=== PATIENT | female | born 1975 | race Caucasian/White ===

== ENCOUNTER 2020-11-06 08:18 | Inpatient (IN) | payer SELFPAY ==
[2020-11-06] VITALS (13 sets, daily range): BP systolic 148–209; BP diastolic 103–149; PULSE 84–110; RESP 15–30; TEMP 36.4–36.8; O2SAT 95–100; BMI 28.6
[2020-11-06] MEDS: sodium chloride 0.9% 1,000 ML 999 ML IV (09:17)
[2020-11-06] MEDS: lidocaine 2% viscous 15 ML, aluminum-mag hydrox-simethicon 30 ML, sucralfate oral liq 1 GM PO (09:18)
--- NOTE | 2020-11-06 09:20 | W.ED.ABDPA2 ---
HPI - Abdominal Pain General: Chief Complaint: Abdominal Pain Stated Complaint: ABDOMEN PAIN Time Seen by Provider: 11/06/20 08:42 History of Present Illness: HPI narrative: 45-year-old female presents emergency room complaining of epigastric and abdominal pain primarily in the left upper quadrant radiating into the left upper quadrant. It began last night she does admit to drinking a moderate amount last night she does drink fairly regularly. She has been very nauseous. She is not had any chest pain. It is painful to take a deep breath she says most the pain is in her abdomen when she takes a deep breath. MD elicited complaint: abdominal pain Onset (ago): hour(s) Pain Consistency: constant Location: Epigastric and LUQ Severity: severe Quality: cramping and stabbing Radiation: L flank Exacerbating factors: eating Relieving factors: medication (In the emergency room) Associated Symptoms: Reports anorexia, GI cramping, dyspepsia, heartburn, melena, nausea and poor appetite; Denies belching, bloating, change in bowel habits, change in stool character, chills, coffee ground emesis, constipation, diarrhea, dysuria, excessive flatus, fever(s), hematochezia, hematuria, hematemesis, fecal incontinence, loose stools, syncope and vomiting Review of Systems Const: Denies: fever(s) or chills ENMT: Denies: throat pain, ear or mastoid pain, nasal discharge or nasal congestion Card: Denies: syncope Resp: Denies: dyspnea, productive cough or non-productive cough GI: Reports: nausea, heartburn, GI cramping and melena; Denies: vomiting, hematemesis, coffee ground emesis, diarrhea, constipation, bloating, belching, excessive flatus, fecal incontinence, change in bowel habits, change in stool character or hematochezia : Denies: dysuria or hematuria Skin/Breast: Denies: rash or pruritus PFSH ED PFSH: Medical History Alcohol use disorder, moderate, dependence Hypothyroidism Recurrent nephrolithiasis Soft tissue abscess Steatohepatitis, alcoholic Surgical History Gastric bypass status for obesity H/O lithotripsy S/P cholecystectomy Family History Mother , Sudden at age 60. It was suspected to be due to [place] No problems noted. Father , Diabetes with hypertriglyceridemia No problems noted. Social History Smoking and tobacco status: never smoked Alcohol intake: current Alcohol intake frequency: 3 or more drinks per day Alcohol type: beer Desire information about alcohol rehabilitation?: No Counseling given: Yes Type of substance drug use counseling provided: provider counseling Lives independently: Yes Household members: spouse Physical Exam Const: COMMON NORMALS: no acute distress GENERAL APPEARANCE: cooperative and comfortable ORIENTATION/CONSCIOUSNESS: Yes awake, Yes oriented to person, Yes oriented to place and Yes oriented to time HENMT: COMMON NORMALS: normocephalic, atraumatic, hearing grossly normal bilaterally and external ears normal HEAD & SCALP: normocephalic and atraumatic EXTERNAL EAR: Yes external ears normal Neck/C-Spine: COMMON NORMALS: no JVD Lymph: LYMPHATIC: no lymphadenopathy noted and no lymphedema noted Resp: COMMON NORMALS: normal respiratory effort, No retractions, No use of accessory muscles and clear to auscultation bilaterally AUSCULTATION: clear to auscultation bilaterally Cardio: COMMON NORMALS: no JVD, regular rate, regular rhythm and No murmurs present (Cardio) RATE: regular rate RHYTHM: regular rhythm GI: AUSCULTATION: Yes normoactive bowel sounds PALPATION: Yes Tenderness to palpation present (GI) (epigastric) Details: LUQ and No Guarding due to palpation present (GI) Extremity: COMMON NORMALS: normal to inspection, capillary refill normal, no clubbing, cyanosis or edema, no calf tenderness and no pedal edema Neuro: SENSORIUM/ORIENTATION: Yes oriented to person, Yes oriented to place and Yes oriented to time Skin: COMMON NORMALS: no rashes or lesions noted GENERAL SKIN EXAM: no rashes or lesions noted Course Vital Signs: Vital signs: Vital Signs Temperature 98.4 F 11/09/20 13:32 Pulse Rate 73 11/09/20 13:32 Respiratory Rate 18 11/09/20 13:32 Blood Pressure 136/92 11/09/20 13:32 Pulse Oximetry 98 11/09/20 13:32 MDM - Abdominal Pain Lab Data: Labs: Lab Results 11/06/20 11/06/20 11/06/20 Range/Units 09:13 09:13 09:13 WBC 7.2 (4.0-10.0) 10^3/ uL RBC 4.50 (4.1-5.3) 10^6/u L Hgb 12.5 (11.5-15.3) g/dL Hct 38.2 (37.0-47.0) % MCV 84.9 (81-99) fL MCH 27.8 L (28.0-34.0) pg MCHC 32.7 (30.0-36.0) g/dL RDW 14.7 (12.1-15.1) % Plt Count 202 (130-400) 10^3/c mm MPV 10.2 (7.4-10.4) fL Neut % (Auto) 80.1 % Lymph % (Auto) 12.0 % [place] % (Auto) 6.4 % Eos % (Auto) 0.3 % Baso % (Auto) 0.8 % Neut # (Auto) 5.72 (1.8-7.7) 10^3/u L Lymph # (Auto) 0.9 (0.8-4.8) 10^3/u L [place] # (Auto) 0.5 (0.2-0.9) 10^3/u L Eos # (Auto) 0.0 (0.0-0.8) 10^3/u L Baso # (Auto) 0.1 (0.0-0.1) 10^3/u L Nucleated RBC % (a uto) 0 % Nucleated RBCs # 0.0 /100WBC Sodium 133 L (136-145) mmol/L Potassium 3.1 L (3.5-5.1) mmol/L Chloride 91 L (98-107) mmol/L Carbon Dioxide 27 (22-29) mmol/L Anion Gap 18.1 (5-19) BUN 4 L (6-20) mg/dL Creatinine 0.4 L (0.5-0.9) mg/dL GFR Calculation 171.1 H (90-130) mL/min Glucose 95 (65-115) mg/dL Calculated Osmolal ity 273 L (285-295) mOsm/k g Calcium 9.8 (8.5-10.5) mg/dL Magnesium 1.4 L (1.7-2.3) mg/dL Total Bilirubin 1.0 (0.15-1.2) mg/dL AST 71 H (0-32) U/L ALT 36 H (0-33) U/L Alkaline Phosphata se 205 H (35-105) IU/L Total Protein 9.1 H (6.6-8.7) g/dL Albumin 4.5 (3.5-5.2) g/dL Globulin 4.6 (1.3-4.6) g/dL Triglycerides 102 (0-150) mg/dL Cholesterol 220 H (0-200) mg/dL LDL Cholesterol, C alc 85 (50-129) mg/dL HDL Cholesterol 115 H (60-100) mg/dL LDL/HDL Ratio 0.74 (0.00-3.22) RATI O Cholesterol/HDL Ra isabela 1.91 (0.0-4.40) mg/dL Lipase 1612 H (13-60) U/L Vitamin B12 763 (232-1245) pg/mL Urine Color (Yellow) Urine Appearance (CLEAR) Urine pH (5-7) Ur Specific Gravit y (1.005-1.030) Urine Protein (Negative) Urine Glucose (UA) (Normal) Urine Ketones (Negative) Urine Blood (Negative) Urine Nitrate (Negative) Urine Bilirubin (Negative) Urine Urobilinogen (Negative) mg/dL Ur Leukocyte Tammy ase (Negative) Urine RBC (0-2) /hpf Urine WBC (0-5) /hpf Ur Squamous Epith Cells (0-5) /hpf Amorphous Sediment Urine Bacteria (NONE) /hpf 11/06/20 Range/Units 09:46 WBC (4.0-10.0) 10^3/ uL RBC (4.1-5.3) 10^6/u L Hgb (11.5-15.3) g/dL Hct (37.0-47.0) % MCV (81-99) fL MCH (28.0-34.0) pg MCHC (30.0-36.0) g/dL RDW (12.1-15.1) % Plt Count (130-400) 10^3/c mm MPV (7.4-10.4) fL Neut % (Auto) % Lymph % (Auto) % [place] % (Auto) % Eos % (Auto) % Baso % (Auto) % Neut # (Auto) (1.8-7.7) 10^3/u L Lymph # (Auto) (0.8-4.8) 10^3/u L [place] # (Auto) (0.2-0.9) 10^3/u L Eos # (Auto) (0.0-0.8) 10^3/u L Baso # (Auto) (0.0-0.1) 10^3/u L Nucleated RBC % (a uto) % Nucleated RBCs # /100WBC Sodium (136-145) mmol/L Potassium (3.5-5.1) mmol/L Chloride (98-107) mmol/L Carbon Dioxide (22-29) mmol/L Anion Gap (5-19) BUN (6-20) mg/dL Creatinine (0.5-0.9) mg/dL GFR Calculation (90-130) mL/min Glucose (65-115) mg/dL Calculated Osmolal ity (285-295) mOsm/k g Calcium (8.5-10.5) mg/dL Magnesium (1.7-2.3) mg/dL Total Bilirubin (0.15-1.2) mg/dL AST (0-32) U/L ALT (0-33) U/L Alkaline Phosphata se (35-105) IU/L Total Protein (6.6-8.7) g/dL Albumin (3.5-5.2) g/dL Globulin (1.3-4.6) g/dL Triglycerides (0-150) mg/dL Cholesterol (0-200) mg/dL LDL Cholesterol, C alc (50-129) mg/dL HDL Cholesterol (60-100) mg/dL LDL/HDL Ratio (0.00-3.22) RATI O Cholesterol/HDL Ra isabela (0.0-4.40) mg/dL Lipase (13-60) U/L Vitamin B12 (232-1245) pg/mL Urine Color Yellow (Yellow) Urine Appearance Clear (CLEAR) Urine pH 7 (5-7) Ur Specific Gravit y 1.000 L (1.005-1.030) Urine Protein Trace (Negative) Urine Glucose (UA) Norm (Normal) Urine Ketones Negative (Negative) Urine Blood Neg (Negative) Urine Nitrate Negative (Negative) Urine Bilirubin Neg (Negative) Urine Urobilinogen Norm (Negative) mg/dL Ur Leukocyte Tammy ase Negative (Negative) Urine RBC 0-4 H (0-2) /hpf Urine WBC 0-4 H (0-5) /hpf Ur Squamous Epith Cells 0-4 H (0-5) /hpf Amorphous Sediment Not Reportable Urine Bacteria Trace (NONE) /hpf Discharge Plan Discharge Patient Disposition: Admitted As Inpatient Admit Provider: Vimal Pond Clinical Impression: Acute pancreatitis, Alcohol use disorder, moderate, dependence, Steatohepatitis, alcoholic Condition: Stable Discharge Diet: Advance as tolerated Discharge Activity: Increase activity as tolerated Coding Level of Care Code ED Subgrade Tester for Gracy Ansari
[2020-11-06 09:21] LABS: Basophils # 0.1 10^3/uL (0.0-0.1); Basophils % 0.8 %; Eosinophils % 0.3 %; Hematocrit 38.2 % (37.0-47.0); Hemoglobin 12.5 g/dL (11.5-15.3); Lymphocytes # 0.9 10^3/uL (0.8-4.8); Mean Corpuscular HGB Conc 32.7 g/dL (30.0-36.0); Mean Corpuscular Hemoglobin 27.8 pg (28.0-34.0); Mean Corpuscular Volume 84.9 fL (81-99); Mean Platelet Volume 10.2 fL (7.4-10.4); Monocytes # 0.5 10^3/uL (0.2-0.9); Monocytes % 6.4 %; Neutrophils # 5.72 10^3/uL (1.8-7.7); Neutrophils % 80.1 %; Nucleated Red Blood Cells % 0 %; Platelet Count 202 10^3/cmm (130-400); Red Cell Distribution Width 14.7 % (12.1-15.1); White Blood Count 7.2 10^3/uL (4.0-10.0)
[2020-11-06] MEDS: ondansetron 2 mg/ML SDV 2 mL 4 MG IVP ×2 (09:21→23:39)
[2020-11-06] MEDS: famotidine 20 mg/2 mL INJ 40 MG IVP (09:23)
[2020-11-06] MEDS: morphine 4 mg/mL SDV 1 mL IVP ×2 (09:26→11:29)
[2020-11-06 09:38] LABS: Alanine Aminotransferase 36 U/L (0-33); Albumin Level 4.5 g/dL (3.5-5.2); Alkaline Phosphatase 205 IU/L (35-105); Anion Gap 18.1 (5-19); Aspartate Amino Transferase 71 U/L (0-32); Blood Urea Nitrogen 4 mg/dL (6-20); Calcium 9.8 mg/dL (8.5-10.5); Carbon Dioxide 27 mmol/L (22-29); Chloride 91 mmol/L (98-107); Globulin 4.6 g/dL (1.3-4.6); Glomerular Filtration Rate 171.1 mL/min (90-130); Glucose 95 mg/dL (65-115); Osmolality Calculated 273 mOsm/kg (285-295); Potassium 3.1 mmol/L (3.5-5.1); Sodium 133 mmol/L (136-145); Total Protein 9.1 g/dL (6.6-8.7)
[2020-11-06 09:45] LABS: Lipase 1612 U/L (13-60)
[2020-11-06 10:16] LABS: Add Urine Culture? No; Add Urine Microscopic? YES; Bacteria Urine TRACE /hpf; Bilirubin Urine Neg (Negative); Blood Urine Neg (Negative); Glucose Urine UA Norm (Normal); Ketones Urine Negative (Negative); Leukocyte Esterase Urine Negative (Negative); Nitrate Urine Negative (Negative); Protein Urine Trace (Negative); RBC Urine 0-4 /hpf (0-2); Squamous Epithelial Cell Urine 0-4 /hpf (0-5); Urine Appearance Clear (CLEAR); Urine Color Yellow (Yellow); Urobilinogen Urine Norm (Negative); WBC Urine 0-4 /hpf (0-5); pH Urine 7 (5-7)
--- NOTE | 2020-11-06 10:34 | CT_ITS ---
WS: [id number] CT ABDOMEN PELVIS TECHNIQUE: Contrast-enhanced CT of the abdomen and pelvis with coronal and sagittal reformatted image s. CLINICAL INFORMATION: abd pain COMPARISON: CT abdomen pelvis 2 29,012 DLP: 773.[address] scans at [facility] use at least one of these dose optimization techniques: automat ed exposure control; mA and/or kV adjustment per patient size (includes targeted exams where dose is matched to clinical indication); or iterative reconstruction. FINDINGS:Diffuse edema with inflammatory stranding about the pancreas. Mild dilatation of the pancrea tic duct and common bile duct. Fluid about the pancreatic head, body, and tail. Normal pancreatic par enchymal enhancement. Findings consistent with pancreatitis. Small epigastric hernia in the upper abd omen with herniated omental fat. Celiac and SMA appear patent. Splenic vein is patent. Innumerable small soft tissue nodules in the gluteus bilaterally with a few small peripheral enhancin g fluid collections measuring approximately 1.5-2.0 CM. Findings may be related to prior cosmetic int ramuscular fat or silicone injections. Mild diffuse inflammatory stranding and induration in both but tocks. Prominent inguinal lymph nodes likely reactive to the presumed buttock injections. Diffuse fatty infiltration of the liver. Normal portal vein and splenic vein. Cholecystectomy clips. Postoperative changes at the GE junction. Gastric banding. Lung bases are well aerated. Normal spleen . Adrenal glands are normal. Normal renal parenchymal enhancement. No hydronephrosis. [id number]-[id number] amount of free fluid in the pelvis. Normal sigmoid colon. No evidence of high-grade small or large bowel obstruction. Normal caliber abdominal aorta. No periaortic lymphadenopathy. CT/CT abdomen pelvis w con* [id number] IMPRESSION: 1. Diffuse edema with fluid and inflammatory stranding about the pancreas cons istent with pancreatitis. Recommend correlation with pancreatic enzymes 2. Mild dilatation of the pancreatic duct and common bile duct. Splenic vein i s patent. Normal pancreatic parenchymal enhancement. 3. Prior postoperative changes gastric bypass. 4. No hydronephrosis in either kidney. 5. Diffuse fatty infiltration liver. 6. Small amount of free fluid in the pelvis. 7. Bilateral innumerable small soft tissue nodules in both buttocks with a few peripheral enhancing small fluid collections measuring approximately 1.5 CM. F indings may be related to prior cosmetic fat or silicon injections 8. Fat-containing epigastric hernia. Notified Sim Urban DO at 11/06/2020 11:25 AM.
[2020-11-06] MEDS: iohexol 300 mg/mL 100 mL Btl IV (10:51)
[2020-11-06] MEDS: amlodipine 5 mg Tablet PO (11:23)
[2020-11-06] MEDS: metoprolol tartrate 1 mg/1 mL SDV 5 mL 2.5 MG IV (11:24)
[2020-11-06] MEDS: LORazepam 2 mg/mL INJ 1 mL IVP (11:26)
[2020-11-06] MEDS: piperacillin-tazobactam 3.375 GM in sodium chloride 0.9% (plus) 50 ML IV (12:20)
--- NOTE | 2020-11-06 13:15 | P.HP_ITS ---
Providers/Chief Complaint Chief Complaint: ABDOMEN PAIN History of Present Illness Judie Rhodes is a 45 year old female presents to emergency department with severe 9 out of 10 sharp epigastric area pain radiating to her back that started yesterday. Patient had 2 episodes of nausea and vomiting and also reports 2 episodes of diarrheal bowel movements since yesterday. She denies fever or chills. Her abdominal pain is constant and she denies any alleviating or aggravating factors except analgesics make it less painful. Patient reports that she has chronic low back pain for which she was taking dmfr-hha-[id number] ibuprofen and Aleve for long period of time. She also reports drinking 8-10 beers daily for the last couple years especially heavily for the last 1 year. She lost her insurance approximately 3 years ago and she has not been taking prescription medications like thyroid replacement and blood pressure medications. In emergency department she was diagnosed with acute pancreatitis. She was dehydrated and is being admitted for further monitoring and treatment. She r eports that long time ago she had similar pain which resulted in cholecystectomy. Reports that at that time MRCP was done which did not show any stones in the bile ducts. Her liver enzymes Are elevated slightly with normal bilirubin. She has evidence of fatty liver disease. She has minimal extra hepatic bile duct dilatation which appears to be related to previous cholecystectomy. Biliary obstructive process felt unlikely. Patient reports that she gets severe shakes when she stops drinking. Reports that she is very interested in medications for her to stop drinking. She denies previous history of seizures or DTs. Denies previous history of diabetes, stroke or heart disease. She lives with her . She has 1 child vaginally delivered. Reports that for the last 2 years may be once every 3 weeks she would get pelvic pain after urination. This usually does not last long. 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 She does however been evaluated by urologist including Dr. Rebollar previously for cystoscopy and lithotripsy several times. Reports that last stool could have been slightly black in color but she did take Pepto-Bismol at home. Denies any melanotic stool prior to this event. Review of Systems Narrative: Except as mentioned in HPI and also patient reports that she has frequent indurations on her buttocks that eventually form sinus tract and drain ing purulent material. Reports that she would frequently use sterile needle to drain those nodules. She has 2 large indurated nodules on her left buttock that she reports eventually will drain. CT scan did show some small fluid collection. This been going on for many years off and on. Const: Denies: fever(s) or chills Eyes: Denies: change in vision ENMT: Denies: throat pain or change in hearing Card: Denies: chest pain, edema or lightheadedness Resp: Denies: dyspnea or productive cough GI: Reports: abdominal pain, nausea, vomiting and diarrhea; Denies: dysphagia, constipation, hematochezia or melena : Denies: difficulty voiding (Except as mentioned.) Musc: Reports: joint pain (Chronic low back pain); Denies: joint swelling Skin/Breast: Denies: rash or erythema Neuro: Denies: headache(s) or weakness in extremities Psych: Denies: depression or suicidal ideation Endo: Denies: excessive sweating Hira/Lymph: Denies: easy bleeding or tender lymph nodes All/Imm: Denies: throat swelling Medications/Allergies Home Medications Medication Instructions Recorded Confirmed Last Taken Type No Known Home Medications 11/06/20 11/06/20 Unknown History Allergies Allergy/AdvReac Type Severity Reaction Status Date / Time No Known Allergies Allergy Unverified 11/06/20 12:20 PFSH Acute PFSH: Medical History (Updated 11/06/20 @ 13:42 by Vimal Pond MD) Alcohol use disorder, moderate, dependence Hypothyroidism Recurrent nephrolithiasis Soft tissue abscess Steatohepatitis, alcoholic Surgical History (Updated 11/06/20 @ 13:33 by Vimal Pond MD) Gastric bypass status for obesity H/O lithotripsy S/P cholecystectomy Family History (Updated 11/06/20 @ 13:34 by Vimal Pond MD) Mother , Sudden at age 60. It was suspected to be due to [place] No problems noted. Father , Diabetes with hypertriglyceridemia No problems noted. Social History (Updated 11/06/20 @ 13:35 by Vimal Pond MD) Smoking and tobacco status: never smoked Alcohol intake: current Alcohol intake frequency: 3 or more drinks per day Alcohol type: beer Alcohol use comment: 8-10 beers daily Desire information about alcohol rehabilitation?: No Counseling given: Yes Type of substance drug use counseling provided: provider counseling Lives independently: Yes Household members: spouse Vitals/I&O/Wt Last Vital Signs Temp 97.8 F 11/06/20 08:36 Pulse 91 11/06/20 12:22 Resp 20 H 11/06/20 12:22 BP 159/121 11/06/20 12:22 Pulse Ox 96 11/06/20 12:22 Weight last 48 hrs Weight 78.018 kg Physical Exam Const: COMMON NORMALS: no acute distress, patient oriented x3 and alert HENMT: COMMON NORMALS: normocephalic and atraumatic HEAD & SCALP: normocephalic and atraumatic Eye: COMMON NORMALS: EOMs intact bilaterally, conjunctivae normal and no scleral icterus CONJUNCTIVA: Yes conjunctivae normal Neck/C-Spine: COMMON NORMALS: no lymphadenopathy and no meningeal signs Lymph: LYMPHATIC: no lymphadenopathy noted Chest: COMMONS NORMALS: normal palpation of entire chest wall Resp: COMMON NORMALS: No use of accessory muscles and clear to auscultation bilaterally AUSCULTATION: clear to auscultation bilaterally Cardio: COMMON NORMALS: regular rate, regular rhythm and No murmurs present (Cardio) RATE: regular rate RHYTHM: regular rhythm OTHER: No lower extremity edema GI: COMMON NORMALS: Soft to palpation PALPATION: Yes Soft to palpation RECTAL EXAM: deferred OTHER: Abdomen is tender at epigastric area mostly. Some diffuse tenderness also noted but no guarding or rebound tenderness. : COMMON NORMALS: Yes no CVA tenderness BLADDER/KIDNEY EXAM: Yes no CVA tenderness Back/Pelvis: COMMON NORMALS: no CVA tenderness and thoracic and lumbar spine normal to inspection Extremity: COMMON NORMALS: normal to inspection and capillary refill normal Neuro: COMMON NORMALS: patient oriented x3 and no focal motor deficits SENSORIUM/ORIENTATION: Yes alert MENINGEAL SIGNS: Yes no meningeal signs Psych: COMMON NORMALS: mental status grossly normal, Normal thought process present and cooperative THOUGHT PROCESS: Normal thought process present Skin: COMMON NORMALS: no rashes or lesions noted GENERAL SKIN EXAM: no rashes or lesions noted Data : 11/06/20 09:13 11/06/20 09:13 A&P Assessment and plan (1) Acute pancreatitis: Alcoholic in origin. Status: Acute (2) Dehydration with hyponatremia: Status: Acute (3) Steatohepatitis, alcoholic: Status: Acute (4) Hypokalemia: Status: Acute (5) Alcohol use disorder, moderate, dependence: Status: Acute (6) Soft tissue abscess: Status: Acute (7) Hypothyroidism: Status: Acute (8) Alcohol withdrawal delirium, acute, hypoactive: Tremulous. Status: Acute Additional A&P Information PLAN: Start patient on IV fluids with LR and replete potassium. Check magnesium. Monitor urinary output. Initiate CIWA protocol in addition to standing dose Librium as patient is very tremulous at rest. Discussed extensively regarding importance of alcohol abstinence. Patient voiced understanding and wants help to get her over withdrawal. We have discussed that patient will benefit from outpatient follow-up with [facility] and AA. Patient was interested. We will request soft tissue ultrasound to evaluate significant indurations on the left buttock. Check TSH, hemoglobin A1c and lipid profile. Start patient on high-dose PPI and initiate clear liquid diet. Advance as tolerated. We will hold off on antibiotics at this point. Consider MRSA coverage depending on findings of soft tissue ultrasound. Patient may require surgical consultation. Attestations 2 Medical Necessity Statement*: Patient with acute pancreatitis requires close inpatient monitoring and treatment. I expect patient will require more than 2 midnights. Time Spent in Patient Care: Greater than 35 minutes (>than 50% of time spent in counselling and/or direct pt care on unit) . Coding Level of Care Code Acute Warehouse Administrative Assistant for Gracy Ansari Diagnoses Acute pancreatitis K85.90 Dehydration with hyponatremia E86.0; E87.1 Steatohepatitis, alcoholic K70.10 Hypokalemia E87.6 Alcohol use disorder, moderate, dependence F10.20 Soft tissue abscess L02.91 Hypothyroidism E03.9 Alcohol withdrawal delirium, acute, hypoactive F10.231
--- NOTE | 2020-11-06 13:33 | ECG_ITS ---
[facility] Test Date: 2020-11-06 Pat Name: Judie Rhodes Department: Room: 106 Gender: Female [employer] Worker: : 1975 Requested By: Sim Cheatham Order Number: [id number] Fidencio MD: Jovanni Hendrickson M.D. Measurements Intervals [place] Rate: 81 P: 28 [place]: 149 QRS: 0 QRSD: 94 T: 21 QT: 392 QTc: 455 Interpretive Statements SINUS RHYTHM No previous ECG available for comparison Electronically Signed On 11-06-2020 16:00:34 CONSTRUCTION PERSON by Jovanni Hendrickson M.D. [id number]
--- NOTE | 2020-11-06 13:46 | US_ITS ---
WS: [id number] INDICATION: Ultrasound soft tissue left buttocks TECHNIQUE: Ultrasound soft tissue area of concern FINDINGS: Ultrasound soft tissue area of concern left buttocks. Diffuse heterogeneous subcutaneous fa t echotexture corresponding to the multifocal nodularity seen on the CT from earlier today. The 2 lar gest heterogeneous collections measure approximately 3.4 x 1.6 x 1.1 cm and 2.7 x 1.8 x 1.4 CM. Compl ex internal echogenic contents. These do not appear easily drainable.. These may be due to prior cosm etic fat or silicone injections. Recommend correlation with clinical history. US/US soft tissue/extremity [id number] IMPRESSION: 1. Ultrasound soft tissue left buttocks demonstrates diffuse subcutaneous hete rogeneous echotexture corresponding to the multifocal nodularity seen on the CT A. 2. The 2 largest collections are measured and described above with echogenic i nternal debris which may be due to silicone if history of silicone injections. This does not appear easily drainable.
[2020-11-06] MEDS: potassium chloride ER 20 mEq Tablet 40 MEQ PO ×2 (14:24→19:57)
[2020-11-06] MEDS: lactated ringers 1,000 ML 150 ML IV ×2 (14:24→19:56)
[2020-11-06] MEDS: folic acid 1 mg Tablet PO (14:25)
[2020-11-06] MEDS: enoxaparin 40 mg/0.4 mL Syringe SUBCUT (14:25)
[2020-11-06 14:27] LABS: Chol HDL Ratio 1.91 mg/dL (0.0-4.40); Cholesterol 220 mg/dL (0-200); HDL Cholesterol 115 mg/dL (60-100); LDL Cholesterol Calculated 85 mg/dL (50-129); LDL HDL Ratio 0.74 RATIO (0.00-3.22); Magnesium 1.4 mg/dL (1.7-2.3); Triglycerides 102 mg/dL (0-150)
[2020-11-06] MEDS: morphine IR 15 mg Tablet PO ×2 (14:30→21:41)
[2020-11-06 15:04] LABS: Vitamin B12 763 pg/mL (232-1245)
[2020-11-06] MEDS: chlordiazePOXIDE 25 mg Capsule 50 MG PO ×2 (16:31→21:41)
[2020-11-06] MEDS: pantoprazole DR 40 mg Tablet PO (17:22)
[2020-11-06] MEDS: morphine 4 mg/mL SDV 1 mL 2 MG IVP ×2 (17:22→23:38)
--- NOTE | 2020-11-06 20:00 | PC.NURSE ---
PT IS RESTING IN BED. PT C/O 9/10 PAIN IN THE UPPER/MID ABD. PT STATES THAT IT IS PANCREATITIS. PT AMBULATED TO BR AT THIS TIME. PT DOESN'T WANT ANYTHING FOR PAIN AT THIS TIME. WILL CONTINUE TO MONITOR.
[2020-11-07] VITALS (12 sets, daily range): BP systolic 121–156; BP diastolic 81–96; PULSE 71–87; RESP 14–25; TEMP 36.4–36.9; O2SAT 94–98
[2020-11-07] MEDS: lactated ringers 1,000 ML 150 ML IV ×3 (02:43→17:02)
[2020-11-07 04:02] LABS: Basophils # 0.1 10^3/uL (0.0-0.1); Basophils % 1.2 %; Hematocrit 30.3 % (37.0-47.0); Hemoglobin 9.5 g/dL (11.5-15.3); Lymphocytes # 1.2 10^3/uL (0.8-4.8); Lymphocytes % 30.1 %; Mean Corpuscular HGB Conc 31.4 g/dL (30.0-36.0); Mean Corpuscular Hemoglobin 27.3 pg (28.0-34.0); Mean Corpuscular Volume 87.1 fL (81-99); Monocytes # 0.4 10^3/uL (0.2-0.9); Monocytes % 9.3 %; Neutrophils # 2.36 10^3/uL (1.8-7.7); Neutrophils % 57.9 %; Nucleated Red Blood Cells % 0 %; Platelet Count 145 10^3/cmm (130-400); Red Blood Count 3.48 10^6/uL (4.1-5.3); White Blood Count 4.1 10^3/uL (4.0-10.0)
[2020-11-07 04:27] LABS: Alanine Aminotransferase 26 U/L (0-33); Albumin Level 3.4 g/dL (3.5-5.2); Alkaline Phosphatase 139 IU/L (35-105); Anion Gap 13.3 (5-19); Aspartate Amino Transferase 47 U/L (0-32); Blood Urea Nitrogen 7 mg/dL (6-20); Calcium 8.5 mg/dL (8.5-10.5); Carbon Dioxide 28 mmol/L (22-29); Chloride 98 mmol/L (98-107); Globulin 3.6 g/dL (1.3-4.6); Glomerular Filtration Rate 171.1 mL/min (90-130); Glucose 85 mg/dL (65-115); Osmolality Calculated 279 mOsm/kg (285-295); Potassium 3.3 mmol/L (3.5-5.1); Sodium 136 mmol/L (136-145); Total Bilirubin 0.8 mg/dL (0.15-1.2)
[2020-11-07 04:35] LABS: Estmated Average Glucose 85; Hemoglobin A1C 4.6 % (4.0-6.0); Thyroid Stimulating Hormone 8.37 uIU/mL (0.27-4.20)
[2020-11-07 04:46] LABS: Lipase 1387 U/L (13-60)
[2020-11-07] MEDS: chlordiazePOXIDE 25 mg Capsule 50 MG PO ×4 (04:54→20:54)
[2020-11-07] MEDS: morphine IR 15 mg Tablet PO ×2 (04:57→11:40)
--- NOTE | 2020-11-07 05:00 | PC.NURSE ---
PT IS RESTING IN BED. PT C/O 7/10 PAIN IN MID/UPPER ABD. PRN MORPHINE 15MG PO WAS GIVEN. WILL CONTINUE TO MONITOR.
[2020-11-07] MEDS: ondansetron 2 mg/ML SDV 2 mL 4 MG IVP ×2 (08:29→15:06)
[2020-11-07] MEDS: morphine 4 mg/mL SDV 1 mL 2 MG IVP ×2 (08:31→18:38)
[2020-11-07] MEDS: pantoprazole DR 40 mg Tablet PO ×2 (08:33→17:02)
[2020-11-07] MEDS: folic acid 1 mg Tablet PO (08:33)
[2020-11-07] MEDS: potassium chloride ER 20 mEq Tablet 40 MEQ PO ×2 (08:33→14:07)
[2020-11-07] MEDS: multivitamin therapeutic Tablet 1 TAB PO (08:34)
[2020-11-07] MEDS: thiamine 100 mg Tablet PO (08:34)
--- NOTE | 2020-11-07 08:57 | PM.PN ---
Subjective Subjective: Interval history: Patient reports feeling overall better. Reports that yesterday evening she tolerated oral intake well but this morning after she had her clear liquid diet she developed some worsening of her epigastric pain and nausea. Denies vomiting. Had no more bowel movement since admission. Denies chest pain. Reports that her withdrawal symptoms are gone and Librium initiated yesterday helped her a lot. Vitals/I&O/Wt Last Vital Signs Temp 98.0 F 11/07/20 07:23 Pulse 77 11/07/20 07:23 Resp 25 H 11/07/20 08:31 BP 127/89 11/07/20 07:23 Pulse Ox 96 11/06/20 12:22 11/06/20 11/07/20 11/07/20 22:59 06:59 14:59 Intake Total 1190 / 1190 1000 / 2190 120 / 120 Balance 1190 / 1190 1000 / 2190 120 / 120 Weight last 48 hrs Weight 78.018 kg Physical Exam Narrative: EXAM NARRATIVE: Clear lungs and regular heart. Abdomen is soft and tender at epigastric area. No lower extremity edema. Data : 11/07/20 03:44 11/07/20 03:44 A&P Assessment and plan (1) Acute pancreatitis: Alcoholic in origin. Status: Acute (2) Dehydration with hyponatremia: Status: Acute (3) Steatohepatitis, alcoholic: Status: Acute (4) Hypokalemia: Status: Acute (5) Alcohol use disorder, moderate, dependence: Status: Acute (6) Soft tissue abscess: Status: Acute (7) Hypothyroidism: Status: Acute (8) Alcohol withdrawal delirium, acute, hypoactive: Tremulous. Status: Acute (9) Hypomagnesemia: Status: Acute Additional A&P Information PLAN: We will hold diet for now. Discussed with RN. Will reinitiate when patient feels better and wants to try clear liquids again. Continue IV fluids. Replete electrolytes. Soft tissue ultrasound does not show easily drainable fluid. Patient will benefit from outpatient surgical evaluation. Start patient on levothyroxine 50 mcg daily. Attestations Medical Necessity Statement*: Patient with acute pancreatitis requires close inpatient monitoring and treatment. 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
[2020-11-07] MEDS: magnesium sulfate premix 4 GM/100 ML PREMIX IV (09:21)
[2020-11-07] MEDS: levothyroxine 100 mcg SDV 50 MCG IVP (09:35)
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
[2020-11-07] MEDS: enoxaparin 40 mg/0.4 mL Syringe SUBCUT (14:08)
[2020-11-07] MEDS: morphine ER (12 HR) 30 mg tablet PO ×2 (15:05→20:52)
[2020-11-08] VITALS (11 sets, daily range): BP systolic 125–135; BP diastolic 80–90; PULSE 65–85; RESP 13–22; TEMP 36.5–37.1; O2SAT 96–100
[2020-11-08] MEDS: lactated ringers 1,000 ML 150 ML IV ×4 (00:01→22:29)
[2020-11-08] MEDS: morphine IR 15 mg Tablet PO ×2 (04:43→13:56)
[2020-11-08 05:34] LABS: Basophils % 1.2 %; Eosinophils # 0.1 10^3/uL (0.0-0.8); Eosinophils % 1.4 %; Hematocrit 34.3 % (37.0-47.0); Hemoglobin 10.2 g/dL (11.5-15.3); Lymphocytes # 1.3 10^3/uL (0.8-4.8); Lymphocytes % 37.3 %; Mean Corpuscular HGB Conc 29.7 g/dL (30.0-36.0); Mean Corpuscular Hemoglobin 27.3 pg (28.0-34.0); Mean Corpuscular Volume 91.7 fL (81-99); Mean Platelet Volume 10.4 fL (7.4-10.4); Monocytes # 0.3 10^3/uL (0.2-0.9); Neutrophils # 1.75 10^3/uL (1.8-7.7); Neutrophils % 50.5 %; Nucleated Red Blood Cells % 0 %; Platelet Count 172 10^3/cmm (130-400); Red Blood Count 3.74 10^6/uL (4.1-5.3); Red Cell Distribution Width 15.2 % (12.1-15.1); White Blood Count 3.5 10^3/uL (4.0-10.0)
[2020-11-08] MEDS: chlordiazePOXIDE 25 mg Capsule 50 MG PO ×3 (05:52→18:50)
[2020-11-08 06:01] LABS: Alanine Aminotransferase 20 U/L (0-33); Albumin Level 3.4 g/dL (3.5-5.2); Alkaline Phosphatase 135 IU/L (35-105); Anion Gap 11.7 (5-19); Aspartate Amino Transferase 37 U/L (0-32); Blood Urea Nitrogen 4 mg/dL (6-20); Calcium 8.9 mg/dL (8.5-10.5); Carbon Dioxide 27 mmol/L (22-29); Chloride 101 mmol/L (98-107); Globulin 3.5 g/dL (1.3-4.6); Glomerular Filtration Rate 171.1 mL/min (90-130); Glucose 83 mg/dL (65-115); Magnesium 1.8 mg/dL (1.7-2.3); Osmolality Calculated 278 mOsm/kg (285-295); Potassium 3.7 mmol/L (3.5-5.1); Sodium 136 mmol/L (136-145); Total Bilirubin 0.5 mg/dL (0.15-1.2); Total Protein 6.9 g/dL (6.6-8.7)
[2020-11-08 06:11] LABS: Lipase 338 U/L (13-60)
[2020-11-08] MEDS: morphine ER (12 HR) 30 mg tablet PO ×2 (08:06→22:29)
[2020-11-08] MEDS: pantoprazole DR 40 mg Tablet PO ×2 (08:06→18:50)
[2020-11-08] MEDS: multivitamin therapeutic Tablet 1 TAB PO (08:06)
[2020-11-08] MEDS: folic acid 1 mg Tablet PO (08:06)
[2020-11-08] MEDS: thiamine 100 mg Tablet PO (08:06)
[2020-11-08] MEDS: ondansetron 2 mg/ML SDV 2 mL 4 MG IVP (09:47)
[2020-11-08] MEDS: morphine 4 mg/mL SDV 1 mL 2 MG IVP (09:53)
--- NOTE | 2020-11-08 10:15 | P.PN_ITS ---
Subjective Subjective: Interval history: Patient reports that this morning she again started having epigastric area abdominal pain even before she had breakfast. Reports that yesterday she was able to tolerate dinner okay. She denies shortness of breath or chest pain. Overall reports her abdominal pain is getting better but still quite tender requiring frequent analgesics. She wants to continue with clear liquid diet. Her WBC is down to 3.5 and this appears to be related to alcohol. Platelets appear to be improving. She has good urinary output. Denies withdrawal signs. Vitals/I&O/Wt Last Vital Signs Temp 97.7 F 11/08/20 06:58 Pulse 71 11/08/20 06:58 Resp 18 11/08/20 09:53 BP 135/89 11/08/20 06:58 Pulse Ox 100 11/08/20 06:58 11/07/20 11/08/20 11/08/20 22:59 06:59 14:59 Intake Total 1772.5 / 3060.0 3000 / 6060.0 320 / 320 Balance 1772.5 / 2510.0 3000 / 5510.0 320 / 320 Physical Exam Narrative: EXAM NARRATIVE: Clear lungs and regular heart. Abdomen is soft and tender at epigastric area. No lower extremity edema. Data : 11/08/20 05:03 11/08/20 05:03 A&P Assessment and plan (1) Acute pancreatitis: Alcoholic in origin. Status: Acute (2) Dehydration with hyponatremia: Status: Acute (3) Steatohepatitis, alcoholic: Status: Acute (4) Hypokalemia: Status: Acute (5) Alcohol use disorder, moderate, dependence: Status: Acute (6) Soft tissue abscess: Status: Acute (7) Hypothyroidism: Status: Acute (8) Alcohol withdrawal delirium, acute, hypoactive: Tremulous. Status: Acute (9) Hypomagnesemia: Status: Acute Additional A&P Information PLAN: Decrease IV fluids 200 mill per hour. Continue long-acting and short-acting morphine. Will DC IV form. If patient continues to have pain in couple days will consider reimaging. Gradually advance diet as tolerated. Decrease Librium to every 8 hours. Attestations Medical Necessity Statement*: Patient with acute pancreatitis requires close inpatient monitoring and treatment until deemed safe for discharge. 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
[2020-11-08] MEDS: levothyroxine 100 mcg SDV 50 MCG IVP (11:55)
[2020-11-08] MEDS: enoxaparin 40 mg/0.4 mL Syringe SUBCUT (15:41)
--- NOTE | 2020-11-08 18:52 | PC.NURSE ---
shift summary pt has had morphine IR 15 PO twice this shift, she seems to tolerate it well and controls her pain. Pt has had nausea this am, but has not had any after receiving zofran this am. she has been up ad corry to bathroom with no difficulties.
[2020-11-09] VITALS (7 sets, daily range): BP systolic 136–147; BP diastolic 88–97; PULSE 70–86; RESP 17–18; TEMP 36.4–37.1; O2SAT 96–98
[2020-11-09] MEDS: lactated ringers 1,000 ML 150 ML IV (04:02)
[2020-11-09] MEDS: morphine IR 15 mg Tablet PO (04:07)
[2020-11-09 06:26] LABS: Alanine Aminotransferase 18 U/L (0-33); Alkaline Phosphatase 119 IU/L (35-105); Anion Gap 10.8 (5-19); Aspartate Amino Transferase 31 U/L (0-32); Blood Urea Nitrogen 3 mg/dL (6-20); Calcium 8.9 mg/dL (8.5-10.5); Carbon Dioxide 24 mmol/L (22-29); Chloride 101 mmol/L (98-107); Globulin 3.5 g/dL (1.3-4.6); Glomerular Filtration Rate 132.2 mL/min (90-130); Glucose 87 mg/dL (65-115); Lipase 100 U/L (13-60); Magnesium 1.5 mg/dL (1.7-2.3); Osmolality Calculated 270 mOsm/kg (285-295); Potassium 3.8 mmol/L (3.5-5.1); Sodium 132 mmol/L (136-145); Total Bilirubin 0.4 mg/dL (0.15-1.2); Total Protein 6.5 g/dL (6.6-8.7)
[2020-11-09 08:08] LABS: Basophils # 0.1 10^3/uL (0.0-0.1); Basophils % 1.4 %; Eosinophils # 0.1 10^3/uL (0.0-0.8); Eosinophils % 2.2 %; Hematocrit 32.5 % (37.0-47.0); Hemoglobin 9.5 g/dL (11.5-15.3); Lymphocytes # 1.4 10^3/uL (0.8-4.8); Mean Corpuscular HGB Conc 29.2 g/dL (30.0-36.0); Mean Corpuscular Hemoglobin 27.9 pg (28.0-34.0); Mean Corpuscular Volume 95.6 fL (81-99); Monocytes # 0.4 10^3/uL (0.2-0.9); Monocytes % 10.2 %; Neutrophils # 1.72 10^3/uL (1.8-7.7); Neutrophils % 47.6 %; Nucleated Red Blood Cells % 0 %; Platelet Count 163 10^3/cmm (130-400); Red Cell Distribution Width 15.3 % (12.1-15.1); White Blood Count 3.6 10^3/uL (4.0-10.0)
[2020-11-09] MEDS: thiamine 100 mg Tablet PO (08:22)
[2020-11-09] MEDS: morphine ER (12 HR) 30 mg tablet PO (08:22)
[2020-11-09] MEDS: multivitamin therapeutic Tablet 1 TAB PO (08:22)
[2020-11-09] MEDS: folic acid 1 mg Tablet PO (08:23)
[2020-11-09] MEDS: pantoprazole DR 40 mg Tablet PO (08:23)
[2020-11-09 09:15] LABS: Lipase 102 U/L (13-60)
[2020-11-09] MEDS: levothyroxine 100 mcg SDV 50 MCG IVP (09:42)
[2020-11-09] MEDS: ondansetron 2 mg/ML SDV 2 mL 4 MG IVP (09:43)
--- NOTE | 2020-11-09 11:02 | PM.DCS ---
Discharge Providers Date of Admission: 11/06/20 12:43 Date of Discharge: November 09, 2020 Attending Provider at Admission: Vimal Pond MD Attending Provider at Discharge: Vmial Pond MD Diagnoses at Discharge Discharge Diagnosis (1) Acute pancreatitis: Status: Acute (2) Dehydration with hyponatremia: Status: Acute (3) Steatohepatitis, alcoholic: Status: Acute (4) Hypokalemia: Status: Acute (5) Alcohol use disorder, moderate, dependence: Status: Acute (6) Soft tissue abscess: Status: Acute (7) Hypothyroidism: Status: Acute (8) Alcohol withdrawal delirium, acute, hypoactive: Status: Acute (9) Hypomagnesemia: Status: Acute Reason for Visit Reason for Visit: ABDOMEN PAIN Hospital Course Hospital Course Patient presented with abdominal pain. She was found to have alcohol induced pancreatitis. Patient was treated accordingly and gradually improved. Her lipase steadily declined and patient is able to tolerate oral intake. Reports that her abdominal pain only minimal but is asking for morphine for next several days just in case if she gets pain. 10 tablets of morphine immediate release will be given. Patient will be continued on Librium taper. We had extensive discussion regarding importance of alcohol abstinence. Patient voiced understanding. Outpatient follow-up with [facility] was recommended. Patient was told to discuss with her doctor to have TSH checked in 6 weeks to adjust levothyroxine if needed. Outpatient follow-up with Dr. Albrecht will also be requested to evaluate her nodules which currently does not appear to be infected. Patient reports doing much better this morning and strong enough to be dismissed home. She denies shortness of breath or chest pain this morning. She is ambulating in her room without difficulty. She has no neurological findings. She does not have tremor. Physical Exam Narrative: EXAM NARRATIVE: Clear lungs and regular heart. Abdomen is soft slightly tender at epigastric area. No rebound tenderness or guarding. No lower extremity edema. Discharge Data Data Completed and Pending: Completed Studies During Hospitalization Category Date Time Status CT abdomen pelvis w con* [id number] Stat Cat Scan 11/06/20 10:34 Completed US soft tissue/ex tremity [id number] Rout ine Ultrasound 11/06/20 13:46 Completed Pending at discharge Category Date Time Status Complete Blood Co unt w/Auto AM LABS Lab 11/10/20 04:00 Ordered Comprehensive Met abolic Panel AM LA BS Lab 11/10/20 04:00 Ordered Magnesium AM LABS Lab 11/10/20 04:00 Ordered Labs from last 24 hours 11/09/20 11/09/20 11/09/20 07:45 05:29 05:29 WBC 3.6 L Corrected WBC RBC 3.40 L Hgb 9.5 L Hct 32.5 L MCV 95.6 MCH 27.9 L MCHC 29.2 L RDW 15.3 H Plt Count 163 MPV 10.0 Gran % Neut % (Auto) 47.6 Lymph % (Auto) 38.0 [place] % (Auto) 10.2 Eos % (Auto) 2.2 Baso % (Auto) 1.4 Neut # (Auto) 1.72 L Lymph # (Auto) 1.4 [place] # (Auto) 0.4 Eos # (Auto) 0.1 Baso # (Auto) 0.1 Absolute Gran (aut o) Nucleated RBC % (a uto) 0 Nucleated RBCs # 0.0 Sodium 132 L Potassium 3.8 Chloride 101 Carbon Dioxide 24 Anion Gap 10.8 BUN 3 L Creatinine 0.5 GFR Calculation 132.2 H Glucose 87 Calculated Osmolal ity 270 L Calcium 8.9 Magnesium 1.5 L Total Bilirubin 0.4 AST 31 ALT 18 Alkaline Phosphata se 119 H Total Protein 6.5 L Albumin 3.0 L Globulin 3.5 Lipase 102 H 100 H 11/09/20 05:29 WBC Cancelled Corrected WBC Cancelled RBC Cancelled Hgb Cancelled Hct Cancelled MCV Cancelled MCH Cancelled MCHC Cancelled RDW Cancelled Plt Count Cancelled MPV Cancelled Gran % Cancelled Neut % (Auto) Cancelled Lymph % (Auto) Cancelled [place] % (Auto) Cancelled Eos % (Auto) Cancelled Baso % (Auto) Cancelled Neut # (Auto) Cancelled Lymph # (Auto) Cancelled [place] # (Auto) Cancelled Eos # (Auto) Cancelled Baso # (Auto) Cancelled Absolute Gran (aut o) Cancelled Nucleated RBC % (a uto) Cancelled Nucleated RBCs # Cancelled Sodium Potassium Chloride Carbon Dioxide Anion Gap BUN Creatinine GFR Calculation Glucose Calculated Osmolal ity Calcium Magnesium Total Bilirubin AST ALT Alkaline Phosphata se Total Protein Albumin Globulin Lipase Vitals: Last Vital Signs Temp 98.7 F 11/09/20 07:37 Pulse 70 11/09/20 07:37 Resp 18 11/09/20 08:22 BP 138/97 11/09/20 07:37 Pulse Ox 98 11/09/20 07:37 Discharge Plan Discharge Patient Disposition: Home Condition: Stable Prescriptions: New chlordiazepoxide HCl 25 mg Capsule See Rx Instructions .ROUTE .COMPLEX Qty: 10 RF: 0 morphine 15 mg Tablet 15 mg PO Q6H PRN (Reason: Severe Pain) Qty: 10 RF: 0 folic acid 1 mg Tablet 1 mg PO DAILY Qty: 30 RF: 0 pantoprazole 40 mg Tablet,Delayed Release (Dr/Ec) 40 mg PO BID Qty: 60 RF: 0 thiamine mononitrate (vit B1) [Vitamin B-1 (mononitrate)] 100 mg Tablet 100 mg PO DAILY Qty: 30 RF: 0 levothyroxine 50 mcg tablet 50 mcg PO DAILY Qty: 30 RF: 0 No Action No Known Home Medications RF: 0 Discharge Orders: Discharge Order (Routine); Ordered 11/09/20 Ordered By: Vimal Pond Referrals: Sal Albrecht MD [Physician] - 1 week [facility], [Staff Physician] - 4-7 days Discharge Diet: Advance as tolerated Discharge Activity: Increase activity as tolerated Activity Restrictions/Additional Instructions: Please call your doctor or present to emergency department if your condition worsens or you develop diarrhea, lightheadedness, fatigue or see blood in your stool or black stool. Please avoid drinking alcohol as we have discussed and follow-up with outpatient [facility] earliest possible. Please discuss with your doctor to repeat TSH test in 6 weeks to adjust your thyroid replacement therapy if needed. Please follow-up with primary care physician within next 4 to 7 days. Please note that I am requesting follow-up appointment to see Dr. Albrecht, general surgeon for evaluation of your nodules on the left buttock. Please avoid using needles to drain by yourself as you may introduce infection. 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
[2020-11-09] MEDS: magnesium sulfate premix 4 GM/100 ML PREMIX IV (11:33)
[2020-11-09] MEDS: chlordiazePOXIDE 25 mg Capsule 50 MG PO (11:33)
== END 2020-11-09 13:33 | disposition home or self-care (01) | DRG 439 ==
LOC: ER 12:40 → CSU 13:15 → MEDSURG 11-08 06:41
PROVIDERS: Admitting Provider Internal Medicine; Emergency Provider Family Medicine; Visit Provider Internal Medicine
DX: K85.20 Alcohol induced acute pancreatitis without necrosis or infection (principal); F10.231 Alcohol dependence with withdrawal delirium; E87.1 Hypo-osmolality and hyponatremia; L02.91 Cutaneous abscess, unspecified; F10.20 Alcohol dependence, uncomplicated; G89.29 Other chronic pain; M54.5 Low back pain; E86.0 Dehydration; K70.0 Alcoholic fatty liver; Z87.442 Personal history of urinary calculi; E03.9 Hypothyroidism, unspecified; Z98.84 Bariatric surgery status; E83.42 Hypomagnesemia
CPT/HCPCS: 12345; 36415; 51798; 74177; 76882; 80053; 80061; 81001; 82607; 83036; 83690; 83735; 84443; 85025; 93005; 96372; J1650; J2060; J2270; J2405; J2543; J3411; J3475; J3490; J7030; Q9967

== ENCOUNTER → 2020-11-21 10:22 | Outpatient (BNVA) | payer SELFPAY | PROVIDERS: Visit Provider Nurse Practitioner Family | DX: R41.82 Altered mental status, unspecified (principal); N39.0 Urinary tract infection, site not specified; M54.12 Radiculopathy, cervical region; K85.90 Acute pancreatitis without necrosis or infection, unspecified; F10.20 Alcohol dependence, uncomplicated | CPT/HCPCS: 80307 ==

== ENCOUNTER → 2021-01-06 08:57 | Outpatient (BNVA) | payer OTHER, SELFPAY | PROVIDERS: PCP Nurse Practitioner Family; Visit Provider Nurse Practitioner Family | DX: E03.9 Hypothyroidism, unspecified (principal); D64.9 Anemia, unspecified; R74.8 Abnormal levels of other serum enzymes; M54.2 Cervicalgia; R89.9 Unspecified abnormal finding in specimens from other organs, systems and tissues | CPT/HCPCS: 80076; 84443; 85025 ==

== ENCOUNTER → 2021-01-13 10:55 | Outpatient (BNVA) | payer OTHER, SELFPAY | PROVIDERS: PCP Nurse Practitioner Family; Visit Provider Nurse Practitioner Family | DX: D64.9 Anemia, unspecified (principal); I10 Essential (primary) hypertension | CPT/HCPCS: 82607; 83550 ==

== ENCOUNTER 2021-07-12 13:26 | Emergency (ER) | payer SELFPAY ==
[2021-07-12 13:56] VITALS: BP 149/98; PULSE 100; RESP 14; TEMP 36.9; O2SAT 98; BMI 27.4
--- NOTE | 2021-07-12 14:05 | XRR_ITS ---
PROCEDURE INFORMATION: Exam: XR Lumbosacral Spine Exam date and time: 07/12/2021 2:05 PM Age: 45 years old Clinical indication: Low back pain; Additional info: Injury TECHNIQUE: Imaging protocol: XR of the lumbosacral spine. Views: 2 or 3 views. Total images: 3 COMPARISON: CT abdomen pelvis w con* [id number] 11/06/2020 11:01 AM FINDINGS: Bones/joints: No visible acute osseous abnormality. Pedicles intact. Minimal scoliotic curvature. Intervertebral disc space heights preserved throughout. No spondylolysis or spondylolisthesis. Mild facet arthrosis L5/S1. Soft tissues: Unremarkable. XR/XR lumbar spine 2-3V* [id number] IMPRESSION: Nonacute. Radiation Dose CTDIVOL = (mGy): DLP = (mGy-cm)
--- NOTE | 2021-07-12 16:15 | CTR_ITS ---
PROCEDURE INFORMATION: Exam: CT Lumbar Spine With Contrast Exam date and time: 07/12/2021 4:15 PM Age: 45 years old Clinical indication: Low back pain; Patient HX: C/O rle deficit and lbp after feeling a pop while moving firewood yesterday; Additional info: Sciatica with back injury TECHNIQUE: Imaging protocol: Computed tomography images of the lumbar spine with intravenous contrast. Total images: 390 Radiation optimization: All CT scans at this facility use at least one of these dose optimization techniques: automated exposure control; mA and/or kV adjustment per patient size (includes targeted exams where dose is matched to clinical indication); or iterative reconstruction. Contrast material: OMNI 300; Contrast volume: 95 ml; Contrast route: INTRAVENOUS (IV); COMPARISON: CR XR lumbar spine 2-3V* [id number] 07/12/2021 3:17 PM RADIATION DOSE METRICS: Total DLP (mGy-cm): 2367.68 FINDINGS: Vertebrae: No visible fracture, subluxation, or dislocation. No visible spondylolysis or spondylolisthesis. Mild facet arthrosis L3/L4, L4/L5, and L5/S1. Scoliosis. Discs/Spinal canal/Neural foramina: Intervertebral disc space heights preserved throughout. No visible herniated nucleus pulposis or significant posterior annular disc bulge that results in central canal stenosis or neural foraminal carotid from. No significant disc protrusion. No severe spinal canal stenosis. No significant neural foraminal narrowing. Soft tissues: Unremarkable. CT/CT lumbar spine w con [id number] IMPRESSION: No acute findings. Radiation Dose CTDIVOL = (mGy): DLP = 2367.68 (mGy-cm)
--- NOTE | 2021-07-12 16:48 | W.ED.BACK ---
Documented by User: Preston Basurto 07/12/21 17:50 HPI - Back Pain/Injury General: Chief Complaint: Back Pain/Injury Stated Complaint: BACK PAIN Time Seen by Provider: 07/12/21 15:20 Source: patient Mode of arrival: ambulatory History of Present Illness: HPI Narrative: 45-year-old female presents to emergency department chief complaint of severe right-sided back pain. 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 Patient reports having a prior history of bulging disks reports history of intermittent chronic sciatica noted to the back. Patient reports no bowel or bladder incontinence reports mild weakness noted to the right leg that is chronic for her reporting significant pain and painful numbness rating down to the anterior right thigh. Patient reports that she did feel a pop upon bending over and reports she has not been well since. Pertinent past history: prior back pain, recent trauma and neurological deficit Onset (ago): day(s) (2) Timing: intermittent and progressively worsening Pain scale (0-10): 8 Quality: burning, spasming and throbbing Location: lumbar spine and right flank Radiation: none Exacerbating factors: movement Associated symptoms: Deny abdominal pain, chills, fatigue, fever(s), nausea or vomiting Work related injury: No Review of Systems General: Reports: 10 or more systems reviewed and unremarkable except in HPI and below Const: Denies: fever(s), chills, fatigue or malaise Eyes: Denies: change in vision or blurry vision Card: Denies: chest pain or palpitations Resp: Denies: dyspnea or productive cough GI: Denies: abdominal pain, nausea or vomiting : Denies: flank pain Musc: Reports: back pain, limited range of motion and muscle cramps; Denies: extremity pain or extremity swelling Skin/Breast: Denies: rash or pruritus Neuro: Denies: headache(s) Psych: Denies: anxiety or depression Hira/Lymph: Denies: easy bleeding All/Imm: Denies: urticaria, throat swelling or facial swelling PFS ED PFSH: Medical History Alcohol use disorder, moderate, dependence Anemia Hypothyroidism Recurrent nephrolithiasis Soft tissue abscess Steatohepatitis, alcoholic Surgical History Gastric bypass status for obesity H/O lithotripsy S/P cholecystectomy Family History Mother , Sudden at age 60. It was suspected to be due to [place] No problems noted. Father , Diabetes with hypertriglyceridemia No problems noted. Social History Smoking and tobacco status: never smoked Alcohol intake: current Alcohol intake frequency: 3 or more drinks per day Alcohol type: beer Desire information about alcohol rehabilitation?: No Counseling given: Yes Type of substance drug use counseling provided: provider counseling Lives independently: Yes Household members: spouse Physical Exam Narrative: EXAM NARRATIVE: Appears in moderate distress due to pain. Const: COMMON NORMALS: no acute distress, patient oriented x3 and healthy appearing HENMT: COMMON NORMALS: normocephalic and atraumatic HEAD & SCALP: normocephalic and atraumatic Eye: COMMON NORMALS: Equal, round and reactive pupils present and EOMs intact bilaterally PUPIL: Yes Equal, round and reactive pupils present Neck/C-Spine: COMMON NORMALS: full ROM, supple and no JVD Lymph: LYMPHATIC: no lymphadenopathy noted Chest: COMMONS NORMALS: normal inspection of the chest and normal palpation of entire chest wall Resp: COMMON NORMALS: normal respiratory effort, No retractions and clear to auscultation bilaterally EFFORT & INSPECTION: Yes able to speak in complete sentences and Yes symmetric chest movement AUSCULTATION: clear to auscultation bilaterally Cardio: COMMON NORMALS: no JVD, regular rate and regular rhythm RATE: regular rate RHYTHM: regular rhythm GI: COMMON NORMALS: Normal to inspection, nondistended, normoactive bowel sounds present, Soft to palpation and non-tender INSPECTION: Yes normal to inspection PALPATION: Yes Soft to palpation : BLADDER/KIDNEY EXAM: Yes CVA tenderness Back/Pelvis: GENERAL BACK: Yes CVA tenderness THORACIC SPINE/UPPER BACK: Yes ROM limited and Yes pain with ROM LUMBAR SPINE/LOWER BACK: Yes ROM limited, Yes pain with ROM, Yes lumbar spinal tenderness, Yes paraspinal muscle tenderness, Yes paraspinal muscle spasm and Yes straight leg raise positive right Extremity: COMMON NORMALS: normal to inspection and full ROM Neuro: COMMON NORMALS: patient oriented x3, CN's II-XII intact bilaterally, moves all extremities and no focal motor deficits Psych: COMMON NORMALS: mental status grossly normal, Normal thought process present, cooperative and normal affect THOUGHT PROCESS: Normal thought process present Skin: COMMON NORMALS: no rashes or lesions noted GENERAL SKIN EXAM: no rashes or lesions noted Course Vital Signs: Vital signs: Vital Signs Temperature 98.5 F 07/12/21 13:56 Pulse Rate 84 07/12/21 18:58 Respiratory Rate 17 07/12/21 18:58 Blood Pressure 131/92 07/12/21 18:58 Pulse Oximetry 95 07/12/21 18:58 MDM - Back Pain/Injury MDM Narrative: Medical decision making narrative: Due to the patient's syncope condition lab medication were provided for the patient pain discomfort CT imaging with contrast will be obtained as well at this time underlying concerns of radicular lumbar radiculopathy versus sciatica versus lumbar strain are prominent. Differential Diagnosis: Differential diagnosis back pain/injury: Likely lumbar radiculopathy, sciatica and strain of lumbar region Medical Records: Attestation: I reviewed the patient's medical records. Lab Data: Attestation: I reviewed the patient's lab results. Labs: Lab Results 07/12/21 07/12/21 07/12/21 16:44 17:06 17:06 WBC 11.9 10^3/uL H 10 ^3/uL (4.0-10.0) RBC 4.48 10^6/uL 10^6 /uL (4.1-5.3) Hgb 13.5 g/dL g/dL (11.5-15.3) Hct 42.2 % % (37.0-47.0) MCV 94.2 fl fl (81-99) MCH 30.1 pg pg (28.0-34.0) MCHC 32.0 g/dL g/dL (30.0-36.0) RDW 14.1 % % (12.1-15.1) Plt Count 195 10^3/cmm 10^3 /cmm (130-400) MPV 9.5 fL fL (7.4-10.4) Neut % (Auto) 80.7 % % Lymph % (Auto) 11.8 % % [place] % (Auto) 5.9 % % Eos % (Auto) 0.3 % % Baso % (Auto) 0.5 % % Neut # (Auto) 9.62 10^3/uL H 10 ^3/uL (1.8-7.7) Lymph # (Auto) 1.4 10^3/uL 10^3/ uL (0.8-4.8) [place] # (Auto) 0.7 10^3/uL 10^3/ uL (0.2-0.9) Eos # (Auto) 0.0 10^3/uL 10^3/ uL (0.0-0.8) Baso # (Auto) 0.1 10^3/uL 10^3/ uL (0.0-0.1) Nucleated RBC % (a uto) 0 % % Nucleated RBCs # 0.0 /100WBC /100W BC Sodium 136 mmol/L mmol/L (136-145) Potassium 4.1 mmol/L mmol/L (3.5-5.1) Chloride 95 mmol/L L mmol/ L (98-107) Carbon Dioxide 26 mmol/L mmol/L (22-29) Anion Gap 19.1 H (5-19) BUN 5 mg/dL L mg/dL (6-20) Creatinine 0.4 mg/dL L mg/dL (0.5-0.9) GFR Calculation 171.1 mL/min H mL /min (90-130) Glucose 81 mg/dL mg/dL (65-115) Calculated Osmolal ity 278 mOsm/kg L mOs m/kg (285-295) Calcium 9.7 mg/dL mg/dL (8.5-10.5) Total Bilirubin 0.3 mg/dL mg/dL (0.15-1.2) AST 74 U/L H U/L (0-32) ALT 41 U/L H U/L (0-33) Alkaline Phosphata se 166 IU/L H IU/L (35-105) Total Protein 9.0 g/dL H g/dL (6.6-8.7) Albumin 4.1 g/dL g/dL (3.5-5.2) Globulin 4.9 g/dL H g/dL (1.3-4.6) Urine Color Yellow (Yellow) Urine Appearance Clear (CLEAR) Urine pH 6 (5-7) Ur Specific Gravit y 1.005 (1.005-1.030) Urine Protein Neg (Negative) Urine Glucose (UA) Norm (Normal) Urine Ketones Negative (Negative) Urine Blood Neg (Negative) Urine Nitrate Negative (Negative) Urine Bilirubin Neg (Negative) Urine Urobilinogen Norm mg/dL mg/dL (Negative) Ur Leukocyte Tammy ase Negative (Negative) Discharge Plan Discharge Patient Disposition: Home Clinical Impression: Acute lumbar radiculopathy, Acute lumbar back pain Condition: Stable Prescriptions: New hydrocodone-acetaminophen 5-325 mg tablet 1 tab PO Q6H PRN (Reason: pain) Qty: 14 RF: 0 methocarbamol 750 mg tablet 750 mg PO Q6H PRN (Reason: spasms) Qty: 20 RF: 0 Naprosyn 500 mg tablet 500 mg PO BID PRN (Reason: pain) Qty: 20 RF: 0 prednisone 50 mg tablet 50 mg PO DAILY Qty: 5 RF: 0 No Action levothyroxine 50 mcg tablet 50 mcg PO DAILY Qty: 30 RF: 1 lisinopril 2.5 mg tablet 2.5 mg PO DAILY Qty: 30 RF: 0 chlordiazepoxide HCl 25 mg Capsule See Rx Instructions .ROUTE .COMPLEX Qty: 10 RF: 0 folic acid 1 mg Tablet 1 mg PO DAILY Qty: 30 RF: 0 morphine 15 mg Tablet 15 mg PO Q6H PRN (Reason: Severe Pain) Qty: 10 RF: 0 pantoprazole 40 mg Tablet,Delayed Release (Dr/Ec) 40 mg PO BID Qty: 60 RF: 0 Vitamin B-1 (mononitrate) 100 mg Tablet 100 mg PO DAILY Qty: 30 RF: 0 Discharge Orders: Discharge ED (Routine); Ordered 07/12/21 Ordered By: Cheryl Colvin Referrals: Michael Callaway DO [Physician] - 1-3 days Rachel Lazar FNP [Primary Care Provider] - 1-3 days Discharge Diet: Advance as tolerated Discharge Activity: Resume usual activity Patient Instructions: Sciatica (ED), Opioid Safety Coding Level of Care Code ED Development Advisor for Chg Fwd Exam Comprehensive Documented by User: Cheryl Colvin MD 07/12/21 19:08 HPI - Back Pain/Injury General: Chief Complaint: Back Pain/Injury Stated Complaint: BACK PAIN Time Seen by Provider: 07/12/21 15:20 PFSH ED PFSH: Medical History Alcohol use disorder, moderate, dependence Anemia Hypothyroidism Recurrent nephrolithiasis Soft tissue abscess Steatohepatitis, alcoholic Surgical History Gastric bypass status for obesity H/O lithotripsy S/P cholecystectomy Family History Mother , Sudden at age 60. It was suspected to be due to [place] No problems noted. Father , Diabetes with hypertriglyceridemia No problems noted. Social History Smoking and tobacco status: never smoked Alcohol intake: current Alcohol intake frequency: 3 or more drinks per day Alcohol type: beer Desire information about alcohol rehabilitation?: No Counseling given: Yes Type of substance drug use counseling provided: provider counseling Lives independently: Yes Household members: spouse Course Vital Signs: Vital signs: Vital Signs Temperature 98.5 F 07/12/21 13:56 Pulse Rate 84 07/12/21 18:58 Respiratory Rate 17 07/12/21 18:58 Blood Pressure 131/92 07/12/21 18:58 Pulse Oximetry 95 07/12/21 18:58 MDM - Back Pain/Injury MDM Narrative: Medical decision making narrative: Patient presents here with low back pain with sciatica. She has no signs of acute cord compression. She has no weakness in her leg or saddle anesthesia. Her pain is much improved after IV pain medicine. We will get her follow-up with spine surgeon and place her on pain meds and steroids. She is return if worsening. She understands agrees to plan. Lab Data: Labs: Lab Results 07/12/21 07/12/21 07/12/21 16:44 17:06 17:06 WBC 11.9 10^3/uL H 10 ^3/uL (4.0-10.0) RBC 4.48 10^6/uL 10^6 /uL (4.1-5.3) Hgb 13.5 g/dL g/dL (11.5-15.3) Hct 42.2 % % (37.0-47.0) MCV 94.2 fl fl (81-99) MCH 30.1 pg pg (28.0-34.0) MCHC 32.0 g/dL g/dL (30.0-36.0) RDW 14.1 % % (12.1-15.1) Plt Count 195 10^3/cmm 10^3 /cmm (130-400) MPV 9.5 fL fL (7.4-10.4) Neut % (Auto) 80.7 % % Lymph % (Auto) 11.8 % % [place] % (Auto) 5.9 % % Eos % (Auto) 0.3 % % Baso % (Auto) 0.5 % % Neut # (Auto) 9.62 10^3/uL H 10 ^3/uL (1.8-7.7) Lymph # (Auto) 1.4 10^3/uL 10^3/ uL (0.8-4.8) [place] # (Auto) 0.7 10^3/uL 10^3/ uL (0.2-0.9) Eos # (Auto) 0.0 10^3/uL 10^3/ uL (0.0-0.8) Baso # (Auto) 0.1 10^3/uL 10^3/ uL (0.0-0.1) Nucleated RBC % (a uto) 0 % % Nucleated RBCs # 0.0 /100WBC /100W BC Sodium 136 mmol/L mmol/L (136-145) Potassium 4.1 mmol/L mmol/L (3.5-5.1) Chloride 95 mmol/L L mmol/ L (98-107) Carbon Dioxide 26 mmol/L mmol/L (22-29) Anion Gap 19.1 H (5-19) BUN 5 mg/dL L mg/dL (6-20) Creatinine 0.4 mg/dL L mg/dL (0.5-0.9) GFR Calculation 171.1 mL/min H mL /min (90-130) Glucose 81 mg/dL mg/dL (65-115) Calculated Osmolal ity 278 mOsm/kg L mOs m/kg (285-295) Calcium 9.7 mg/dL mg/dL (8.5-10.5) Total Bilirubin 0.3 mg/dL mg/dL (0.15-1.2) AST 74 U/L H U/L (0-32) ALT 41 U/L H U/L (0-33) Alkaline Phosphata se 166 IU/L H IU/L (35-105) Total Protein 9.0 g/dL H g/dL (6.6-8.7) Albumin 4.1 g/dL g/dL (3.5-5.2) Globulin 4.9 g/dL H g/dL (1.3-4.6) Urine Color Yellow (Yellow) Urine Appearance Clear (CLEAR) Urine pH 6 (5-7) Ur Specific Gravit y 1.005 (1.005-1.030) Urine Protein Neg (Negative) Urine Glucose (UA) Norm (Normal) Urine Ketones Negative (Negative) Urine Blood Neg (Negative) Urine Nitrate Negative (Negative) Urine Bilirubin Neg (Negative) Urine Urobilinogen Norm mg/dL mg/dL (Negative) Ur Leukocyte Tammy ase Negative (Negative) Imaging Data^: Other CT: Attestation: I personally reviewed and interpreted this imaging study as follows: Radiologist's impression: [address] [address] [address] Scan Report Signed Patient: Judie Rhodes Unit #: [id number] : 1975 Age/Sex: 45 / F ADM Date: 07/12/21 Loc: ER Room/Bed: Attending Dr: Ordering Provider/Ordering MD: Preston Basurto DO Date of Service: 07/12/21 Procedure(s): CT lumbar spine w con [id number] Accession Number(s): [id number] Report Number: [id number] PROCEDURE INFORMATION: Exam: CT Lumbar Spine With Contrast Exam date and time: 07/12/2021 4:15 PM Age: 45 years old Clinical indication: Low back pain; Patient HX: C/O rle deficit and lbp after feeling a pop while moving firewood yesterday; Additional info: Sciatica with back injury TECHNIQUE: Imaging protocol: Computed tomography images of the lumbar spine with intravenous contrast. Total images: 390 Radiation optimization: All CT scans at this facility use at least one of these dose optimization techniques: automated exposure control; mA and/or kV adjustment per patient size (includes targeted exams where dose is matched to clinical indication); or iterative reconstruction. Contrast material: OMNI 300; Contrast volume: 95 ml; Contrast route: INTRAVENOUS (IV); COMPARISON: CR XR lumbar spine 2-3V* [id number] 07/12/2021 3:17 PM RADIATION DOSE METRICS: Total DLP (mGy-cm): 2367.68 FINDINGS: Vertebrae: No visible fracture, subluxation, or dislocation. No visible spondylolysis or spondylolisthesis. Mild facet arthrosis L3/L4, L4/L5, and L5/S1. Scoliosis. Discs/Spinal canal/Neural foramina: Intervertebral disc space heights preserved throughout. No visible herniated nucleus pulposis or significant posterior annular disc bulge that results in central canal stenosis or neural foraminal carotid from. No significant disc protrusion. No severe spinal canal stenosis. No significant neural foraminal narrowing. Soft tissues: Unremarkable. CT/CT lumbar spine w con [id number] IMPRESSION: No acute findings. Radiation Dose CTDIVOL = (mGy): DLP = 2367.68 (mGy-cm) Dictated By: Surinder Henley Signed By: Surinder Henley Signed Date/Time: 07/12/21 174 DD/ 1615 Discharge Plan Discharge Patient Disposition: Home Clinical Impression: Acute lumbar radiculopathy, Acute lumbar back pain Condition: Stable Prescriptions: New hydrocodone-acetaminophen 5-325 mg tablet 1 tab PO Q6H PRN (Reason: pain) Qty: 14 RF: 0 methocarbamol 750 mg tablet 750 mg PO Q6H PRN (Reason: spasms) Qty: 20 RF: 0 Naprosyn 500 mg tablet 500 mg PO BID PRN (Reason: pain) Qty: 20 RF: 0 prednisone 50 mg tablet 50 mg PO DAILY Qty: 5 RF: 0 No Action levothyroxine 50 mcg tablet 50 mcg PO DAILY Qty: 30 RF: 1 lisinopril 2.5 mg tablet 2.5 mg PO DAILY Qty: 30 RF: 0 chlordiazepoxide HCl 25 mg Capsule See Rx Instructions .ROUTE .COMPLEX Qty: 10 RF: 0 folic acid 1 mg Tablet 1 mg PO DAILY Qty: 30 RF: 0 morphine 15 mg Tablet 15 mg PO Q6H PRN (Reason: Severe Pain) Qty: 10 RF: 0 pantoprazole 40 mg Tablet,Delayed Release (Dr/Ec) 40 mg PO BID Qty: 60 RF: 0 Vitamin B-1 (mononitrate) 100 mg Tablet 100 mg PO DAILY Qty: 30 RF: 0 Discharge Orders: Discharge ED (Routine); Ordered 07/12/21 Ordered By: Cheryl Colvin Referrals: Michael Callaway DO [Physician] - 1-3 days Rachel Lazar FNP [Primary Care Provider] - 1-3 days Discharge Diet: Advance as tolerated Discharge Activity: Resume usual activity Patient Instructions: Sciatica (ED), Opioid Safety Coding Level of Care Code ED Development Advisor for Gracy Fwd Exam Comprehensive
[2021-07-12 16:55] LABS: Add Urine Microscopic? NO; Charge for UA Resulting for Rev
[2021-07-12 17:19] LABS: Bilirubin Urine Neg (Negative); Blood Urine Neg (Negative); Glucose Urine UA Norm (Normal); Ketones Urine Negative (Negative); Leukocyte Esterase Urine Negative (Negative); Nitrate Urine Negative (Negative); Protein Urine Neg (Negative); Specific Gravity, Urine 1.005 (1.005-1.030); Urine Appearance Clear (CLEAR); Urine Color Yellow (Yellow); Urobilinogen Urine Norm (Negative); pH Urine 6 (5-7)
[2021-07-12] MEDS: iohexol 300 mg/mL 100 mL Btl IV (17:24)
[2021-07-12 17:43] LABS: Basophils # 0.1 10^3/uL (0.0-0.1); Basophils % 0.5 %; Eosinophils % 0.3 %; Hematocrit 42.2 % (37.0-47.0); Hemoglobin 13.5 g/dL (11.5-15.3); Lymphocytes # 1.4 10^3/uL (0.8-4.8); Lymphocytes % 11.8 %; Mean Corpuscular Hemoglobin 30.1 pg (28.0-34.0); Mean Corpuscular Volume 94.2 fl (81-99); Mean Platelet Volume 9.5 fL (7.4-10.4); Monocytes # 0.7 10^3/uL (0.2-0.9); Monocytes % 5.9 %; Neutrophils # 9.62 10^3/uL (1.8-7.7); Neutrophils % 80.7 %; Nucleated Red Blood Cells % 0 %; Platelet Count 195 10^3/cmm (130-400); Red Blood Count 4.48 10^6/uL (4.1-5.3); Red Cell Distribution Width 14.1 % (12.1-15.1); White Blood Count 11.9 10^3/uL (4.0-10.0)
[2021-07-12] MEDS: morphine 4 mg/mL SDV 1 mL IVP (17:56)
[2021-07-12] MEDS: methocarbamol 750 mg Tablet PO (17:56)
[2021-07-12 18:08] LABS: Alanine Aminotransferase 41 U/L (0-33); Albumin Level 4.1 g/dL (3.5-5.2); Alkaline Phosphatase 166 IU/L (35-105); Blood Urea Nitrogen 5 mg/dL (6-20); Calcium 9.7 mg/dL (8.5-10.5); Carbon Dioxide 26 mmol/L (22-29); Chloride 95 mmol/L (98-107); Globulin 4.9 g/dL (1.3-4.6); Glomerular Filtration Rate 171.1 mL/min (90-130); Glucose 81 mg/dL (65-115); Osmolality Calculated 278 mOsm/kg (285-295); Sodium 136 mmol/L (136-145); Total Bilirubin 0.3 mg/dL (0.15-1.2)
[2021-07-12 18:27] LABS: Anion Gap 19.1 (5-19); Aspartate Amino Transferase 74 U/L (0-32); Potassium 4.1 mmol/L (3.5-5.1)
[2021-07-12] MEDS: diazePAM 5 mg Tablet PO (18:37)
[2021-07-12] MEDS: HYDROmorphone 1 mg/mL INJ 1 mL IVP (18:38)
[2021-07-12 18:58] VITALS: BP 131/92; PULSE 84; RESP 17; O2SAT 95
[2021-07-12] MEDS: HYDROcodone-acetaminophen 10-325 mg Tablet 1 TAB PO (19:32)
--- NOTE | 2021-07-13 09:59 | DCPLANNER ---
regional facilities manager had message to schedule a follow up appointment for patient with ortho. regional facilities manager called the ortho clinic, spoke with Leslie, gave clinic patients information. regional facilities manager was told that patients information would be printed and reviewed. Clinic will call patient with appointment information.
--- NOTE | 2021-08-06 10:23 | DCPLANNER ---
Patient had a follow up appointment on 07.21.[address] Callaway at [facility] - patient did attend appointment.
== END 2021-07-12 19:39 | disposition home or self-care (01) ==
PROVIDERS: Emergency Medicine; Emergency Provider Emergency Medicine; PCP Nurse Practitioner Family
DX: M54.16 Radiculopathy, lumbar region (principal); M54.50 Low back pain, unspecified
CPT/HCPCS: 72100; 72132; 80053; 81003; 85025; 96374; 96375; 99284; J1170; J2270; J2930; Q9967

== ENCOUNTER 2021-07-19 09:13 | Emergency (ER) | payer SELFPAY ==
[2021-07-19 09:26] VITALS: BP 156/114; PULSE 96; RESP 16; TEMP 37.1; O2SAT 97; BMI 27.4
--- NOTE | 2021-07-19 10:59 | ED_ITS ---
HPI - Back Pain/Injury General: Chief Complaint: Back Pain/Injury Stated Complaint: BACK PAIN:HERNIATED DISK 1 WK AGO Time Seen by Provider: 07/19/21 09:15 Source: patient Mode of arrival: wheelchair Limitations: no limitations History of Present Illness: HPI Narrative: Patient is a 45-year-old female who presents to ED today with a complaint of lower back pain. Patient tells me she was seen in our facility on 07/12 following a back injury that occurred the day before. Patient states she was bending over to lift a piece of fire wood and noticed immediate lower back pain and heard a pop . She was referred to orthopedics/spine with Dr. Callaway and has this appointment on Tuesday. She states she was given pain medications and muscle relaxers which were controlling her pain but states she is out of these medications. Patient is having pain down bilateral lower extremities R>L. She is not complaining of numbness or tingling to her inguinal regions or genitals. She is not complaining of urinary retention or bowel incontinence. No fevers, chills. No IV drug use. MD elicited complaint: back pain Pertinent past history: recent trauma Onset (ago): day(s) Timing: constant Severity: severe Location: lumbar spine Radiation: buttocks, left upper leg and right upper leg Exacerbating factors: movement and walking Relieving factors: immobilization Context: while lifting Associated symptoms: Reports no associated symptoms; Deny abdominal pain, chills, dysuria, fatigue or fever(s) Treatments prior to arrival: NSAIDS and prescription analgesics Work related injury: No Review of Systems Const: Denies: fever(s), chills, body aches, fatigue or malaise Card: Denies: chest pain Resp: Denies: dyspnea GI: Denies: abdominal pain : Denies: flank pain or dysuria Musc: Reports: back pain; Denies: neck pain, extremity pain, extremity swelling, joint pain or joint swelling Skin/Breast: Denies: rash Neuro: Reports: sensory changes (reports pain to bilateral LEs); Denies: headache(s), lack of coordination or dizziness [facility] ED PFSH: Medical History Alcohol use disorder, moderate, dependence Anemia Hypothyroidism Recurrent nephrolithiasis Soft tissue abscess Steatohepatitis, alcoholic Surgical History Gastric bypass status for obesity H/O lithotripsy S/P cholecystectomy Family History Mother , Sudden at age 60. It was suspected to be due to ID No problems noted. Father , Diabetes with hypertriglyceridemia No problems noted. Social History Smoking and tobacco status: never smoked Alcohol intake: current Alcohol intake frequency: 3 or more drinks per day Alcohol type: beer Desire information about alcohol rehabilitation?: No Counseling given: Yes Type of substance drug use counseling provided: provider counseling Lives independently: Yes Household members: spouse Physical Exam Const: COMMON NORMALS: no acute distress, average body habitus, patient oriented x3, no limitations, healthy appearing, alert and well nourished GENERAL APPEARANCE: cooperative ORIENTATION/CONSCIOUSNESS: Yes awake, Yes oriented to person, Yes oriented to place and Yes oriented to time Back/Pelvis: THORACIC SPINE/UPPER BACK: Yes normal to inspection, Yes thoracic ROM normal, No thoracic spinal tenderness, No paraspinal muscle tenderness and No paraspinal muscle spasm LUMBAR SPINE/LOWER BACK: Yes pain with ROM, Yes lumbar spinal tenderness Lumbar spinal tenderness location: L3, L4 and L5, Yes paraspinal muscle tenderness, No paraspinal muscle spasm, No mass present, Yes straight leg raise positive right, Yes straight leg raise positive left and Yes bend over test abnormal PELVIS: Yes sciatic notch tenderness Extremity: COMMON NORMALS: normal to inspection, full ROM, capillary refill normal, no joint enlargement, no clubbing, cyanosis or edema, no calf tenderness and no pedal edema GENERAL: Yes normal exam except as noted Neuro: COMMON NORMALS: patient oriented x3, moves all extremities, no focal motor deficits and no sensory deficits noted SENSORIUM/ORIENTATION: Yes alert, Yes oriented to person, Yes oriented to place and Yes oriented to time MOTOR EXAM: 5/5 motor strength present throughout Skin: COMMON NORMALS: no rashes or lesions noted GENERAL SKIN EXAM: no rashes or lesions noted TRAUMA: no lacerations or abrasions Course Vital Signs: Vital signs: Vital Signs Temperature 98.6 F 07/19/21 11:46 Pulse Rate 98 07/19/21 11:46 Respiratory Rate 17 07/19/21 12:32 Blood Pressure 153/107 07/19/21 11:46 Pulse Oximetry 97 07/19/21 12:32 MDM - Back Pain/Injury MDM Narrative: Medical decision making narrative: Patient has no acute neurological deficits on her physical exam. History is not consistent with any infectious process. CT scan from previous visit reviewed and showed no acute findings. Symptoms clinically are consistent with low back strain/lumbar radiculopathy. She already has an appointment to see Dr. Callaway on Tuesday for further evaluation. We will give patient enough pain meds/muscle relaxers to last until his appointment. Return to ED precautions given. Discharge Plan Discharge Patient Disposition: Home Clinical Impression: Low back strain Qualifiers: Encounter type: initial encounter Qualified Code(s): S39.012A - Strain of muscle, fascia and tendon of lower back, initial encounter Condition: Stable Prescriptions: Continued hydrocodone-acetaminophen 5-325 mg tablet 1 tab PO Q6H PRN (Reason: pain) 7 Days Qty: 14 RF: 0 methocarbamol 750 mg tablet 750 mg PO Q6H PRN (Reason: spasms) Qty: 20 RF: 0 No Action levothyroxine 50 mcg tablet 50 mcg PO DAILY Qty: 30 RF: 1 lisinopril 2.5 mg tablet 2.5 mg PO DAILY Qty: 30 RF: 0 Naprosyn 500 mg tablet 500 mg PO BID PRN (Reason: pain) Qty: 20 RF: 0 prednisone 50 mg tablet 50 mg PO DAILY Qty: 5 RF: 0 chlordiazepoxide HCl 25 mg Capsule See Rx Instructions .ROUTE .COMPLEX Qty: 10 RF: 0 folic acid 1 mg Tablet 1 mg PO DAILY Qty: 30 RF: 0 pantoprazole 40 mg Tablet,Delayed Release (Dr/Ec) 40 mg PO BID Qty: 60 RF: 0 Vitamin B-1 (mononitrate) 100 mg Tablet 100 mg PO DAILY Qty: 30 RF: 0 Discharge Orders: Discharge ED (Routine); Ordered 07/19/21 Ordered By: Kayla Clark Referrals: Rachel Lazar FNP [Primary Care Provider] - Patient Instructions: Opioid Safety Activity Restrictions/Additional Instructions: [facility] is committed to fighting the nationwide opiate epidemic. We are providing ALL patients with information regarding opiate safety. If you received opiate pain medication during your stay or if you received a prescription for opiate pain medication-please review this handout. If not, you may disregard. Thank you. As we discussed please keep your follow-up appoint with Dr. Callaway on Tuesday. You may return to the emergency department for worsening or severe lower back pain, fevers greater than 100.4, inability to ambulate, severe weakness to lower extremities, numbness or tingling to your groin/genitals, inability to urinate, stool incontinence, or any other concerns you may have. I hope you begin to feel better soon. Coding Level of Care Code ED Outreach Professional for Chg Fwd Exam Detailed
[2021-07-19 11:46] VITALS: BP 153/107; PULSE 98; RESP 18; TEMP 37; O2SAT 97
[2021-07-19] MEDS: orphenadrine 30 mg/mL Inj 2 mL 60 MG IM (11:49)
[2021-07-19 11:50] VITALS: RESP 17; O2SAT 98
[2021-07-19] MEDS: morphine 4 mg/mL SDV 1 mL IM (11:50)
[2021-07-19 12:32] VITALS: RESP 17; O2SAT 97
[2021-07-19] MEDS: HYDROmorphone 1 mg/mL INJ 1 mL 0.5 MG SUBCUT (12:32)
[2021-07-19] MEDS: ketorolac 30 mg/mL INJ IM (12:34)
[2021-07-19 13:30] VITALS: BP 150/101; PULSE 95; RESP 17; TEMP 36.9; O2SAT 97
== END 2021-07-19 13:33 | disposition home or self-care (01) ==
PROVIDERS: Emergency Provider Physician Assistant; PCP Nurse Practitioner Family
DX: S39.012A Strain of muscle, fascia and tendon of lower back, initial encounter (principal); X58.XXXA Exposure to other specified factors, initial encounter; E03.9 Hypothyroidism, unspecified
CPT/HCPCS: 96372; 99283; J1170; J1885; J2270; J2360

== ENCOUNTER 2021-08-07 07:38 | Outpatient (CLI) | payer SELFPAY ==
--- NOTE | 2021-08-07 08:00 | MR_ITS ---
WS: [id number] MRI LUMBAR SPINE NONCONTRAST TECHNIQUE: Sagittal T1, T2 and STIR imaging. Axial T1 and T2 imaging. CLINICAL INFORMATION: S39.012A - Strain of muscle, fascia and tendon of lower b... COMPARISON: MRI 3 8,012 FINDINGS: Mild lumbar curve. No acute compression. Mixed signal epidural collection extending from T12 through L5. This is more prominent along the ventral epidural space in the upper lumbar spine and more promi nent dorsally in the lower lumbar spine. Findings most likely due to abscess. Some of this may represent infected hematoma given clinical hist ory. Spinal canal narrowing T12-L5. Moderate to severe circumferential narrowing and compression of the thecal sac at L3-L5. Left eccentr ic epidural hematoma at L5 results in left to right compression of the thecal sac with moderate compr ession. Additional collection right psoas suspicious for abscess extending from L3 to L5. This measures appro ximately 2.5 x 1.8cm. Collection communicates with the right L3 and L4 neural foramen. Additional flu id and edema in the dorsal right paravertebral soft tissues at L3-L5. Associated edema and fluid in t he right L3-L5 facets with associated fluid collections. L1-L2: Ventral epidural collection with mild central canal stenosis. Narrowing of subarticular recess . Foramen are patent. L2-L3: Ventral epidural collection with mild central canal stenosis and impingement subarticular rece ss. Foramen are patent. Mild facet arthropathy. L3-L4: Circumferential epidural collection with compression of the thecal sac and crowding of the cau da equina nerve rootlets. Mild left and no significant right foraminal narrowing. Moderate facet arth ropathy. L4-L5: Left eccentric epidural collection dorsally with moderate to severe compression of the thecal sac and crowding of the cauda equina nerve roots. Mild bilateral foraminal narrowing left greater dede n right. L5-S1: Left eccentric dorsal epidural collection with moderate compression of the thecal sac. Mild le ft and no significant right foraminal narrowing. MR/MR lumbar spine wo con* [id number] IMPRESSION: 1. Epidural collection extending from T12 through L5 with right psoas fluid co llection extending from L3 through L5 suspicious for epidural abscess and psoas abscess. Recommend correlation for infection. Some of this may represent infec aden hematoma given the clinical history. Findings can be further evaluated with gadolinium. 2. Psoas collection communicating with the neural foramen at right L3-L4 and L 4-L5. Fluid collections with periarticular edema involving the right L3-L5 face ts suspicious for infection 3. Moderate to severe narrowing of the thecal sac L3-L4 and L4-L5 with crowdin g of the cauda equina nerve rootlets. This is worse at L4-5. 4. Mild central canal stenosis T12-L2. 5. Bone marrow signal in the vertebral bodies and disc spaces are normal. Notified Michael Callaway DO at 08/07/2021 9:59 AM.
== END 2021-08-07 07:39 | disposition home or self-care (01) ==
LOC: RADSHAW 07:42
PROVIDERS: PCP Nurse Practitioner Family; Visit Provider Orthopaedic Surgery
DX: S39.012A Strain of muscle, fascia and tendon of lower back, initial encounter (principal); X58.XXXA Exposure to other specified factors, initial encounter; M48.05 Spinal stenosis, thoracolumbar region
CPT/HCPCS: 72148

== ENCOUNTER 2021-08-09 09:32 | Inpatient (IN) | payer SELFPAY ==
[2021-08-09] VITALS (9 sets, daily range): BP systolic 138–170; BP diastolic 93–110; PULSE 84–105; RESP 16–20; TEMP 36.6–36.9; O2SAT 94–99; BMI 27.4
--- NOTE | 2021-08-09 10:05 | ED_ITS ---
Documented by User: LOBO Abraham 08/09/21 14:12 HPI - Back Pain/Injury General: Chief Complaint: Back Pain/Injury Stated Complaint: BACK PAIN/SENT FROM Time Seen by Provider: 08/09/21 09:50 History of Present Illness: HPI Narrative: Patient is a 45-year-old female comes to the ED with back pain. Patient says approximately 3 weeks ago she injured her back lifting firewood. She has been seen by Dr. Callaway the orthospin e doctor and they did an outpatient MRI on her lumbar spine on Tuesday, August 07. Patient has not gotten the results yet. She has been having symptoms of lower back pain that radiates down both right and left legs, but predominantly her right leg. She says if she stands up, after a while she gets numbness and tingling in both legs. Sitting at rest helps with symptoms in any movement to her standing up walking causes worsening symptoms. Patient also reports some urinary urgency symptoms. She states that she will all of a sudden feel like she has to urinate and a lot of times is unable to make it to the bathroom. Associated symptoms: Reports urinary urgency; Deny abdominal pain, chills, dysuria, fatigue, fever(s), hematuria, nausea or vomiting Review of Systems Const: Denies: fever(s), chills or fatigue Eyes: Denies: change in vision or eye discomfort ENMT: Denies: throat pain, odynophagia, nasal discharge or nasal congestion Card: Denies: chest pain, palpitations, edema, swelling of feet/ankles, dyspnea on exertion or orthopnea Resp: Denies: dyspnea, productive cough or non-productive cough GI: Denies: abdominal pain, nausea, vomiting, diarrhea, constipation or hematochezia : Reports: urinary urgency; Denies: flank pain, dysuria or hematuria Musc: Reports: back pain; Denies: neck pain or extremity swelling Skin/Breast: Denies: rash or new lesions Neuro: Denies: headache(s), numbness in extremities or weakness in extremities PFSH ED PFSH: Medical History Alcohol use disorder, moderate, dependence Anemia Hypothyroidism Recurrent nephrolithiasis Soft tissue abscess Steatohepatitis, alcoholic Surgical History Gastric bypass status for obesity H/O lithotripsy S/P cholecystectomy Family History Mother , Sudden at age 60. It was suspected to be due to [place] No problems noted. Father , Diabetes with hypertriglyceridemia No problems noted. Social History Smoking and tobacco status: never smoked Alcohol intake: current Alcohol intake frequency: 3 or more drinks per day Alcohol type: beer Desire information about alcohol rehabilitation?: No Counseling given: Yes Type of substance drug use counseling provided: provider counseling Lives independently: Yes Household members: spouse Physical Exam Const: COMMON NORMALS: patient oriented x3 and alert GENERAL APPEARANCE: cooperative; not comfortable (Uncomfortable due to pain.) HENMT: COMMON NORMALS: normocephalic HEAD & SCALP: normocephalic MOUTH: Normal oral and palatal mucosa present THROAT: posterior oropharynx normal and uvula midline Neck/C-Spine: COMMON NORMALS: supple GENERAL: Yes normal visual inspection Resp: COMMON NORMALS: normal respiratory effort, No retractions, No use of accessory muscles and clear to auscultation bilaterally AUSCULTATION: clear to auscultation bilaterally Cardio: COMMON NORMALS: regular rate, regular rhythm, S1 normal heart sound present, S2 normal heart sound present, No gallops present (Cardio), No clicks present (Cardio), No murmurs present (Cardio) and Peripheral pulses 2+ throughout RATE: regular rate RHYTHM: regular rhythm HEART SOUNDS: S1 normal heart sound present and S2 normal heart sound present PERIPHERAL PULSES: Peripheral pulses 2+ throughout GI: COMMON NORMALS: Normal to inspection, nondistended, normoactive bowel sounds present, Soft to palpation, non-tender and no masses PALPATION: Yes Soft to palpation : COMMON NORMALS: Yes no CVA tenderness BLADDER/KIDNEY EXAM: Yes no CVA tenderness Back/Pelvis: COMMON NORMALS: no CVA tenderness LUMBAR SPINE/LOWER BACK: Yes pain with ROM, No lumbar spinal tenderness, Yes paraspinal muscle tenderness Lumbar paraspinal muscle tenderness: right Right lumbar paraspinal muscle tenderness: L4 and L5 and Yes straight leg raise positive right Extremity: COMMON NORMALS: normal to inspection Neuro: COMMON NORMALS: patient oriented x3 and moves all extremities SENSORIUM/ORIENTATION: Yes alert Skin: GENERAL SKIN EXAM: dry skin Course Consultations: Consultation #1: I contacted Dr. Callaway about patient case. He is familiar with patient and saw her in clinic couple weeks ago. He was aware of the lumbar MRI findings from August 07, 2021. After discussing with him about the MRI and patient's symptoms he recommends having patient admitted. His plan was for patient to go to OR tomorrow. since there is the epidural abscess that is involved he thought the hospitalist should probably be admitting and they will do a infectious work-up and he will consult. Time: 13:01 Vital Signs: Vital signs: Vital Signs Temperature 98.3 F 08/09/21 09:53 Pulse Rate 87 08/09/21 11:03 Respiratory Rate 16 08/09/21 11:03 Blood Pressure 138/95 08/09/21 11:03 Pulse Oximetry 95 08/09/21 11:03 MDM - Back Pain/Injury Imaging Data^: Other Imaging: Attestation: I personally reviewed and interpreted this imaging study as follows: My impression: I reviewed the MRI lumbar spine report that was performed on 08/07/21. Radiologist's impression: Todd/GAB[facility] [id number] [place], [place] [address]Whahcldm Resonance ReportSigned Patient: Judie Rhodes #: [id number]: 1975Acct#:[id number]/Sex: 45 / FADM Date: 08/07/21[facility] Dr: Michael Callaway DO Ordering Provider/Ordering MD: Michael Callaway DO Date of Service: 08/07/21 Procedure(s): MR lumbar spine wo con* [id number] Accession Number(s): [id number] Report Number: [id number] WS: [id number] MRI LUMBAR SPINE NONCONTRAST TECHNIQUE: Sagittal T1, T2 and STIR imaging. Axial T1 and T2 imaging. CLINICAL INFORMATION: S39.012A - Strain of muscle, fascia and tendon of lower b... COMPARISON: MRI FINDINGS: Mild lumbar curve. No acute compression. Mixed signal epidural collection extending from T12 through L5. This is more prominent along the ventral epidural space in the upper lumbar spine and more prominent dorsally in the lower lumbar spine. Findings most likely due to abscess. Some of this may represent infected hematoma given clinical history. Spinal canal narrowing T12-L5. Moderate to severe circumferential narrowing and compression of the thecal sac at L3-L5. Left eccentric epidural hematoma at L5 results in left to right compression of the thecal sac with moderate compression. Additional collection right psoas suspicious for abscess extending from L3 to L5. This measures approximately 2.5 x 1.8cm. Collection communicates with the right L3 and L4 neural foramen. Additional fluid and edema in the dorsal right paravertebral soft tissues at L3-L5. Associated edema and fluid in the right L3- L5 facets with associated fluid collections. L1-L2: Ventral epidural collection with mild central canal stenosis. Narrowing of subarticular recess. Foramen are patent. L2-L3: Ventral epidural collection with mild central canal stenosis and impingem ent subarticular recess. Foramen are patent. Mild facet arthropathy. L3-L4: Circumferential epidural collection with compression of the thecal sac and crowding of the cauda equina nerve rootlets. Mild left and no significant right foraminal narrowing. Moderate facet arthropathy. L4-L5: Left eccentric epidural collection dorsally with moderate to severe compression of the thecal sac and crowding of the cauda equina nerve roots. Mild bilateral foraminal narrowing left greater than right. L5-S1: Left eccentric dorsal epidural collection with moderate compression of the thecal sac. Mild left and no significant right foraminal narrowing. MR/MR lumbar spine wo con* [id number] IMPRESSION: 1. Epidural collection extending from T12 through L5 with right psoas fluid collection extending from L3 through L5 suspicious for epidural abscess and psoas abscess. Recommend correlation for infection. Some of this may represent infected hematoma given the clinical history. Findings can be further evaluated with gadolinium. 2. Psoas collection communicating with the neural foramen at right L3-L4 and L4-L5. Fluid collections with periarticular edema involving the right L3-L5 facets suspicious for infection 3. Moderate to severe narrowing of the thecal sac L3-L4 and L4-L5 with crowding of the cauda equina nerve rootlets. This is worse at L4-5. 4. Mild central canal stenosis T12-L2. 5. Bone marrow signal in the vertebral bodies and disc spaces are normal. Notified Michael Callaway DO at 08/07/2021 9:59 AM. Dictated By:Alex Lipscomb MDSigned By:Alex Lipscomb MDSigned Date/Time:08/07/21 1004DD/ 9 Discharge Plan Discharge Admit Provider: Marcy Damon Sign Out Sign Out Data: Patient Sign Out occurred on 08/09/21 at 13:58. Patient's care was discussed, and care was transferred from to Yaakov Sanchez MD. Coding Level of Care Code ED Associate Account Executive for Chg Fwd Exam Comprehensive Documented by User: Yaakov Sanchez MD 08/09/21 13:59 HPI - Back Pain/Injury General: Chief Complaint: Back Pain/Injury Stated Complaint: BACK PAIN/SENT FROM Time Seen by Provider: 08/09/21 09:50 PFSH ED PFSH: Medical History Alcohol use disorder, moderate, dependence Anemia Hypothyroidism Recurrent nephrolithiasis Soft tissue abscess Steatohepatitis, alcoholic Surgical History Gastric bypass status for obesity H/O lithotripsy S/P cholecystectomy Family History Mother , Sudden at age 60. It was suspected to be due to [place] No problems noted. Father , Diabetes with hypertriglyceridemia No problems noted. Social History Smoking and tobacco status: never smoked Alcohol intake: current Alcohol intake frequency: 3 or more drinks per day Alcohol type: beer Desire information about alcohol rehabilitation?: No Counseling given: Yes Type of substance drug use counseling provided: provider counseling Lives independently: Yes Household members: spouse Course Vital Signs: Vital signs: Vital Signs Temperature 98.3 F 08/09/21 09:53 Pulse Rate 87 08/09/21 11:03 Respiratory Rate 16 08/09/21 11:03 Blood Pressure 138/95 08/09/21 11:03 Pulse Oximetry 95 08/09/21 11:03 MDM - Back Pain/Injury MDM Narrative: Medical decision making narrative: Patient was seen by midlevel provider, agree with assessment and plan as above. In brief patient presents due to back pain has known spinal abscess. Will admit for surgical intervention by orthopedic surgery tomorrow. Discharge Plan Discharge Admit Provider: Marcy Damon Sign Out Sign Out Data: Patient Sign Out occurred on 08/09/21 at 13:58. Patient's care was discussed, and care was transferred from to Yaakov Sanchez MD. Coding Level of Care Code ED Associate Account Executive for Chg Fwd Exam Comprehensive
[2021-08-09] MEDS: HYDROmorphone 1 mg/mL INJ 1 mL 0.5 MG SUBCUT (10:32)
[2021-08-09] MEDS: orphenadrine 30 mg/mL Inj 2 mL 60 MG IM (10:35)
[2021-08-09] MEDS: ketorolac 60 mg/2 mL INJ IM (10:40)
[2021-08-09] MEDS: diazePAM 5 mg Tablet PO (13:27)
--- NOTE | 2021-08-09 14:28 | P.HP_ITS ---
Providers/Chief Complaint Admitting Physician: Marcy Damon MD Primary Care Provider: MARTIN Singleton Chief Complaint: BACK PAIN/SENT FROM History of Present Illness Judie Rhodes is a 45 year old female with PMH of hypothyroidism, mild HTN presented to hospital as per recommendation from Dr. Callaway. 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 She states since then she has been having constant pain and pressure around the area. She also feels she has the urge to go urinate and has been feeling pressure lately. She also feeling weaker compared to before. She tripped and fell 2 weeks ago as well. She states that she was seen in the ER few weeks ago for this issue and she was sent home to follow-up with Dr. Warner as an outpatient. When she saw him MRI was ordered. MRI results came back this Tuesday. She was asked by Dr. Crandall office to go to the ER due to worsening symptoms and MRI results. She states that she was unable to come to the ER up until today. Denies chest pain, shortness of breath, abdominal pain, diarrhea, constipation. The pain does radiate down her lower back into both her right and left legs but predominantly her right leg. If she stands up after a while she does get numbness and tingling in both legs. Sitting at rest helps with symptoms and any movement or standing up walking causes worsening symptoms. ED course: On arrival blood pressure 138/95, pulse 95, respiratory rate 16, pulse rate 87, temperature 98.3. Dr. Montez was contacted by the ER. He will have her scheduled for procedure tomorrow morning. MRI showed: 1. Epidural collection extending from T12 through L5 with right psoas fluid collection extending from L3 through L5 suspicious for epidural abscess and psoas abscess. Recommend correlation for infection. Some of this may represent infected hematoma given the clinical history. Findings can be further evaluated with gadolinium. 2. Psoas collection communicating with the neural foramen at right L3-L4 and L4-L5. Fluid collections with periarticular edema involving the right L3-L5 facets suspicious for infection 3. Moderate to severe narrowing of the thecal sac L3-L4 and L4-L5 with crowding of the cauda equina nerve rootlets. This is worse at L4-5. 4. Mild central canal stenosis T12-L2. 5. Bone marrow signal in the vertebral bodies and disc spaces are normal. She states she drinks alcohol daily 12 to 15 cans of beer a day. Her last drink was per 1 AM. She does get shaky when she does not drink and drinks first thing in the morning. She has never had any seizures however from alcohol withdrawal. She also states that she is on 50 mg of levothyroxine but has not taken it in the last 6 weeks as her doctor refused to refill it. She states she would like to set up with a new primary care physician at discharge. She would prefer to see ESTELLE Byrne NP nurse practitioner after discharge. Hypertension she used to take lisinopril 2.5 mg daily but does not really on it at this time. Lives at home with her . He is her emergency contact. 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 Review of Systems General: Reports: 10 or more systems reviewed and unremarkable except in HPI and below Medications/Allergies Home Medications Medication Instructions Recorded Confirmed Last Taken Type levothyroxine 50 mcg tablet 50 mcg PO DAILY #30 tab MDD see 01/06/21 08/09/21 Unknown Rx pharmacy comment Allergies Allergy/AdvReac Type Severity Reaction Status Date / Time No Known Allergies Allergy Verified 07/24/21 14:20 PFSH Acute PFSH: Medical History Alcohol use disorder, moderate, dependence Anemia Hypothyroidism Recurrent nephrolithiasis Soft tissue abscess Steatohepatitis, alcoholic Surgical History Gastric bypass status for obesity H/O lithotripsy S/P cholecystectomy Family History Mother , Sudden at age 60. It was suspected to be due to [place] No problems noted. Father , Diabetes with hypertriglyceridemia No problems noted. Social History Smoking and tobacco status: never smoked Alcohol intake: current Alcohol intake frequency: 3 or more drinks per day Alcohol type: beer Desire information about alcohol rehabilitation?: No Counseling given: Yes Type of substance drug use counseling provided: provider counseling Lives independently: Yes Household members: spouse Vitals/I&O/Wt Last Vital Signs Temp 98.3 F 08/09/21 09:53 Pulse 87 08/09/21 11:03 Resp 16 08/09/21 11:03 BP 138/95 08/09/21 11:03 Pulse Ox 95 08/09/21 11:03 Weight last 48 hrs Weight 74.843 kg Physical Exam Narrative: EXAM NARRATIVE: General: Alert oriented x3, patient seen sitting up in wheelchair in vertical overflow unit. Unable to fully examine patient as she was wearing her home clothes and not in a patient gown. HEENT: Normocephalic, atraumatic, EOMI, breathing room air Cardio: Regular rate rhythm, normal S1-S2, no murmurs rubs gallops, Respiratory: Good bilateral air entry, no wheezes no rhonchi appreciated GI: Abdomen soft, nontender, bowel sounds + Extremities: no edema, no cyanosis, unable to check feet, patient wearing socks and boots. Neuro: Cranial nerves intact, unable to check for strength, sensation or do a complete neuro exam due to patient sitting in a wheelchair. Musculoskeletal: Unable to do straight leg raise but as per ER examination it was positive.No CVA tenderness present, lumbar spine has pain with range of mot ion. No lumbar spinal tenderness, paraspinal tenderness present at lumbar region. Right lumbar region is tender to palpation. Data : 08/09/21 14:43 08/09/21 14:43 A&P Assessment and plan (1) Lumbar stenosis with neurogenic claudication: Consult Dr. Callaway. Plan for OR in AM for procedure as per ER. Will await full consult note. Status: Acute (2) Soft tissue abscess: Will start vanc and zosyn. Await culture results from surgery for further antibiotic decision. Check blood cultures Status: Acute (3) Alcohol use disorder, moderate, dependence: Last drink last night at 1 AM Will start CIWA protocol Thiamine Folic acid Status: Acute (4) Steatohepatitis, alcoholic: Liver enzymes elevated AST>ALT. Most likely secondary to alcohol use. Will do abdominal ultrasound to r/o underlying cirhosis. Status: Acute (5) Hypertension: On lisinopril 2.5 daily at home but currently not taking. Will watch BP. Status: Acute Qualifiers: Hypertension type: essential hypertension Qualified Code(s): I10 - Essential (primary) hypertension (6) Hypothyroidism: Will continue levothryoxine 50 mcg daily. Status: Acute Attestations Medical Necessity Statement*: > 48 hours stay due to epidural abscess and central canal stenosis. Plan for OR in AM. Coding Level of Care Code Acute Statistical Analyst for Chg Fwd Diagnoses Lumbar stenosis with neurogenic claudication M48.062 Soft tissue abscess L02.91 Alcohol use disorder, moderate, dependence F10.20 Steatohepatitis, alcoholic K70.10 Hypertension I10 Hypertension type: essential hypertension Hypothyroidism E03.9
[2021-08-09 15:00] LABS: Basophils # 0.1 10^3/uL (0.0-0.1); Basophils % 0.9 %; Eosinophils # 0.2 10^3/uL (0.0-0.8); Eosinophils % 2.1 %; Hematocrit 35.5 % (37.0-47.0); Hemoglobin 11.2 g/dL (11.5-15.3); Lymphocytes # 1.4 10^3/uL (0.8-4.8); Lymphocytes % 15.8 %; Mean Corpuscular HGB Conc 31.5 g/dL (30.0-36.0); Mean Corpuscular Hemoglobin 30.1 pg (28.0-34.0); Mean Corpuscular Volume 95.4 fl (81-99); Mean Platelet Volume 8.7 fL (7.4-10.4); Monocytes # 0.4 10^3/uL (0.2-0.9); Monocytes % 4.7 %; Neutrophils # 6.36 10^3/uL (1.8-7.7); Neutrophils % 73.5 %; Nucleated Red Blood Cells % 0 %; Platelet Count 347 10^3/cmm (130-400); Red Blood Count 3.72 10^6/uL (4.1-5.3); Red Cell Distribution Width 13.4 % (12.1-15.1); White Blood Count 8.7 10^3/uL (4.0-10.0)
--- NOTE | 2021-08-09 15:00 | ECG_ITS ---
[facility] Test Date: 2021-08-09 Pat Name: Judie Rhodes Department: Room: 250 Gender: Female Orthodontic Technician: : 1975 Requested By: Marcy Damon Order Number: [id number] Fidencio MD: Emily Mitchell M.D. Measurements Intervals [place] Rate: 88 P: 38 HI: 152 QRS: -3 QRSD: 90 T: 16 QT: 341 QTc: 415 Interpretive Statements SINUS RHYTHM Compared to ECG 11/06/2020 13:57:12 No significant changes Electronically Signed On 08-11-2021 13:07:31 [employer]ACH[employer] TENDER by Emily Mitchell M.D. [id number]
--- NOTE | 2021-08-09 15:34 | XRR_ITS ---
PROCEDURE INFORMATION: Exam: XR Chest Exam date and time: 08/09/2021 3:34 PM Age: 45 years old Clinical indication: Cough; Additional info: Pre-op TECHNIQUE: Imaging protocol: XR of the chest. Views: 1 view. COMPARISON: CT abdomen pelvis w con* [id number] 11/06/2020 11:01 AM FINDINGS: Lungs: Unremarkable. No consolidation. Pleural spaces: Unremarkable. No pleural effusion. No pneumothorax. Heart/Mediastinum: Unremarkable. No cardiomegaly. Bones/joints: Unremarkable. XR/XR chest 1V portable [id number] IMPRESSION: No acute findings. Radiation Dose CTDIVOL = (mGy): DLP = (mGy-cm)
[2021-08-09] MEDS: HYDROcodone-acetaminophen 5-325 mg Tablet 1 TAB PO ×2 (15:37→20:42)
[2021-08-09] MEDS: vancomycin 1,500 MG/300 ML PIGGYBACK 200 MG IV (15:37)
[2021-08-09 16:32] LABS: Alanine Aminotransferase 8 U/L (0-33); Albumin Level 3.6 g/dL (3.5-5.2); Alkaline Phosphatase 135 IU/L (35-105); Amylase 69 U/L (28-100); Anion Gap 16.4 (5-19); Aspartate Amino Transferase 11 U/L (0-32); Blood Urea Nitrogen 4 mg/dL (6-20); Calcium 9.4 mg/dL (8.5-10.5); Carbon Dioxide 26 mmol/L (22-29); Chloride 99 mmol/L (98-107); Globulin 3.6 g/dL (1.3-4.6); Glomerular Filtration Rate 171.1 mL/min (90-130); Glucose 85 mg/dL (65-115); Lipase 32 U/L (13-60); Osmolality Calculated 280 mOsm/kg (285-295); Potassium 4.4 mmol/L (3.5-5.1); Sodium 137 mmol/L (136-145); Total Bilirubin 0.3 mg/dL (0.15-1.2); Total Protein 7.2 g/dL (6.6-8.7)
[2021-08-09] MEDS: HYDROmorphone 1 mg/mL INJ 1 mL IVP (16:39)
[2021-08-09] MEDS: pantoprazole 40 mg SDV IVP (16:39)
[2021-08-09] MEDS: enoxaparin 40 mg/0.4 mL Syringe SUBCUT (16:40)
[2021-08-09 16:48] LABS: Vitamin B12 329 pg/mL (232-1245)
[2021-08-09] MEDS: methocarbamol 500 mg Tablet PO (17:53)
[2021-08-09] MEDS: piperacillin-tazobactam 3.375 GM in sodium chloride 0.9% (plus) 50 ML IV (18:00)
[2021-08-09] MEDS: dexamethasone 4 mg/mL INJ IVP (22:12)
[2021-08-09] MEDS: morphine 4 mg/mL SDV 1 mL 2 MG IVP (23:03)
[2021-08-10] VITALS (30 sets, daily range): BP systolic 107–183; BP diastolic 71–132; PULSE 60–105; RESP 14–25; TEMP 36.3–37.1; O2SAT 94–100
--- NOTE | 2021-08-10 | XR_ITS ---
WS: [id number] Exam: XR lumbar spine 2-3V* [id number] Date/Time of Exam: 08/10/2021 12:00 AM Reason For Exam: back pain. Intraoperative AP and lateral C-arm images of the lumbar spine are submitted for evaluation. Surgical retractors and a metallic probe are positioned along the posterior elements of the lumbar spine at t he L3-4 disc level. An additional AP C-arm image shows the surgical probe positioned over the L5-S1 d isc level. No other significant finding on this limited series
--- NOTE | 2021-08-10 | SCC_ITS ---
Procedure Done: 1. L2/3 laminectomy with partial facetectomy 2. L3/4 laminectomy with partial facetectomy 3.L4/5 laminectomy with partial facetectomy 10.5 seconds of fluoroscopic guidance, for a cumulative dose of 3.98 mGy, was provided to Dr. Callaway by the radiology department. C-arm images of the lumbar spine were saved for the patient's permanent record. [facility]
[2021-08-10] MEDS: methocarbamol 500 mg Tablet PO ×3 (00:05→21:47)
[2021-08-10] MEDS: piperacillin-tazobactam 3.375 GM in sodium chloride 0.9% (plus) 50 ML IV ×2 (00:07→18:00)
[2021-08-10] MEDS: HYDROcodone-acetaminophen 5-325 mg Tablet 1 TAB PO ×2 (00:38→06:35)
[2021-08-10] MEDS: dexamethasone 4 mg/mL INJ IVP (03:33)
[2021-08-10] MEDS: morphine 4 mg/mL SDV 1 mL 2 MG IVP ×7 (03:33→21:34)
[2021-08-10] MEDS: ondansetron 2 mg/ML SDV 2 mL 4 MG IVP ×2 (03:33→21:33)
[2021-08-10] MEDS: LORazepam 2 mg/mL INJ 1 mL IVP (04:43)
--- NOTE | 2021-08-10 05:26 | PC.NURSE ---
At approximately 0030, catheter placed in preparation for procedure in the AM. Patient tolerated well. In moderate to severe pain. Catheter attempted x2. used 16 fr cath tray with 10mL balloon. Pale yellow urine returned. No odor observed at this time. visible tremors of bilateral lower extremities and hands observed at this time. Patient rated pain a 9 out of 10 pain scale. patient stated it's extremely painful to be in a supine position. Patient administered prn pain medication post procedure
[2021-08-10 05:35] LABS: Basophils % 0.4 %; Eosinophils % 0.1 %; Hematocrit 32.7 % (37.0-47.0); Hemoglobin 10.3 g/dL (11.5-15.3); Lymphocytes # 0.8 10^3/uL (0.8-4.8); Lymphocytes % 10.4 %; Mean Corpuscular HGB Conc 31.5 g/dL (30.0-36.0); Mean Corpuscular Hemoglobin 30.6 pg (28.0-34.0); Mean Platelet Volume 9.3 fL (7.4-10.4); Monocytes # 0.2 10^3/uL (0.2-0.9); Monocytes % 2.3 %; Neutrophils # 6.55 10^3/uL (1.8-7.7); Neutrophils % 84.4 %; Nucleated Red Blood Cells % 0 %; Platelet Count 318 10^3/cmm (130-400); Red Blood Count 3.37 10^6/uL (4.1-5.3); Red Cell Distribution Width 13.6 % (12.1-15.1); White Blood Count 7.8 10^3/uL (4.0-10.0)
[2021-08-10 05:50] LABS: INR 1.06 (0.8-1.2)
[2021-08-10 06:04] LABS: Alanine Aminotransferase 8 U/L (0-33); Albumin Level 3.4 g/dL (3.5-5.2); Alkaline Phosphatase 124 IU/L (35-105); Blood Urea Nitrogen 8 mg/dL (6-20); Carbon Dioxide 25 mmol/L (22-29); Chloride 99 mmol/L (98-107); Globulin 4.7 g/dL (1.3-4.6); Glomerular Filtration Rate 107.2 mL/min (90-130); Glucose 118 mg/dL (65-115); Magnesium 1.7 mg/dL (1.7-2.3); Osmolality Calculated 279 mOsm/kg (285-295); Sodium 135 mmol/L (136-145); Thyroid Stimulating Hormone 0.87 uIU/mL (0.27-4.20); Total Bilirubin 0.3 mg/dL (0.15-1.2); Total Protein 8.1 g/dL (6.6-8.7)
[2021-08-10 06:09] LABS: Anion Gap 15.4 (5-19); Aspartate Amino Transferase 16 U/L (0-32); Potassium 4.4 mmol/L (3.5-5.1)
[2021-08-10 06:30] LABS: Chol HDL Ratio 2.64 mg/dL (0.0-4.40); Cholesterol 203 mg/dL (0-200); HDL Cholesterol 77 mg/dL (60-100); LDL Cholesterol Calculated 109 mg/dL (50-129); LDL HDL Ratio 1.42 RATIO (0.00-3.22); Triglycerides 87 mg/dL (0-150)
--- NOTE | 2021-08-10 07:03 | PM.CONSULT ---
Providers/Reason For Consult Consulting Physician/Specialty*: hospitalist Reason for Consult*: epidural abscess Attending Physician: Marcy Damon MD Primary Care Provider: MARTIN Singleton History of Present Illness History of Present Illness Judie Rhodes is a 45 year old female 3 weeks ago she was helping her corn picker or avoid and as she bent over she felt a pop in her back. She states since then she has been having constant pain and pressure around the area. She also feels she has the urge to go urinate and has been feeling pressure lately. She also feeling weaker compared to before. Review of Systems General: Reports: 10 or more systems reviewed and unremarkable except in HPI and below Const: Denies: fever(s), chills or fatigue Eyes: Denies: change in vision or eye discomfort ENMT: Denies: throat pain, odynophagia, nasal discharge or nasal congestion Card: Denies: chest pain, palpitations, edema, swelling of feet/ankles, dyspnea on exertion or orthopnea Resp: Denies: dyspnea, productive cough or non-productive cough GI: Denies: abdominal pain, nausea, vomiting, diarrhea, constipation or hematochezia : Reports: urinary urgency; Denies: flank pain, dysuria or hematuria Musc: Reports: back pain; Denies: neck pain or extremity swelling Skin/Breast: Denies: rash or new lesions Neuro: Denies: headache(s), numbness in extremities or weakness in extremities Meds/Allergies Home Medications and Allergies Home Medications Medication Instructions Recorded Confirmed Last Taken Type levothyroxine 50 mcg tablet 50 mcg PO DAILY #30 tab MDD see 01/06/21 08/09/21 Unknown Rx pharmacy comment Allergies Allergy/AdvReac Type Severity Reaction Status Date / Time No Known Allergies Allergy Verified 07/24/21 14:20 Current Medications Current Medications Generic Name Dose Route Start Last Admin Trade Name Freq PRN Reason Stop Dose Admin Hydrocodone Bitart/Acetaminophen 1 tab 08/09/21 15:00 08/10/21 06:35 Hydrocodone-Acetaminophen 5-325 Mg Tablet PO 1 tab Q4H PRN Administration MODERATE TO SEVERE PAIN Dexamethasone 4 mg 08/09/21 21:15 08/10/21 03:33 Dexamethasone 4 Mg/Ml Inj IVP 4 mg Q6H TERESA Administration Enoxaparin Sodium 40 mg 08/09/21 15:00 08/09/21 16:40 Enoxaparin 40 Mg/0.4 Ml Syringe SUBCUT 40 mg Q24H TERESA Administration Piperacillin Sod/Tazobactam 50 mls @ 12.5 mls/hr 08/09/21 17:00 08/10/21 03:40 Sod 3.375 gm/ Sodium Chloride IV Infused Q8H TERESA Infusion Lorazepam 2 mg 08/09/21 14:26 08/10/21 04:43 Lorazepam 2 Mg/Ml Inj 1 Ml IVP 2 mg PRN PRN Administration WITHDRAWAL Protocol Methocarbamol 500 mg 08/09/21 17:09 08/10/21 00:05 Methocarbamol 500 Mg Tablet PO 500 mg QID PRN Administration MUSCLE SPASMS Morphine Sulfate 2 mg 08/09/21 22:22 08/10/21 03:33 Morphine 4 Mg/Ml Sdv 1 Ml IVP 2 mg Q4H PRN Administration SEVERE PAIN Ondansetron HCl 4 mg 08/09/21 15:00 08/10/21 03:33 Ondansetron 2 Mg/Ml Sdv 2 Ml IVP 4 mg Q8H PRN Administration vomiting, or N/V if npo Pantoprazole Sodium 40 mg 08/09/21 15:00 08/09/21 16:39 Pantoprazole 40 Mg Sdv IVP 40 mg Q24H TERESA Administration PFSH Acute PFSH: Medical History Alcohol use disorder, moderate, dependence Anemia Hypothyroidism Recurrent nephrolithiasis Soft tissue abscess Steatohepatitis, alcoholic Surgical History Gastric bypass status for obesity H/O lithotripsy S/P cholecystectomy Family History Mother , Sudden at age 60. It was suspected to be due to [place] No problems noted. Father , Diabetes with hypertriglyceridemia No problems noted. Social History Smoking and tobacco status: never smoked Alcohol intake: current Alcohol intake frequency: 3 or more drinks per day Alcohol type: beer Desire information about alcohol rehabilitation?: No Counseling given: Yes Type of substance drug use counseling provided: provider counseling Lives independently: Yes Household members: spouse Vitals/I&O/Wt Last Vital Signs Temp 97.6 F 08/10/21 04:00 Pulse 65 08/10/21 06:00 Resp 17 08/10/21 04:00 BP 133/87 08/10/21 04:00 Pulse Ox 97 08/10/21 04:00 08/09/21 08/10/21 08/10/21 22:59 06:59 14:59 Intake Total 350 / 350 530 / 880 Output Total 1000 / 1000 Balance 350 / 350 -470 / -120 Weight last 48 hrs Weight 165 lb Physical Exam Narrative: EXAM NARRATIVE: CONSTITUTIONAL: The patient is a normal appearing [] in no apparent distress. GENERAL: Patient in no acute distress. CARDIAC: Regular rate and rhythm. CHEST: Normal inspiratory effort, normal respiratory rate. ABDOMEN: Soft and nontender. SKIN: Clear, warm and intact. NEURO?PSYCH: The patient is alert and oriented to person, place and time. Sensorv /SILT Motor StrengthShoulder abduction C5 5/5Wrist extension C6 5/5Elbow extension C7 5/5Hand Communication Coordinator C8 5/5Finger abduction T15/5 Radial/ Ulnar/ Median n intact LowerSensory (SILT)Motor StrengthHin flexion L2/3Ant/inner thigh 5/5Hip adduction L2/3 5/5Knee extension L4 Lat thigh, 5/5Toe dorsiflexion L5 5/5Ankle dorsiflexion L5/ K71Drkxbrt flexion S1 5/5 DTRBleeps 2+Triceps 2+Brachioradialis 2+Patellar 2+Achilles 2+ MUSCULOSKELETAL: [] UPPEREXTREMITIES: The patient had full active ROM in fingers, wrist, elbow, and shoulder. The patient demonstrated ability to fully flex/extend/abduct/adduct fingers, make ok sign, cross 2nd/3rd digits, extend 1st digit fully.. Radial pulse 2+, CR<2 seconds. LOWER EXTREMITIES: Pt has full, active ROM of toes, ankle, knee, and hip. Dorsalis pedis/posterior tibialis pulses 2+, CR<2 seconds. SPINE: Skin warm, dry, intact. Urinary Catheter Management^: Vega: Cath Placed During This Visit: yes Reason for Continuing Indwelling Catheter: Required Immobilization for Trauma or Surgery or Anesthesia Urinary Catheter Date of Insertion: 08/10/21 Urinary Catheter Time of Insertion: 00:30 Data Micro: Micro: Microbiology 08/10/21 04:34 Blood Culture - Pr eliminary Blood SPECIMEN [facility] 08/10/21 04:34 Blood Culture - Pr eliminary Blood SPECIMEN [facility] 08/09/21 14:43 Blood Culture - Pr eliminary Blood SPECIMEN [facility] 08/09/21 14:15 Blood Culture - Pr eliminary Blood SPECIMEN [facility] A&P Assessment and plan (1) Epidural abscess, L2-L5: Status: Acute Consult Attestations Medical Necessity Statement: progressive weakness and incontinence Coding Level of Care Code Acute Hcc Coders for Gracy Ansari Diagnoses Epidural abscess, L2-L5 G06.1
--- NOTE | 2021-08-10 09:40 | PC.CHAP ---
Pastoral Care Encounter/Spiritual Assessment Type of Contact [] Declined schedule clerk visit [] Patient/Family/Request visit [] Outpatient visit [] Follow-up visit [] Physician referral [] Code/Alert [x] Routine visit [] Staff referral [] Actively dying [] Patient sleeping [] Family support [] [x] Out of room [] Palliative care [] [] Receiving care in room [] Pre-surgical visit [] Trauma [] Long length of stay [] ICU visit [] Other: Relational/Emotional Strength [] Patient feels connected with others/family/visitors/staff [] Distress [] Loneliness/isolation [] Abandonment Spirituality of Patient [] Person of [place] [] Attends Religion of their [place] [] Believes in Prayer [] Reads Bible or Catholic materials [] There are Spiritual issues to be addressed Parts Identification Technician Interventions [] Prayer [] Active listening [] Non-anxious presence [] Spiritual/emotional support [] Crisis/trauma care [] Spiritual counseling [] Bereavement support [] Provided bereavement packet [] Provided Bible/devotional materials [] Provided toy/stuffed animal, coloring book to patient or family member [] Provided Communion [] Anointing/[place] [] Salvation [x] Completed spiritual assessment [] Other: Impact on Illness or Injury [] Angry [] Fearful [] Anxious [] Often cries [] Exhaustion [] Unable to work [] Unable to attend zoroastrian [] Unable to walk/stand [] Unable to read [] Unable to drive [] Unable to eat/drink [] Unable to sleep [] Unable to be with family [] Patient intubated [] Other: Summary Time spent with patient
--- NOTE | 2021-08-10 09:44 | ANES.PREANE2 ---
Pre-Anesthetic Assessment Pre-Anesthetic Assessment: Height/Weight: Height 1.65 m Weight 74.843 kg Temp Pulse Resp BP Pulse Ox 97.6 F 65 18 133/87 97 08/10/21 04:00 08/10/21 06:00 08/10/21 07:19 08/10/21 04:00 08/10/21 04:00 Proposed Procedure: Operation Date: 08/10/21 08:40 Proposed Procedures p Lumbar Spine Decompression(Not Applicable) - Michael Callaway, DO Was Beta Stanley taken within 24 hours: N/A Was Clonidine taken within 24 hours: N/A Last intake: Intake Last Liquid Date 08/10/21 Last Liquid Time 06:35 Last Solid Date 08/10/21 Last Solid Time 00:00 Social: Social History: Alcohol and Tobacco Exam: Pre-Anes Outpt Exam: alert, oriented x 3 and regular rate & rhythm Airway: Submandibular: WNL Cervical ROM: WNL MP: 2 Dentition: False Pulmonary: Pulmonary: COPD CV/HEM: CV/HEM: Anemia and HTN Metabolic: Metabolic: Thyroid Anesthetic Plan: ASA status: 3 Anesthesia: General Risk of > 500 ml blood loss (7ml/kg in children): No Meds/Allergies Current Medications: Current Medications Generic Name Dose Route Start Last Admin Trade Name Freq PRN Reason Stop Dose Admin Hydrocodone Bitart /Acetaminophen 1 tab 08/09/21 15:00 08/10/21 06:35 Hydrocodone-Acet aminophen 5-325 Mg Tablet PO 1 tab Q4H PRN Administration MODERATE TO SEVER E PAIN Dexamethasone 4 mg 08/09/21 21:15 08/10/21 03:33 Dexamethasone 4 Mg/Ml Inj IVP 4 mg Q6H TERESA Administration Enoxaparin Sodium 40 mg 08/09/21 15:00 08/09/21 16:40 Enoxaparin 40 Mg /0.4 Ml Syringe SUBCUT 40 mg Q24H TERESA Administration Piperacillin Sod/T azobactam 50 mls @ 12.5 mls /hr 08/09/21 17:00 08/10/21 03:40 Sod 3.375 gm/ So dium Chloride IV Infused Q8H TERESA Infusion Lorazepam 2 mg 08/09/21 14:26 08/10/21 04:43 Lorazepam 2 Mg/M l Inj 1 Ml IVP 2 mg PRN PRN Administration WITHDRAWAL Protocol Methocarbamol 500 mg 08/09/21 17:09 08/10/21 00:05 Methocarbamol 50 0 Mg Tablet PO 500 mg QID PRN Administration MUSCLE SPASMS Morphine Sulfate 2 mg 08/09/21 22:22 08/10/21 07:19 Morphine 4 Mg/Ml Sdv 1 Ml IVP 2 mg Q4H PRN Administration SEVERE PAIN Ondansetron HCl 4 mg 08/09/21 15:00 08/10/21 03:33 Ondansetron 2 Mg /Ml Sdv 2 Ml IVP 4 mg Q8H PRN Administration vomiting, or N/V if npo Pantoprazole Sodiu m 40 mg 08/09/21 15:00 08/09/21 16:39 Pantoprazole 40 Mg Sdv IVP 40 mg Q24H TERESA Administration PFSH Anesthesia PFSH: Medical History Alcohol use disorder, moderate, dependence Anemia Hypothyroidism Recurrent nephrolithiasis Soft tissue abscess Steatohepatitis, alcoholic Surgical History Gastric bypass status for obesity H/O lithotripsy S/P cholecystectomy Family History Mother , Sudden at age 60. It was suspected to be due to [place] No problems noted. Father , Diabetes with hypertriglyceridemia No problems noted. Social History Smoking and tobacco status: never smoked Alcohol intake: current Alcohol intake frequency: 3 or more drinks per day Alcohol type: beer Desire information about alcohol rehabilitation?: No Counseling given: Yes Type of substance drug use counseling provided: provider counseling Lives independently: Yes Household members: spouse Data Anesthesia CBC & Chem 7: 08/10/21 04:34 08/10/21 04:34 Other Labs: Laboratory Results - last 48 hr 08/09/21 08/09/21 08/09/21 14:43 14:43 14:43 WBC 8.7 RBC 3.72 L Hgb 11.2 L Hct 35.5 L MCV 95.4 MCH 30.1 MCHC 31.5 RDW 13.4 Plt Count 347 MPV 8.7 Neut % (Auto) 73.5 Lymph % (Auto) 15.8 [place] % (Auto) 4.7 Eos % (Auto) 2.1 Baso % (Auto) 0.9 Neut # (Auto) 6.36 Lymph # (Auto) 1.4 [place] # (Auto) 0.4 Eos # (Auto) 0.2 Baso # (Auto) 0.1 Nucleated RBC % (auto) 0 Nucleated RBCs # 0.0 PT INR Sodium Cancelled Potassium Cancelled Chloride Cancelled Carbon Dioxide Cancelled Anion Gap Cancelled BUN Cancelled Creatinine Cancelled GFR Calculation Cancelled Glucose Cancelled Calculated Osmolality Cancelled Lactic Acid Cancelled Calcium Cancelled Magnesium Total Bilirubin Cancelled AST Cancelled ALT Cancelled Alkaline Phosphatase Cancelled Total Protein Cancelled Albumin Cancelled Globulin Cancelled Triglycerides Cholesterol LDL Cholesterol, Calc HDL Cholesterol LDL/HDL Ratio Cholesterol/HDL Ratio Amylase Cancelled Lipase Cancelled Vitamin B12 Cancelled TSH 08/09/21 08/09/21 08/10/21 15:44 15:44 04:34 WBC 7.8 RBC 3.37 L Hgb 10.3 L Hct 32.7 L MCV 97.0 MCH 30.6 MCHC 31.5 RDW 13.6 Plt Count 318 MPV 9.3 Neut % (Auto) 84.4 Lymph % (Auto) 10.4 [place] % (Auto) 2.3 Eos % (Auto) 0.1 Baso % (Auto) 0.4 Neut # (Auto) 6.55 Lymph # (Auto) 0.8 [place] # (Auto) 0.2 Eos # (Auto) 0.0 Baso # (Auto) 0.0 Nucleated RBC % (auto) 0 Nucleated RBCs # 0.0 PT INR Sodium 137 Potassium 4.4 Chloride 99 Carbon Dioxide 26 Anion Gap 16.4 BUN 4 L Creatinine 0.4 L GFR Calculation 171.1 H Glucose 85 Calculated Osmolality 280 L Lactic Acid 1.0 Calcium 9.4 Magnesium Total Bilirubin 0.3 AST 11 ALT 8 Alkaline Phosphatase 135 H Total Protein 7.2 Albumin 3.6 Globulin 3.6 Triglycerides Cholesterol LDL Cholesterol, Calc HDL Cholesterol LDL/HDL Ratio Cholesterol/HDL Ratio Amylase 69 Lipase 32 Vitamin B12 329 TSH 08/10/21 08/10/21 08/10/21 04:34 04:34 04:34 WBC RBC Hgb Hct MCV MCH MCHC RDW Plt Count MPV Neut % (Auto) Lymph % (Auto) [place] % (Auto) Eos % (Auto) Baso % (Auto) Neut # (Auto) Lymph # (Auto) [place] # (Auto) Eos # (Auto) Baso # (Auto) Nucleated RBC % (auto) Nucleated RBCs # PT 14.20 INR 1.06 Sodium 135 L Potassium 4.4 Chloride 99 Carbon Dioxide 25 Anion Gap 15.4 BUN 8 Creatinine 0.6 GFR Calculation 107.2 Glucose 118 H Calculated Osmolality 279 L Lactic Acid Calcium 9.0 Magnesium 1.7 Total Bilirubin 0.3 AST 16 ALT 8 Alkaline Phosphatase 124 H Total Protein 8.1 Albumin 3.4 L Globulin 4.7 H Triglycerides 87 Cholesterol 203 H LDL Cholesterol, Calc 109 HDL Cholesterol 77 LDL/HDL Ratio 1.42 Cholesterol/HDL Ratio 2.64 Amylase Lipase Vitamin B12 TSH 0.87 Micro: Microbiology 08/10/21 04:34 Blood Culture - Preliminary Blood SPECIMEN COLLECTED 08/10/21 04:34 Blood Culture - Preliminary Blood SPECIMEN COLLECTED 08/09/21 14:43 Blood Culture - Preliminary Blood SPECIMEN COLLECTED 08/09/21 14:15 Blood Culture - Preliminary Blood SPECIMEN COLLECTED Cardiac Studies: No Data to Display
[2021-08-10] MEDS: vancomycin 1,000 MG SDV 1000 MG XX (10:03)
--- NOTE | 2021-08-10 10:29 | P.OP_ITS ---
Operative Report Date of procedure: August 10, 2021 Pre-op Diagnosis: Epidural abscess lumbar region Post-op diagnosis: same Procedure Done: 1. L2/3 laminectomy with partial facetectomy 2. L3/4 laminectomy with partial facetectomy 3.L4/5 laminectomy with partial facetectomy Surgeon: Michael Callaway Anesthesia: General Estimated blood loss (mL): 25 Condition: stable Disposition: PACU Procedure: 1. L2/3 laminectomy with partial facetectomy 2. L3/4 laminectomy with partial facetectomy 3.L4/5 laminectomy with partial facetectomy ` Patient is brought to the operative suite. After undergoing anesthesia was placed in the prone position. All areas impingement were well-padded. Patient was then prepped and draped in normal sterile fashion. Skin incision made from the L2-3 area down to the L4-5 area. This is based on where the location of her epidural abscess or. At L2-3 is more midline at L3-4 and L4-5 it was more left- sided. Skin incision was made from L2 lamina down to the L4/5 disc space. Subperiosteal dissection was made out to the facet joints on the left side. Attention was first brought to the L2-3 level. Laminectomy was performed using high-speed bur Kerrison rongeur and curved curette. The ligamentum flavum was taken down. There was ligament with some scarring down to a pseudomembrane. The partial facetectomy was performed at the L2-3 facet joint on the left side. And this was taken down to the L3 lamina. Next attention was brought to L3/4 level. Laminectomy was performed using high-speed bur Kerrison rongeur and curved curette. The ligamentum flavum was taken down. There was ligament with some scarring down to a pseudomembrane. The partial facetectomy was performed at the L3/4 facet joint on the left side. And this was taken down to the L lamina Next attention was brought to the L4/5 level. Laminectomy was performed using high-speed bur Kerrison rongeur and curved curette. The ligamentum flavum was taken down. There was ligament with some scarring down to a pseudomembrane. The partial facetectomy was performed at the L4/5 facet joint on the left side. And this was taken down to the L5 lamina. The lamina were completely taken down at L4 and L3. There was a pseudocapsule that had formed around the infection. This was opened with a curette. And Kerrison rongeur. The fat had and epidural abscess were scarred and chronic in nature. Of scarring down to the dura. Removed as much as this is a good. And the capsule was completely opened from L5 and all the way up to L2. Once this was opened then some this tissue was sent for culture and some was sent for pathology. Wound was then irrigated with 2 L of saline. Vancomycin powder was placed deep drain was placed. Wound was closed in layered fashion starting with the thoracolumbar fascia this was used in 0 Vicryl skin was closed with 2-0 Vicryl and 4-0 Monocryl and skin glue. Sterile dressings were applied patient was transferred to the PACU in stable condition.
[2021-08-10] MEDS: HYDROmorphone 1 mg/mL INJ 1 mL 0.5 MG IVP ×2 (10:34→10:44)
[2021-08-10] MEDS: ketorolac 30 mg/mL INJ IVP ×2 (11:53→21:33)
--- NOTE | 2021-08-10 14:19 | PM.PN ---
Subjective Subjective: Interval history: Patient was evaluated after the surgery she is endorsing that pain is under control Vega catheter draining concentrated urine she is on broad-spectrum antibiotics she was asking for antifungal, she is not diabetic but gets fungal infection with broad-spectrum antibiotics Vitals/I&O/Wt Last Vital Signs Temp 97.8 F 08/10/21 11:20 Pulse 64 08/10/21 11:20 Resp 14 08/10/21 12:51 BP 129/88 08/10/21 11:20 Pulse Ox 99 08/10/21 12:51 08/09/21 08/10/21 08/10/21 22:59 06:59 14:59 Intake Total 350 / 350 530 / 880 60 / 60 Output Total 1000 / 1000 25 / Balance 350 / 350 -470 / -120 35 / 35 Weight last 48 hrs Weight 74.843 kg Physical Exam Narrative: EXAM NARRATIVE: Patient was eating dinner when entered the room S1, S2 Euvolemic Abdomen soft Patient is able to move her lower extremities Vega catheter draining concentrated urine No audible stridor or wheezing saturating well on room air Urinary Catheter Management^: Vega: Cath Placed During This Visit: yes Reason for Continuing Indwelling Catheter: Required Immobilization for Trauma or Surgery or Anesthesia Urinary Catheter Date of Insertion: 08/10/21 Urinary Catheter Time of Insertion: 00:30 Data : 08/10/21 04:34 08/10/21 04:34 Micro: Microbiology 08/10/21 09:40 Gram Stain - Final Back 08/10/21 04:34 Blood Culture - Preliminary Blood SPECIMEN COLLECTED 08/10/21 04:34 Blood Culture - Preliminary Blood SPECIMEN COLLECTED 08/09/21 14:43 Blood Culture - Preliminary Blood SPECIMEN COLLECTED 08/09/21 14:15 Blood Culture - Preliminary Blood SPECIMEN COLLECTED A&P Assessment and plan (1) Epidural abscess, L2-L5: Status: Acute (2) Lumbar stenosis with neurogenic claudication: Status: Acute (3) Hypertension: Status: Acute Qualifiers: Hypertension type: essential hypertension Qualified Code(s): I10 - Essential (primary) hypertension (4) Anemia: Status: Acute Qualifiers: Anemia type: iron deficiency Iron deficiency anemia type: inadequate dietary iron intake Qualified Code(s): D50.8 - Other iron deficiency anemias (5) Alcohol use disorder, moderate, dependence: Status: Acute (6) Hypothyroidism: Status: Acute Additional A&P Information Epidural abscess status post drainage L1-L3 laminectomy Postop day 0 Blood culture 1/3 cocci with clusters we will repeat blood cultures tomorrow morning If she stays afebrile and there is no leukocytosis I will de-escalate her antibiotics Opioid analgesia with bowel regimen PT evaluation Remove Vega catheter in the morning Start DVT prophylaxis tomorrow morning Alcoholic steatohepatitis no acute withdrawal will use phenobarbital if needed, drinks 14 beers a day, last alcohol drink was 24 hours ago Start lisinopril from tomorrow Continue levothyroxine Regular diet Attestations Medical Necessity Statement*: Anticipating discharge within 48 hours Time Spent in Patient Care: 16 - 35 minutes Coding Level of Care Code Acute Junior Automation Engineer for g Fwd Diagnoses Epidural abscess, L2-L5 G06.1 Lumbar stenosis with neurogenic claudication M48.062 Hypertension I10 Hypertension type: essential hypertension Anemia D50.8 Anemia type: iron deficiency Iron deficiency anemia type: inadequate dietary iron intake Alcohol use disorder, moderate, dependence F10.20 Hypothyroidism E03.9
[2021-08-10] MEDS: vancomycin 750 MG in sodium chloride 0.9% 250 ML 250 MG IV ×2 (15:22→22:32)
--- NOTE | 2021-08-10 17:05 | ANE.PACU2 ---
Inpatient post-anesthesia follow up: Airway intact: Yes Vital signs: Temperature 97.4 F Pulse Rate 83 Respiratory Rate 16 Blood Pressure 123/83 Pulse Oximetry 100 Oxygen Delivery Me thod [ Room Air Current Rate & Del raoul] Oxygen Delivery Me thod Room Air Oxygen Flow Rate Fraction of Inspir ed Oxygen Hydration adequate: Yes Nausea and vomiting: No Pain level: 2 Mental status: Baseline
[2021-08-10] MEDS: docusate sodium 100 mg Capsule PO (17:09)
[2021-08-10] MEDS: dexamethasone 4 mg Tablet PO ×2 (17:09→21:33)
[2021-08-10] MEDS: oxyCODONE-APAP 10-325 mg Tablet 1 TAB PO ×2 (17:23→22:42)
[2021-08-11] VITALS (14 sets, daily range): BP systolic 104–127; BP diastolic 65–87; PULSE 63–76; RESP 16–18; TEMP 36.4–37.1; O2SAT 96–99
[2021-08-11] MEDS: piperacillin-tazobactam 3.375 GM in sodium chloride 0.9% (plus) 50 ML IV ×2 (00:55→10:27)
[2021-08-11] MEDS: morphine 4 mg/mL SDV 1 mL 2 MG IVP ×5 (01:27→21:26)
[2021-08-11] MEDS: ondansetron 2 mg/ML SDV 2 mL 4 MG IVP (01:27)
[2021-08-11] MEDS: methocarbamol 500 mg Tablet PO ×3 (04:09→19:32)
[2021-08-11] MEDS: oxyCODONE-APAP 10-325 mg Tablet 1 TAB PO ×4 (04:09→19:32)
[2021-08-11] MEDS: ketorolac 30 mg/mL INJ IVP ×2 (05:45→21:25)
[2021-08-11 06:14] LABS: Basophils % 0.4 %; Hematocrit 27.5 % (37.0-47.0); Hemoglobin 8.4 g/dL (11.5-15.3); Lymphocytes # 1.1 10^3/uL (0.8-4.8); Lymphocytes % 12.9 %; Mean Corpuscular HGB Conc 30.5 g/dL (30.0-36.0); Mean Corpuscular Volume 98.2 fl (81-99); Mean Platelet Volume 9.1 fL (7.4-10.4); Monocytes # 0.5 10^3/uL (0.2-0.9); Monocytes % 5.3 %; Neutrophils # 6.74 10^3/uL (1.8-7.7); Neutrophils % 79.7 %; Nucleated Red Blood Cells % 0 %; Platelet Count 295 10^3/cmm (130-400); Red Cell Distribution Width 13.7 % (12.1-15.1); White Blood Count 8.5 10^3/uL (4.0-10.0)
[2021-08-11 06:39] LABS: Anion Gap 17.9 (5-19); Blood Urea Nitrogen 9 mg/dL (6-20); Calcium 8.2 mg/dL (8.5-10.5); Carbon Dioxide 20 mmol/L (22-29); Chloride 101 mmol/L (98-107); Glomerular Filtration Rate 107.2 mL/min (90-130); Glucose 132 mg/dL (65-115); Osmolality Calculated 281 mOsm/kg (285-295); Potassium 3.9 mmol/L (3.5-5.1); Sodium 135 mmol/L (136-145)
[2021-08-11 06:40] LABS: Procalcitonin 0.03 ng/mL (0-0.5)
[2021-08-11] MEDS: vancomycin 750 MG in sodium chloride 0.9% 250 ML 250 MG IV ×3 (06:45→22:09)
[2021-08-11 08:12] LABS: Slide Review Slide Review Perform
--- NOTE | 2021-08-11 08:17 | P.PN_ITS ---
Subjective Subjective: Interval history: strength and pressure improved Vitals/I&O/Wt Last Vital Signs Temp 98.0 F 08/11/21 07:14 Pulse 69 08/11/21 07:14 Resp 17 08/11/21 07:14 BP 117/77 08/11/21 07:14 Pulse Ox 97 08/11/21 07:14 08/10/21 08/11/21 08/11/21 22:59 06:59 14:59 Intake Total 360.000 / 420.000 350 / 770.000 Output Total 300 / 325 1060 / 1385 Balance 60.000 / 95.000 -710 / -615.000 Weight last 48 hrs Weight 165 lb Physical Exam Narrative: EXAM NARRATIVE: stronger plantar flexion; continue weak dorsiflexion left foot Urinary Catheter Management^: Vega: Cath Placed During This Visit: yes Reason for Continuing Indwelling Catheter: Required Immobilization for Trauma or Surgery or Anesthesia Urinary Catheter Date of Insertion: 08/10/21 Urinary Catheter Time of Insertion: 00:30 Data : 08/11/21 05:25 08/11/21 05:25 Micro: Microbiology 08/11/21 05:25 Blood Culture - Preliminary Blood SPECIMEN COLLECTED 08/10/21 04:34 Blood Culture - Preliminary Blood NEGATIVE TO DATE 08/10/21 04:34 Blood Culture - Preliminary Blood NEGATIVE TO DATE 08/09/21 14:43 Blood Culture - Preliminary Blood 08/09/21 14:15 Blood Culture - Preliminary Blood NEGATIVE TO DATE 08/10/21 09:40 Gram Stain - Final Back A&P Assessment and plan (1) Epidural abscess, L2-L5: POD #1 I+D epidural abscess awaitinbg culture and likely PICC line needed Status: Acute Attestations Medical Necessity Statement*: per primary service Coding Level of Care Code Acute Cashier Tube Room for [facility] Fwd Diagnoses Epidural abscess, L2-L5 G06.1
[2021-08-11] MEDS: docusate sodium 100 mg Capsule PO ×2 (08:42→17:22)
[2021-08-11] MEDS: dexamethasone 4 mg Tablet PO (08:43)
[2021-08-11] MEDS: levothyroxine 50 mcg Tablet PO (08:43)
[2021-08-11] MEDS: pantoprazole DR 40 mg Tablet PO (08:43)
[2021-08-11] MEDS: thiamine 100 mg Tablet PO (08:43)
[2021-08-11] MEDS: folic acid 1 mg Tablet PO (08:43)
[2021-08-11] MEDS: multivitamin therapeutic Tablet 1 TAB PO (08:43)
--- NOTE | 2021-08-11 11:18 | P.PN_ITS ---
Subjective Subjective: Interval history: Patient is not complaining overnight events, still has Hemovac Hemoglobin 8.4 hemodynamically stable Pain under control was eating breakfast this morning Vega catheter to be removed today Gram-positive cocci in clusters on 08/09 repeat blood cultures sterile, no leukocytosis patient is afebrile Vitals/I&O/Wt Last Vital Signs Temp 98.0 F 08/11/21 07:14 Pulse 69 08/11/21 07:14 Resp 18 08/11/21 10:27 BP 117/77 08/11/21 07:14 Pulse Ox 97 08/11/21 07:14 08/10/21 08/11/21 08/11/21 22:59 06:59 14:59 Intake Total 360.000 / 420.000 400 / 820.000 550 / 550 Output Total 300 / 325 1060 / 1385 Balance 60.000 / 95.000 -660 / -565.000 550 / 550 Physical Exam Narrative: EXAM NARRATIVE: Patient was sitting in the bed eating breakfast Comfortable Saturating well on room air No active blood drainage from Hemovac Able to move her lower extremities No active withdrawal symptoms Nonfocal neuro exam S1, S2 EOMI, PERRLA Urinary Catheter Management^: Vega: Cath Placed During This Visit: yes Reason for Continuing Indwelling Catheter: Required Immobilization for Trauma or Surgery or Anesthesia Urinary Catheter Date of Insertion: 08/10/21 Urinary Catheter Time of Insertion: 00:30 Data : 08/11/21 05:25 08/11/21 05:25 Micro: Microbiology 08/10/21 04:34 Blood Culture - Preliminary Blood 08/09/21 14:15 Blood Culture - Preliminary Blood 08/09/21 14:43 Blood Culture - Preliminary Blood 08/11/21 05:25 Blood Culture - Preliminary Blood SPECIMEN COLLECTED 08/10/21 04:34 Blood Culture - Preliminary Blood NEGATIVE TO DATE 08/10/21 09:40 Gram Stain - Final Back A&P Assessment and plan (1) Epidural abscess, L2-L5: Status: Acute (2) Lumbar stenosis with neurogenic claudication: Status: Acute (3) Hypertension: Status: Acute Qualifiers: Hypertension type: essential hypertension Qualified Code(s): I10 - Essential (primary) hypertension (4) Anemia: Status: Acute Qualifiers: Anemia type: iron deficiency Iron deficiency anemia type: inadequate dietary iron intake Qualified Code(s): D50.8 - Other iron deficiency anemias (5) Steatohepatitis, alcoholic: Status: Acute (6) Alcohol use disorder, moderate, dependence: Status: Acute (7) Hypothyroidism: Status: Acute Additional A&P Information Epidural abscess status post L1-L3 laminectomy Epidural abscess drainage Postop day 1 Afebrile no leukocytosis Blood culture on 08/09+ for gram-positive cocci in clusters Repeat blood cultures today Patient is afebrile Discontinue IV Zosyn, continue vancomycin for now Alcohol abuse: Last alcoholic drink 48 hours ago continue folic acid and thiamine, she is on CIWA protocol Postoperative anemia no significant blood loss noted in perioperative time, monitor for now repeat H&H No need of blood transfusion Alcoholic steatohepatitis no acute worsening Regular diet DVT prophylaxis Lovenox full code Patient was seen in the hospital because of positive blood culture, work with physical therapy, Vega cath removal today Attestations Medical Necessity Statement*: Patient will need to stay because of positive blood cultures, Time Spent in Patient Care: 16 - 35 minutes Coding Level of Care Code Acute Sales Ledger Clerk for [facility] Fwd Diagnoses Epidural abscess, L2-L5 G06.1 Lumbar stenosis with neurogenic claudication M48.062 Hypertension I10 Hypertension type: essential hypertension Anemia D50.8 Anemia type: iron deficiency Iron deficiency anemia type: inadequate dietary iron intake Steatohepatitis, alcoholic K70.10 Alcohol use disorder, moderate, dependence F10.20 Hypothyroidism E03.9
--- NOTE | 2021-08-11 12:27 | USCV_ITS ---
Judie Rhodes Age: 45 Gender: F : 1975 Exam Date: 08/11/2021 12:44 Ordering Phys: Lane Feng MD Technologist: WENDI [place] [facility] [place]: MRSA, BACTEREMIA BP: 117 / 77 HR: 88 Rhythm: Sinus Technical Quality: Adequate MEASUREMENTS (Male / Female) Normal Values 2D ECHO LV Diastolic Diameter PLAX 3.7 cm 4.2 - 5.9 / 3.9 - 5.3 cm LV Systolic Diameter PLAX 2.0 cm IVS Diastolic Thickness 1.2 cm 0.6 - 1.0 / 0.6 - 0.9 cm IVS Systolic Thickness 1.5 cm LVPW Diastolic Thickness 1.3 cm 0.6 - 1.0 / 0.6 - 0.9 cm LVPW Systolic Thickness 1.6 cm RV Chamber Size 2.5 cm LVOT Diameter 2.0 cm LV Ejection Fraction 2D Teich 77.1 % LV Ejection Fraction MOD 2C 76.3 % LV Ejection Fraction 2C AL 78.0 % LA Diameter 2.6 cm LA Width 3.4 cm LA Height 4.3 cm RA Width 3.1 cm RA Height 5.0 cm Aorta at Sinotubular Diameter 2.3 cm DOPPLER AV Peak Velocity 190.0 cm/s LVOT Peak Velocity 136.0 cm/s AV Area Cont Eq vti 2.2 cm squared AV Area Cont Eq pk 2.2 cm squared MV Area PHT 4.6 cm squared Mitral E to A Ratio 1.2 MV E' Velocity 50.5 cm/s Mitral E to MV E' Ratio 8.5 Mitral E to LV E' Lateral Ratio 7.8 Mitral E to LV E' Septal Ratio 9.4 TR Peak Velocity 367.5 cm/s TR Peak Gradient 54.0 mmHg Right Atrial Pressure 8.0 mmHg Pulmonary Artery Systolic Pressu 62.0 mmHg PV Peak Velocity 140.0 cm/s RV Acceleration Time 0.2 s RV Ejection Time 0.3 s RV AcT/ET 0.5 FINDINGS Left Ventricle Normal left ventricular size and systolic function, EF 79 %. No regional wall motion abnormalities. Right Ventricle The right ventricle is normal in size and function. Right Atrium The right atrium is normal in size. Left Atrium The left atrium is normal in size. Mitral Valve Trace to mild mitral valve regurgitation. Aortic Valve No gross abnormalities noted Tricuspid Valve Trace tricuspid valve regurgitation. Pulmonic Valve No gross abnormalities noted Pericardium Normal pericardium without effusion. Aorta Normal ascending aorta dimension. CONCLUSIONS Normal left ventricular size and systolic function, EF 79 %. No regional wall motion abnormalities. Trace to mild mitral valve regurgitation. Trace tricuspid valve regurgitation. There is no pericardial effusion. There are no intracardiac masses. No previous study is available for comparison. Dr Sharif Watson MD FACC (Electronically Signed) Final Date: 11 August 2021 20:54 S
[2021-08-11 14:56] LABS: Vancomycin Trough 17.7 ug/mL (10-15)
[2021-08-12] VITALS (14 sets, daily range): BP systolic 120–143; BP diastolic 74–100; PULSE 67–90; RESP 16–18; TEMP 36.2–37.1; O2SAT 96–99
[2021-08-12] MEDS: methocarbamol 500 mg Tablet PO ×4 (04:00→23:08)
[2021-08-12] MEDS: morphine 4 mg/mL SDV 1 mL 2 MG IVP ×4 (04:00→21:21)
[2021-08-12 05:32] LABS: Basophils # 0.1 10^3/uL (0.0-0.1); Basophils % 0.9 %; Eosinophils % 0.6 %; Hematocrit 27.9 % (37.0-47.0); Hemoglobin 8.3 g/dL (11.5-15.3); Lymphocytes % 28.9 %; Mean Corpuscular HGB Conc 29.7 g/dL (30.0-36.0); Mean Corpuscular Hemoglobin 30.2 pg (28.0-34.0); Mean Corpuscular Volume 101.5 fl (81-99); Monocytes # 0.5 10^3/uL (0.2-0.9); Monocytes % 7.5 %; Neutrophils % 59.1 %; Nucleated Red Blood Cells % 0 %; Platelet Count 261 10^3/cmm (130-400); Red Blood Count 2.75 10^6/uL (4.1-5.3); White Blood Count 6.9 10^3/uL (4.0-10.0)
[2021-08-12 06:05] LABS: Anion Gap 14.3 (5-19); Blood Urea Nitrogen 9 mg/dL (6-20); Calcium 8.2 mg/dL (8.5-10.5); Carbon Dioxide 22 mmol/L (22-29); Chloride 106 mmol/L (98-107); Glomerular Filtration Rate 107.2 mL/min (90-130); Glucose 77 mg/dL (65-115); Osmolality Calculated 285 mOsm/kg (285-295); Potassium 3.3 mmol/L (3.5-5.1); Sodium 139 mmol/L (136-145)
[2021-08-12] MEDS: vancomycin 750 MG in sodium chloride 0.9% 250 ML 250 MG IV ×3 (06:27→23:05)
[2021-08-12] MEDS: oxyCODONE-APAP 10-325 mg Tablet 1 TAB PO ×4 (06:28→23:08)
[2021-08-12] MEDS: levothyroxine 50 mcg Tablet PO (08:29)
[2021-08-12] MEDS: thiamine 100 mg Tablet PO (08:29)
[2021-08-12] MEDS: multivitamin therapeutic Tablet 1 TAB PO (08:29)
[2021-08-12] MEDS: docusate sodium 100 mg Capsule PO (08:29)
[2021-08-12] MEDS: pantoprazole DR 40 mg Tablet PO (08:29)
[2021-08-12] MEDS: ibuprofen 200 mg Tablet 400 MG PO ×3 (08:30→23:08)
[2021-08-12] MEDS: folic acid 1 mg Tablet PO (08:32)
--- NOTE | 2021-08-12 09:11 | P.PN_ITS ---
Subjective Subjective: Interval history: improving clinically Vitals/I&O/Wt Last Vital Signs Temp 98.6 F 08/12/21 08:00 Pulse 90 08/12/21 08:00 Resp 16 08/12/21 08:08 BP 130/87 08/12/21 08:00 Pulse Ox 98 08/12/21 08:00 08/11/21 08/12/21 08/12/21 22:59 06:59 14:59 Intake Total 730 / 1774.375 730 / 2504.375 Balance 730 / 1774.375 730 / 2504.375 Physical Exam Narrative: EXAM NARRATIVE: strength improving dorsiflexion of left foot better than yesterday Urinary Catheter Management^: Vega: Cath Placed During This Visit: yes Reason for Continuing Indwelling Catheter: Required Immobilization for Trauma or Surgery or Anesthesia Urinary Catheter Date of Insertion: 08/10/21 Urinary Catheter Time of Insertion: 00:30 Data : 08/12/21 04:26 08/12/21 04:26 Micro: Microbiology 08/11/21 05:25 Blood Culture - Preliminary Blood NEGATIVE TO DATE 08/10/21 09:40 Gram Stain - Final Back Anaerobic Culture - Preliminary Wound Culture - Preliminary 08/11/21 14:11 Blood Culture - Preliminary Blood SPECIMEN COLLECTED 08/09/21 14:43 Blood Culture - Preliminary Blood Staphylococcus aureus 08/10/21 04:34 Blood Culture - Preliminary Blood 08/09/21 14:15 Blood Culture - Preliminary Blood 08/10/21 04:34 Blood Culture - Preliminary Blood NEGATIVE TO DATE A&P Assessment and plan (1) Epidural abscess, L2-L5: POD#2 Up with PT Status: Acute Attestations Medical Necessity Statement*: per primary service Coding Level of Care Code Acute Human Resource Analyst for g Fwd Diagnoses Epidural abscess, L2-L5 G06.1
--- NOTE | 2021-08-12 12:08 | PM.PN ---
Subjective Subjective: Interval history: MRSA positive in blood and wound, patient is afebrile no leukocytosis We will request PICC line placement for vancomycin for week regimen During MDS I was told that this will be a challenging situation because of lack of insurance, finished goods planner will talk with the patient and coordinate accordingly, Patient is stating that she is in the midst of changing her PCP as well She will need Vanco level outpatient Vitals/I&O/Wt Last Vital Signs Temp 98.6 F 08/12/21 08:00 Pulse 90 08/12/21 08:00 Resp 18 08/12/21 11:27 BP 130/87 08/12/21 08:00 Pulse Ox 98 08/12/21 08:00 08/11/21 08/12/21 08/12/21 22:59 06:59 14:59 Intake Total 730 / 1774.375 730 / 2504.375 730 / 730 Balance 730 / 1774.375 730 / 2504.375 730 / 730 Physical Exam Narrative: EXAM NARRATIVE: Patient was able to walk around using a walker Drain has been removed No active source of bleeding, no open skin ulcers No signs of meningitis EOMI, PERRLA S1, S2 Abdomen soft Breathing well on room air No signs of active withdrawal Urinary Catheter Management^: Vega: Cath Placed During This Visit: yes Reason for Continuing Indwelling Catheter: Required Immobilization for Trauma or Surgery or Anesthesia Urinary Catheter Date of Insertion: 08/10/21 Urinary Catheter Time of Insertion: 00:30 Data : 08/12/21 04:26 08/12/21 04:26 Micro: Microbiology 08/10/21 09:40 Gram Stain - Final Back Anaerobic Culture - Preliminary Wound Culture - Preliminary Methicillin Resis Staph Aureus 08/10/21 04:34 Blood Culture - Preliminary Blood Methicillin Resis Staph Aureus 08/09/21 14:15 Blood Culture - Preliminary Blood Methicillin Resis Staph Aureus 08/09/21 14:43 Blood Culture - Preliminary Blood Methicillin Resis Staph Aureus 08/11/21 05:25 Blood Culture - Preliminary Blood NEGATIVE TO DATE 08/11/21 14:11 Blood Culture - Preliminary Blood SPECIMEN COLLECTED A&P Assessment and plan (1) Epidural abscess, L2-L5: Status: Acute (2) Lumbar stenosis with neurogenic claudication: Status: Acute (3) Hypertension: Status: Acute Qualifiers: Hypertension type: essential hypertension Qualified Code(s): I10 - Essential (primary) hypertension (4) Anemia: Status: Acute Qualifiers: Anemia type: iron deficiency Iron deficiency anemia type: inadequate dietary iron intake Qualified Code(s): D50.8 - Other iron deficiency anemias (5) Steatohepatitis, alcoholic: Status: Acute (6) Hypothyroidism: Status: Acute Additional A&P Information Epidural abscess Status post L1-L3 laminectomy, Abscess was drained [place] drain was removed today Patient is able to walk no signs of meningitis she is afebrile Wound and blood culture positive for MRSA She will need PICC line placement and 4 weeks of IV vancomycin course Echo without any vegetation She is afebrile without leukocytosis, endocarditis less likely at this point Repeat blood cultures negative which were taken on antibiotics Hypertension: Currently normotensive Hypothyroidism: Continue levothyroxine Anemia: Stable Hypokalemia: Repleted Alcohol abuse: No active withdrawal continue CIWA protocol Full code DVT prophylaxis: Lovenox Regular diet Discharge planning to coordinate with the patient and arrange outpatient home health services with IV antibiotics Attestations Medical Necessity Statement*: Continue medical management Time Spent in Patient Care: 16 - 35 minutes Coding Level of Care Code Acute Department Chair for g Fwd Diagnoses Epidural abscess, L2-L5 G06.1 Lumbar stenosis with neurogenic claudication M48.062 Hypertension I10 Hypertension type: essential hypertension Anemia D50.8 Anemia type: iron deficiency Iron deficiency anemia type: inadequate dietary iron intake Steatohepatitis, alcoholic K70.10 Hypothyroidism E03.9
[2021-08-12] MEDS: ondansetron 2 mg/ML SDV 2 mL 4 MG IVP (21:21)
[2021-08-13] VITALS (12 sets, daily range): BP systolic 122–147; BP diastolic 78–92; PULSE 67–97; RESP 16–18; TEMP 36.9–37.1; O2SAT 96–100
[2021-08-13] MEDS: morphine 4 mg/mL SDV 1 mL 2 MG IVP ×4 (04:27→20:34)
[2021-08-13] MEDS: ondansetron 2 mg/ML SDV 2 mL 4 MG IVP ×2 (04:28→15:48)
[2021-08-13] MEDS: vancomycin 750 MG in sodium chloride 0.9% 250 ML 200 MG IV (06:29)
[2021-08-13] MEDS: methocarbamol 500 mg Tablet PO ×3 (06:30→20:34)
[2021-08-13] MEDS: oxyCODONE-APAP 10-325 mg Tablet 1 TAB PO ×3 (06:30→17:18)
[2021-08-13 07:03] LABS: Basophils # 0.1 10^3/uL (0.0-0.1); Basophils % 0.8 %; Eosinophils # 0.1 10^3/uL (0.0-0.8); Eosinophils % 1.5 %; Hematocrit 28.3 % (37.0-47.0); Hemoglobin 8.5 g/dL (11.5-15.3); Lymphocytes # 1.4 10^3/uL (0.8-4.8); Lymphocytes % 23.8 %; Mean Corpuscular Hemoglobin 30.5 pg (28.0-34.0); Mean Corpuscular Volume 101.4 fl (81-99); Mean Platelet Volume 8.7 fL (7.4-10.4); Monocytes # 0.5 10^3/uL (0.2-0.9); Monocytes % 8.7 %; Neutrophils # 3.57 10^3/uL (1.8-7.7); Neutrophils % 60.6 %; Nucleated Red Blood Cells % 0 %; Platelet Count 250 10^3/cmm (130-400); Red Blood Count 2.79 10^6/uL (4.1-5.3); Red Cell Distribution Width 14.1 % (12.1-15.1); White Blood Count 5.9 10^3/uL (4.0-10.0)
[2021-08-13 07:42] LABS: Anion Gap 14.3 (5-19); Blood Urea Nitrogen 7 mg/dL (6-20); Calcium 8.2 mg/dL (8.5-10.5); Carbon Dioxide 21 mmol/L (22-29); Chloride 109 mmol/L (98-107); Glomerular Filtration Rate 107.2 mL/min (90-130); Glucose 81 mg/dL (65-115); Osmolality Calculated 289 mOsm/kg (285-295); Potassium 3.3 mmol/L (3.5-5.1); Sodium 141 mmol/L (136-145)
[2021-08-13] MEDS: ibuprofen 200 mg Tablet 400 MG PO ×2 (10:01→17:17)
[2021-08-13] MEDS: pantoprazole DR 40 mg Tablet PO (10:03)
[2021-08-13] MEDS: levothyroxine 50 mcg Tablet PO (10:03)
[2021-08-13] MEDS: multivitamin therapeutic Tablet 1 TAB PO (10:03)
[2021-08-13] MEDS: folic acid 1 mg Tablet PO (10:03)
[2021-08-13] MEDS: thiamine 100 mg Tablet PO (10:03)
--- NOTE | 2021-08-13 12:05 | PM.PN ---
Subjective Subjective: Interval history: Afebrile no leukocytosis She was eating breakfast MRSA precautions Awaiting assistant director of financial aid for vancomycin 4-week regimen Awaiting PICC line placement Goal vanc trough level 10-15 Vitals/I&O/Wt Last Vital Signs Temp 98.7 F 08/13/21 07:43 Pulse 70 08/13/21 07:43 Resp 16 08/13/21 10:02 BP 126/86 08/13/21 07:43 Pulse Ox 98 08/13/21 07:43 08/12/21 08/13/21 08/13/21 22:59 06:59 14:59 Intake Total 490 / 1340 730 / 2070 250 / 250 Balance 490 / 1340 730 / 2070 250 / 250 Physical Exam Narrative: EXAM NARRATIVE: Saturating well on room air No audible stridor or wheezing S1, S2 Abdomen soft Dressing intact without any drainage No signs of meningitis No sign of withdrawal Abdomen soft Nonfocal neuro exam Urinary Catheter Management^: Vega: Cath Placed During This Visit: yes Reason for Continuing Indwelling Catheter: Required Immobilization for Trauma or Surgery or Anesthesia Urinary Catheter Date of Insertion: 08/10/21 Urinary Catheter Time of Insertion: 00:30 Data : 08/13/21 06:27 08/13/21 06:27 Micro: Microbiology 08/10/21 09:40 Gram Stain - Final Back Anaerobic Culture - Preliminary Wound Culture - Preliminary Methicillin Resis Staph Aureus 08/11/21 14:11 Blood Culture - Preliminary Blood NEGATIVE TO DATE 08/10/21 04:34 Blood Culture - Preliminary Blood Methicillin Resis Staph Aureus 08/09/21 14:15 Blood Culture - Preliminary Blood Methicillin Resis Staph Aureus 08/09/21 14:43 Blood Culture - Preliminary Blood Methicillin Resis Staph Aureus A&P Assessment and plan (1) Epidural abscess, L2-L5: Status: Acute (2) Lumbar stenosis with neurogenic claudication: Status: Acute (3) Hypertension: Status: Acute Qualifiers: Hypertension type: essential hypertension Qualified Code(s): I10 - Essential (primary) hypertension (4) Steatohepatitis, alcoholic: Status: Acute (5) MRSA bacteremia: Status: Acute Additional A&P Information Epidural abscess status post laminectomy with partial facetectomy L2-L5 Bacteremia with MRSA 08/09 and wound culture positive with MRSA Repeat blood cultures -08/11 PICC line placement as repeat blood cultures are negative, will need 4-6 weeks of IV antibiotics, vancomycin, Patient does not have insurance for next 12 days her insurance will kick in in first week of August, have apply for assistant director of financial aid Alcohol abuse: No active signs of withdrawal Hypertension: Currently normotensive Full code Regular diet DVT prophylaxis: Lovenox Attestations Medical Necessity Statement*: Anticipating discharge after assistant director of financial aid approval Time Spent in Patient Care: less than 15 minutes Coding Level of Care Code Acute Skills Instructor for [facility] Fwd Diagnoses Epidural abscess, L2-L5 G06.1 Lumbar stenosis with neurogenic claudication M48.062 Hypertension I10 Hypertension type: essential hypertension Steatohepatitis, alcoholic K70.10 MRSA bacteremia R78.81; B95.62
[2021-08-13] MEDS: potassium chloride ER 20 mEq Tablet 40 MEQ PO (12:27)
--- NOTE | 2021-08-13 12:54 | XR_ITS ---
WS: [id number] Exam: XR chest 1V [id number] Date/Time of Exam: 08/13/2021 12:54 PM Reason For Exam: PICC PLACEMENT Comparison 08/09/2021. A right-sided PICC line is been placed and ends in the lower one third of the SVC. The lungs are amparo r and fully expanded. Normal cardiomediastinal structures. Bony elements are intact. XR/XR chest 1V [id number] IMPRESSION: 1. Right-sided PICC line ends in the region of the lower one third of the SVC. 2. No acute cardiopulmonary finding.
--- NOTE | 2021-08-13 13:30 | PC.NURSE ---
RIGHT PICC in and ready for use. Primary nurse notified.
[2021-08-13 16:58] LABS: Vancomycin Trough 15.8 ug/mL (10-15)
[2021-08-13] MEDS: vancomycin 750 MG in sodium chloride 0.9% 250 ML 250 MG IV ×2 (17:18→23:58)
[2021-08-14] VITALS (10 sets, daily range): BP systolic 115–146; BP diastolic 73–94; PULSE 70–89; RESP 16–19; TEMP 36.5–37.2; O2SAT 96–99
[2021-08-14] MEDS: oxyCODONE-APAP 10-325 mg Tablet 1 TAB PO ×5 (00:06→20:24)
[2021-08-14] MEDS: morphine 4 mg/mL SDV 1 mL 2 MG IVP ×2 (03:02→08:23)
[2021-08-14] MEDS: ibuprofen 200 mg Tablet 400 MG PO ×3 (05:02→23:21)
[2021-08-14] MEDS: methocarbamol 500 mg Tablet PO ×2 (05:02→23:21)
[2021-08-14] MEDS: vancomycin 750 MG in sodium chloride 0.9% 250 ML 250 MG IV (06:11)
[2021-08-14 06:25] LABS: Anion Gap 11.7 (5-19); Blood Urea Nitrogen 6 mg/dL (6-20); Calcium 8.5 mg/dL (8.5-10.5); Carbon Dioxide 23 mmol/L (22-29); Chloride 108 mmol/L (98-107); Glomerular Filtration Rate 107.2 mL/min (90-130); Glucose 82 mg/dL (65-115); Magnesium 1.5 mg/dL (1.7-2.3); Osmolality Calculated 285 mOsm/kg (285-295); Potassium 3.7 mmol/L (3.5-5.1); Sodium 139 mmol/L (136-145)
[2021-08-14] MEDS: multivitamin therapeutic Tablet 1 TAB PO (08:23)
[2021-08-14] MEDS: pantoprazole DR 40 mg Tablet PO (08:23)
[2021-08-14] MEDS: thiamine 100 mg Tablet PO (08:23)
[2021-08-14] MEDS: folic acid 1 mg Tablet PO (08:23)
[2021-08-14] MEDS: levothyroxine 50 mcg Tablet PO (08:23)
--- NOTE | 2021-08-14 10:41 | PM.PN ---
Subjective Subjective: Interval history: Patient is not endorsing any new events No fever overnight Magnesium 1.5 Patient has decided to opt for vancomycin twice daily 1 g 6-week regimen, she is able to afford and follow-up with Dr. Graham LR specialist for vanc trough level Vitals/I&O/Wt Last Vital Signs Temp 98.8 F 08/14/21 07:49 Pulse 79 08/14/21 07:49 Resp 18 08/14/21 10:30 BP 146/94 08/14/21 07:49 Pulse Ox 99 08/14/21 07:49 08/13/21 08/14/21 08/14/21 22:59 06:59 14:59 Intake Total 490 / 1340 250 / 1590 250 / 250 Balance 490 / 1340 250 / 1590 250 / 250 Physical Exam Narrative: EXAM NARRATIVE: Patient was sitting comfortably abdomen soft Nonfocal neuro exam No signs of meningitis Saturating well on room air No signs of withdrawal Abdomen soft S1, S2 No audible stridor or wheezing Urinary Catheter Management^: Vega: Cath Placed During This Visit: yes Reason for Continuing Indwelling Catheter: Required Immobilization for Trauma or Surgery or Anesthesia Urinary Catheter Date of Insertion: 08/10/21 Urinary Catheter Time of Insertion: 00:30 Data : 08/13/21 06:27 08/14/21 04:56 Micro: Microbiology 08/10/21 09:40 Gram Stain - Final Back Anaerobic Culture - Preliminary Wound Culture - Final Methicillin Resis Staph Aureus 08/09/21 14:43 Blood Culture - Final Blood Methicillin Resis Staph Aureus 08/09/21 14:15 Blood Culture - Final Blood Methicillin Resis Staph Aureus A&P Assessment and plan (1) MRSA bacteremia: Status: Acute (2) Epidural abscess, L2-L5: Status: Acute (3) Lumbar stenosis with neurogenic claudication: Status: Acute (4) Hypertension: Status: Acute Qualifiers: Hypertension type: essential hypertension Qualified Code(s): I10 - Essential (primary) hypertension (5) Anemia: Status: Acute Qualifiers: Anemia type: iron deficiency Iron deficiency anemia type: inadequate dietary iron intake Qualified Code(s): D50.8 - Other iron deficiency anemias (6) Steatohepatitis, alcoholic: Status: Acute (7) Alcohol use disorder, moderate, dependence: Status: Acute (8) Hypothyroidism: Status: Acute (9) Hypomagnesemia: Status: Acute (10) Hypokalemia: Status: Acute Additional A&P Information Epidural abscess status post drainage, MRSA bacteremia, repeat blood cultures negative, exact source has not been identified, patient will need 6 weeks of 1 g twice daily with vancomycin, vancomycin trough level will be monitored by ID specialist outpatient Dr. Stevenson, who has been notified PICC line was placed on 08/13 Patient will be discharged tomorrow after morning dose of vancomycin Discharge planners working diligently to arrange outpatient IV antibiotics Attestations Medical Necessity Statement*: Discharge tomorrow Time Spent in Patient Care: less than 15 minutes Coding Level of Care Code Acute Social Sciences Instructor for g Fwd Diagnoses MRSA bacteremia R78.81; B95.62 Epidural abscess, L2-L5 G06.1 Lumbar stenosis with neurogenic claudication M48.062 Hypertension I10 Hypertension type: essential hypertension Anemia D50.8 Anemia type: iron deficiency Iron deficiency anemia type: inadequate dietary iron intake Steatohepatitis, alcoholic K70.10 Alcohol use disorder, moderate, dependence F10.20 Hypothyroidism E03.9 Hypomagnesemia E83.42 Hypokalemia E87.6
--- NOTE | 2021-08-14 12:34 | PC.CHAP ---
Pastoral Care Encounter/Spiritual Assessment Type of Contact [] Declined principal technical specialist visit [] Patient/Family/Request visit [] Outpatient visit [xx] Follow-up visit [] Physician referral [] Code/Alert [] Routine visit [] Staff referral [] Actively dying [] Patient sleeping [] Family support [] [] Out of room [] Palliative care [] [] Receiving care in room [] Pre-surgical visit [] Trauma xx] Long length of stay [] ICU visit [xx] Other: Patient is now in ISOLATION. Relational/Emotional Strength [] Patient feels connected with others/family/visitors/staff [] Distress [] Loneliness/isolation [] Abandonment Spirituality of Patient [] Person of [place] [] Attends Buddhist of their [place] [] Believes in Prayer [] Reads Bible or Protestant materials [] There are Spiritual issues to be addressed Health Tech Interventions [] Prayer [] Active listening [] Non-anxious presence [] Spiritual/emotional support [] Crisis/trauma care [] Spiritual counseling [] Bereavement support [] Provided bereavement packet [] Provided Bible/devotional materials [] Provided toy/stuffed animal, coloring book to patient or family member [] Provided Communion [] Anointing/[place] [] Salvation [] Completed spiritual assessment [] Other: Impact on Illness or Injury [] Angry [] Fearful [] Anxious [] Often cries [] Exhaustion [] Unable to work [] Unable to attend muslim [] Unable to walk/stand [] Unable to read [] Unable to drive [] Unable to eat/drink [] Unable to sleep [] Unable to be with family [] Patient intubated [] Other: Summary Time spent with patient
[2021-08-14] MEDS: vancomycin 1,000 MG in sodium chloride 0.9% 250 ML 250 MG IV (17:51)
[2021-08-14] MEDS: ondansetron 2 mg/ML SDV 2 mL 4 MG IVP (18:42)
[2021-08-15] VITALS (9 sets, daily range): BP systolic 111–136; BP diastolic 68–93; PULSE 72–89; RESP 14–18; TEMP 37.1; O2SAT 97–98
[2021-08-15] MEDS: oxyCODONE-APAP 10-325 mg Tablet 1 TAB PO ×4 (01:57→14:29)
[2021-08-15] MEDS: vancomycin 1,000 MG in sodium chloride 0.9% 250 ML 250 MG IV (04:16)
[2021-08-15] MEDS: thiamine 100 mg Tablet PO (09:20)
[2021-08-15] MEDS: multivitamin therapeutic Tablet 1 TAB PO (09:20)
[2021-08-15] MEDS: pantoprazole DR 40 mg Tablet PO (09:20)
[2021-08-15] MEDS: folic acid 1 mg Tablet PO (09:20)
[2021-08-15] MEDS: levothyroxine 50 mcg Tablet PO (09:20)
[2021-08-15] MEDS: ondansetron 2 mg/ML SDV 2 mL 4 MG IVP (09:50)
[2021-08-15] MEDS: methocarbamol 500 mg Tablet PO (09:50)
--- NOTE | 2021-08-15 14:02 | P.DS_ITS ---
Discharge Providers Date of Admission: 08/09/21 13:21 Date of Discharge: August 15, 2021 Attending Provider at Admission: Marcy Damon MD Attending Provider at Discharge: Lane Feng MD Primary Care Provider: MARTIN Singleton Diagnoses at Discharge Discharge Diagnosis (1) MRSA bacteremia: Status: Acute (2) Epidural abscess, L2-L5: Status: Acute (3) Lumbar stenosis with neurogenic claudication: Status: Acute (4) Hypertension: Status: Acute Qualifiers: Hypertension type: essential hypertension Qualified Code(s): I10 - Essential (primary) hypertension (5) Anemia: Status: Acute Qualifiers: Anemia type: iron deficiency Iron deficiency anemia type: inadequate dietary iron intake Qualified Code(s): D50.8 - Other iron deficiency anemias (6) Steatohepatitis, alcoholic: Status: Acute (7) Alcohol use disorder, moderate, dependence: Status: Acute (8) Hypothyroidism: Status: Acute (9) Hypomagnesemia: Status: Acute (10) Hypokalemia: Status: Acute Reason for Visit Reason for Visit: BACK PAIN/SENT FROM Hospital Course Hospital Course 45-year-old female who was admitted on 08/09 for management of epidural abscess, status post laminectomy with partial facetectomy L2-L5 with drainage of abscess, wound and blood culture positive for MRSA 08/10, 08/11 blood culture negative to date, she was started on broad-spectrum antibiotics in the beginning however it was narrowed down to vancomycin, PICC line was placed on 08/13, she will be discharged home on vancomycin 6 weeks regimen 1 g twice daily with outpatient Dr. Stevenson follow-up. I will email all the details to Dr. Stevenson. Her wound did not look infected, no open wounds were noted, no IV drug abuse history. Patient drinks alcohol on daily basis, however did not suffer from severe withdrawal symptoms. For her pain management she did well with the oxycodone and muscle relaxants. She will be given prescription for vancomycin trough level every week, outpatient follow-up with Dr. Stevenson and 2-week follow-up with Dr. Callaway. 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 All questions were answered to her satisfaction. Patient remained afebrile leukocytosis improved she will be discharged on 08/15 to home Physical Exam Narrative: EXAM NARRATIVE: Very pleasant cooperative female Sitting at the bedside Does use walker for ambulation Afebrile No signs of meningitis EOMI, PERRLA Nonfocal exam Wound does not look infected No audible stridor or wheezing saturating well on room air Urinary Catheter Management^: Vega: Cath Placed During This Visit: yes Reason for Continuing Indwelling Catheter: Required Immobilization for Trauma or Surgery or Anesthesia Urinary Catheter Date of Insertion: 08/10/21 Urinary Catheter Time of Insertion: 00:30 Discharge Data Data Completed and Pending: Completed Studies During Hospitalization Category Date Time Status XR chest 1V [id number] Routine Exams 08/13/21 12:54 Completed XR chest 1V yuliya ble [id number] Routine Exams 08/09/21 15:34 Completed XR lumbar spine 2 -3V* [id number] Routine Exams 08/10/21 Completed Pathology: Surgic al [PTH] Routine Pth 08/10/21 10:34 Completed CV. echo complete * [id number] Routine Ultrasound 08/11/21 12:27 Completed Pending at discharge Category Date Time Status Anaerobic Culture Routine Lab 08/10/21 09:40 Results Blood Culture Sta t Lab 08/11/21 14:11 Results Wound Culture and Gram Stain Routin e Lab 08/10/21 09:40 Results Vitals: Last Vital Signs Temp 98.8 F 08/15/21 11:18 Pulse 86 08/15/21 11:18 Resp 18 08/15/21 11:18 BP 136/93 08/15/21 11:18 Pulse Ox 98 08/15/21 11:18 Discharge Plan Discharge Patient Disposition: Home Condition: Stable Prescriptions: New oxycodone-acetaminophen 10-325 mg Tablet 1 tab PO Q4H PRN (Reason: Moderate Pain) Qty: 20 RF: 0 methocarbamol 500 mg Tablet 500 mg PO QID PRN (Reason: Muscle Spasms) Qty: 30 RF: 0 Senna Plus 8.6-50 mg capsule 1 tab-cap PO BID Qty: 60 RF: 0 vancomycin 1,000 mg recon soln See Rx Instructions .ROUTE .COMPLEX Qty: 10 RF: 0 Continued levothyroxine 50 mcg tablet 50 mcg PO DAILY MDD see pharmacy comment Qty: 30 RF: 1 Discharge Orders: Discharge Order (Routine); Ordered 08/15/21 Ordered By: Lane Feng Other Ambulatory Orders: Vancomycin Trough (Routine) Timeframe: 6 Weeks Facility: [facility] - Location: Lab - Main Lab Ordered By: Lane Feng Vancomycin Trough (Routine) Timeframe: 2 Days Facility: [facility] - Location: Lab - Main Lab Ordered By: Lane Feng DME: Walker (Order) Location: None Selected Ordered By: Michael Callaway Referrals: Michael Callaway DO [Physician] - 2 weeks ESTELLE Byrne, MARTIN [Nurse Practitioner] - 7-10 days Kiera Stevenson MD [Hospitalist] - 1-3 days Patient Instructions: Anemia, Oxycodone/Acetaminophen (By mouth), Methocarbamol (By mouth), Vancomycin (By mouth), Senna (By mouth), MRSA (Methicillin- Resistant Staphylococcus Aureus) (DC), Hypokalemia (DC), Lumbar Spinal Stenosis (DC), Hypomagnesemia (DC), Opioid Safety Discharge Attestations Time Spent in Discharge Care*: less than 30 min Quality Metrics Clinical Quality Measures During this hospital stay, did patient experience: None Coding Level of Care Code Acute Chg FW DC note Diagnoses MRSA bacteremia R78.81; B95.62 Epidural abscess, L2-L5 G06.1 Lumbar stenosis with neurogenic claudication M48.062 Hypertension I10 Hypertension type: essential hypertension Anemia D50.8 Anemia type: iron deficiency Iron deficiency anemia type: inadequate dietary iron intake Steatohepatitis, alcoholic K70.10 Alcohol use disorder, moderate, dependence F10.20 Hypothyroidism E03.9 Hypomagnesemia E83.42 Hypokalemia E87.6
--- NOTE | 2021-08-15 14:38 | PC.NURSE ---
PT HAS DONE WELL FOR ME TODAY. PT HAS HAD MINIMAL COMPLAINTS OF PAIN BUT IT SEEMS TO BE TOLERATED WITH PRN PAIN MEDICATIONS. PT WILL GO HOME WITH PICC LINE TODAY. DISCHARGE PAPERWORK GONE OVER WITH PT. MEDICATIONS SENT TO PHARMACY OF PTS REQUEST. PT SAFELY WHEELED OUT BY THE AID.
--- NOTE | 2021-08-18 08:15 | PC.SOCIAL ---
08-17-21 discharge follow up all made, spoke with patient. pt was unaware of what time or when she needed her Van trough drawn. Staff Developer called the [facility] to see if the patient could have her trough drawn there at 1700. They agreed to draw. Instructed pt to have her Vancomycin trough drawn at the [facility]. Pt lives in [place] and financial underwriter is going to work on getting dressing changes at the [facility] along with weekly labs. This will save patient the drive. [facility] change pts PICC line dressing and draw labs weekly. Will instruct patient on this plan.
--- NOTE | 2021-08-19 11:32 | PC.SOCIAL ---
Kaylen from [facility] called regarding patient. Chemical Cell Changer called lab and was given a van trough of 16.8 on 08-17. Reported this to Kaylen. She will send out patients Vancomycin for the next few days. I let Kaylen know that due to PICC not drawing yesterday, pt was at GI Lab longer than expected so she wasn't able to make her appointment with Dr. Stevenson. Next week after pt has her appointment with ESTELLE Byrne, we will verify with ESTELLE that she will follow Van levels until pt has her appointment with Dr. Stevenson on Sep 01, then let Dr. Stevenson decide who will follow pt.
== END 2021-08-15 14:47 | disposition home or self-care (01) | DRG 30 ==
LOC: ER 13:58 → MEDSURG 14:07
PROVIDERS: Orthopaedic Surgery; Physician Assistant; Admitting Provider Internal Medicine; Emergency Provider Emergency Medicine; PCP Nurse Practitioner Family; Visit Provider Internal Medicine
PROC: 009U0ZX Drainage of Spinal Canal, Open Approach, Diagnostic (ICD-10-PCS; CPT 63005; principal; 2021-08-10 08:30)
DX: G06.1 Intraspinal abscess and granuloma (principal); M48.062 Spinal stenosis, lumbar region with neurogenic claudication; F10.20 Alcohol dependence, uncomplicated; K70.0 Alcoholic fatty liver; D50.8 Other iron deficiency anemias; E03.9 Hypothyroidism, unspecified; Z87.442 Personal history of urinary calculi; Z98.84 Bariatric surgery status; I10 Essential (primary) hypertension; E87.6 Hypokalemia
CPT/HCPCS: 36415; 36569; 51702; 71045; 72100; 76000; 80048; 80053; 80061; 80202; 82150; 82607; 83605; 83690; 83735; 84145; 84443; 85025; 85610; 87040; 87070; 87075; 87077; 87186; 87205; 88304; 93005; 93306; 96365; 96372; 97161; 97530; 99285; C9113; J0690; J1100; J1170; J1650; J1885; J2060; J2270; J2360; J2405; J2543; J2704; J2710; J3010; J3370; J3411; J3490; J7050; J8540

== ENCOUNTER → 2021-08-17 17:08 | Outpatient (BNVA) | payer SELFPAY | PROVIDERS: PCP Nurse Practitioner Family; Visit Provider Internal Medicine | DX: R78.81 Bacteremia (principal) | CPT/HCPCS: 80202 ==

== ENCOUNTER → 2021-08-18 10:36 | Day surgery (SDC) | payer SELFPAY ==
[2021-08-18 12:16] VITALS: BP 120/77; PULSE 98; RESP 18; TEMP 36.3; O2SAT 95
[2021-08-18 12:16] LABS: Basophils # 0.1 10^3/uL (0.0-0.1); Basophils % 1.1 %; Eosinophils # 0.2 10^3/uL (0.0-0.8); Eosinophils % 3.1 %; Hematocrit 30.7 % (37.0-47.0); Hemoglobin 9.7 g/dL (11.5-15.3); Lymphocytes # 1.6 10^3/uL (0.8-4.8); Lymphocytes % 21.7 %; Mean Corpuscular HGB Conc 31.6 g/dL (30.0-36.0); Mean Corpuscular Hemoglobin 30.1 pg (28.0-34.0); Mean Corpuscular Volume 95.3 fl (81-99); Mean Platelet Volume 9.3 fL (7.4-10.4); Monocytes # 0.3 10^3/uL (0.2-0.9); Monocytes % 4.2 %; Neutrophils # 5.05 10^3/uL (1.8-7.7); Neutrophils % 68.4 %; Nucleated Red Blood Cells % 0 %; Platelet Count 252 10^3/cmm (130-400); Red Blood Count 3.22 10^6/uL (4.1-5.3); Red Cell Distribution Width 13.1 % (12.1-15.1); White Blood Count 7.4 10^3/uL (4.0-10.0)
--- NOTE | 2021-08-18 12:19 | PC.NURSE ---
Pt to GI lab for PICC line dressing change and lab draw. Unable to draw lab from PICC line. Venous lab draw performed by lab. Pt states she had her Vanc trough drawn yesterday evening around 5 pm at the [facility]. Pt states she had her Vanc infusion at 6 am this morning. Unable to draw Vanc trough at this time due to recent administration.
[2021-08-18 12:27] LABS: Alanine Aminotransferase 8 U/L (0-33); Albumin Level 3.5 g/dL (3.5-5.2); Alkaline Phosphatase 113 IU/L (35-105); Blood Urea Nitrogen 5 mg/dL (6-20); C Reactive Protein 20.7 mg/L (0.0-4.9); Calcium 8.5 mg/dL (8.5-10.5); Carbon Dioxide 19 mmol/L (22-29); Chloride 101 mmol/L (98-107); Globulin 3.8 g/dL (1.3-4.6); Glomerular Filtration Rate 107.2 mL/min (90-130); Glucose 68 mg/dL (65-115); Osmolality Calculated 274 mOsm/kg (285-295); Sodium 134 mmol/L (136-145); Total Bilirubin 0.2 mg/dL (0.15-1.2); Total Protein 7.3 g/dL (6.6-8.7)
[2021-08-18 12:39] LABS: Anion Gap 17.9 (5-19); Aspartate Amino Transferase 23 U/L (0-32); Potassium 3.9 mmol/L (3.5-5.1)
== END | disposition home or self-care (01) ==
PROVIDERS: PCP Nurse Practitioner Family; Visit Provider Internal Medicine
DX: Z45.2 Encounter for adjustment and management of vascular access device (principal)
CPT/HCPCS: 36415; 80053; 85025; 86140

== ENCOUNTER → 2021-08-25 09:19 | Day surgery (SDC) | payer SELFPAY ==
--- NOTE | 2021-08-25 10:00 | PC.NURSE ---
1000 Pt to GI lab for blood draw and PICC dressing change. Pt states she has had trouble with Vanc infusing at home. States she received no doses 08/24/21 due to home infusion pump issues. PICC dressing changed per protocol. No blood return noted, but PICC flushing without difficulty. No resistance noted. Unable to draw labs through PICC. Peripheral lab draw performed. CBC, CMP, CRP, and Vanc trough drawn as ordered.
[2021-08-25 10:24] LABS: Basophils # 0.1 10^3/uL (0.0-0.1); Basophils % 1.4 %; Eosinophils # 0.2 10^3/uL (0.0-0.8); Eosinophils % 2.4 %; Hematocrit 27.1 % (37.0-47.0); Hemoglobin 8.4 g/dL (11.5-15.3); Lymphocytes # 1.7 10^3/uL (0.8-4.8); Lymphocytes % 27.2 %; Mean Corpuscular Hemoglobin 29.8 pg (28.0-34.0); Mean Corpuscular Volume 96.1 fl (81-99); Monocytes # 0.4 10^3/uL (0.2-0.9); Monocytes % 6.7 %; Neutrophils # 3.81 10^3/uL (1.8-7.7); Neutrophils % 60.9 %; Nucleated Red Blood Cells % 0 %; Platelet Count 260 10^3/cmm (130-400); Red Blood Count 2.82 10^6/uL (4.1-5.3); Red Cell Distribution Width 13.7 % (12.1-15.1); White Blood Count 6.3 10^3/uL (4.0-10.0)
[2021-08-25 10:55] LABS: Alanine Aminotransferase 6 U/L (0-33); Albumin Level 3.4 g/dL (3.5-5.2); Alkaline Phosphatase 120 IU/L (35-105); Anion Gap 19.8 (5-19); Aspartate Amino Transferase 17 U/L (0-32); Blood Urea Nitrogen 4 mg/dL (6-20); C Reactive Protein 9.2 mg/L (0.0-4.9); Calcium 8.1 mg/dL (8.5-10.5); Carbon Dioxide 18 mmol/L (22-29); Chloride 103 mmol/L (98-107); Globulin 3.1 g/dL (1.3-4.6); Glomerular Filtration Rate 132.2 mL/min (90-130); Glucose 79 mg/dL (65-115); Osmolality Calculated 280 mOsm/kg (285-295); Potassium 3.8 mmol/L (3.5-5.1); Sodium 137 mmol/L (136-145); Total Bilirubin 0.2 mg/dL (0.15-1.2); Total Protein 6.5 g/dL (6.6-8.7)
[2021-08-25 10:56] LABS: Vancomycin Trough 5.3 ug/mL (10-15)
[2021-08-25 10:58] VITALS: BP 143/100; PULSE 80; RESP 18; TEMP 36.6; O2SAT 96
== END ==
LOC: OPS 09:23 → GILAB 09:57
PROVIDERS: PCP Nurse Practitioner Family; Visit Provider Internal Medicine
DX: R78.81 Bacteremia (principal); B95.62 Methicillin resistant Staphylococcus aureus infection as the cause of diseases classified elsewhere; Z45.2 Encounter for adjustment and management of vascular access device
CPT/HCPCS: 36415; 80053; 80202; 85025; 86140

== ENCOUNTER → 2021-09-01 09:52 | Day surgery (SDC) | payer OTHER, SELFPAY ==
[2021-09-01 11:03] LABS: Basophils # 0.1 10^3/uL (0.0-0.1); Basophils % 1.2 %; Eosinophils # 0.1 10^3/uL (0.0-0.8); Eosinophils % 2.6 %; Hematocrit 30.7 % (37.0-47.0); Hemoglobin 9.4 g/dL (11.5-15.3); Lymphocytes % 20.5 %; Mean Corpuscular HGB Conc 30.6 g/dL (30.0-36.0); Mean Corpuscular Hemoglobin 28.5 pg (28.0-34.0); Mean Platelet Volume 8.9 fL (7.4-10.4); Monocytes # 0.3 10^3/uL (0.2-0.9); Monocytes % 5.2 %; Neutrophils # 3.46 10^3/uL (1.8-7.7); Neutrophils % 69.5 %; Nucleated Red Blood Cells % 0 %; Platelet Count 267 10^3/cmm (130-400); Red Cell Distribution Width 13.2 % (12.1-15.1)
[2021-09-01 11:15] VITALS: BP 165/107; PULSE 88; RESP 18; TEMP 36.3; O2SAT 97; BMI 28.3
[2021-09-01 11:39] LABS: Alanine Aminotransferase 9 U/L (0-33); Albumin Level 3.7 g/dL (3.5-5.2); Alkaline Phosphatase 136 IU/L (35-105); Blood Urea Nitrogen 5 mg/dL (6-20); C Reactive Protein 3.8 mg/L (0.0-4.9); Calcium 8.8 mg/dL (8.5-10.5); Carbon Dioxide 21 mmol/L (22-29); Chloride 98 mmol/L (98-107); Globulin 3.8 g/dL (1.3-4.6); Glomerular Filtration Rate 171.1 mL/min (90-130); Glucose 88 mg/dL (65-115); Osmolality Calculated 279 mOsm/kg (285-295); Sodium 136 mmol/L (136-145); Total Bilirubin 0.4 mg/dL (0.15-1.2); Total Protein 7.5 g/dL (6.6-8.7); Vancomycin Trough 11.4 ug/mL (10-15)
[2021-09-01 11:40] LABS: Anion Gap 21.2 (5-19); Aspartate Amino Transferase 27 U/L (0-32); Potassium 4.2 mmol/L (3.5-5.1)
== END ==
LOC: OPS 09:54
PROVIDERS: PCP Nurse Practitioner Family; Visit Provider Internal Medicine
DX: R78.81 Bacteremia (principal); B95.62 Methicillin resistant Staphylococcus aureus infection as the cause of diseases classified elsewhere
CPT/HCPCS: 36415; 36592; 80053; 80202; 85025; 85651; 86140

== ENCOUNTER → 2021-09-08 | Day surgery (SDC) | payer SELFPAY | LOC: OPS 02-04 09:35 | PROVIDERS: PCP Nurse Practitioner Family; Visit Provider Internal Medicine | DX: R78.81 Bacteremia (principal); B95.62 Methicillin resistant Staphylococcus aureus infection as the cause of diseases classified elsewhere | CPT/HCPCS: 80202; 85651; 86140 ==

== ENCOUNTER → 2021-09-15 09:14 | Day surgery (SDC) | payer OTHER, SELFPAY ==
[2021-09-15 09:25] VITALS: BMI 28.3
[2021-09-15 09:37] VITALS: BP 147/104; PULSE 94; RESP 18; TEMP 36.4; O2SAT 94
[2021-09-15 09:42] LABS: Basophils # 0.1 10^3/uL (0.0-0.1); Basophils % 1.3 %; Eosinophils # 0.3 10^3/uL (0.0-0.8); Eosinophils % 4.6 %; Hematocrit 29.4 % (37.0-47.0); Lymphocytes % 36.4 %; Mean Corpuscular HGB Conc 30.6 g/dL (30.0-36.0); Mean Corpuscular Hemoglobin 27.9 pg (28.0-34.0); Monocytes # 0.5 10^3/uL (0.2-0.9); Monocytes % 9.7 %; Nucleated Red Blood Cells % 0 %; Platelet Count 160 10^3/cmm (130-400); Red Blood Count 3.23 10^6/uL (4.1-5.3); Red Cell Distribution Width 13.2 % (12.1-15.1); White Blood Count 5.4 10^3/uL (4.0-10.0)
[2021-09-15 10:06] LABS: Alanine Aminotransferase 25 U/L (0-33); Albumin Level 3.5 g/dL (3.5-5.2); Alkaline Phosphatase 104 IU/L (35-105); Aspartate Amino Transferase 51 U/L (0-32); Blood Urea Nitrogen 3 mg/dL (6-20); Calcium 8.3 mg/dL (8.5-10.5); Carbon Dioxide 18 mmol/L (22-29); Chloride 103 mmol/L (98-107); Globulin 3.5 g/dL (1.3-4.6); Glomerular Filtration Rate 171.1 mL/min (90-130); Glucose 79 mg/dL (65-115); Osmolality Calculated 279 mOsm/kg (285-295); Sodium 137 mmol/L (136-145); Total Bilirubin 0.2 mg/dL (0.15-1.2)
[2021-09-15 10:16] LABS: Vancomycin Trough 17.5 ug/mL (10-15)
== END ==
PROVIDERS: PCP Nurse Practitioner Family; Visit Provider Internal Medicine
DX: Z45.2 Encounter for adjustment and management of vascular access device (principal)
CPT/HCPCS: 36592; 80053; 80202; 85025; 86140

== ENCOUNTER → 2021-09-22 10:30 | Day surgery (SDC) | payer OTHER, SELFPAY ==
[2021-09-22 10:50] VITALS: BP 120/80; PULSE 80; RESP 18; TEMP 36.1; O2SAT 98
[2021-09-22 11:00] LABS: Basophils # 0.1 10^3/uL (0.0-0.1); Basophils % 1.2 %; Eosinophils # 0.2 10^3/uL (0.0-0.8); Eosinophils % 3.5 %; Hematocrit 30.8 % (37.0-47.0); Hemoglobin 9.6 g/dL (11.5-15.3); Lymphocytes # 1.5 10^3/uL (0.8-4.8); Lymphocytes % 22.8 %; Mean Corpuscular HGB Conc 31.2 g/dL (30.0-36.0); Mean Corpuscular Hemoglobin 28.1 pg (28.0-34.0); Mean Corpuscular Volume 90.1 fl (81-99); Mean Platelet Volume 8.7 fL (7.4-10.4); Monocytes # 0.7 10^3/uL (0.2-0.9); Monocytes % 9.9 %; Neutrophils # 4.02 10^3/uL (1.8-7.7); Neutrophils % 61.2 %; Nucleated Red Blood Cells % 0 %; Platelet Count 284 10^3/cmm (130-400); Red Blood Count 3.42 10^6/uL (4.1-5.3); Red Cell Distribution Width 13.7 % (12.1-15.1); White Blood Count 6.6 10^3/uL (4.0-10.0)
--- NOTE | 2021-09-22 11:00 | PC.NURSE ---
Pt to GI lab for PICC line dressing change and lab draw. Pt states last Vanc dose was infused around 0 09/21/21. Vanc trough, CBC, CMP, and CRP drawn as ordered. Dressing to right AC PICC completed. Site without redness or drainage. No blood return noted from PICC but flushes without difficulty. Labs drawn peripherally.
[2021-09-22 11:18] LABS: Alanine Aminotransferase 13 U/L (0-33); Albumin Level 3.6 g/dL (3.5-5.2); Alkaline Phosphatase 126 IU/L (35-105); Anion Gap 20.2 (5-19); Aspartate Amino Transferase 32 U/L (0-32); Blood Urea Nitrogen 3 mg/dL (6-20); Calcium 8.2 mg/dL (8.5-10.5); Carbon Dioxide 18 mmol/L (22-29); Chloride 99 mmol/L (98-107); Globulin 3.6 g/dL (1.3-4.6); Glomerular Filtration Rate 171.1 mL/min (90-130); Glucose 86 mg/dL (65-115); Osmolality Calculated 272 mOsm/kg (285-295); Potassium 4.2 mmol/L (3.5-5.1); Sodium 133 mmol/L (136-145); Total Bilirubin 0.2 mg/dL (0.15-1.2); Total Protein 7.2 g/dL (6.6-8.7)
[2021-09-22 11:29] LABS: Vancomycin Trough 16.1 ug/mL (10-15)
== END ==
PROVIDERS: PCP Nurse Practitioner Family; Visit Provider Internal Medicine
DX: R78.81 Bacteremia (principal); B95.62 Methicillin resistant Staphylococcus aureus infection as the cause of diseases classified elsewhere
CPT/HCPCS: 36415; 80053; 80202; 85025; 86140

== ENCOUNTER → 2021-09-29 10:15 | Day surgery (SDC) | payer OTHER, SELFPAY ==
[2021-09-29 10:25] VITALS: BP 163/106; PULSE 105; RESP 18; TEMP 36.6; O2SAT 95
[2021-09-29 10:45] LABS: Basophils # 0.1 10^3/uL (0.0-0.1); Basophils % 1.1 %; Eosinophils # 0.2 10^3/uL (0.0-0.8); Eosinophils % 4.1 %; Hematocrit 30.8 % (37.0-47.0); Hemoglobin 9.7 g/dL (11.5-15.3); Lymphocytes # 0.6 10^3/uL (0.8-4.8); Lymphocytes % 14.5 %; Mean Corpuscular HGB Conc 31.5 g/dL (30.0-36.0); Mean Corpuscular Hemoglobin 27.2 pg (28.0-34.0); Mean Corpuscular Volume 86.3 fl (81-99); Monocytes # 0.2 10^3/uL (0.2-0.9); Monocytes % 5.2 %; Neutrophils # 3.28 10^3/uL (1.8-7.7); Neutrophils % 74.6 %; Nucleated Red Blood Cells % 0 %; Platelet Count 164 10^3/cmm (130-400); Red Blood Count 3.57 10^6/uL (4.1-5.3); Red Cell Distribution Width 13.2 % (12.1-15.1); White Blood Count 4.4 10^3/uL (4.0-10.0)
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
[2021-09-29 11:01] LABS: Alanine Aminotransferase 14 U/L (0-33); Albumin Level 3.7 g/dL (3.5-5.2); Alkaline Phosphatase 139 IU/L (35-105); Anion Gap 19.9 (5-19); Aspartate Amino Transferase 39 U/L (0-32); Blood Urea Nitrogen 5 mg/dL (6-20); C Reactive Protein 6.8 mg/L (0.0-4.9); Calcium 8.4 mg/dL (8.5-10.5); Carbon Dioxide 16 mmol/L (22-29); Chloride 97 mmol/L (98-107); Globulin 3.4 g/dL (1.3-4.6); Glomerular Filtration Rate 132.2 mL/min (90-130); Glucose 96 mg/dL (65-115); Osmolality Calculated 265 mOsm/kg (285-295); Potassium 3.9 mmol/L (3.5-5.1); Sodium 129 mmol/L (136-145); Total Bilirubin 0.4 mg/dL (0.15-1.2); Total Protein 7.1 g/dL (6.6-8.7)
[2021-09-29 12:28] LABS: Vancomycin Trough 13.7 ug/mL (10-15)
== END ==
PROVIDERS: PCP Nurse Practitioner Family; Visit Provider Internal Medicine
DX: R78.81 Bacteremia (principal); B95.62 Methicillin resistant Staphylococcus aureus infection as the cause of diseases classified elsewhere; Z45.2 Encounter for adjustment and management of vascular access device
CPT/HCPCS: 36415; 80053; 80202; 85025; 86140

== ENCOUNTER → 2021-10-06 10:07 | Day surgery (SDC) | payer OTHER, SELFPAY ==
[2021-10-06 10:05] VITALS: BP 138/96; PULSE 77; RESP 18; TEMP 36.5; O2SAT 97
[2021-10-06 10:41] LABS: Basophils # 0.1 10^3/uL (0.0-0.1); Basophils % 1.3 %; Eosinophils # 0.4 10^3/uL (0.0-0.8); Eosinophils % 5.9 %; Hematocrit 31.2 % (37.0-47.0); Hemoglobin 9.5 g/dL (11.5-15.3); Lymphocytes # 1.7 10^3/uL (0.8-4.8); Lymphocytes % 23.5 %; Mean Corpuscular HGB Conc 30.4 g/dL (30.0-36.0); Mean Corpuscular Hemoglobin 26.9 pg (28.0-34.0); Mean Corpuscular Volume 88.4 fl (81-99); Mean Platelet Volume 9.8 fL (7.4-10.4); Monocytes # 0.9 10^3/uL (0.2-0.9); Monocytes % 12.5 %; Neutrophils # 3.95 10^3/uL (1.8-7.7); Neutrophils % 55.4 %; Nucleated Red Blood Cells % 0 %; Platelet Count 132 10^3/cmm (130-400); Red Blood Count 3.53 10^6/uL (4.1-5.3); Red Cell Distribution Width 13.6 % (12.1-15.1); White Blood Count 7.1 10^3/uL (4.0-10.0)
--- NOTE | 2021-10-06 10:45 | PC.NURSE ---
Pt to GI lab for lab draw and PICC dresing change. Unable to draw blood from PICC. Peripheral CBC, CMP, CRP, and Vanc trough drawn as ordered. Pt states her last dose of Vanc was at 2200 10/05/21. Pt states she has not been scheduled for her MRI. Waiting for Dr. Stevenson's office to call with appointment. Pt states she has one week of Vanc left and would like to finish the medication so it is not wasted. Lab results faxed to Dr Stevenson's office with request for order to discontinue PICC at the appropriate date/time.
[2021-10-06 10:59] LABS: Alanine Aminotransferase 18 U/L (0-33); Albumin Level 3.6 g/dL (3.5-5.2); Alkaline Phosphatase 136 IU/L (35-105); Anion Gap 18.9 (5-19); Aspartate Amino Transferase 40 U/L (0-32); Blood Urea Nitrogen 5 mg/dL (6-20); C Reactive Protein 29.8 mg/L (0.0-4.9); Calcium 9.4 mg/dL (8.5-10.5); Carbon Dioxide 16 mmol/L (22-29); Chloride 97 mmol/L (98-107); Globulin 3.2 g/dL (1.3-4.6); Glomerular Filtration Rate 89.7 mL/min (90-130); Glucose 70 mg/dL (65-115); Osmolality Calculated 262 mOsm/kg (285-295); Potassium 3.9 mmol/L (3.5-5.1); Sodium 128 mmol/L (136-145); Total Bilirubin 0.3 mg/dL (0.15-1.2); Total Protein 6.8 g/dL (6.6-8.7)
[2021-10-06 11:13] LABS: Vancomycin Trough 20.4 ug/mL (10-15)
== END ==
LOC: GILAB 10:09
PROVIDERS: PCP Nurse Practitioner Family; Visit Provider Internal Medicine
DX: G06.2 Extradural and subdural abscess, unspecified (principal)
CPT/HCPCS: 36415; 80053; 80202; 85025; 86140

== ENCOUNTER 2021-11-11 09:59 | Emergency (ER) | payer SELFPAY ==
[2021-11-11 10:09] VITALS: BP 191/107; PULSE 86; RESP 16; TEMP 36.7; O2SAT 99; BMI 27.8
--- NOTE | 2021-11-11 10:17 | W.ED.ABDPA2 ---
HPI - Abdominal Pain General: Chief Complaint: Abdominal Pain Stated Complaint: ABD Pain Time Seen by Provider: 11/11/21 10:17 History of Present Illness: 46-year-old female presents emergency room complaining of epigastric and left upper quadrant abdominal pain for the last several days She had a history of previous pancreatitis related to alcohol she is not been drinking recently. She states she feels like she has an episode of pancreatitis again loss of appetite with nausea and severe abdominal discomfort and cramping radiating to the back she denies any fever. She has a history of a recent lumbar epidural and psoas abscess that she is seeing infectious disease for which she completed course of IV vancomycin is currently on doxycycline. Eating worsens nothing seems to improve MD elicited complaint: abdominal pain Pertinent past history: other (Pancreatitis) Onset (ago): day(s) Pain Consistency: constant Location: LUQ Severity: moderate Quality: cramping Radiation: none Exacerbating factors: eating Relieving factors: nothing Associated Symptoms: Reports anorexia, bloating, GI cramping, dyspepsia, nausea, poor appetite and vomiting; Denies belching, change in bowel habits, change in stool character, chills, coffee ground emesis, constipation, diarrhea, dysuria, excessive flatus, fever(s), heartburn, hematochezia, hematuria, hematemesis, fecal incontinence, loose stools, melena and syncope Review of Systems Const: Denies: fever(s) or chills ENMT: Denies: throat pain, ear or mastoid pain, nasal discharge or nasal congestion Card: Denies: syncope Resp: Denies: dyspnea, productive cough or non-productive cough GI: Reports: nausea, vomiting, bloating and GI cramping; Denies: hematemesis, coffee ground emesis, heartburn, diarrhea, constipation, belching, excessive flatus, fecal incontinence, change in bowel habits, change in stool character, hematochezia or melena : Denies: dysuria or hematuria PFSH ED PFSH: Medical History Alcohol use disorder, moderate, dependence Anemia Hypothyroidism Recurrent nephrolithiasis Soft tissue abscess Steatohepatitis, alcoholic Surgical History Gastric bypass status for obesity H/O lithotripsy History of back surgery 2021 History of tonsillectomy S/P cholecystectomy Family History Mother , Sudden at age 60. It was suspected to be due to NC No problems noted. Father , Diabetes with hypertriglyceridemia No problems noted. Social History Smoking and tobacco status: never smoked Alcohol intake: current Alcohol intake frequency: 3 or more drinks per day Alcohol type: beer Desire information about alcohol rehabilitation?: No Counseling given: Yes Type of substance drug use counseling provided: provider counseling Lives independently: Yes Household members: spouse Physical Exam Const: COMMON NORMALS: no acute distress GENERAL APPEARANCE: cooperative and comfortable ORIENTATION/CONSCIOUSNESS: Yes awake, Yes oriented to person, Yes oriented to place and Yes oriented to time HENMT: COMMON NORMALS: normocephalic, atraumatic and hearing grossly normal bilaterally HEAD & SCALP: normocephalic and atraumatic Neck/C-Spine: COMMON NORMALS: no JVD Resp: COMMON NORMALS: normal respiratory effort, No retractions, No use of accessory muscles and clear to auscultation bilaterally AUSCULTATION: clear to auscultation bilaterally Cardio: COMMON NORMALS: no JVD, regular rate, regular rhythm and No murmurs present (Cardio) RATE: regular rate RHYTHM: regular rhythm GI: AUSCULTATION: Yes Hyperactive bowel sounds present PALPATION: Yes Tenderness to palpation present (GI) (Epigastric right upper quadrant) and No Guarding due to palpation present (GI) Extremity: COMMON NORMALS: normal to inspection, capillary refill normal, no clubbing, cyanosis or edema, no calf tenderness and no pedal edema Neuro: SENSORIUM/ORIENTATION: Yes oriented to person, Yes oriented to place and Yes oriented to time Skin: COMMON NORMALS: no rashes or lesions noted GENERAL SKIN EXAM: no rashes or lesions noted Course Vital Signs: Vital signs: Vital Signs Temperature 98.0 F 11/11/21 10:09 Pulse Rate 72 11/11/21 15:22 Respiratory Rate 16 11/11/21 13:28 Blood Pressure 160/72 11/11/21 15:22 Pulse Oximetry 100 11/11/21 15:22 MDM - Abdominal Pain Medical Decision Making Improved with fluids pain and nausea medications. CT did not show evidence of significant pancreatitis inflammation. Will discharge home on clear liquid diet for 48 hours pain nausea medications. If not improving or worsens return Medical Records I reviewed the patient's medical records. Lab Data I reviewed the patient's lab results. : 11/11/21 11:00 11/11/21 11:00 Labs/Radiology: Radiology Impressions Abdomen/Pelvis CT 11/11/21 10:18 IMPRESSION: 1. Prior postoperative changes gastric bypass and gastric banding. Mild thickening at the GE junction with small esophageal hiatal hernia appears progressed compared to November 06, 2020. This can be followed up with endoscopy and/or upper GI. 2. No evidence of high-grade small or large bowel obstruction. 3. No definite evidence of acute pancreatitis. A few reactive lymph nodes in the upper abdomen similar to previous. 4. Fat-containing epigastric hernia is unchanged. No herniated bowel. 5. Hepatomegaly with diffuse infiltration of the liver. Mild splenomegaly. 6. Prior cholecystectomy. 7. Normal renal parenchymal enhancement. No hydronephrosis. 8. No free fluid in the abdomen or pelvis. 9. Bilateral innumerable small soft tissue nodules in both buttocks with a few peripheral enhancing small fluid collections measuring approximately 1.5 CM. Findings are similar in appearance compared to November 06, 2020 Notified Sim Urban DO at 11/11/2021 11:52 AM. Laboratory Results WBC 5.2 10^3/uL (4.0-10.0) 11/11/21 11:00 RBC 3.97 10^6/uL (4.1-5.3) L 11/11/21 11:00 Hgb 10.2 g/dL (11.5-15.3) L 11/11/21 11:00 Hct 33.2 % (37.0-47.0) L 11/11/21 11:00 MCV 83.6 fl (81-99) 11/11/21 11:00 MCH 25.7 pg (28.0-34.0) L 11/11/21 11:00 MCHC 30.7 g/dL (30.0-36.0) 11/11/21 11:00 RDW 15.3 % (12.1-15.1) H 11/11/21 11:00 Plt Count 240 10^3/cmm (130-400) 11/11/21 11:00 MPV 9.5 fL (7.4-10.4) 11/11/21 11:00 Neut % (Auto) 77.4 % 11/11/21 11:00 Lymph % (Auto) 14.8 % 11/11/21 11:00 [place] % (Auto) 6.0 % 11/11/21 11:00 Eos % (Auto) 0.4 % 11/11/21 11:00 Baso % (Auto) 1.2 % 11/11/21 11:00 Neut # (Auto) 4.03 10^3/uL (1.8-7.7) 11/11/21 11:00 Lymph # (Auto) 0.8 10^3/uL (0.8-4.8) 11/11/21 11:00 [place] # (Auto) 0.3 10^3/uL (0.2-0.9) 11/11/21 11:00 Eos # (Auto) 0.0 10^3/uL (0.0-0.8) 11/11/21 11:00 Baso # (Auto) 0.1 10^3/uL (0.0-0.1) 11/11/21 11:00 Nucleated RBC % (auto) 0 % 11/11/21 11:00 Nucleated RBCs # 0.0 /100WBC 11/11/21 11:00 ESR 25 mm/hr (0-15) H 11/11/21 11:00 Sodium 137 mmol/L (136-145) 11/11/21 11:00 Potassium 4.2 mmol/L (3.5-5.1) 11/11/21 11:00 Chloride 103 mmol/L (98-107) 11/11/21 11:00 Carbon Dioxide 18 mmol/L (22-29) L 11/11/21 11:00 Anion Gap 20.2 (5-19) H 11/11/21 11:00 BUN 4 mg/dL (6-20) L 11/11/21 11:00 Creatinine 0.4 mg/dL (0.5-0.9) L 11/11/21 11:00 GFR Calculation 170.4 mL/min (90-130) H 11/11/21 11:00 Glucose 94 mg/dL (65-115) 11/11/21 11:00 Calculated Osmolality 281 mOsm/kg (285-295) L 11/11/21 11:00 Calcium 9.7 mg/dL (8.5-10.5) 11/11/21 11:00 Total Bilirubin 0.4 mg/dL (0.15-1.2) 11/11/21 11:00 AST 31 U/L (0-32) 11/11/21 11:00 ALT 16 U/L (0-33) 11/11/21 11:00 Alkaline Phosphatase 164 IU/L (35-105) H 11/11/21 11:00 C-Reactive Protein 9.0 mg/L (0.0-4.9) H 11/11/21 11:00 Total Protein 7.7 g/dL (6.6-8.7) 11/11/21 11:00 Albumin 4.0 g/dL (3.5-5.2) 11/11/21 11:00 Globulin 3.7 g/dL (1.3-4.6) 11/11/21 11:00 Lipase 172 U/L (13-60) H 11/11/21 11:00 Urine Color Straw (Yellow) 11/11/21 10:03 Urine Appearance Clear (CLEAR) 11/11/21 10:03 Urine pH 5 (5-7) 11/11/21 10:03 Ur Specific [place] 1.005 (1.005-1.030) 11/11/21 10:03 Urine Protein Neg (Negative) 11/11/21 10:03 Urine Glucose (UA) Norm (Normal) 11/11/21 10:03 Urine Ketones Negative (Negative) 11/11/21 10:03 Urine Blood Neg (Negative) 11/11/21 10:03 Urine Nitrate Negative (Negative) 11/11/21 10:03 Urine Bilirubin Neg (Negative) 11/11/21 10:03 Urine Urobilinogen Neg mg/dL (Negative) 11/11/21 10:03 Ur Leukocyte Esterase Negative (Negative) 11/11/21 10:03 Discharge Plan Discharge Patient Disposition: Home Clinical Impression: Acute pancreatitis Condition: Stable Prescriptions: New hydrocodone-acetaminophen 5-325 mg tablet 1 tab PO Q6H PRN (Reason: pain) Qty: 20 0RF promethazine 25 mg tablet 25 mg PO Q6H PRN (Reason: nausea and vomiting) Qty: 20 0RF No Action levothyroxine 50 mcg tablet 50 mcg PO DAILY MDD see pharmacy comment Qty: 30 1RF doxycycline hyclate 100 mg tablet 100 mg PO BID 90 Days Qty: 180 0RF oxycodone-acetaminophen 10-325 mg tablet 1 tab PO Q4H PRN (Reason: Moderate Pain) 7 Days Qty: 20 0RF Discharge Orders: Discharge ED (Routine); Ordered 11/11/21 Ordered By: Sim Urban Referrals: Rachel Lazar FNP [Primary Care Provider] - Discharge Diet: Clear Liquid Discharge Activity: Limit activity as instructed Patient Instructions: Opioid Safety Activity Restrictions/Additional Instructions: Clear diet for 48 hours then advance slowly as tolerated. If has any worsening change symptoms return to the emergency room. Coding Level of Care Code ED Rfid Specialist for Gracy Ansari
--- NOTE | 2021-11-11 10:18 | CT_ITS ---
WS: [id number] CT ABDOMEN PELVIS TECHNIQUE: Contrast-enhanced CT of the abdomen and pelvis with coronal and sagittal reformatted image s. CLINICAL INFORMATION: abd pain COMPARISON: CT November 06, 2020 DLP: 1526.[address] scans at [facility] use at least one of these dose optimization techniques: automated e xposure control; mA and/or kV adjustment per patient size (includes targeted exams where dose is matc hed to clinical indication); or iterative reconstruction. FINDINGS: Prior postoperative changes gastric bypass and gastric banding..Mild thickening at the GE j unction with small esophageal hiatal hernia appears progressed compared to previous. Recommend correl ation with epigastric pain. Diffuse fatty infiltration of the liver. Normal portal vein and splenic vein. Cholecystectomy clips. Mild splenomegaly. Lung bases are well aerated. Adrenal glands are normal. Normal renal parenchymal e nhancement. No hydronephrosis. Prominent RIGHT extrarenal pelvis. No obstructing renal or ureteral ca lculi. Fatty atrophy of the pancreas. Mild dilatation of the pancreatic duct. Normal pancreatic parenchymal enhancement. Normal caliber abdominal aorta. Proximal celiac and SMA appear patent. Normal portal vei n and spine vein. Normal sigmoid colon. No evidence of high-grade small or large bowel obstruction. Tiny fat-containing umbilical hernia. Normal lumbar spine. Bilateral innumerable small soft tissue nodules in both buttocks with a few peripheral enhancing smal l fluid collections measuring approximately 1.5 CM. Findings likely related to prior cosmetic fat or silicon injections similar to previous. CT/CT abdomen pelvis w con* [id number] IMPRESSION: 1. Prior postoperative changes gastric bypass and gastric banding. Mild thicke venus at the GE junction with small esophageal hiatal hernia appears progressed compared to November 06, 2020. This can be followed up with endoscopy and/or up per GI. 2. No evidence of high-grade small or large bowel obstruction. 3. No definite evidence of acute pancreatitis. A few reactive lymph nodes in t he upper abdomen similar to previous. 4. Fat-containing epigastric hernia is unchanged. No herniated bowel. 5. Hepatomegaly with diffuse infiltration of the liver. Mild splenomegaly. 6. Prior cholecystectomy. 7. Normal renal parenchymal enhancement. No hydronephrosis. 8. No free fluid in the abdomen or pelvis. 9. Bilateral innumerable small soft tissue nodules in both buttocks with a few peripheral enhancing small fluid collections measuring approximately 1.5 CM. F indings are similar in appearance compared to November 06, 2020 Notified Sim Urban DO at 11/11/2021 11:52 AM.
[2021-11-11] MEDS: iohexol 300 mg/mL 100 mL Btl IV (11:11)
[2021-11-11 11:12] LABS: Basophils # 0.1 10^3/uL (0.0-0.1); Basophils % 1.2 %; Eosinophils % 0.4 %; Hematocrit 33.2 % (37.0-47.0); Hemoglobin 10.2 g/dL (11.5-15.3); Lymphocytes # 0.8 10^3/uL (0.8-4.8); Lymphocytes % 14.8 %; Mean Corpuscular HGB Conc 30.7 g/dL (30.0-36.0); Mean Corpuscular Hemoglobin 25.7 pg (28.0-34.0); Mean Corpuscular Volume 83.6 fl (81-99); Mean Platelet Volume 9.5 fL (7.4-10.4); Monocytes # 0.3 10^3/uL (0.2-0.9); Neutrophils # 4.03 10^3/uL (1.8-7.7); Neutrophils % 77.4 %; Nucleated Red Blood Cells % 0 %; Platelet Count 240 10^3/cmm (130-400); Red Blood Count 3.97 10^6/uL (4.1-5.3); Red Cell Distribution Width 15.3 % (12.1-15.1); White Blood Count 5.2 10^3/uL (4.0-10.0)
[2021-11-11 11:18] LABS: Erythrocyte Sedimentation Rate 25 mm/hr (0-15)
[2021-11-11 11:32] VITALS: RESP 16
[2021-11-11] MEDS: morphine 4 mg/mL SDV 1 mL IVP ×2 (11:32→12:39)
[2021-11-11] MEDS: ondansetron 2 mg/ML SDV 2 mL 4 MG IVP (11:32)
[2021-11-11 11:33] LABS: Alanine Aminotransferase 16 U/L (0-33); Alkaline Phosphatase 164 IU/L (35-105); Blood Urea Nitrogen 4 mg/dL (6-20); Calcium 9.7 mg/dL (8.5-10.5); Carbon Dioxide 18 mmol/L (22-29); Chloride 103 mmol/L (98-107); Globulin 3.7 g/dL (1.3-4.6); Glomerular Filtration Rate 170.4 mL/min (90-130); Glucose 94 mg/dL (65-115); Lipase 172 U/L (13-60); Osmolality Calculated 281 mOsm/kg (285-295); Sodium 137 mmol/L (136-145); Total Bilirubin 0.4 mg/dL (0.15-1.2); Total Protein 7.7 g/dL (6.6-8.7)
[2021-11-11] MEDS: lactated ringers 1,000 ML 999 ML IV ×3 (11:33→13:27)
[2021-11-11 11:36] LABS: Anion Gap 20.2 (5-19); Aspartate Amino Transferase 31 U/L (0-32); Potassium 4.2 mmol/L (3.5-5.1)
[2021-11-11 11:41] VITALS: BP 166/129; PULSE 103; RESP 26; O2SAT 89
[2021-11-11 12:05] LABS: Add Urine Microscopic? NO; Charge for UA Resulting for Rev
[2021-11-11 12:07] LABS: Bilirubin Urine Neg (Negative); Blood Urine Neg (Negative); Glucose Urine UA Norm (Normal); Ketones Urine Negative (Negative); Leukocyte Esterase Urine Negative (Negative); Nitrate Urine Negative (Negative); Protein Urine Neg (Negative); Specific Gravity, Urine 1.005 (1.005-1.030); Urine Appearance Clear (CLEAR); Urine Color Straw (Yellow); Urobilinogen Urine Neg (Negative); pH Urine 5 (5-7)
[2021-11-11 13:28] VITALS: RESP 16
[2021-11-11] MEDS: HYDROmorphone 1 mg/mL INJ 1 mL IVP (13:28)
[2021-11-11 15:22] VITALS: BP 160/72; PULSE 72; O2SAT 100
--- NOTE | 2021-11-11 15:23 | PC.NURSE ---
pt given 0.5mg IVP hydromorphone, would not let this nurse document in the mar
== END 2021-11-11 15:28 | disposition home or self-care (01) ==
PROVIDERS: Physician Assistant; Emergency Provider Family Medicine; PCP Nurse Practitioner Family
DX: K85.90 Acute pancreatitis without necrosis or infection, unspecified (principal)
CPT/HCPCS: 74177; 80053; 81003; 83690; 85025; 85651; 86140; 87040; 96361; 96374; 96375; 96376; 99284; 99291; 99292; J1170; J2270; J2405; Q9967

== ENCOUNTER 2022-03-03 11:52 | Outpatient (CLI) | payer OTHER, SELFPAY ==
--- NOTE | 2022-03-03 12:09 | MM_ITS ---
WS: [id number] BILATERAL 3D TOMOSYNTHESIS DIGITAL DIAGNOSTIC MAMMOGRAPHY WITH CAD CLINICAL INFORMATION: RT BREAST LUMP TECHNIQUE: Bilateral CC, MLO, and ML views. FINDINGS: Scattered fibroglandular densities bilaterally. Palpable marker RIGHT breast. Normal underlying paren chymal tissue. Ultrasound of this area is pending. LEFT breast unremarkable. ULTRASOUND BREAST RIGHT TECHNIQUE: Ultrasound right breast focused area of concern. CLINICAL INFORMATION: RT BREAST LUMP COMPARISON: None. FINDINGS: Ultrasound RIGHT breast at the 6 to 7:00 position. Normal underlying breast tissue. No cystic or jailene d lesions. No lesions to target for biopsy. Recommend return to annual screening mammography. MM/[place] [id number] IMPRESSION: BI-RADS: 2-Benign FOLLOW UP: 1 Year Follow-up Recommend return to annual screening mammography.
== END 2022-03-03 11:53 | disposition home or self-care (01) ==
LOC: RAD 12:01
PROVIDERS: PCP Nurse Practitioner Family; Visit Provider Nurse Practitioner Family
DX: N63.0 Unspecified lump in unspecified breast (principal)
CPT/HCPCS: 76642; 77062

== ENCOUNTER 2022-12-03 16:02 | Outpatient (CLI) | payer OTHER, SELFPAY ==
--- NOTE | 2022-12-03 16:23 | MR_ITS ---
WS: [id number] MRI LUMBAR SPINE WITH AND WITHOUT CONTRAST HISTORY: INFECTION OF LUMBAR SPINE, prior surgery. Patient fell recently. COMPARISON: 08/07/2021 TECHNIQUE: Sagittal and axial multisequence imaging is submitted. Pre and postcontrast imaging. Multi Magdaleno 15 mL's IV. Mild lumbar curvature. No marrow edema or acute fracture. Previously described predominantly ventral epidural abscess has significantly improved. The ventral epidural abscess has resolved. There is cont inued posterior epidural thickening with only minimal enhancement. No central fluid collection. Disc spaces are well preserved. No evidence for discitis. There is a marrow edema within the posterio r elements bilaterally of L4 and L5. Conus terminates normally at L1-2 disc level. L1-L2: No residual stenosis. Resolved central epidural collection. L2-L3: No residual stenosis or epidural collection. L3-L4: Mild annular disc bulge with marked ligamentum flavum and facet arthritis. Mild central and bi lateral foraminal stenosis. Ventral and posterior epidural heterogeneous collections have improved. T here is ligamentum flavum thickening and mild epidural thickening posteriorly but no enhancement. L4-L5: Diffuse annular disc bulging with marked ligamentum flavum and facet arthritis, greatest on th e RIGHT. There is marked epidural thickening and ligamentum flavum thickening. Moderate central steno sis. Mild bilateral foraminal stenosis. There is enhancement in the soft tissues surrounding the post erior elements and extending along the RIGHT foramina. Small collection within enhancement in the pos terior epidural region. Much improved since the prior study but suspicious for residual abscess measu ring about 10 mm. This is surrounded by the additional enhancement in the soft tissues. L5-S1: Diffuse annular disc bulge with a LEFT paracentral disc protrusion. Marked ligamentum flavum a nd facet arthritis. Eccentric epidural collection has resolved. There is mild residual ligamentum fla vum posterior epidural thickening. Mild LEFT subarticular recess encroachment. The postcontrast imagi ng there is enhancement of the posterior paraspinal soft tissue and mild enhancement surrounding the thecal sac. There is no focal collection. Previously described epidural collections likely abscesses on the RIGHT have resolved. RIGHT psoas mu scle has decreased in size. There is marrow enhancement in the L4 and L4 RIGHT pedicles and posterior elements. Suspicious for os teomyelitis. There is also enhancement within the spinous process of L4 and L5. MR/MR lumbar spine wo/w con [id number] IMPRESSION: 1. Marked improvement in the previously described epidural collection from T12 through L5 as described on 08/07/2021. 2. Persistent posterior epidural thickening with soft tissue enhancement predo minantly involving the posterior elements of L4 and L5. Consistent with residua l inflammatory process. There may be a tiny residual posterior epidural abscess measuring 10 mm at the L4-5 level. 3. Marrow edema with enhancement in the RIGHT L4 and L5 posterior elements inc luding the spinous processes. Suspicious for osteomyelitis. 4. Resolved RIGHT psoas collections. 5. Moderate central and mild bilateral foraminal stenosis at L4-5.
[2022-12-03] MEDS: gadobenate dimeglumine 20 mL vial IV (17:24)
== END 2022-12-03 16:03 | disposition home or self-care (01) ==
LOC: RAD 16:08
PROVIDERS: PCP Nurse Practitioner Family; Visit Provider Nurse Practitioner Family
DX: M46.26 Osteomyelitis of vertebra, lumbar region (principal); M48.061 Spinal stenosis, lumbar region without neurogenic claudication
CPT/HCPCS: 72158; A9577

== ENCOUNTER 2023-01-19 14:34 | Oncology outpatient (recurring) (ONCR) | payer OTHER, SELFPAY ==
[2023-01-19 15:49] LABS: Basophils % 0.8 %; Eosinophils # 0.1 10^3/uL (0.0-0.8); Eosinophils % 1.5 %; Hematocrit 26.1 % (37.0-47.0); Hemoglobin 7.7 g/dL (11.5-15.3); Lymphocytes # 1.4 10^3/uL (0.8-4.8); Lymphocytes % 27.3 %; Mean Corpuscular HGB Conc 29.5 g/dL (30.0-36.0); Mean Corpuscular Hemoglobin 25.3 pg (28.0-34.0); Mean Corpuscular Volume 85.9 fl (81-99); Mean Platelet Volume 9.4 fL (7.4-10.4); Monocytes # 0.3 10^3/uL (0.2-0.9); Monocytes % 6.1 %; Neutrophils # 3.35 10^3/uL (1.8-7.7); Neutrophils % 63.5 %; Nucleated Red Blood Cells % 0 %; Platelet Count 171 10^3/cmm (130-400); Red Blood Count 3.04 10^6/uL (4.1-5.3); Red Cell Distribution Width 14.8 % (12.1-15.1); White Blood Count 5.3 10^3/uL (4.0-10.0)
[2023-01-19 15:50] LABS: Reticulocyte % 1.6 % (0.5-2.0)
[2023-01-19 16:24] LABS: Alanine Aminotransferase 9 U/L (0-33); Albumin Level 3.8 g/dL (3.5-5.2); Alkaline Phosphatase 115 U/L (35-105); Anion Gap 16.6 (5-19); Aspartate Amino Transferase 23 U/L (0-32); Blood Urea Nitrogen 7 mg/dL (6-20); Calcium 8.5 mg/dL (8.5-10.5); Carbon Dioxide 20 mmol/L (22-29); Chloride 103 mmol/L (98-107); Ferritin 55 ng/mL (15-150); Globulin 4.2 g/dL (1.3-4.6); Glomerular Filtration Rate 169.7 mL/min (90-130); Glucose 83 mg/dL (65-115); Iron 23 ug/dL (37-145); Lactate Dehydrogenase 172 U/L (135-214); Osmolality Calculated 279 mOsm/kg (285-295); Potassium 3.6 mmol/L (3.5-5.1); Sodium 136 mmol/L (136-145); Total Bilirubin 0.2 mg/dL (0.15-1.2); Total Iron Binding Capacity 379 mcg/dl; Unsaturated Iron Binding 356 ug/dL (112-347)
[2023-01-19 16:37] LABS: Folate Level 11.6 ng/mL (4.8-37.3); LAB Peripheral Smear Sent for Review
[2023-01-19 16:38] LABS: Vitamin B12 836 pg/mL (232-1245)
[2023-01-25 12:14] LABS: Methylmalonic Acid 142 nmol/L (87-318)
== END 2023-01-23 23:59 | disposition home or self-care (01) ==
LOC: ONCMED 14:39
PROVIDERS: PCP Nurse Practitioner Family; Visit Provider Internal Medicine Medical Oncology
DX: D64.9 Anemia, unspecified (principal)
CPT/HCPCS: 80053; 82607; 82728; 82746; 83010; 83540; 83550; 83615; 83921; 85025; 85045; 86850; 86880; 86900

== ENCOUNTER 2023-03-23 14:26 | Oncology outpatient (recurring) (ONCR) | payer OTHER, SELFPAY ==
[2023-03-23 14:44] VITALS: BP 101/66; PULSE 78; RESP 18; TEMP 36.7; O2SAT 96
[2023-03-23 15:03] LABS: Basophils % 0.7 %; Eosinophils # 0.1 10^3/uL (0.0-0.8); Eosinophils % 1.1 %; Hematocrit 29.1 % (37.0-47.0); Hemoglobin 8.8 g/dL (11.5-15.3); Lymphocytes # 1.5 10^3/uL (0.8-4.8); Lymphocytes % 27.8 %; Mean Corpuscular HGB Conc 30.2 g/dL (30.0-36.0); Mean Corpuscular Hemoglobin 27.8 pg (28.0-34.0); Mean Corpuscular Volume 92.1 fl (81-99); Mean Platelet Volume 9.7 fL (7.4-10.4); Monocytes # 0.3 10^3/uL (0.2-0.9); Monocytes % 5.4 %; Neutrophils # 3.57 10^3/uL (1.8-7.7); Neutrophils % 64.6 %; Nucleated Red Blood Cells % 0 %; Platelet Count 126 10^3/cmm (130-400); Red Blood Count 3.16 10^6/uL (4.1-5.3); Red Cell Distribution Width 19.8 % (12.1-15.1); White Blood Count 5.5 10^3/uL (4.0-10.0)
[2023-03-23 15:42] LABS: Alanine Aminotransferase 8 U/L (0-33); Albumin Level 3.5 g/dL (3.5-5.2); Alkaline Phosphatase 111 U/L (35-105); Anion Gap 15.4 (5-19); Aspartate Amino Transferase 20 U/L (0-32); Blood Urea Nitrogen 11 mg/dL (6-20); Calcium 8.5 mg/dL (8.5-10.5); Carbon Dioxide 17 mmol/L (22-29); Chloride 104 mmol/L (98-107); Ferritin 659 ng/mL (15-150); Globulin 3.7 g/dL (1.3-4.6); Glomerular Filtration Rate 88.9 mL/min (90-130); Glucose 103 mg/dL (65-115); Iron 79 ug/dL (37-145); Osmolality Calculated 276 mOsm/kg (285-295); Percent Saturation 43.1 % (20-50); Potassium 3.4 mmol/L (3.5-5.1); Sodium 133 mmol/L (136-145); Total Bilirubin 0.2 mg/dL (0.15-1.2); Total Iron Binding Capacity 183 mcg/dl; Total Protein 7.2 g/dL (6.6-8.7); Unsaturated Iron Binding 104 ug/dL (112-347)
== END 2023-03-25 23:59 | disposition home or self-care (01) ==
PROVIDERS: PCP Nurse Practitioner Family; Visit Provider Internal Medicine Medical Oncology
DX: D64.9 Anemia, unspecified (principal)
CPT/HCPCS: 36415; 80053; 82728; 83540; 83550; 85025

== ENCOUNTER → 2023-03-23 14:36 | Outpatient (BNVA) | payer OTHER, SELFPAY | PROVIDERS: PCP Nurse Practitioner Family; Visit Provider Internal Medicine Medical Oncology | DX: D50.8 Other iron deficiency anemias (principal) | CPT/HCPCS: 83615; 85045; 85651; 86140 ==

== ENCOUNTER 2023-03-23 15:32 | Outpatient (CLI) | payer OTHER, SELFPAY ==
--- NOTE | 2023-03-23 16:02 | MR_ITS ---
WS: [id number] MRI LUMBAR SPINE WITH CONTRAST TECHNIQUE: Sagittal T1, T2 and STIR imaging. Axial T1 and T2 imaging. Post gadolinium imaging was obt ained. CLINICAL INFORMATION: EXTRADURAL AND SUBDURAL ABCESS COMPARISON: MRI December 03, 2022 FINDINGS: Previously described epidural abscess has resolved. No evidence of recurrent subdural or epidural abs cess. Prior hemilaminectomies L3-L5. Persistent postoperative and epidural enhancement within the hernandez inectomy defects. No evidence recurrent abscess or fluid collection in this area. Persistent enhancem ent likely postoperative and inflammatory. L1-L2: Normal. L2-L3: No significant disc bulging. Mild facet arthropathy. Spinal canal and foramen are patent. L3-L4: No significant disc bulging. Advanced facet arthropathy with prior laminectomies. Spinal canal is patent. Mild to moderate LEFT foraminal narrowing. L4-L5: Mild annular bulging. Slight anterolisthesis. Advanced facet arthropathy. Moderate central can al stenosis. This is stable compared to previous. Mild bilateral foraminal narrowing. L5-S1: Mild annular bulging. Slight impingement on the traversing LEFT S1 nerve root. Moderate facet arthropathy. Mild LEFT and no significant RIGHT foraminal narrowing. Visualized pelvic bony structures: Normal. Paravertebral soft tissues: Normal. MR/MR lumbar spine wo/w con [id number] IMPRESSION: 1. Previously described epidural abscess has resolved. No evidence of recurren t abscess. 2. Prior postoperative changes laminectomies L3-L5 with postoperative epidura l and soft tissue enhancement unchanged from previous. No evidence of recurrent abscess or fluid collection. 3. Moderate central canal stenosis L4-L5 unchanged. 4. Advanced facet arthropathy L3-L4 L4-L5. 5. Mild to moderate LEFT L3-L4 foraminal narrowing. 6. Mild bilateral L4-L5 foraminal narrowing worse in the RIGHT. 7. Annular bulging L5-S1 with slight impingement LEFT S1 nerve root. Mild LEFT L5-S1 foraminal narrowing.
[2023-03-23] MEDS: gadobenate dimeglumine 20 mL vial IV (17:10)
== END 2023-03-23 15:33 | disposition home or self-care (01) ==
LOC: RAD 15:33
PROVIDERS: PCP Nurse Practitioner Family; Visit Provider Nurse Practitioner Family
DX: G06.2 Extradural and subdural abscess, unspecified (principal); M48.061 Spinal stenosis, lumbar region without neurogenic claudication; M12.88 Other specific arthropathies, not elsewhere classified, other specified site; M51.27 Other intervertebral disc displacement, lumbosacral region
CPT/HCPCS: 72158; A9577

== ENCOUNTER 2023-04-12 11:20 | Outpatient (CLI) | payer OTHER, SELFPAY ==
--- NOTE | 2023-04-12 11:22 | MR_ITS ---
WS: [id number] MRI HEAD WITH CONTRAST TECHNIQUE: Sagittal T1, T2 axial, T2 axial FLAIR, axial susceptibility weighted imaging, axial diffus ion weighted images, and coronal T2 images were obtained. Pre and post-T1 axial and post T1 coronal i mages. ADC and FSPGR images. CLINICAL INFORMATION: ABNORMALITIES OF GAIT MOBILITY COMPARISON: CT FINDINGS: No evidence of restricted diffusion to suggest acute ischemia. Ventricular system and basal cisterns are patent. Minimal supratentorial white matter changes can be seen with hypertension, diabetes, and migraine headaches. Mild parenchymal volume loss. Incidental cavum septum pellucidum and vergae. Tiny chronic lacunar infarct RIGHT cerebellum. Normal vascular flow voids at the skull base. No extra -axial fluid collections. No evidence of mass or mass effect. Mild mucosal thickening in the paranasa l sinuses. Mastoid air cells are well aerated. Normal posterior nasopharynx. Normal parapharyngeal fa t. No hemosiderin on susceptibly weighted images. Normal optic chiasm and pituitary infundibulum. Tem poral lobes and hippocampal formations are normal in appearance. MR/MR head wo/w con [id number] IMPRESSION: 1. No evidence restricted diffusion to suggest acute ischemia. 2. Minimal supratentorial white matter changes with mild parenchymal volume lo ss. Findings can be seen with hypertension, diabetes, and migraine headaches. 3. Tiny chronic lacunar infarct RIGHT cerebellum. 4. No hemosiderin on the susceptibly weighted images. 5. Temporal lobes and hippocampal formations are normal in appearance. 6. No abnormal gadolinium enhancement.
[2023-04-12] MEDS: gadobenate dimeglumine 20 mL vial IV (12:31)
== END 2023-04-12 11:21 | disposition home or self-care (01) ==
PROVIDERS: PCP Nurse Practitioner Family; Visit Provider Nurse Practitioner Family
DX: R26.89 Other abnormalities of gait and mobility (principal); Z86.73 Personal history of transient ischemic attack (TIA), and cerebral infarction without residual deficits
CPT/HCPCS: 70553; A9577

== ENCOUNTER 2023-05-02 09:30 | Oncology outpatient (recurring) (ONCR) | payer OTHER, SELFPAY ==
[2023-05-02 09:41] VITALS: BP 110/74; PULSE 94; RESP 18; TEMP 36.9; O2SAT 96
[2023-05-02 10:09] LABS: Basophils % 0.5 %; Eosinophils # 0.1 10^3/uL (0.0-0.8); Eosinophils % 1.5 %; Hematocrit 30.9 % (37.0-47.0); Hemoglobin 9.4 g/dL (11.5-15.3); Lymphocytes # 1.2 10^3/uL (0.8-4.8); Lymphocytes % 20.3 %; Mean Corpuscular HGB Conc 30.4 g/dL (30.0-36.0); Mean Corpuscular Hemoglobin 29.4 pg (28.0-34.0); Mean Corpuscular Volume 96.6 fl (81-99); Mean Platelet Volume 9.7 fL (7.4-10.4); Monocytes # 0.3 10^3/uL (0.2-0.9); Monocytes % 4.8 %; Neutrophils # 4.19 10^3/uL (1.8-7.7); Neutrophils % 72.2 %; Nucleated Red Blood Cells % 0 %; Platelet Count 169 10^3/cmm (130-400); Red Cell Distribution Width 17.2 % (12.1-15.1); Reticulocyte % 1.8 % (0.5-2.0); White Blood Count 5.8 10^3/uL (4.0-10.0)
[2023-05-02 10:24] LABS: Erythrocyte Sedimentation Rate 17 mm/hr (0-15)
[2023-05-02 10:29] LABS: Alanine Aminotransferase 13 U/L (0-33); Albumin Level 3.6 g/dL (3.5-5.2); Alkaline Phosphatase 107 U/L (35-105); Anion Gap 15.8 (5-19); Aspartate Amino Transferase 26 U/L (0-32); Blood Urea Nitrogen 12 mg/dL (6-20); Calcium 8.8 mg/dL (8.5-10.5); Carbon Dioxide 20 mmol/L (22-29); Chloride 107 mmol/L (98-107); Globulin 3.8 g/dL (1.3-4.6); Glomerular Filtration Rate 106.3 mL/min (90-130); Glucose 139 mg/dL (65-115); Lactate Dehydrogenase 142 U/L (135-214); Osmolality Calculated 290 mOsm/kg (285-295); Potassium 3.8 mmol/L (3.5-5.1); Sodium 139 mmol/L (136-145); Total Bilirubin 0.2 mg/dL (0.15-1.2); Total Protein 7.4 g/dL (6.6-8.7)
[2023-05-02 13:13] LABS: Iron 62 ug/dL (37-145); Percent Saturation 27.8 % (20-50); Total Iron Binding Capacity 223 mcg/dl; Unsaturated Iron Binding 161 ug/dL (112-347)
== END 2023-05-26 23:59 | disposition home or self-care (01) ==
PROVIDERS: PCP Nurse Practitioner Family; Visit Provider Internal Medicine Medical Oncology
DX: D50.8 Other iron deficiency anemias (principal)
CPT/HCPCS: 36415; 80053; 83540; 83550; 83615; 85025; 85045; 85651; 86140

== ENCOUNTER 2023-08-04 12:53 | Oncology outpatient (recurring) (ONCR) | payer OTHER, SELFPAY ==
[2023-08-04 14:34] LABS: Alanine Aminotransferase 11 U/L (0-33); Albumin Level 4.1 g/dL (3.5-5.2); Alkaline Phosphatase 128 U/L (35-105); Anion Gap 16.9 (5-19); Aspartate Amino Transferase 22 U/L (0-32); Blood Urea Nitrogen 12 mg/dL (6-20); Calcium 9.4 mg/dL (8.5-10.5); Carbon Dioxide 18 mmol/L (22-29); Chloride 102 mmol/L (98-107); Globulin 3.8 g/dL (1.3-4.6); Glomerular Filtration Rate 106.3 mL/min (90-130); Glucose 79 mg/dL (65-115); Osmolality Calculated 275 mOsm/kg (285-295); Potassium 3.9 mmol/L (3.5-5.1); Sodium 133 mmol/L (136-145); Total Bilirubin 0.2 mg/dL (0.15-1.2); Total Protein 7.9 g/dL (6.6-8.7)
[2023-08-04 14:41] LABS: Basophils % 0.5 %; Eosinophils # 0.1 10^3/uL (0.0-0.8); Eosinophils % 1.1 %; Hematocrit 31.9 % (36-47); Lymphocytes # 1.6 10^3/uL (0.8-4.8); Lymphocytes % 26.1 %; Mean Corpuscular HGB Conc 30.7 g/dL (30-55); Mean Corpuscular Hemoglobin 30.2 pg (27-33); Mean Corpuscular Volume 98.2 fl (85-98); Mean Platelet Volume 9.7 fL (7.4-10.4); Monocytes # 0.4 10^3/uL (0.2-0.9); Neutrophils # 4.13 10^3/uL (1.8-7.7); Neutrophils % 65.7 %; Nucleated Red Blood Cells % 0 %; Platelet Count 152 10^3/cmm (157-399); Red Blood Count 3.25 10^6/uL (3.85-5.65); Red Cell Distribution Width 13.4 % (12.1-15.1); White Blood Count 6.29 10^3/uL (3.29-11.43)
[2023-08-04 16:50] LABS: Ferritin 241 ng/mL (15-150); Iron 64 ug/dL (37-145); Percent Saturation 21.6 % (20-50); Total Iron Binding Capacity 295 mcg/dl; Unsaturated Iron Binding 231 ug/dL (112-347)
== END 2023-08-25 23:59 | disposition home or self-care (01) ==
PROVIDERS: Nurse Practitioner Family; PCP Nurse Practitioner Family; Visit Provider Internal Medicine Medical Oncology
DX: D50.8 Other iron deficiency anemias (principal); D64.9 Anemia, unspecified; Z79.899 Other long term (current) drug therapy
CPT/HCPCS: 36415; 80053; 82728; 83540; 83550; 85025

== ENCOUNTER 2024-03-23 07:19 | Oncology outpatient (recurring) (ONCR) | payer OTHER, SELFPAY ==
[2024-03-21 14:08] LABS: Basophils % 0.6 %; Eosinophils % 0.9 %; Hematocrit 24.1 % (36-47); Lymphocytes % 27.1 %; Mean Corpuscular HGB Conc 31.5 g/dL (30-55); Mean Corpuscular Hemoglobin 29.7 pg (27-33); Mean Corpuscular Volume 94.1 fl (85-98); Mean Platelet Volume 10.2 fL (7.4-10.4); Monocytes # 0.1 10^3/uL (0.2-0.9); Monocytes % 2.3 %; Neutrophils # 2.35 10^3/uL (1.8-7.7); Neutrophils % 67.1 %; Nucleated Red Blood Cells % 0 %; Platelet Count 150 10^3/cmm (157-399); Red Blood Count 2.56 10^6/uL (3.85-5.65); Red Cell Distribution Width 14.7 % (12.1-15.1)
[2024-03-21 14:11] LABS: Reticulocyte % 1.4 % (0.5-2.0)
[2024-03-21 14:12] LABS: Erythrocyte Sedimentation Rate 23 mm/hr (0-15)
[2024-03-21 14:34] LABS: Alanine Aminotransferase 18 U/L (0-33); Albumin Level 2.9 g/dL (3.5-5.2); Alkaline Phosphatase 97 U/L (35-105); Anion Gap 15.7 (5-19); Aspartate Amino Transferase 26 U/L (0-32); Blood Urea Nitrogen 15 mg/dL (6-20); C Reactive Protein 26.8 mg/L (0.0-4.9); Calcium 8.6 mg/dL (8.5-10.5); Carbon Dioxide 17 mmol/L (22-29); Chloride 107 mmol/L (98-107); Creatinine Clr Calc Pharmacy 45.9507; Globulin 3.6 g/dL (1.3-4.6); Glomerular Filtration Rate 43.4 mL/min (90-130); Glucose 76 mg/dL (65-115); Lactate Dehydrogenase 139 U/L (135-214); Osmolality Calculated 282 mOsm/kg (285-295); Potassium 3.7 mmol/L (3.5-5.1); Sodium 136 mmol/L (136-145); Total Bilirubin 0.3 mg/dL (0.15-1.2); Total Protein 6.5 g/dL (6.6-8.7)
[2024-03-21 15:00] LABS: LAB Peripheral Smear Sent for Review
[2024-03-21 15:31] LABS: Ferritin 706 ng/mL (15-150); Iron 42 ug/dL (37-145); Percent Saturation 41.5 % (20-50); Total Iron Binding Capacity 101 mcg/dl; Unsaturated Iron Binding 59 ug/dL (112-347)
[2024-03-22 14:15] LABS: KAPPA LIGHT CHAIN, FREE, SERUM 80.5 mg/L (3.3-19.4); KAPPA/LAMBDA LIGHT CHAINS FREE 1.11 (0.26-1.65); LAMBDA LIGHT CHAIN, FREE, SERU 72.8 mg/L (5.7-26.3)
[2024-03-23] VITALS (8 sets, daily range): BP systolic 94–127; BP diastolic 69–89; PULSE 58–73; RESP 16; TEMP 36.2–36.8; O2SAT 69–100
[2024-03-23] MEDS: acetaminophen 325 mg Tablet 650 MG PO (07:29)
[2024-03-23] MEDS: diphenhydrAMINE 25 mg Capsule PO (07:29)
[2024-03-23] MEDS: sodium chloride 0.9% 250 mL Bag IV (07:30)
[2024-03-23] MEDS: FUROsemide 10 mg/mL SDV 2mL 20 MG IVP (10:02)
[2024-03-24 14:38] LABS: Soluble Transferrin Receptor 3.12 mg/L (0.76-1.76)
== END 2024-03-25 23:59 | disposition home or self-care (01) ==
PROVIDERS: PCP Nurse Practitioner Family; Visit Provider Internal Medicine Medical Oncology
DX: D64.9 Anemia, unspecified; Z53.9 Procedure and treatment not carried out, unspecified reason
CPT/HCPCS: 36415; 36430; 80053; 82728; 83010; 83540; 83550; 83615; 83883; 84238; 85025; 85045; 85651; 86140; 86850; 86900; 86920; J1940; J7050; P9016

== ENCOUNTER 2024-05-17 10:30 | Oncology outpatient (recurring) (ONCR) | payer OTHER, SELFPAY ==
[2024-05-14 08:52] VITALS: BP 96/64
[2024-05-14 09:28] VITALS: PULSE 83; RESP 16; TEMP 36.6; O2SAT 92
[2024-05-14 09:46] LABS: Bacteria Urine 4+ /hpf; Bilirubin Urine Neg (Negative); Blood Urine 3+ (Negative); Glucose Urine UA Norm (Normal); Ketones Urine Negative (Negative); Leukocyte Esterase Urine 2+ (Negative); Nitrate Urine Negative (Negative); Protein Urine Neg (Negative); UA Manual Slide Review YES; Urine Appearance Turbid (CLEAR); Urine Color Yellow (Yellow); Urobilinogen Urine Norm (Negative); WBC Urine 40-55 /hpf (0-5); pH Urine 9 (5-7)
[2024-05-14 09:47] LABS: Add Urine Culture? No
[2024-05-14 10:20] LABS: Basophils # 0.1 10^3/uL (0.0-0.1); Eosinophils % 0.4 %; Hematocrit 25.9 % (36-47); Lymphocytes # 1.4 10^3/uL (0.8-4.8); Lymphocytes % 18.8 %; Mean Corpuscular HGB Conc 32.8 g/dL (30-55); Mean Corpuscular Hemoglobin 29.5 pg (27-33); Mean Corpuscular Volume 89.9 fl (85-98); Mean Platelet Volume 9.6 fL (7.4-10.4); Monocytes # 0.3 10^3/uL (0.2-0.9); Monocytes % 3.8 %; Neutrophils # 5.52 10^3/uL (1.8-7.7); Neutrophils % 75.2 %; Nucleated Red Blood Cells % 0 %; Platelet Count 226 10^3/cmm (157-399); Red Blood Count 2.88 10^6/uL (3.85-5.65); Red Cell Distribution Width 17.4 % (12.1-15.1); White Blood Count 7.34 10^3/uL (3.29-11.43)
[2024-05-14 10:21] LABS: Reticulocyte % 2.3 % (0.5-2.0)
[2024-05-14 10:33] LABS: LAB Peripheral Smear Sent for Review
[2024-05-14 10:34] LABS: Erythrocyte Sedimentation Rate 6 mm/hr (0-15)
[2024-05-14 10:56] LABS: Alanine Aminotransferase 24 U/L (0-33); Albumin Level 2.8 g/dL (3.5-5.2); Alkaline Phosphatase 84 U/L (35-105); Anion Gap 19.5 (5-19); Aspartate Amino Transferase 19 U/L (0-32); Blood Urea Nitrogen 22 mg/dL (6-20); Calcium 8.3 mg/dL (8.5-10.5); Carbon Dioxide 19 mmol/L (22-29); Chloride 102 mmol/L (98-107); Creatinine Clr Calc Pharmacy 34.4242; Globulin 3.3 g/dL (1.3-4.6); Glomerular Filtration Rate 39.8 mL/min (90-130); Glucose 74 mg/dL (65-115); Iron 86 ug/dL (37-145); Lactate Dehydrogenase 216 U/L (135-214); Osmolality Calculated 288 mOsm/kg (285-295); Sodium 138 mmol/L (136-145); Thyroid Stimulating Hormone 0.67 uIU/mL (0.27-4.20); Total Bilirubin 0.9 mg/dL (0.15-1.2); Total Protein 6.1 g/dL (6.6-8.7); Vitamin B12 1872 pg/mL (232-1245)
[2024-05-14 10:58] LABS: Potassium 2.5 mmol/L (3.5-5.1)
[2024-05-14 11:02] LABS: Folate Level 10.5 ng/mL (4.8-37.3)
[2024-05-14 11:12] LABS: Ferritin 1999 ng/mL (15-150)
[2024-05-14] MEDS: cosyntropin 0.25 mg SDV IVP (11:15)
[2024-05-14] MEDS: potassium chloride 20 MEQ in sodium chloride 0.9% 500 ML 255 MEQ IV (11:28)
[2024-05-14 11:46] LABS: Cosyntropin Baseline 16.01 mcg/dL
[2024-05-14 12:01] LABS: Total Iron Binding Capacity 97.99999 mcg/dl; Unsaturated Iron Binding < 12 ug/dL (112-347)
[2024-05-14 12:32] LABS: Cosyntropin 30 Minute 21.93 mcg/dL
[2024-05-14 12:57] LABS: Cosyntropin 1 Hour 25.25 mcg/dL
[2024-05-14 13:43] VITALS: BP 81/52; PULSE 76; RESP 15; TEMP 36.7; O2SAT 97
[2024-05-15] VITALS (11 sets, daily range): BP systolic 86–111; BP diastolic 50–78; PULSE 56–78; RESP 16; TEMP 35.9–36.4; O2SAT 94–99
[2024-05-15 10:55] LABS: Basophils # 0.1 10^3/uL (0.0-0.1); Basophils % 0.9 %; Eosinophils % 0.4 %; Hematocrit 21.3 % (36-47); Lymphocytes # 1.4 10^3/uL (0.8-4.8); Lymphocytes % 24.2 %; Mean Corpuscular HGB Conc 31.9 g/dL (30-55); Mean Corpuscular Hemoglobin 29.4 pg (27-33); Mean Corpuscular Volume 92.2 fl (85-98); Mean Platelet Volume 9.8 fL (7.4-10.4); Monocytes # 0.4 10^3/uL (0.2-0.9); Monocytes % 6.9 %; Neutrophils # 3.77 10^3/uL (1.8-7.7); Neutrophils % 67.1 %; Nucleated Red Blood Cells % 0 %; Platelet Count 157 10^3/cmm (157-399); Red Blood Count 2.31 10^6/uL (3.85-5.65); Red Cell Distribution Width 17.6 % (12.1-15.1); White Blood Count 5.62 10^3/uL (3.29-11.43)
[2024-05-15 11:35] LABS: Alanine Aminotransferase 21 U/L (0-33); Albumin Level 2.4 g/dL (3.5-5.2); Alkaline Phosphatase 69 U/L (35-105); Aspartate Amino Transferase 18 U/L (0-32); Blood Urea Nitrogen 22 mg/dL (6-20); Calcium 7.9 mg/dL (8.5-10.5); Carbon Dioxide 17 mmol/L (22-29); Chloride 106 mmol/L (98-107); Creatinine Clr Calc Pharmacy 37.0723; Globulin 2.8 g/dL (1.3-4.6); Glomerular Filtration Rate 43.4 mL/min (90-130); Glucose 109 mg/dL (65-115); Iron 76 ug/dL (37-145); Osmolality Calculated 290 mOsm/kg (285-295); Sodium 138 mmol/L (136-145); Total Bilirubin 0.7 mg/dL (0.15-1.2); Total Protein 5.2 g/dL (6.6-8.7)
[2024-05-15 11:42] LABS: Anion Gap 17.6 (5-19); Potassium 2.6 mmol/L (3.5-5.1)
[2024-05-15 12:02] LABS: Ferritin 1454 ng/mL (15-150)
[2024-05-15 12:04] LABS: Total Iron Binding Capacity 82.99999 mcg/dl; Unsaturated Iron Binding < 7 ug/dL (112-347)
[2024-05-15] MEDS: acetaminophen 325 mg Tablet 650 MG PO (12:09)
[2024-05-15] MEDS: diphenhydrAMINE 25 mg Capsule PO (12:09)
[2024-05-15] MEDS: sodium chloride 0.9% 250 mL Bag IV (12:36)
[2024-05-15] MEDS: lidocaine 1% 5 ML in potassium chloride premix 100 ML 40 ML IV (13:58)
[2024-05-16 03:56] LABS: PROTEIN, TOTAL 5.6 g/dL (6.1-8.1)
[2024-05-17 08:19] LABS: ALBUMIN 2.7 g/dL (3.8-4.8); ALPHA 1 GLOBULIN 0.4 g/dL (0.2-0.3); ALPHA 2 GLOBULIN 0.5 g/dL (0.5-0.9); BETA 1 GLOBULIN 0.2 g/dL (0.4-0.6); BETA 2 GLOBULIN 0.5 g/dL (0.2-0.5); GAMMA GLOBULIN 1.3 g/dL (0.8-1.7)
[2024-05-17 10:25] LABS: Basophils # 0.1 10^3/uL (0.0-0.1); Basophils % 1.3 %; Eosinophils % 0.5 %; Hematocrit 34.9 % (36-47); Lymphocytes # 1.1 10^3/uL (0.8-4.8); Lymphocytes % 17.1 %; Mean Corpuscular Hemoglobin 29.4 pg (27-33); Mean Corpuscular Volume 89.3 fl (85-98); Mean Platelet Volume 9.2 fL (7.4-10.4); Monocytes # 0.3 10^3/uL (0.2-0.9); Monocytes % 4.6 %; Neutrophils # 4.79 10^3/uL (1.8-7.7); Neutrophils % 75.9 %; Nucleated Red Blood Cells % 0 %; Platelet Count 164 10^3/cmm (157-399); Red Blood Count 3.91 10^6/uL (3.85-5.65); White Blood Count 6.31 10^3/uL (3.29-11.43)
[2024-05-17 10:46] LABS: Alanine Aminotransferase 26 U/L (0-33); Albumin Level 2.5 g/dL (3.5-5.2); Alkaline Phosphatase 75 U/L (35-105); Aspartate Amino Transferase 19 U/L (0-32); Blood Urea Nitrogen 24 mg/dL (6-20); Calcium 8.1 mg/dL (8.5-10.5); Carbon Dioxide 15 mmol/L (22-29); Chloride 106 mmol/L (98-107); Creatinine Clr Calc Pharmacy 40.1616; Globulin 2.8 g/dL (1.3-4.6); Glomerular Filtration Rate 47.6 mL/min (90-130); Glucose 70 mg/dL (65-115); Osmolality Calculated 284 mOsm/kg (285-295); Sodium 136 mmol/L (136-145); Total Bilirubin 0.6 mg/dL (0.15-1.2); Total Protein 5.3 g/dL (6.6-8.7)
[2024-05-17] MEDS: potassium chloride 20 MEQ in sodium chloride 0.9% 500 ML 255 MEQ IV (11:55)
[2024-05-17 12:50] LABS: Methylmalonic Acid 165 nmol/L (55-335)
[2024-05-17 15:10] VITALS: BP 91/68; PULSE 76; TEMP 36.4; O2SAT 93
[2024-05-17 18:10] LABS: Immunofixation Serum Normal pattern.
== END 2024-05-26 23:59 | disposition home or self-care (01) ==
PROVIDERS: PCP Nurse Practitioner Family; Visit Provider Internal Medicine Medical Oncology
DX: Z53.9 Procedure and treatment not carried out, unspecified reason; E87.6 Hypokalemia; Z79.899 Other long term (current) drug therapy
CPT/HCPCS: 36415; 36430; 80053; 81001; 82533; 82607; 82728; 82746; 83010; 83540; 83550; 83615; 83921; 84155; 84165; 84443; 85025; 85045; 85651; 86140; 86334; 86850; 86900; 86920; 87077; 87086; 87186; 96365; 96366; 96375; J0834; J3480; J7040; J7050; P9016

== ENCOUNTER 2024-06-15 09:27 | Outpatient (CLI) | payer OTHER, SELFPAY ==
--- NOTE | 2024-06-15 09:30 | CT_ITS ---
WS: [id number] CT CHEST, ABDOMEN AND PELVIS WITH CONTRAST HISTORY: hepatomegaly; shortness of breath TECHNIQUE: Contiguous 5 mm axial imaging performed through the chest, abdomen and pelvis with IV cont rast, oral contrast has been provided. Coronal and sagittal reformats chest. Coronal and sagittal ref ormats through the abdomen and pelvis. All CT scans at [facility] use at least one of these d ose optimization techniques: automated exposure control; mA and/or kV adjustment per patient size (in cludes targeted exams where dose is matched to clinical indication); or iterative reconstruction. CONTRAST: Omnipaque 350; 100 mL IV. DLP: 468.09 mGy.cm COMPARISON: 11/11/[address]: Mild pulmonary hyperinflation. Well circumscribed area of groundglass attenuation in the an terior RIGHT upper lobe abutting the fissure measuring 1.9 x 1.5 x 2.1 cm. There is additional more s ubtle groundglass attenuation in the RIGHT upper lobe towards the junctional line. Remaining lungs ar e negative. No pericardial or pleural effusions. Normal heart size. No adenopathy. Normal size aorta and pulmonary artery. Small hiatal hernia. Abdomen CT: Hepatic steatosis. Focal fatty sparing along the falciform ligament. Normal portal vein. Prior cholecystectomy. No common bile duct dilatation. Spleen is normal. Pancreatic atrophy. No adren al mass. Normal renal enhancement. Nonobstructing bilateral small calcifications. Normal aorta. Mesen teric arteries are normal. Prior gastric bypass. Stomach is nondistended. No small bowel obstruction. Marked constipation. Inspi ssated fecal material throughout the colon. No obstructing lesions. There is mild soft tissue anasarca. Numerous varicosities and collateral vessels are noted beginning at the GE junction and extending toward the splenic hilum. Gastric and splenic varices. There are add itional tubular structures enhancing and soft tissues of the pelvis extending into the pelvis which a ppear to be collateral vessels. Pelvic CT: Soft tissue anasarca. There is a small amount of free fluid in the pelvis. No mass. CT/CT chest abdpel w/*[id number] IMPRESSION: 1. New groundglass opacifications in the RIGHT upper lobe. These may be relate d to pneumonitis or hypersensitivity pneumonia. Low-grade neoplasm is not exclu ded. Recommend follow-up chest CT with IV contrast in 6 months. 2. No adenopathy in the chest. 3. Diffuse soft tissue anasarca. 4. Extensive collateral vessels near the distal esophagus, gastric varices and splenic varices. The soft tissue nodules noted bilaterally within the pelvis w hich have been present may be varicosities also. No change. 5. Small amount of free fluid in the pelvis of uncertain etiology. 6. Marked constipation. 7. Prior gastric bypass. 8. Hepatic steatosis. 9. Prior cholecystectomy.
[2024-06-15] MEDS: iohexol 350 mg/mL 500 mL Btl (per mL) PO (11:03)
[2024-06-15] MEDS: iohexol 350 mg/mL 500 mL Btl (per mL) IV (11:03)
== END 2024-06-15 09:28 | disposition home or self-care (01) ==
PROVIDERS: PCP Nurse Practitioner Family; Visit Provider Internal Medicine Medical Oncology
DX: R91.8 Other nonspecific abnormal finding of lung field (principal); R16.0 Hepatomegaly, not elsewhere classified; R06.02 Shortness of breath; K76.0 Fatty (change of) liver, not elsewhere classified; Z90.49 Acquired absence of other specified parts of digestive tract; K86.89 Other specified diseases of pancreas; N20.0 Calculus of kidney; K59.00 Constipation, unspecified; I86.4 Gastric varices; R60.1 Generalized edema
CPT/HCPCS: 71260; 74177

== ENCOUNTER 2024-06-18 11:15 | Oncology outpatient (recurring) (ONCR) | payer OTHER, SELFPAY ==
[2024-05-31 11:57] LABS: Basophils % 0.6 %; Eosinophils % 0.4 %; Hematocrit 27.4 % (36-47); Lymphocytes # 1.3 10^3/uL (0.8-4.8); Lymphocytes % 26.6 %; Mean Corpuscular HGB Conc 33.6 g/dL (30-55); Mean Corpuscular Volume 89.3 fl (85-98); Mean Platelet Volume 9.9 fL (7.4-10.4); Monocytes # 0.2 10^3/uL (0.2-0.9); Monocytes % 4.1 %; Neutrophils # 3.33 10^3/uL (1.8-7.7); Neutrophils % 67.7 %; Nucleated Red Blood Cells % 0 %; Platelet Count 177 10^3/cmm (157-399); Red Blood Count 3.07 10^6/uL (3.85-5.65); Red Cell Distribution Width 16.4 % (12.1-15.1); White Blood Count 4.92 10^3/uL (3.29-11.43)
[2024-05-31 12:01] LABS: Erythrocyte Sedimentation Rate < 1 mm/hr (0-15)
[2024-05-31 12:11] LABS: Alanine Aminotransferase 23 U/L (0-33); Albumin Level 2.5 g/dL (3.5-5.2); Alkaline Phosphatase 90 U/L (35-105); Anion Gap 16.9 (5-19); Aspartate Amino Transferase 16 U/L (0-32); Blood Urea Nitrogen 18 mg/dL (6-20); Carbon Dioxide 17 mmol/L (22-29); Chloride 107 mmol/L (98-107); Creatinine Clr Calc Pharmacy 40.1616; Globulin 2.8 g/dL (1.3-4.6); Glomerular Filtration Rate 47.6 mL/min (90-130); Glucose 99 mg/dL (65-115); Iron 63 ug/dL (37-145); Osmolality Calculated 288 mOsm/kg (285-295); Sodium 138 mmol/L (136-145); Total Bilirubin 0.4 mg/dL (0.15-1.2); Total Protein 5.3 g/dL (6.6-8.7)
[2024-05-31 12:41] LABS: Ferritin 1365 ng/mL (15-150); Potassium 2.9 mmol/L (3.5-5.1)
[2024-05-31 12:42] LABS: Percent Saturation 78.7 % (20-50); Total Iron Binding Capacity 80 mcg/dl; Unsaturated Iron Binding < 17 ug/dL (112-347)
[2024-05-31 13:59] LABS: 25 Hydroxy Vitamin D 7 ng/mL (30-100); Chol HDL Ratio 2.57 mg/dL (0.0-4.40); Cholesterol 113 mg/dL (0-200); HDL Cholesterol 44 mg/dL (60-100); LDL Cholesterol Calculated 43 mg/dL (50-129); LDL HDL Ratio 0.98 RATIO (0.00-3.22); Thyroid Stimulating Hormone 1.84 uIU/mL (0.27-4.20); Triglycerides 130 mg/dL (0-150); Vitamin B12 1723 pg/mL (232-1245)
[2024-05-31 15:05] LABS: Estmated Average Glucose 77; Hemoglobin A1C 4.3 % (4.0-6.0)
[2024-05-31] MEDS: potassium chloride 20 MEQ in sodium chloride 0.9% 500 ML 255 MEQ IV (15:11)
[2024-05-31 17:28] VITALS: BP 103/78; PULSE 70; RESP 16; TEMP 36.6; O2SAT 99
[2024-05-31 17:39] VITALS: BP 109/68; PULSE 78; RESP 18; TEMP 36.6; O2SAT 98
[2024-05-31 18:18] LABS: Bilirubin Urine Negative (Negative); Blood Urine 3+ (Negative); Glucose Urine UA Negative (Normal); Ketones Urine Negative (Negative); Leukocyte Esterase Urine 2+ (Negative); Nitrate Urine Negative (Negative); Protein Urine Trace (Negative); Specific Gravity, Urine 1.012 (1.005-1.030); Urine Appearance Clear (CLEAR); Urine Color Yellow (Yellow)
[2024-05-31 18:37] LABS: Add Urine Culture? Yes; Bacteria Urine 3+ /hpf; Mucus Urine TRACE /hpf; WBC Urine 55-80 /hpf (0-5)
[2024-06-05 10:34] LABS: Basophils % 0.7 %; Eosinophils % 0.6 %; Hematocrit 25.4 % (36-47); Lymphocytes % 19.4 %; Mean Corpuscular HGB Conc 33.1 g/dL (30-55); Mean Corpuscular Hemoglobin 29.7 pg (27-33); Mean Corpuscular Volume 89.8 fl (85-98); Mean Platelet Volume 10.6 fL (7.4-10.4); Monocytes # 0.2 10^3/uL (0.2-0.9); Monocytes % 3.5 %; Neutrophils % 74.7 %; Nucleated Red Blood Cells % 0 %; Platelet Count 152 10^3/cmm (157-399); Red Blood Count 2.83 10^6/uL (3.85-5.65); Red Cell Distribution Width 15.8 % (12.1-15.1); White Blood Count 5.36 10^3/uL (3.29-11.43)
[2024-06-05 10:49] LABS: Alanine Aminotransferase 19 U/L (0-33); Albumin Level 2.1 g/dL (3.5-5.2); Alkaline Phosphatase 83 U/L (35-105); Blood Urea Nitrogen 11 mg/dL (6-20); Calcium 7.3 mg/dL (8.5-10.5); Carbon Dioxide 17 mmol/L (22-29); Chloride 107 mmol/L (98-107); Creatinine Clr Calc Pharmacy 53.5488; Globulin 2.8 g/dL (1.3-4.6); Glomerular Filtration Rate 66.3 mL/min (90-130); Glucose 66 mg/dL (65-115); Osmolality Calculated 280 mOsm/kg (285-295); Sodium 136 mmol/L (136-145); Total Bilirubin 0.5 mg/dL (0.15-1.2); Total Protein 4.9 g/dL (6.6-8.7)
[2024-06-05 11:00] LABS: Anion Gap 15.1 (5-19); Aspartate Amino Transferase 20 U/L (0-32); Potassium 3.1 mmol/L (3.5-5.1)
[2024-06-05] MEDS: sodium chlor 0.9% + KCl 20 mEq 20 MEQ/1,000 ML BAG 500 MEQ IV (11:29)
[2024-06-05 14:18] VITALS: BP 99/76; PULSE 73; TEMP 36.3; O2SAT 96
[2024-06-05 14:33] LABS: Bilirubin Urine Negative (Negative); Blood Urine Non-haemolysed trace (Negative); Glucose Urine UA Negative (Normal); Ketones Urine Negative (Negative); Leukocyte Esterase Urine 3+ (Negative); Nitrate Urine Negative (Negative); Protein Urine Negative (Negative); Specific Gravity, Urine 1.006 (1.005-1.030); Urine Appearance Turbid (CLEAR); Urine Color Yellow (Yellow)
[2024-06-05 14:35] LABS: Add Urine Microscopic? YES; Bacteria Urine 4+ /hpf; Hyaline Casts Urine 1.65 /lpf; RBC Urine 0-2 /hpf (0-2); WBC Urine >100 /hpf (0-5)
[2024-06-05 14:42] LABS: Add Urine Culture? Yes
[2024-06-05 14:53] LABS: Chloride Urine Random 26 mmol/L; Urine Random Sodium 21 mmol/L
[2024-06-05 15:32] LABS: Potassium Urine Random 6.47
[2024-06-08 15:59] LABS: KAPPA LIGHT CHAIN, FREE, SERUM 52.1 mg/L (3.3-19.4); KAPPA/LAMBDA LIGHT CHAINS FREE 0.69 (0.26-1.65); LAMBDA LIGHT CHAIN, FREE, SERU 75.7 mg/L (5.7-26.3)
[2024-06-08 22:30] LABS: Kappa Free Light Chains Urine 90.83 mg/L (<=32.90)
[2024-06-12] VITALS (8 sets, daily range): BP systolic 88–100; BP diastolic 63–77; PULSE 70–79; RESP 16; TEMP 36.6–36.9; O2SAT 96–98
[2024-06-12 10:27] LABS: Basophils % 0.6 %; Hematocrit 23.1 % (36-47); Lymphocytes % 18.8 %; Mean Corpuscular HGB Conc 31.6 g/dL (30-55); Mean Corpuscular Hemoglobin 29.8 pg (27-33); Mean Corpuscular Volume 94.3 fl (85-98); Mean Platelet Volume 9.7 fL (7.4-10.4); Monocytes # 0.3 10^3/uL (0.2-0.9); Monocytes % 4.9 %; Neutrophils # 3.96 10^3/uL (1.8-7.7); Neutrophils % 74.9 %; Nucleated Red Blood Cells % 0 %; Platelet Count 165 10^3/cmm (157-399); Red Blood Count 2.45 10^6/uL (3.85-5.65); Red Cell Distribution Width 15.8 % (12.1-15.1); White Blood Count 5.28 10^3/uL (3.29-11.43)
[2024-06-12 10:57] LABS: Alanine Aminotransferase 22 U/L (0-33); Albumin Level 2.3 g/dL (3.5-5.2); Alkaline Phosphatase 86 U/L (35-105); Anion Gap 15.3 (5-19); Aspartate Amino Transferase 17 U/L (0-32); Blood Urea Nitrogen 13 mg/dL (6-20); Calcium 7.8 mg/dL (8.5-10.5); Carbon Dioxide 17 mmol/L (22-29); Chloride 112 mmol/L (98-107); Creatinine Clr Calc Pharmacy 43.8127; Globulin 2.9 g/dL (1.3-4.6); Glomerular Filtration Rate 52.6 mL/min (90-130); Glucose 74 mg/dL (65-115); Osmolality Calculated 291 mOsm/kg (285-295); Potassium 3.3 mmol/L (3.5-5.1); Sodium 141 mmol/L (136-145); Total Bilirubin 0.5 mg/dL (0.15-1.2); Total Protein 5.2 g/dL (6.6-8.7)
[2024-06-12] MEDS: acetaminophen 325 mg Tablet 650 MG PO (11:36)
[2024-06-12] MEDS: diphenhydrAMINE 25 mg Capsule PO (11:36)
[2024-06-12] MEDS: sodium chloride 0.9% 250 mL Bag IV (11:37)
[2024-06-12] MEDS: sodium chlor 0.9% + KCl 40 mEq 40 MEQ/1,000 ML BAG 250 MEQ IV (11:38)
[2024-06-12 16:34] LABS: Glucose Urine UA Norm (Normal); Ketones Urine Negative (Negative); Protein Urine Trace (Negative); Specific Gravity, Urine 1.015 (1.005-1.030); Urine Appearance Slightly Cloudy (CLEAR); Urine Color Yellow (Yellow); pH Urine 5 (5-7)
[2024-06-12 16:35] LABS: Bilirubin Urine 1+ (Negative); Blood Urine 3+ (Negative); Leukocyte Esterase Urine 2+ (Negative); Nitrate Urine Negative (Negative); RBC Urine 40-50 /hpf (0-2); Urobilinogen Urine Norm (Negative)
[2024-06-12 16:36] LABS: Bacteria Urine 1+ /hpf; WBC Urine 55-80 /hpf (0-5)
[2024-06-12 16:37] LABS: Add Urine Culture? Yes
[2024-06-18 11:52] LABS: Basophils # 0.1 10^3/uL (0.0-0.1); Eosinophils % 0.4 %; Hematocrit 34.7 % (36-47); Lymphocytes # 1.7 10^3/uL (0.8-4.8); Lymphocytes % 24.7 %; Mean Corpuscular HGB Conc 33.1 g/dL (30-55); Mean Corpuscular Hemoglobin 29.9 pg (27-33); Mean Corpuscular Volume 90.4 fl (85-98); Mean Platelet Volume 9.6 fL (7.4-10.4); Monocytes # 0.3 10^3/uL (0.2-0.9); Monocytes % 3.7 %; Neutrophils # 4.72 10^3/uL (1.8-7.7); Neutrophils % 69.5 %; Nucleated Red Blood Cells % 0 %; Platelet Count 179 10^3/cmm (157-399); Red Blood Count 3.84 10^6/uL (3.85-5.65); Red Cell Distribution Width 15.8 % (12.1-15.1)
[2024-06-18 12:09] LABS: Anion Gap 13.3 (5-19); Blood Urea Nitrogen 15 mg/dL (6-20); Calcium 8.3 mg/dL (8.5-10.5); Carbon Dioxide 18 mmol/L (22-29); Chloride 113 mmol/L (98-107); Creatinine Clr Calc Pharmacy 53.5488; Glomerular Filtration Rate 66.3 mL/min (90-130); Glucose 66 mg/dL (65-115); Osmolality Calculated 291 mOsm/kg (285-295); Potassium 3.3 mmol/L (3.5-5.1); Sodium 141 mmol/L (136-145)
[2024-06-18] MEDS: sodium chlor 0.9% + KCl 20 mEq 20 MEQ/1,000 ML BAG 500 MEQ IV (12:56)
[2024-06-18 15:12] VITALS: BP 112/76; PULSE 70; TEMP 36.2; O2SAT 96
== END 2024-06-25 23:59 | disposition home or self-care (01) ==
PROVIDERS: PCP Nurse Practitioner Family; Visit Provider Internal Medicine Medical Oncology
DX: D50.8 Other iron deficiency anemias (principal); Z53.9 Procedure and treatment not carried out, unspecified reason; E87.6 Hypokalemia
CPT/HCPCS: 36415; 36430; 80048; 80053; 80061; 81001; 82306; 82436; 82607; 82728; 83036; 83540; 83550; 83883; 84133; 84156; 84300; 84443; 85025; 85651; 86140; 86301; 86335; 86850; 86900; 86920; 87077; 87086; 87186; 96360; 96361; 96365; 96366; J3480; J7040; J7050; P9016

== ENCOUNTER 2024-07-16 09:45 | Oncology outpatient (recurring) (ONCR) | payer OTHER, SELFPAY ==
[2024-07-05 13:00] VITALS: BP 79/57; PULSE 79; RESP 16; TEMP 36.1; O2SAT 93
[2024-07-05 13:13] LABS: Basophils % 0.4 %; Eosinophils % 0.4 %; Hematocrit 23.8 % (36-47); Lymphocytes # 1.3 10^3/uL (0.8-4.8); Lymphocytes % 26.5 %; Mean Corpuscular Hemoglobin 30.1 pg (27-33); Mean Corpuscular Volume 88.5 fl (85-98); Mean Platelet Volume 10.6 fL (7.4-10.4); Monocytes # 0.2 10^3/uL (0.2-0.9); Monocytes % 4.8 %; Neutrophils # 3.22 10^3/uL (1.8-7.7); Neutrophils % 67.3 %; Nucleated Red Blood Cells % 0 %; Platelet Count 142 10^3/cmm (157-399); Red Blood Count 2.69 10^6/uL (3.85-5.65); Red Cell Distribution Width 15.2 % (12.1-15.1); White Blood Count 4.79 10^3/uL (3.29-11.43)
[2024-07-05 13:29] LABS: Alanine Aminotransferase 25 U/L (0-33); Albumin Level 2.3 g/dL (3.5-5.2); Alkaline Phosphatase 86 U/L (35-105); Anion Gap 17.2 (5-19); Aspartate Amino Transferase 25 U/L (0-32); Blood Urea Nitrogen 23 mg/dL (6-20); Calcium 7.4 mg/dL (8.5-10.5); Carbon Dioxide 15 mmol/L (22-29); Chloride 113 mmol/L (98-107); Glomerular Filtration Rate 39.8 mL/min (90-130); Glucose 81 mg/dL (65-115); Osmolality Calculated 297 mOsm/kg (285-295); Potassium 3.2 mmol/L (3.5-5.1); Sodium 142 mmol/L (136-145); Total Bilirubin 0.7 mg/dL (0.15-1.2); Total Protein 5.3 g/dL (6.6-8.7)
[2024-07-06] MEDS: acetaminophen 325 mg Tablet 650 MG PO (08:29)
[2024-07-06] MEDS: diphenhydrAMINE 25 mg Capsule PO (08:29)
[2024-07-06] MEDS: sodium chloride 0.9% 250 mL Bag IV (08:29)
[2024-07-06 08:55] VITALS: BP 107/73; PULSE 75; TEMP 36.1
[2024-07-06 09:23] VITALS: PULSE 66; TEMP 36.2; O2SAT 95
[2024-07-06 09:40] VITALS: BP 97/71; PULSE 75; RESP 16; TEMP 36.4; O2SAT 95
[2024-07-06 10:15] VITALS: BP 97/74; PULSE 86; RESP 15; TEMP 36; O2SAT 99
[2024-07-06 11:23] VITALS: BP 109/78; PULSE 65; RESP 15; TEMP 36.4; O2SAT 98
== END 2024-07-26 23:59 | disposition home or self-care (01) ==
PROVIDERS: Internal Medicine Medical Oncology; PCP Nurse Practitioner Family; Visit Provider Internal Medicine Hematology & Oncology
DX: Z53.9 Procedure and treatment not carried out, unspecified reason (principal)
CPT/HCPCS: 36415; 36430; 80053; 85025; 86850; 86900; 86920; J7050; P9016

== ENCOUNTER 2024-07-22 16:09 | Inpatient (IN) | payer OTHER, SELFPAY ==
[2024-07-22] VITALS (15 sets, daily range): BP systolic 96–115; BP diastolic 74–86; PULSE 71–84; RESP 9–17; TEMP 36.3–36.7; O2SAT 79–100; BMI 16.6; BMI 14.6
--- NOTE | 2024-07-22 16:15 | XRR_ITS ---
PROCEDURE INFORMATION: Exam: XR Chest Exam date and time: 07/22/2024 4:37 PM Age: 48 years old Clinical indication: Shortness of breath; Additional info: SOB TECHNIQUE: Imaging protocol: Radiologic exam of the chest. Views: 1 view. COMPARISON: CT chest abdpel w/*[id number] 06/15/2024 10:55 AM FINDINGS: Lungs: No pulmonary consolidation. Pleural spaces: [id number] right pneumothorax with suggested mild mediastinal shift to the left. No pleural effusion identified. Heart/Mediastinum: Heart size is within normal limits. Bones/joints: No acute osseous abnormalities are seen. XR/XR chest 1V portable [id number] IMPRESSION: [id number]-[id number] right pneumothorax with suggested mild mediastinal shift to the left.
--- NOTE | 2024-07-22 16:22 | USR_ITS ---
PROCEDURE INFORMATION: Exam: US Duplex Right Lower Extremity Arteries Or Arterial Bypass Grafts Exam date and time: 07/22/2024 5:51 PM Age: 48 years old Clinical indication: Pain; Leg, lower; Right; Additional info: Leg pain, nurse is attempting iv with bedside ultrasound. Will go back to scan leg TECHNIQUE: Imaging protocol: Right Real-time duplex scan of the arteries or arterial bypass grafts of the right lower extremity with 2-D erwin scale, color Doppler flow and spectral waveform analysis. Images documented and saved. COMPARISON: US soft tissue/extremity [id number] 11/06/2020 2:13 PM FINDINGS: Right common femoral artery: No occlusion or significant stenosis. Normal waveform. No pseudoaneurysm in the inguinal region. Right superficial femoral artery: No occlusion or significant stenosis. Normal waveform. Right popliteal artery: No occlusion or significant stenosis. Normal waveform. Right calf/foot arteries: No occlusion or significant stenosis in the visualized arteries. Normal waveforms. Dorsalis pedis artery is patent. Soft tissues: No hematoma or collection. US/[place] [id number] IMPRESSION: No stenosis or occlusion.
--- NOTE | 2024-07-22 16:22 | XRR_ITS ---
PROCEDURE INFORMATION: Exam: XR Right Ankle Exam date and time: 07/22/2024 4:37 PM Age: 48 years old Clinical indication: Injury or trauma; Fall; Blunt trauma and sprain or strain; Ankle; Right; Additional info: Pain TECHNIQUE: Imaging protocol: Radiologic exam of the right ankle. Views: 3 or more views. COMPARISON: US soft tissue/extremity [id number] 11/06/2020 2:13 PM FINDINGS: Bones/joints: Mild osseous demineralization. Normal alignment. No evidence of acute fracture or dislocation. Soft tissues: Moderate to marked diffuse soft tissue swelling with questionable skin defect in the medial lower leg. XR/XR ankle RT min 3V* [id number] IMPRESSION: 1. No evidence of acute fracture or dislocation. 2. Moderate to marked diffuse soft tissue swelling with questionable skin defect in the medial lower leg. Correlate with physical exam.
--- NOTE | 2024-07-22 16:25 | ECG_ITS ---
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 Measurements Intervals [place] Rate: 82 P: 82 GA: 161 QRS: 73 QRSD: 81 T: 87 QT: 384 QTc: 449 Interpretive Statements SINUS RHYTHM LOW QRS VOLTAGE IN PRECORDIAL LEADS [QRS DEFLECTION < 1.0 mV IN CHEST LEADS] Compared to ECG 08/09/2021 16:05:19 Low QRS voltage now present Electronically Signed On 07-23-2024 00:09:33 CDT by Sharif Watson M.D. [email or web address]
--- NOTE | 2024-07-22 16:36 | ED_ITS ---
HPI - Weakness 2 General: Chief complaint: Weakness Stated complaint: sob; weakness Time Seen by Provider: 07/22/24 16:15 Source: patient and EMS Mode of arrival: EMS Limitations: no limitations History of Present Illness: 48-year-old female history of anemia, pa ncreatitis states she has been having increasing weakness it has been going on for months she states she has been supposed to follow-up with Dr. Trinidad for her anemia but has not. States she has had some dyspnea for the last 2 days she denies any cough or fever she does not require any oxygen here she also has she states some wound she noted on her right leg 2 days ago with some right leg pain denies any vomiting or diarrhea Associated symptoms: Denies chest pain, chills, dysuria, fever(s), headache(s), nausea or vomiting Review of Systems 2 Const: Reports: fatigue and malaise; Denies: fever(s), chills, body aches or change in appetite ENMT: Denies: throat pain or dental pain Card: Denies: chest pain Resp: Reports: dyspnea GI: Denies: abdominal pain, nausea, vomiting or diarrhea : Denies: dysuria Musc: Reports: extremity pain; Denies: neck pain or back pain Skin/Breast: Denies: rash Neuro: Denies: headache(s) PFSH ED 2 PFSH: Medical History Depression History of pancreatitis Epidural abscess (07/2021) Lumbar epidural abscess due to MRSA Anemia Steatohepatitis, alcoholic Alcohol use disorder, moderate, dependence Recurrent nephrolithiasis Hypothyroidism Surgical History History of eye surgery April 13, 2023 History of tonsillectomy History of back surgery (08/10/21) Laminectomy and partial facetectomy at L2/3, L3/4, and L4/5 H/O lithotripsy S/P cholecystectomy Gastric bypass status for obesity (2000) Family History Mother , Sudden at age 60. It was suspected to be due to [place] No problems noted. Father , Diabetes with hypertriglyceridemia No problems noted. Social History Smoking and tobacco/nicotine status: never used tobacco/nicotine Alcohol intake: current Alcohol intake frequency: 3 or more drinks per day Alcohol type: beer Lives independently: Yes Household members: spouse Physical Exam 2 Const: COMMON NORMALS: patient oriented x3 GENERAL APPEARANCE: frail appearing HENMT: COMMON NORMALS: normocephalic and atraumatic HEAD & SCALP: n ormocephalic and atraumatic Neck/C-Spine: COMMON NORMALS: full ROM and supple Chest: COMMONS NORMALS: normal inspection of the chest Resp: COMMON NORMALS: No retractions and No use of accessory muscles OTHER: decreased breath sounds on the right Cardio: COMMON NORMALS: regular rate, regular rhythm and No murmurs present (Cardio) RATE: regular rate RHYTHM: regular rhythm Extremity: NARRATIVE EXTREMITY EXAM: Wound noted to right ankle no erythema lower ext edema Neuro: COMMON NORMALS: patient oriented x3, moves all extremities and no focal motor deficits Psych: COMMON NORMALS: mental status grossly normal, Normal thought process present and cooperative THOUGHT PROCESS: Normal thought process present Skin: COMMON NORMALS: no rashes or lesions noted and no wounds GENERAL SKIN EXAM: no rashes or lesions noted Procedures Chest Tube Chest Tube 1: Chest Tube Location: right Size of Tube (cm): 13 Chest Tube Prep: Yes betadine prep Local Anesthetic: lidocaine 1% Amount of anesthesia used (mL): 4 Incision Made With: #11 blade Tube Drainage: none Post Procedure CXR?: Yes Patient Tolerated Procedure: Yes Progress: thoravent was placed at right mid clavicalur line in 2nd intercostal space Course 2 Vital Signs: Vital signs: Vital Signs Temperature 98.1 F 07/22/24 16:26 Pulse Rate 75 07/22/24 18:00 Respiratory Rate 14 07/22/24 17:02 Blood Pressure 108/82 07/22/24 18:00 Pulse Oximetry 100 07/22/24 18:00 Oxygen Delivery Me thod Room Air 07/22/24 16:26 MDM - Weakness Medical Decision Making Patient presents here with spontaneous pneumothorax did place a Thora vent she also has acute kidney injury with lower extreme edema she does have a wound to right lower leg no signs of any severe cellulitis at this point spoke to hospitalist will admit Medical Records I reviewed the patient's medical records. Lab Data I reviewed the patient's lab results. 07/22/24 17:42 07/22/24 17:42 Radiology Impressions Ankle X-Ray 07/22/24 16:22 IMPRESSION: 1. No evidence of acute fracture or dislocation. 2. Moderate to marked diffuse soft tissue swelling with questionable skin defect in the medial lower leg. Correlate with physical exam. Duplex Scan Lower Extremity Artery 07/22/24 16:22 IMPRESSION: No stenosis or occlusion. Chest X-Ray 07/22/24 19:35 IMPRESSION: Interval placement of right chest tube. Trace residual pneumothorax, markedly decreased in size. Laboratory Results WBC 8.58 10^3/uL (3.29-11.43) 07/22/24 17:42 RBC 2.91 10^6/uL (3.85-5.65) L 07/22/24 17:42 Hgb 8.20 g/dL (11.27-16.99) L 07/22/24 17:42 Hct 24.7 % (36-47) L 07/22/24 17:42 MCV 84.9 fl (85-98) L 07/22/24 17:42 MCH 28.2 pg (27-33) 07/22/24 17:42 MCHC 33.2 g/dL (30-55) 07/22/24 17:42 RDW 16.8 % (12.1-15.1) H 07/22/24 17:42 Plt Count 245 10^3/cmm (157-399) 07/22/24 17:42 MPV 9.0 fL (7.4-10.4) 07/22/24 17:42 Neut % (Auto) 67.2 % 07/22/24 17:42 Lymph % (Auto) 24.2 % 07/22/24 17:42 Slope % (Auto) 4.3 % 07/22/24 17:42 Eos % (Auto) 0.0 % 07/22/24 17:42 Baso % (Auto) 0.2 % 07/22/24 17:42 Neut # (Auto) 5.76 10^3/uL (1.8-7.7) 07/22/24 17:42 Lymph # (Auto) 2.1 10^3/uL (0.8-4.8) 07/22/24 17:42 Slope # (Auto) 0.4 10^3/uL (0.2-0.9) 07/22/24 17:42 Eos # (Auto) 0.0 10^3/uL (0.0-0.8) 07/22/24 17:42 Baso # (Auto) 0.0 10^3/uL (0.0-0.1) 07/22/24 17:42 Nucleated RBC % (auto) 0.2 % 07/22/24 17:42 Nucleated RBCs # 0.0 /100WBC 07/22/24 17:42 PT 14.40 SECONDS (12.1-14.9) 07/22/24 17:42 INR 1.09 (0.8-1.2) 07/22/24 17:42 Sodium 134 mmol/L (136-145) L 07/22/24 17:42 Potassium 3.7 mmol/L (3.5-5.1) 07/22/24 17:42 Chloride 103 mmol/L (98-107) 07/22/24 17:42 Carbon Dioxide 15 mmol/L (22-29) L 07/22/24 17:42 Anion Gap 19.7 (5-19) H 07/22/24 17:42 BUN 32 mg/dL (6-20) H 07/22/24 17:42 Creatinine 1.8 mg/dL (0.5-0.9) H 07/22/24 17:42 GFR Calculation 29.8 mL/min (90-130) L 07/22/24 17:42 Glucose 102 mg/dL (65-115) 07/22/24 17:42 Calculated Osmolality 285 mOsm/kg (285-295) 07/22/24 17:42 Calcium 7.8 mg/dL (8.5-10.5) L 07/22/24 17:42 Magnesium 1.5 mg/dL (1.7-2.3) L 07/22/24 17:42 Total Bilirubin 1.2 mg/dL (0.15-1.2) 07/22/24 17:42 AST 42 U/L (0-32) H 07/22/24 17:42 ALT 38 U/L (0-33) H 07/22/24 17:42 Alkaline Phosphatase 106 U/L (35-105) H 07/22/24 17:42 NT-Pro-B Natriuret Pep 3733 pg/mL (0-125) H 07/22/24 17:42 Total Protein 6.1 g/dL (6.6-8.7) L 07/22/24 17:42 Albumin 2.1 g/dL (3.5-5.2) L 07/22/24 17:42 Globulin 4.0 g/dL (1.3-4.6) 07/22/24 17:42 Lipase 6 U/L (13-60) L 07/22/24 17:42 All radiology interpretation(s) finalized by discharge Critical Care Time 2 Critical Care Time: Critical Care Time: Yes Total Critical Care Time: 50 Attestation: The high probability of a clinically significant, sudden or life threatening deterioration of the patient's resp system(s) required my full and direct attention, intervention and personal management. The critical care time is as shown. 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 Related Data Home Medications Medication Instructions Recorded Confirmed buprenorphine 8 mg-naloxone 2 mg 1 film buccal TID 01/19/23 06/18/24 sublingual film (Suboxone) levothyroxine 100 mcg capsule 100 mcg PO DAILY 01/19/23 06/18/24 ondansetron HCl 8 mg tablet 8 mg PO Q8H PRN 01/19/23 06/18/24 brexpiprazole 2 mg tablet (Rexulti) 2 mg PO DAILY 03/23/23 06/18/24 yhiukb-frzposoe-ovxphtw 2 cap PO TID PRN 03/23/23 06/18/24 3,000-9,500-15,000 unit capsule, delayed rel (Creon) sertraline 50 mg tablet 100 mg PO DAILY 03/23/23 06/18/24 Previous Rx's Medication Instructions Recorded dronabinol 5 mg capsule 5 mg PO BID #60 caps 05/31/24 ergocalciferol (vitamin D2) 1,250 1,250 mcg PO .ONCE WEEKLY #8 caps 06/01/24 mcg (50,000 unit) capsule amoxicillin 875 mg-potassium 1 tab PO BID 7 days #14 tabs 06/04/24 clavulanate 125 mg tablet doxycycline hyclate 100 mg tablet 100 mg PO BID 7 days #14 tabs 06/19/24 midodrine 5 mg tablet 5 mg PO BID #60 tabs 06/19/24 potassium chloride 10 mEq 10 meq PO BID #60 caps 06/19/24 capsule,extended release Allergies Allergy/AdvReac Type Severity Reaction Status Date / Time No Known Allergies Allergy Verified 05/31/24 11:27
[2024-07-22 17:49] LABS: Basophils % 0.2 %; Hematocrit 24.7 % (36-47); Lymphocytes # 2.1 10^3/uL (0.8-4.8); Lymphocytes % 24.2 %; Mean Corpuscular HGB Conc 33.2 g/dL (30-55); Mean Corpuscular Hemoglobin 28.2 pg (27-33); Mean Corpuscular Volume 84.9 fl (85-98); Monocytes # 0.4 10^3/uL (0.2-0.9); Monocytes % 4.3 %; Neutrophils # 5.76 10^3/uL (1.8-7.7); Neutrophils % 67.2 %; Nucleated Red Blood Cells % 0.2 %; Platelet Count 245 10^3/cmm (157-399); Red Blood Count 2.91 10^6/uL (3.85-5.65); Red Cell Distribution Width 16.8 % (12.1-15.1); White Blood Count 8.58 10^3/uL (3.29-11.43)
[2024-07-22 18:17] LABS: Alanine Aminotransferase 38 U/L (0-33); Albumin Level 2.1 g/dL (3.5-5.2); Alkaline Phosphatase 106 U/L (35-105); Blood Urea Nitrogen 32 mg/dL (6-20); Calcium 7.8 mg/dL (8.5-10.5); Carbon Dioxide 15 mmol/L (22-29); Chloride 103 mmol/L (98-107); Creatinine Clr Calc Pharmacy 26.7744; Glomerular Filtration Rate 29.8 mL/min (90-130); Glucose 102 mg/dL (65-115); Lipase 6 U/L (13-60); Magnesium 1.5 mg/dL (1.7-2.3); NT Pro B Type Natriuretic Pept 3733 pg/mL (0-125); Osmolality Calculated 285 mOsm/kg (285-295); Sodium 134 mmol/L (136-145); Total Bilirubin 1.2 mg/dL (0.15-1.2); Total Protein 6.1 g/dL (6.6-8.7)
[2024-07-22 18:19] LABS: Anion Gap 19.7 (5-19); Potassium 3.7 mmol/L (3.5-5.1)
[2024-07-22 18:20] LABS: Aspartate Amino Transferase 42 U/L (0-32)
[2024-07-22 18:25] LABS: INR 1.09 (0.8-1.2)
--- NOTE | 2024-07-22 19:35 | XRR_ITS ---
PROCEDURE INFORMATION: Exam: XR Chest Exam date and time: 07/22/2024 7:39 PM Age: 48 years old Clinical indication: Device placement; Chest tube; Patient HX: RT pneumo; Post RT thoravent placement TECHNIQUE: Imaging protocol: Radiologic exam of the chest. Views: 2 views. COMPARISON: CR (CHEST, ) 07/22/2024 4:37 PM FINDINGS: Tubes, catheters and devices: Interval placement of right chest tube. Trace residual pneumothorax, markedly decreased in size. Lungs: Left basilar nodule consistent with nipple shadow. No pulmonary consolidation. Pleural spaces: See Tubes, catheters and devices finding. Heart/Mediastinum: Resolution of mediastinal shift. Bones/joints: No acute osseous abnormalities are seen. XR/XR chest 2V* [id number] IMPRESSION: Interval placement of right chest tube. Trace residual pneumothorax, markedly decreased in size.
--- NOTE | 2024-07-22 20:20 | P.HP_ITS ---
Providers/Chief Complaint 2 Primary Care Provider: Valentina Lomax [employer] Chief Complaint: sob; weakness History of Present Illness Kristen Rhodes is a 48 year old female with a past medical history significant for pancreatitis with associated pancreatic insufficiency, alcohol use disorder, hypothyroidism, obesity with prior gastric bypass in 2000, unspecified anemia, venous insufficiency, and multiple other comorbidities who presents emergency department with shortness of breath. Patient reports onset about 2 days ago. Exertion worsens symptoms. Rest seems to improve. She endorses associated chills. Denies fevers or cough. She endorses generalized malaise, fatigue and weakness with symptoms progressing over the past several months. Patient endorses chronic wounds of bilateral lower extremities which she attributes to venous stasis. In the emergency department, chest x-ray showed moderate to large right pneumothorax with mild mediastinal shift to the left. Thora vent was placed by ED provider. General surgery consulted for pneumothorax management. Review of Systems 2 Narrative: A complete review of systems was obtained and is negative except as stated in HPI. Medications/Allergies Home Medications Medication Instructions Recorded Confirmed Last Taken Type buprenorphine 8 mg-naloxone 2 mg 1 film buccal TID 01/19/23 06/18/24 Unknown History sublingual film (Suboxone) levothyroxine 100 mcg capsule 100 mcg PO DAILY 01/19/23 06/18/24 Unknown History ondansetron HCl 8 mg tablet 8 mg PO Q8H PRN 01/19/23 06/18/24 Unknown History brexpiprazole 2 mg tablet (Rexulti) 2 mg PO DAILY 03/23/23 06/18/24 Unknown History puwnvq-ueewwntq-jvqnoda 2 cap PO TID PRN 03/23/23 06/18/24 Unknown History 3,000-9,500-15,000 unit capsule, delayed rel (Creon) sertraline 50 mg tablet 100 mg PO DAILY 03/23/23 06/18/24 Unknown History dronabinol 5 mg capsule 5 mg PO BID #60 caps 05/31/24 06/18/24 Unknown Rx ergocalciferol (vitamin D2) 1,250 1,250 mcg PO .ONCE WEEKLY #8 caps 06/01/24 06/18/24 Unknown Rx mcg (50,000 unit) capsule amoxicillin 875 mg-potassium 1 tab PO BID 7 days #14 tabs 06/04/24 06/18/24 Unknown Rx clavulanate 125 mg tablet doxycycline hyclate 100 mg tablet 100 mg PO BID 7 days #14 tabs 06/19/24 06/19/24 Unknown Rx midodrine 5 mg tablet 5 mg PO BID #60 tabs 06/19/24 06/19/24 Unknown Rx potassium chloride 10 mEq 10 meq PO BID #60 caps 06/19/24 06/19/24 Unknown Rx capsule,extended release Allergies Allergy/AdvReac Type Severity Reaction Status Date / Time No Known Allergies Allergy Verified 05/31/24 11:27 PFSH Acute 2 PFSH: Medical History (Updated 07/22/24 @ 21:57 by Artem Ochoa MD) Pancreatic insufficiency Hypomagnesemia Acute pancreatitis Depression History of pancreatitis Epidural abscess (07/2021) Lumbar epidural abscess due to MRSA Anemia Steatohepatitis, alcoholic Alcohol use disorder, moderate, dependence Recurrent nephrolithiasis Hypothyroidism Surgical History (Updated 07/22/24 @ 21:57 by Artem Ochoa MD) Status post lumbar laminectomy History of eye surgery April 13, 2023 History of tonsillectomy History of back surgery (08/10/21) Laminectomy and partial facetectomy at L2/3, L3/4, and L4/5 H/O lithotripsy S/P cholecystectomy Gastric bypass status for obesity (2000) Family History Mother , Sudden at age 60. It was suspected to be due to [place] No problems noted. Father , Diabetes with hypertriglyceridemia No problems noted. Social History Smoking and tobacco/nicotine status: never used tobacco/nicotine Alcohol intake: current Alcohol intake frequency: 3 or more drinks per day Alcohol type: beer Lives independently: Yes Household members: spouse Vitals/I&O/Wt Last Vital Signs Temp 98.1 F 07/22/24 16:26 Pulse 75 07/22/24 18:00 Resp 14 07/22/24 17:02 BP 108/82 07/22/24 18:00 Pulse Ox 100 07/22/24 18:00 O2 Del Method Room Air 07/22/24 16:26 Weight last 48 hrs Weight 45.359 kg Physical Exam 2 Narrative: General: Patient is awake. Frail and cachectic appearing. Pleasant and conversational. Head: Temporal wasting present. Atraumatic. EOM intact. Neck: No JVD. Cardiovascular: RRR. No gallops. No murmurs. 1-2+ pitting edema in bilateral lower extremities. Lungs: Breath sounds are slightly diminished across right lung. There is a Thora vent on anterior right chest. Conversational dyspnea is present. No wheezing or crackles. Skin: No jaundice. Multiple ulcers on bilateral lower ankles appearing to be venous insufficiency ulcers. There is some associated erythema slight warmth around the ulcers. Abdomen: Normal bowel sounds, abdomen soft and nontender. Genito Urinary: Genital exam not performed since complaints not related. Extremities: No cyanosis or clubbing. Musculoskeletal: No swollen or erythematous joints. Neurological: Moves all 4 extremities. No myoclonus. Data 07/22/24 17:42 07/22/24 17:42 A&P Assessment and plan (1) Primary spontaneous pneumothorax: Right-sided primary spontaneous pneumothorax Status post Thora vent placement by ED provider on 07/22 General Surgery, Dr. Montez, consulted for management Daily chest x-ray Analgesics as needed Supplemental oxygen support ordered (2) Acute kidney injury: Acute kidney injury Chronic metabolic acidosis Proceed with albumin transfusion Start bicarb supplement Strict I's and O's Daily weights Repeat labs in a.m. (3) Venous ulcers of both lower extremities: Venous ulcers of bilateral lower extremities Check inflammatory markers (4) Anemia: Follows with hematology clinic, appointment tomorrow will need to be rescheduled MCV is currently microcytic, typically normocytic Iron panel was checked in May, largely unremarkable Monitor hemoglobin level Qualifiers: Anemia type: iron deficiency Iron deficiency anemia type: inadequate dietary iron intake Qualified Code(s): D50.8 - Other iron deficiency anemias (5) Severe protein-calorie malnutrition: Continue home appetite stimulants formulary Patient may benefit from alternative appetite stimulants as outpatient if current stimulants are not improving her overall symptoms Check prealbumin Nutrition consult (6) Failure to thrive in adult: Treat underlying pneumothorax Address underlying malnutrition (7) Hypomagnesemia: Transfuse with mag sulfate Repeat electrolytes in a.m. (8) Pancreatic insufficiency: Patient on chronic Creon with meals as needed Plan DVT prophylaxis: Lovenox CODE STATUS: Full code Attestations 2 Medical Necessity Statement*: Patient presents with shortness of breath, found to have primary spontaneous pneumothorax with expected hospitalization not to cross 2 midnights for serial imaging, general surgery evaluation, electrolyte management, pneumothorax management, and supportive care. Coding Level of Care Code Acute Code for Chg Fwd Diagnoses Primary spontaneous pneumothorax J93.11 Acute kidney injury N17.9 Venous ulcers of both lower extremities I83.019; I83.029; L97.919; L97.929 Iron deficiency anemia secondary to inadequate dietary iron intake D50.8 Anemia type: iron deficiency Iron deficiency anemia type: inadequate dietary iron intake Severe protein-calorie malnutrition E43 Failure to thrive in adult R62.7 Hypomagnesemia E83.42 Pancreatic insufficiency K86.89
[2024-07-22] MEDS: oxyCODONE-APAP 5-325 mg Tablet 1 TAB PO (22:00)
[2024-07-22] MEDS: enoxaparin 30 mg/0.3 mL Syringe SUBCUT (22:00)
[2024-07-22] MEDS: magnesium sulfate premix 2 GM/50 ML PIGGYBACK IV (23:16)
[2024-07-22] MEDS: albumin 25 G/100 ML BAG 60 G IV (23:17)
[2024-07-23] VITALS (54 sets, daily range): BP systolic 78–118; BP diastolic 55–75; PULSE 68–89; RESP 9–20; TEMP 36.2–36.8; O2SAT 93–100
[2024-07-23 02:04] LABS: Prealbumin 5.7 mg/dL (20-40)
--- NOTE | 2024-07-23 03:07 | PC.NURSE ---
Blood pressure 77/56(63). Notified Dr. Ochoa, order given to give midodrine dose early if she gets any lower.
[2024-07-23 05:45] LABS: Basophils % 0.4 %; Eosinophils % 0.2 %; Lymphocytes # 1.6 10^3/uL (0.8-4.8); Lymphocytes % 34.3 %; Mean Corpuscular Hemoglobin 28.2 pg (27-33); Mean Corpuscular Volume 93.9 fl (85-98); Mean Platelet Volume 9.4 fL (7.4-10.4); Monocytes # 0.3 10^3/uL (0.2-0.9); Monocytes % 5.5 %; Neutrophils # 2.71 10^3/uL (1.8-7.7); Neutrophils % 57.9 %; Nucleated Red Blood Cells % 0.4 %; Platelet Count 127 10^3/cmm (157-399); Red Blood Count 2.13 10^6/uL (3.85-5.65); Red Cell Distribution Width 17.1 % (12.1-15.1); White Blood Count 4.69 10^3/uL (3.29-11.43)
--- NOTE | 2024-07-23 06:00 | XRR_ITS ---
PROCEDURE INFORMATION: Exam: XR Chest Exam date and time: 07/23/2024 6:17 AM Age: 48 years old Clinical indication: Condition or disease; Lung condition and disease; Pneumothorax; Additional info: Evaluate pneumothorax TECHNIQUE: Imaging protocol: Radiologic exam of the chest. Views: 1 view. COMPARISON: CR (CHEST, ) 07/22/2024 7:39 PM FINDINGS: Tubes, catheters and devices: Right thoracostomy tube. Trace right apical pneumothorax persists. Lungs: Unremarkable. No consolidation. Pleural spaces: See Tubes, catheters and devices finding. Heart/Mediastinum: Heart mediastinum are normal. Bones/joints: Unremarkable. XR/XR chest 1V portable [id number] IMPRESSION: Trace residual pneumothorax, no change.
[2024-07-23 06:06] LABS: Alanine Aminotransferase 32 U/L (0-33); Albumin Level 2.2 g/dL (3.5-5.2); Alkaline Phosphatase 80 U/L (35-105); Aspartate Amino Transferase 33 U/L (0-32); Blood Urea Nitrogen 32 mg/dL (6-20); Calcium 7.1 mg/dL (8.5-10.5); Carbon Dioxide 13 mmol/L (22-29); Chloride 108 mmol/L (98-107); Creatinine Clr Calc Pharmacy 24.9475; Globulin 2.7 g/dL (1.3-4.6); Glomerular Filtration Rate 31.8 mL/min (90-130); Glucose 44 mg/dL (65-115); Magnesium 2.2 mg/dL (1.7-2.3); Osmolality Calculated 290 mOsm/kg (285-295); Phosphorus 3.5 mg/dL (2.5-4.5); Sodium 138 mmol/L (136-145); Total Bilirubin 0.7 mg/dL (0.15-1.2); Total Protein 4.9 g/dL (6.6-8.7)
[2024-07-23 06:07] LABS: Anion Gap 20.1 (5-19); Potassium 3.1 mmol/L (3.5-5.1)
--- NOTE | 2024-07-23 06:08 | PC.NURSE ---
Hgb 6.0 and Hct 20.0, Notified Dr. Ochoa. Order given for 1 unit PRBC
[2024-07-23 06:45] LABS: Bilirubin Urine Negative (Negative); Blood Urine 2+ (Negative); Glucose Urine UA Negative (Normal); Ketones Urine Trace (Negative); Leukocyte Esterase Urine 2+ (Negative); Nitrate Urine Negative (Negative); Protein Urine 1+ (Negative); Specific Gravity, Urine 1.016 (1.005-1.030); Urine Appearance Clear (CLEAR); Urine Color Dark Yellow (Yellow); pH Urine 5.5 (5-7)
[2024-07-23] MEDS: sodium bicarbonate 650 mg Tablet PO ×3 (06:55→17:10)
[2024-07-23 07:09] LABS: UA Manual Slide Review YES
[2024-07-23 07:10] LABS: Add Urine Culture? Yes; Add Urine Microscopic? YES; Bacteria Urine 4+ /hpf; Squamous Epithelial Cell Urine 0-4 /hpf (0-5); WBC Urine 40-55 /hpf (0-5)
--- NOTE | 2024-07-23 07:59 | PC.NURSE ---
Reviewed labs this am. Glucose noted to be 44mg/dl. Checked Pt's blood sugar with finger stick : 51mg/dl. Apple juice 4 oz given and t encouraged to drink. Pt asked if she was feeling weak and woozy. Pt replied yes, But I have been feeling like that for a long time.
[2024-07-23 08:08] LABS: Glucose Point of Care 51 mg/dL (70-110)
--- NOTE | 2024-07-23 08:35 | PC.NURSE ---
Blood sugar recheck: 59. Dr Beck notified as he requested. New orders for IVF containing dextrose received.
[2024-07-23] MEDS: folic acid 1 mg Tablet PO (08:57)
[2024-07-23] MEDS: buPROPion XL (24 HR) 300 mg Tablet PO (08:58)
[2024-07-23] MEDS: levothyroxine 100 mcg Tablet PO (08:58)
[2024-07-23] MEDS: midodrine 5 mg TABLET PO ×3 (08:58→20:39)
[2024-07-23] MEDS: thiamine 100 mg Tablet PO (08:58)
[2024-07-23] MEDS: dextrose 5%-ns + KCl 20 20 MEQ/1,000 ML BAG 50 MEQ IV (09:10)
[2024-07-23 09:15] LABS: Glucose Point of Care 59 mg/dL (70-110)
[2024-07-23] MEDS: buprenorphine-naloxone 4-1 mg Film 2 EACH SUBLINGUAL ×3 (09:15→20:39)
[2024-07-23] MEDS: cefTRIAXone 1,000 mg SDV 1000 MG IVP (09:16)
[2024-07-23] MEDS: pantoprazole 40 mg SDV IVP ×2 (09:16→19:59)
[2024-07-23 09:29] LABS: Amphetamines Screen Urine Negative (Negative); Barbiturates Screen Urine Negative (Negative); Benzodiazepines Screen Urine Negative (Negative); Cocaine Screen Urine Negative (Negative); Opiate Screen Urine Negative (Negative); PCP Screen Urine Negative (Negative); THC Screen Urine Negative (Negative)
[2024-07-23 09:47] LABS: Alcohol Level < 10 mg/dL (0-10)
[2024-07-23 10:36] LABS: Glucose Point of Care 110 mg/dL (70-110)
--- NOTE | 2024-07-23 10:50 | PC.NURSE ---
chest tube clamped as ordered.
[2024-07-23 12:12] LABS: Iron 43 ug/dL (37-145)
[2024-07-23 12:13] LABS: Potassium, Radom Urine 25 mmol/L; Urine Random Chloride 40 mmol/L; Urine Random Sodium 35 mmol/L
[2024-07-23 12:17] LABS: Creatinine Urine, Random 66 mg/dL (28-217); Microalbumin Random Urine 7 ug/dL (0-20)
[2024-07-23] MEDS: sucralfate 1 gm/10 mL Oral Liq UDC PO ×3 (12:18→20:39)
[2024-07-23 12:27] LABS: Microalbum Creatinine Ratio Ur 106 mg/dL (0-20)
[2024-07-23 12:44] LABS: Total Iron Binding Capacity 59.99999 mcg/dl; Unsaturated Iron Binding < 17 ug/dL (112-347)
[2024-07-23 13:09] LABS: Glucose Point of Care 96 mg/dL (70-110)
[2024-07-23 14:38] LABS: Glucose Point of Care 96 mg/dL (70-110)
--- NOTE | 2024-07-23 16:00 | P.CONIM_ITS ---
Providers/Reason For Consult 2 Consulting Physician/Specialty*: Dr. Castillo Montez, DO/General Surgery Reason for Consult*: Pneumothorax, anemia Attending Physician: Les Bianchi MD Primary Care Provider: Valentina Lomax History of Present Illness History of Present Illness Kristen Rhodes is a 48 year old female with chronic pancreatitis and pancreatic insufficiency, along with anemia of chronic disease, who presented to the hospital with chest pain. She reports that approximately 3 days ago she fell backwards onto her back. She also hit her head but did not lose any consciousness. She denies any blurred vision. Chest x-ray in the ER showed a right-sided pneumothorax. This resolved, other than a tiny apical pneumothorax, with placement of a Thoravent. Her hemoglobin dropped from 8-6 and she is getting blood transfusions. She denies any abdominal pain, nausea, emesis, diarrhea, constipation, hematochezia and/or melena. She has difficulty eating because she has chronic pancreatitis and chronic epigastric abdominal pain that radiates to her back. Review of Systems 2 General: Reports: 10 or more systems reviewed and unremarkable except in HPI and below Medications/Allergies Home Medications Medication Instructions Recorded Confirmed Last Taken Type buprenorphine 8 mg-naloxone 2 mg 1 film buccal TID 01/19/23 07/23/24 07/22/24 History sublingual film (Suboxone) levothyroxine 100 mcg capsule 100 mcg PO DAILY 01/19/23 07/23/24 07/22/24 History mhsscd-yczxtnzq-wepffwk 2 cap PO TID PRN Abdominal Pain 03/23/23 07/23/24 Unknown History 3,000-9,500-15,000 unit capsule, delayed rel (Creon) doxycycline hyclate 100 mg tablet 100 mg PO BID 7 days #14 tabs 06/19/24 07/23/24 07/22/24 Rx midodrine 5 mg tablet 5 mg PO BID #60 tabs 06/19/24 07/23/24 07/22/24 Rx bupropion HCl 300 mg 24 hr tablet, 300 mg PO DAILY 07/23/24 07/23/24 07/22/24 History extended release disulfiram 250 mg tablet 500 mg PO DAILY 07/23/24 07/23/24 07/22/24 History ergocalciferol (vitamin D2) 1,250 1,250 mcg PO DIRECTED 07/23/24 07/23/24 07/10/24 History mcg (50,000 unit) capsule folic acid 1 mg tablet 1 mg PO DAILY 07/23/24 07/23/24 07/22/24 History promethazine 25 mg tablet 25 mg PO Q4H PRN Nausea 07/23/24 07/23/24 Unknown History thiamine mononitrate (vit B1) 100 mg PO DAILY 07/23/24 07/23/24 07/22/24 History Allergies Allergy/AdvReac Type Severity Reaction Status Date / Time No Known Allergies Allergy Verified 05/31/24 11:27 Current Medications Generic Name Dose Route Start Last Admin Trade Name Freq PRN Reason Stop Dose Admin Buprenorphine/Naloxone 2 each 07/23/24 09:00 07/23/24 14:38 Buprenorphine-Naloxone 4-1 Mg Film SUBLINGUAL 2 each TID TERESA Administration Bupropion HCl 300 mg 07/23/24 09:00 07/23/24 08:58 Bupropion Xl (24 Hr) 300 Mg Tablet PO 300 mg DAILY TERESA Administration Ceftriaxone Sodium 1,000 mg 07/23/24 08:45 07/23/24 09:16 Ceftriaxone 1,000 Mg Sdv IVP 1,000 mg Q24H TERESA Administration Protocol Enoxaparin Sodium 30 mg 07/22/24 21:26 07/22/24 22:00 Enoxaparin 30 Mg/0.3 Ml Syringe SUBCUT 30 mg Q24H TERESA Administration Folic Acid 1 mg 07/23/24 09:00 07/23/24 08:57 Folic Acid 1 Mg Tablet PO 1 mg DAILY TERESA Administration Potassium Chloride/Dextrose/Sod Cl 20 meq in 1,000 mls @ 50 mls/hr 07/23/24 09:00 07/23/24 09:10 Dextrose 5%-Ns + Kcl 20 IV 50 mls/hr .Q20H TERESA Administration Levothyroxine Sodium 100 mcg 07/23/24 09:00 07/23/24 08:58 Levothyroxine 100 Mcg Tablet PO 100 mcg DAILY TERESA Administration Midodrine 5 mg 07/23/24 09:00 07/23/24 14:38 Midodrine 5 Mg Tablet PO 5 mg TID TERESA Administration Oxycodone/Acetaminophen 1 tab 07/22/24 21:26 07/22/24 22:00 Oxycodone-Apap 5-325 Mg Tablet PO 1 tab Q4H PRN Administration SEVERE PAIN Pantoprazole Sodium 40 mg 07/23/24 08:45 07/23/24 09:16 Pantoprazole 40 Mg Sdv IVP 40 mg Q12H TERESA Administration Sodium Bicarbonate 650 mg 07/23/24 07:00 07/23/24 12:18 Sodium Bicarbonate 650 Mg Tablet PO 650 mg TIDAC TERESA Administration Sucralfate 1 gm 07/23/24 11:00 07/23/24 12:18 Sucralfate 1 Gm/10 Ml Oral Liq Udc PO 1 gm AC&BEDTIME TERESA Administration Thiamine Mononitrate 100 mg 07/23/24 09:00 07/23/24 08:58 Thiamine 100 Mg Tablet PO 100 mg DAILY TERESA Administration PFSH Acute 2 PFSH: Medical History Pancreatic insufficiency Hypomagnesemia Acute pancreatitis Depression History of pancreatitis Epidural abscess (07/2021) Lumbar 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 It was suspected to be due to [place] No problems noted. Father , Diabetes with hypertriglyceridemia No problems noted. Social History Smoking and tobacco/nicotine status: never used tobacco/nicotine Alcohol intake: current Alcohol intake frequency: 3 or more drinks per day Alcohol type: beer Lives independently: Yes Household members: spouse Vitals/I&O/Wt Last Vital Signs Temp 98 F 07/23/24 13:45 Pulse 75 07/23/24 14:20 Resp 17 07/23/24 14:15 BP 90/67 07/23/24 14:15 Pulse Ox 93 07/23/24 14:15 O2 Del Method Room Air 07/23/24 14:15 07/23/24 07/23/24 07/23/24 06:59 14:59 22:59 Intake Total 250 / 250 200 / 200 Output Total 80 / 80 30 / 30 Balance 170 / 170 170 / 170 Weight last 48 hrs Weight 88 lb Weight 88 lb 12.8 oz Weight 87 lb 12.8 oz Weight 100 lb Physical Exam 2 Narrative: General : Patient is well developed , no acute distress, oriented x3 Head : Normal cephalic, a-traumatic. Ears : Pinnae and external canal are normal. Hearing is normal. Eyes : PERRLA, Sclera and injection are normal. No conjunctival discharge. Nose : Mucous membranes are without erythema. Throat : buccal mucosa is normal, gums are without significant recession or hypertrophy. Lungs : Equal chest rise bilaterally, no use of accessory muscles, trachea is midline. Thoravent is currently off of pneumovac by the hospitalist Cor : Rate and rhythm are normal. Abdomen : Soft, ND, mild epigastric tenderness, negative Aguiar's, no g/r/m Extremities : No edema, no cyanosis or clubbing, dorsalis pedis pulses are present bilaterally, non-tender to palpation of calves. Upper extremities are normal bilaterally. Back : non-tender to palpation, no CVA tenderness. Neuro : CN II - XII intact, Upper and lower extremities have equal and full strength Data 07/23/24 05:04 07/23/24 05:04 Micro: Microbiology 07/22/24 17:46 Blood Culture - Preliminary Blood SPECIMEN COLLECTED 07/22/24 17:42 Blood Culture - Preliminary Blood SPECIMEN COLLECTED A&P Assessment and plan (1) Traumatic pneumothorax: (2) Anemia: Qualifiers: Anemia type: iron deficiency Iron deficiency anemia type: inadequate dietary iron intake Qualified Code(s): D50.8 - Other iron deficiency anemias Plan Leave Thoravent in place off of pneumovac Follow-up 4 PM chest x-ray A.m. chest x-ray, may remove Thora vent tomorrow Bowel prep tomorrow for EGD and colonoscopy on Tuesday The risks and benefits of the procedure, including bleeding, infection, intestinal perforation requiring surgery, missed lesion were explained to the patient. The patient is understanding of the risks and wishes to proceed. Medical management per hospitalist Coding Level of Care Code Acute Code for Chg Fwd Diagnoses Traumatic pneumothorax S27.0XXA Iron deficiency anemia secondary to inadequate dietary iron intake D50.8 Anemia type: iron deficiency Iron deficiency anemia type: inadequate dietary iron intake
--- NOTE | 2024-07-23 16:00 | XRR_ITS ---
PROCEDURE INFORMATION: Exam: XR Chest Exam date and time: 07/23/2024 3:57 PM Age: 48 years old Clinical indication: Device placement; Ett placement (vent status); Additional info: Follow-up chest tube clamped TECHNIQUE: Imaging protocol: Radiologic exam of the chest. Views: 1 view. COMPARISON: CR XR chest 1V portable [id number] 07/23/2024 6:17 AM FINDINGS: Lungs: The left lung, heart, and mediastinum are normal. Pleural spaces: A small/moderate right pneumothorax has developed following clamping of the chest tube. The thin thoracostomy tube projects over the right apex. Heart/Mediastinum: See Lungs finding. Bones/joints: Unremarkable. XR/XR chest 1V portable [id number] IMPRESSION: Approximately 20% pneumothorax.
--- NOTE | 2024-07-23 16:11 | PC.NURSE ---
Per Dr Montez, Chest tube now placed back on suction.
--- NOTE | 2024-07-23 16:29 | P.PN_ITS ---
Subjective 2 Subjective: Admitted overnight. Seen with at bedside. Patient with chest tube in place. Saturating well on room air. Blood pressures on the softer side earlier today morning down to 75 systolic. Patient is awake and alert. Denies any nausea, vomiting, headache. As per patient has been having poor appetite with poor oral intake for few months. She did fall 3 days ago on Tuesday. Difficulty in breathing has been getting worse over last 2 days with chest pain. Patient states she is not able to eat because of nausea from chronic pancreatitis because of which her oral intake is poor. Vitals/I&O/Wt Last Vital Signs Temp 98 F 07/23/24 13:45 Pulse 75 07/23/24 14:20 Resp 17 07/23/24 14:15 BP 90/67 07/23/24 14:15 Pulse Ox 93 07/23/24 14:15 O2 Del Method Room Air 07/23/24 14:15 07/23/24 07/23/24 07/23/24 06:59 14:59 22:59 Intake Total 250 / 250 200 / 200 Output Total 80 / 80 30 / 30 Balance 170 / 170 170 / 170 Weight last 48 hrs Weight 39.916 kg Weight 40.279 kg Weight 39.825 kg Weight 45.359 kg Physical Exam 2 Narrative: General: Patient is awake. Frail and cachectic appearing. Pleasant and conversational. Head: Temporal wasting present. Atraumatic. EOM intact. Neck: No JVD. Cardiovascular: RRR. No gallops. No murmurs. 1-2+ pitting edema in bilateral lower extremities. Lungs: Breath sounds are slightly diminished across right lung. There is a Thora vent on anterior right chest. Conversational dyspnea is present. No wheezing or crackles. Skin: No jaundice. Multiple ulcers on bilateral lower ankles appearing to be venous insufficiency ulcers. There is some associated erythema slight warmth around the ulcers. Abdomen: Normal bowel sounds, abdomen soft and nontender. Genito Urinary: Genital exam not performed since complaints not related. Extremities: No cyanosis or clubbing. Musculoskeletal: No swollen or erythematous joints. Neurological: Moves all 4 extremities. No myoclonus. Data 07/23/24 05:04 07/23/24 05:04 Micro: Microbiology 07/22/24 17:46 Blood Culture - Preliminary Blood SPECIMEN COLLECTED 07/22/24 17:42 Blood Culture - Preliminary Blood SPECIMEN COLLECTED A&P Assessment and plan (1) Traumatic pneumothorax: Right-sided primary traumatic pneumothorax. Patient fell 2 days ago. Status post Thora vent placement by ED provider on 07/22. Plan for clamping the Thora vent and repeat x-ray in 6 hours to look for reaccumulation. Minimal leakage for now. General Surgery, Dr. Montez, consulted for management Daily chest x-ray Analgesics as needed Supplemental oxygen support ordered (2) Acute kidney injury: AIYANA on CKD. Baseline creatinine recently has been ranging from 1.2-1.4. Currently 1.7. Associated with hypokalemia, metabolic acidosis. Proceed with albumin transfusion, oral bicarb supplementation. Urine lites, urine creatinine, UPEP Strict I's and O's Daily weights Repeat BMP in afternoon. (3) Anemia: Acute on chronic. Hemoglobin down to 6. Patient does follow-up with hematology clinic as an outpatient. Recheck. Appreciate recent angiogram from May. Transfusion of 1 unit of PRBC. Target hemoglobin more than 7. Surgery consulted. Patient possibly would need EGD and colonoscopy has not had the same in the last few years. Patient though denies any melena or hematemesis. Protonix 40 mg every 12 hours, Carafate ACHS. Qualifiers: Anemia type: iron deficiency Iron deficiency anemia type: inadequate dietary iron intake Qualified Code(s): D50.8 - Other iron deficiency anemias (4) Hypotension: Maintain mean arterial pressure over 65. Worsening because of anemia. Increase home dose of midodrine to 5 mg 3 times daily. (5) Venous ulcers of both lower extremities: Venous ulcers of bilateral lower extremities Appreciate inflammatory markers (6) Severe protein-calorie malnutrition: Continue home appetite stimulants formulary Discussed detail with patient and spouse at bedside. Has been worsening. Dietary consultation. Patient not able to maintain oral intake because of nausea from pancreatitis. Restart Zenpep. Start on Megace daily. Goals of creatinine discussed detail with patient and spouse at bedside. Patient would want to remain full code and aggressive management for improvement. Discussed in detail with patient and spouse at bedside that if patient's appetite does not improve with Megace patient would possibly need PEG tube placement. (7) Failure to thrive in adult: Treat underlying pneumothorax Address underlying malnutrition (8) Hypomagnesemia: Repeat daily. (9) Pancreatic insufficiency: Patient on chronic Creon with meals as needed (10) Goals of care, counseling/discussion: Plan Continue with other chronic home medications. Check urine drug screen, alcohol level. Full code Protonix for PUD prophylaxis Heparin 5000-12 hourly for DVT prophylaxis Attestations 2 Medical Necessity Statement*: Requires further hospitalization for management of traumatic pneumothorax, severe protein energy malnutrition, acute on chronic anemia requiring blood transfusion has GI bleed is ruled out Diagnoses Traumatic pneumothorax S27.0XXA Acute kidney injury N17.9 Iron deficiency anemia secondary to inadequate dietary iron intake D50.8 Anemia type: iron deficiency Iron deficiency anemia type: inadequate dietary iron intake Hypotension I95.9 Venous ulcers of both lower extremities I83.019; I83.029; L97.919; L97.929 Severe protein-calorie malnutrition E43 Failure to thrive in adult R62.7 Hypomagnesemia E83.42 Pancreatic insufficiency K86.89 Goals of care, counseling/discussion Z71.89
[2024-07-23 16:46] LABS: Glucose Point of Care 100 mg/dL (70-110)
[2024-07-23] MEDS: albumin 25 G/100 ML BAG 60 G IV (17:10)
[2024-07-23] MEDS: megestrol 400 mg/10 mL UDC PO (17:11)
[2024-07-23] MEDS: lipase-protease-amylase Capsule 2 EACH PO (18:09)
[2024-07-23 18:20] LABS: Glucose Point of Care 112 mg/dL (70-110)
[2024-07-23 19:15] LABS: Blood Urea Nitrogen 27 mg/dL (6-20); Calcium 7.2 mg/dL (8.5-10.5); Carbon Dioxide 13 mmol/L (22-29); Chloride 109 mmol/L (98-107); Creatinine Clr Calc Pharmacy 28.2738; Glomerular Filtration Rate 36.8 mL/min (90-130); Glucose 86 mg/dL (65-115); Osmolality Calculated 286 mOsm/kg (285-295); Sodium 136 mmol/L (136-145)
--- NOTE | 2024-07-23 19:15 | PC.NURSE ---
Shift summary: Pt remains very weak. She stated she still feels poorly and dizzy. She received one unit of PRBC today. She was started on Protonix, Megace, Sucralfate and Albumin.. She was hypoglycemic this am, Apple juice given , it did not raise her blood sugar much. She was started on D5NS with 2o mEq KCL. She is more alert this afternoon, staying awaking an visiting with her visitors. Her appetite is poor, the Megace did help it improve. Her dentures hurt her mouth per pt. Fixadent ordered to help her dentures fit better. She moans and yells somewhat when her lower extremities are repositioned. She did not want to repposition very often., but she did try to stay off her coccyx, which has a pressure ulcer. She has bilat edema lower extremities. Multiple statis ulcers noted on her left lower leg. Her urine output was dismal, less than 50 ml this shift. It was dark brown and it hada foul odor.
[2024-07-23 19:19] LABS: Anion Gap 16.8 (5-19)
[2024-07-23 19:26] LABS: Potassium 2.8 mmol/L (3.5-5.1)
[2024-07-23] MEDS: potassium chloride ER 20 mEq Tablet 40 MEQ PO (19:55)
[2024-07-23 20:01] LABS: Glucose Point of Care 167 mg/dL (70-110)
[2024-07-23] MEDS: sennosides 8.6 mg Tablet 17.2 MG PO (20:39)
[2024-07-24] VITALS (52 sets, daily range): BP systolic 69–116; BP diastolic 55–96; PULSE 77–105; RESP 7–20; TEMP 36.4–37.3; O2SAT 80–100
[2024-07-24] MEDS: albumin 25 G/100 ML BAG 60 G IV ×3 (00:43→16:12)
[2024-07-24 00:50] LABS: Glucose Point of Care 126 mg/dL (70-110)
[2024-07-24] MEDS: potassium chloride ER 20 mEq Tablet 40 MEQ PO (00:53)
[2024-07-24 04:22] LABS: Glucose Point of Care 163 mg/dL (70-110)
[2024-07-24 04:55] LABS: Basophils % 0.7 %; Eosinophils % 0.2 %; Hematocrit 21.9 % (36-47); Lymphocytes # 1.4 10^3/uL (0.8-4.8); Lymphocytes % 31.5 %; Mean Corpuscular Hemoglobin 29.5 pg (27-33); Mean Corpuscular Volume 92.4 fl (85-98); Mean Platelet Volume 9.5 fL (7.4-10.4); Monocytes # 0.2 10^3/uL (0.2-0.9); Monocytes % 4.4 %; Neutrophils % 62.1 %; Nucleated Red Blood Cells % 0.9 %; Platelet Count 85 10^3/cmm (157-399); Red Blood Count 2.37 10^6/uL (3.85-5.65); Red Cell Distribution Width 16.6 % (12.1-15.1); White Blood Count 4.35 10^3/uL (3.29-11.43)
[2024-07-24] MEDS: dextrose 5%-ns + KCl 20 20 MEQ/1,000 ML BAG 50 MEQ IV (04:58)
--- NOTE | 2024-07-24 05:00 | XRR_ITS ---
PROCEDURE INFORMATION: Exam: XR Chest Exam date and time: 07/24/2024 5:02 AM Age: 48 years old Clinical indication: Device placement; Prior surgery; Surgery date: Post-operative (0-2 days); Surgery type: Thoracostomy tube TECHNIQUE: Imaging protocol: Radiologic exam of the chest. Views: 1 view. COMPARISON: CR XR chest 1V portable [id number] 07/23/2024 3:57 PM FINDINGS: Tubes, catheters and devices: Right thoracostomy tube. Lungs: Mild bibasilar pulmonary infiltrates. Pleural spaces: No residual pneumothorax. Heart/Mediastinum: Unremarkable. No cardiomegaly. Bones/joints: Unremarkable. XR/XR chest 1V portable [id number] IMPRESSION: No pneumothorax at this time.
[2024-07-24 05:17] LABS: Alanine Aminotransferase 22 U/L (0-33); Albumin Level 2.7 g/dL (3.5-5.2); Alkaline Phosphatase 63 U/L (35-105); Aspartate Amino Transferase 25 U/L (0-32); Blood Urea Nitrogen 21 mg/dL (6-20); Calcium 6.9 mg/dL (8.5-10.5); Carbon Dioxide 12 mmol/L (22-29); Chloride 114 mmol/L (98-107); Creatinine Clr Calc Pharmacy 32.6237; Globulin 2.1 g/dL (1.3-4.6); Glomerular Filtration Rate 43.4 mL/min (90-130); Glucose 157 mg/dL (65-115); Osmolality Calculated 296 mOsm/kg (285-295); Sodium 140 mmol/L (136-145); Total Bilirubin 0.7 mg/dL (0.15-1.2); Total Protein 4.8 g/dL (6.6-8.7)
[2024-07-24 05:20] LABS: Magnesium 2.2 mg/dL (1.7-2.3)
[2024-07-24 05:22] LABS: Anion Gap 17.8 (5-19); Potassium 3.8 mmol/L (3.5-5.1)
[2024-07-24] MEDS: sucralfate 1 gm/10 mL Oral Liq UDC PO ×4 (07:02→20:27)
[2024-07-24] MEDS: sodium bicarbonate 650 mg Tablet PO ×3 (07:02→16:11)
[2024-07-24 08:03] LABS: Glucose Point of Care 127 mg/dL (70-110)
[2024-07-24] MEDS: pantoprazole 40 mg SDV IVP ×2 (08:09→20:26)
[2024-07-24] MEDS: folic acid 1 mg Tablet PO (08:09)
[2024-07-24] MEDS: buprenorphine-naloxone 4-1 mg Film 2 EACH SUBLINGUAL ×3 (08:09→20:27)
[2024-07-24] MEDS: cefTRIAXone 1,000 mg SDV 1000 MG IVP (08:09)
[2024-07-24] MEDS: lipase-protease-amylase Capsule 2 EACH PO ×3 (08:09→18:17)
[2024-07-24] MEDS: midodrine 5 mg TABLET PO ×3 (08:09→20:27)
[2024-07-24] MEDS: levothyroxine 100 mcg Tablet PO (08:09)
[2024-07-24] MEDS: thiamine 100 mg Tablet PO (08:09)
[2024-07-24] MEDS: buPROPion XL (24 HR) 300 mg Tablet PO (08:09)
[2024-07-24] MEDS: megestrol 400 mg/10 mL UDC PO (09:19)
[2024-07-24] MEDS: bisacodyl 5 mg Tablet 20 MG PO (09:20)
[2024-07-24] MEDS: promethazine 25 mg Tablet PO (10:26)
[2024-07-24] MEDS: magnesium citrate Btl 296 mL PO (13:17)
[2024-07-24 14:39] LABS: Glucose Point of Care 121 mg/dL (70-110)
--- NOTE | 2024-07-24 14:40 | P.PN_ITS ---
Subjective 2 Subjective: Admitted overnight. Seen with at bedside. Patient with chest tube in place. Saturating well on room air. Blood pressures on the softer side earlier today morning down to 75 systolic. Patient is awake and alert. Denies any nausea, vomiting, headache. As per patient has been having poor appetite with poor oral intake for few months. She did fall 3 days ago on Tuesday. Difficulty in breathing has been getting worse over last 2 days with chest pain. Patient states she is not able to eat because of nausea from chronic pancreatitis because of which her oral intake is poor. Vitals/I&O/Wt Last Vital Signs Temp 97.6 F 07/24/24 13:24 Pulse 85 07/24/24 13:24 Resp 16 07/24/24 13:24 BP 104/82 07/24/24 13:24 Pulse Ox 100 07/24/24 13:24 O2 Del Method Room Air 07/24/24 08:30 07/23/24 07/24/24 07/24/24 22:59 06:59 14:59 Intake Total 660 / 1110 1290 / 2400 250 / 250 Output Total 475 / 505 350 / 350 Balance 660 / 1080 815 / 1895 -100 / -100 Weight last 48 hrs Weight 41.73 kg Weight 39.916 kg Weight 40.279 kg Weight 39.825 kg Weight 45.359 kg Physical Exam 2 Narrative: General: Patient is awake. Frail and cachectic appearing. Pleasant and conversational. Head: Temporal wasting present. Atraumatic. EOM intact. Neck: No JVD. Cardiovascular: RRR. No gallops. No murmurs. 1-2+ pitting edema in bilateral lower extremities. Lungs: Breath sounds are slightly diminished across right lung. There is a Thora vent on anterior right chest. Conversational dyspnea is present. No wheezing or crackles. Skin: No jaundice. Multiple ulcers on bilateral lower ankles appearing to be venous insufficiency ulcers. There is some associated erythema slight warmth around the ulcers. Abdomen: Normal bowel sounds, abdomen soft and nontender. Genito Urinary: Genital exam not performed since complaints not related. Extremities: No cyanosis or clubbing. Musculoskeletal: No swollen or erythematous joints. Neurological: Moves all 4 extremities. No myoclonus. Data 07/24/24 04:14 07/24/24 04:14 Micro: Microbiology 07/23/24 06:35 Urine Culture - Preliminary Urine,Clean Catch Gram Negative Rods 07/22/24 17:42 Blood Culture - Preliminary Blood NEGATIVE TO DATE 07/22/24 17:46 Blood Culture - Preliminary Blood NEGATIVE TO DATE A&P Assessment and plan (1) Traumatic pneumothorax: Right-sided primary traumatic pneumothorax. Patient fell 2 days ago. Status post Thora vent placement by ED provider on 07/22. Patient developed worsening of pneumothorax about 20% after clamping of Thora vent yesterday. Put on suction as per surgical team last night. Decrease suction from 50 to 20 today morning. If remains stable can plan to discontinue suction later in the day and repeat chest x-ray. Minimal leakage for now. General Surgery, Dr. Montez, consulted for management Daily chest x-ray Analgesics as needed Supplemental oxygen support. Plan for CT chest without contrast. (2) Acute kidney injury: AIYANA on CKD. Baseline creatinine recently has been ranging from 1.2-1.4. Creatinine down to baseline. Hypokalemia improving. Metabolic acidosis stable for now. Continue with IV fluids with D5 NS with potassium at 20 cc/h. Proceed with albumin transfusion, oral bicarb supplementation. Urine lites, urine creatinine, UPEP Strict I's and O's Daily weights (3) Anemia: Acute on chronic. Post monitor blood transfusion. Hemoglobin 7 today. Patient does follow-up with hematology clinic as an outpatient. Appreciate recent iron panel from May. Blood pressures remain borderline. Will transfuse 1 more unit. Surgery consulted. Plans for EGD and colonoscopy in AM. Patient though denies any melena or hematemesis. Protonix 40 mg every 12 hours, Carafate ACHS. Qualifiers: Anemia type: iron deficiency Iron deficiency anemia type: inadequate dietary iron intake Qualified Code(s): D50.8 - Other iron deficiency anemias (4) Hypotension: Maintain mean arterial pressure over 65. Worsening because of anemia. Increase home dose of midodrine to 5 mg 3 times daily. (5) Venous ulcers of both lower extremities: Venous ulcers of bilateral lower extremities Appreciate inflammatory markers (6) Severe protein-calorie malnutrition: Continue home appetite stimulants formulary Discussed detail with patient and spouse at bedside. Has been worsening. Dietary consultation. Patient not able to maintain oral intake because of nausea from pancreatitis. Restart Zenpep. Start on Megace daily. Goals of creatinine discussed detail with patient and spouse at bedside. Patient would want to remain full code and aggressive management for improvement. Discussed in detail with patient and spouse at bedside that if patient's appetite does not improve with Megace patient would possibly need PEG tube placement. (7) Failure to thrive in adult: Treat underlying pneumothorax Address underlying malnutrition (8) Hypomagnesemia: Repeat daily. (9) Pancreatic insufficiency: Patient on chronic Creon with meals as needed (10) Goals of care, counseling/discussion: Plan UTI: Urine culture growing gram-negative rods. Continued IV ceftriaxone for now. De-escalate as per culture results. Follow- up blood cultures. So far negative. Continue with other chronic home medications. Negative urine drug screen, alcohol level. Full code Protonix for PUD prophylaxis Heparin 5000-12 hourly for DVT prophylaxis Attestations 2 Medical Necessity Statement*: Requested hospitalization for management of traumatic pneumothorax in a patient with severe malnutrition, anemia requiring further workup with EGD and colonoscopy Diagnoses Traumatic pneumothorax S27.0XXA Acute kidney injury N17.9 Iron deficiency anemia secondary to inadequate dietary iron intake D50.8 Anemia type: iron deficiency Iron deficiency anemia type: inadequate dietary iron intake Hypotension I95.9 Venous ulcers of both lower extremities I83.019; I83.029; L97.919; L97.929 Severe protein-calorie malnutrition E43 Failure to thrive in adult R62.7 Hypomagnesemia E83.42 Pancreatic insufficiency K86.89 Goals of care, counseling/discussion Z71.89
--- NOTE | 2024-07-24 14:56 | P.PN_ITS ---
Subjective 2 Subjective: Patient seen and examined. Tolerating diet. Pain controlled. A Thoravent now on waterseal Vitals/I&O/Wt Last Vital Signs Temp 97.6 F 07/24/24 13:24 Pulse 82 07/24/24 14:30 Resp 8 L 07/24/24 14:30 BP 114/92 07/24/24 14:30 Pulse Ox 99 07/24/24 14:30 O2 Del Method Room Air 07/24/24 14:30 07/23/24 07/24/24 07/24/24 22:59 06:59 14:59 Intake Total 660 / 1110 1290 / 2400 250 / 250 Output Total 475 / 505 350 / 350 Balance 660 / 1080 815 / 1895 -100 / -100 Weight last 48 hrs Weight 92 lb Weight 88 lb Weight 88 lb 12.8 oz Weight 87 lb 12.8 oz Weight 100 lb Physical Exam 2 Narrative: General: No acute distress, awake alert and oriented x 3 Respiratory: Equal chest rise bilaterally no use accessory muscles Thoracostomy tube: No airleak Data 07/24/24 04:14 07/24/24 04:14 Micro: Microbiology 07/23/24 06:35 Urine Culture - Preliminary Urine,Clean Catch Gram Negative Rods 07/22/24 17:42 Blood Culture - Preliminary Blood NEGATIVE TO DATE 07/22/24 17:46 Blood Culture - Preliminary Blood NEGATIVE TO DATE A&P Assessment and plan (1) Traumatic pneumothorax: (2) Anemia: Qualifiers: Anemia type: iron deficiency Iron deficiency anemia type: inadequate dietary iron intake Qualified Code(s): D50.8 - Other iron deficiency anemias Plan Thoravent to waterseal. Plan to remove tomorrow Bowel prep tomorrow for EGD and colonoscopy on Tuesday The risks and benefits of the procedure, including bleeding, infection, intestinal perforation requiring surgery, missed lesion were explained to the patient. The patient is understanding of the risks and wishes to proceed. Medical management per hospitalist Attestations 2 Medical Necessity Statement*: Per primary Coding Level of Care Code 94781 Diagnoses Traumatic pneumothorax S27.0XXA Iron deficiency anemia secondary to inadequate dietary iron intake D50.8 Anemia type: iron deficiency Iron deficiency anemia type: inadequate dietary iron intake
--- NOTE | 2024-07-24 15:17 | XRR_ITS ---
PROCEDURE INFORMATION: Exam: XR Chest Exam date and time: 07/24/2024 3:43 PM Age: 48 years old Clinical indication: Device placement; Ett placement (vent status); Additional info: Lung baseline thoravent patient TECHNIQUE: Imaging protocol: Radiologic exam of the chest. Views: 1 view. COMPARISON: CR XR chest 1V portable [id number] 07/24/2024 5:02 AM FINDINGS: Lungs: Hazy infiltrate involves both lung bases. Pleural spaces: A right-sided pleural catheter is noted and a small right apical pneumothorax has enlarged since the last study. A small right-sided pleural effusion has developed. Heart/Mediastinum: Unremarkable. No cardiomegaly. Bones/joints: Unremarkable. XR/XR chest 1V portable [id number] IMPRESSION: 1. Interval enlargement of a right-sided pneumothorax 2. Interval development of a right-sided pleural effusion 3. Developing bibasilar infiltrates
[2024-07-24] MEDS: peg /e-lyte soln 4,000 mL Btl 1500 ML PO (16:12)
--- NOTE | 2024-07-24 16:45 | CTR_ITS ---
PROCEDURE INFORMATION: Exam: CT Chest Without Contrast; Diagnostic Exam date and time: 07/24/2024 5:55 PM Age: 48 years old Clinical indication: Other: Traumatic pnx; Patient HX: Unclear HX due to PT condition TECHNIQUE: Imaging protocol: Diagnostic computed tomography of the chest without contrast. Radiation optimization: All CT scans at this facility use at least one of these dose optimization techniques: automated exposure control; mA and/or kV adjustment per patient size (includes targeted exams where dose is matched to clinical indication); or iterative reconstruction. COMPARISON: CT chest abdpel w/*[id number] 06/15/2024 10:55 AM RADIATION DOSE METRICS: Total DLP (mGy-cm): 229.2 FINDINGS: Lungs: There is extensive consolidation and volume loss involving both lower lobes as well as the right middle lobe. 1 cm subpleural cyst involves the periphery of the right middle lobe anteriorly. Nodular infiltrate is noted in the right upper lobe. Pleural spaces: A pleural catheter is noted anteriorly and superiorly within the right hemithorax. There is tiny right-sided pneumothorax present. Heart: Unremarkable. No cardiomegaly. No pericardial effusion. Coronary arteries: There is no evidence of coronary artery calcifications. Lymph nodes: Unremarkable. No enlarged lymph nodes. Vasculature: Unremarkable. No aortic aneurysm. Bones/joints: Unremarkable. No acute fracture. Soft tissues: Subcutaneous emphysema involves the right upper anterior chest wall. CT/CT chest con [id number] IMPRESSION: 1. Extensive bilateral pneumonia 2. Right-sided pneumothorax. This could be related to the subpleural cyst noted in the right middle lobe. 3. Right-sided pleural catheter in good position
[2024-07-24 17:16] LABS: Glucose Point of Care 108 mg/dL (70-110)
[2024-07-24] MEDS: oxyCODONE-APAP 5-325 mg Tablet 1 TAB PO (18:38)
[2024-07-24 19:24] LABS: Glucose Point of Care 94 mg/dL (70-110)
[2024-07-24] MEDS: sennosides 8.6 mg Tablet 17.2 MG PO (20:27)
[2024-07-24 20:53] LABS: Glucose Point of Care 90 mg/dL (70-110)
[2024-07-24 22:27] LABS: Glucose Point of Care 112 mg/dL (70-110)
[2024-07-25] VITALS (45 sets, daily range): BP systolic 92–129; BP diastolic 78–102; PULSE 74–93; RESP 6–20; TEMP 36.7–37; O2SAT 90–100
[2024-07-25 00:15] LABS: Glucose Point of Care 111 mg/dL (70-110)
[2024-07-25] MEDS: albumin 25 G/100 ML BAG 60 G IV (01:37)
[2024-07-25] MEDS: dextrose 5%-ns + KCl 20 20 MEQ/1,000 ML BAG 50 MEQ IV (01:37)
[2024-07-25 01:58] LABS: Creatinine, Random Urine 65 mg/dL (20-275); Protein, Total, Random 72 mg/dL (5-24); Protein/Creatinine Ratio 1.108 (0.024-0.184); Protein/Creatinine Ratio 1108 mg/g creat (24-184)
[2024-07-25 02:13] LABS: Glucose Point of Care 95 mg/dL (70-110)
[2024-07-25 04:30] LABS: Glucose Point of Care 102 mg/dL (70-110)
[2024-07-25 05:33] LABS: Basophils # 0.1 10^3/uL (0.0-0.1); Basophils % 0.7 %; Hematocrit 29.7 % (36-47); Lymphocytes # 2.1 10^3/uL (0.8-4.8); Lymphocytes % 27.5 %; Mean Corpuscular Hemoglobin 29.3 pg (27-33); Mean Corpuscular Volume 86.1 fl (85-98); Mean Platelet Volume 9.2 fL (7.4-10.4); Monocytes # 0.3 10^3/uL (0.2-0.9); Monocytes % 3.6 %; Nucleated Red Blood Cells % 0.4 %; Platelet Count 136 10^3/cmm (157-399); Red Blood Count 3.45 10^6/uL (3.85-5.65); Red Cell Distribution Width 16.6 % (12.1-15.1); White Blood Count 7.46 10^3/uL (3.29-11.43)
[2024-07-25 05:55] LABS: Magnesium 1.6 mg/dL (1.7-2.3)
[2024-07-25 06:00] LABS: Alanine Aminotransferase 19 U/L (0-33); Albumin Level 3.5 g/dL (3.5-5.2); Alkaline Phosphatase 53 U/L (35-105); Anion Gap 13.9 (5-19); Aspartate Amino Transferase 20 U/L (0-32); Blood Urea Nitrogen 17 mg/dL (6-20); Calcium 7.9 mg/dL (8.5-10.5); Carbon Dioxide 18 mmol/L (22-29); Chloride 119 mmol/L (98-107); Creatinine Clr Calc Pharmacy 44.3381; Globulin 1.7 g/dL (1.3-4.6); Glomerular Filtration Rate 58.7 mL/min (90-130); Glucose 89 mg/dL (65-115); Osmolality Calculated 305 mOsm/kg (285-295); Potassium 3.9 mmol/L (3.5-5.1); Sodium 147 mmol/L (136-145); Total Bilirubin 1.1 mg/dL (0.15-1.2); Total Protein 5.2 g/dL (6.6-8.7)
--- NOTE | 2024-07-25 06:00 | XRR_ITS ---
PROCEDURE INFORMATION: Exam: XR Chest Exam date and time: 07/25/2024 5:58 AM Age: 48 years old Clinical indication: Device placement; Chest tube; Patient HX: F/u pneumothorax; Additional info: Thora vent TECHNIQUE: Imaging protocol: Radiologic exam of the chest. Views: Portable upright AP chest x-ray, 1 view. COMPARISON: CT chest wo con [id number] 07/24/2024 5:55 PM FINDINGS: Tubes, catheters and devices: Upper right pleural catheter in place unchanged in position. Monitor leads project over the chest. Lungs: Lower lung zone and bibasilar atelectasis versus pneumonia right greater than left. Pleural spaces: No definite or significant pneumothorax demonstrated. Small pleural effusions right greater than left. Heart/Mediastinum: Heart size is normal. Bones/joints: No acute osseous abnormality. XR/XR chest 1V portable [id number] IMPRESSION: 1. Upper right pleural catheter in place unchanged in position. 2. No definite or significant pneumothorax demonstrated. 3. Small pleural effusions with lower lung zone and bibasilar atelectasis versus pneumonia right greater than left.
[2024-07-25 06:09] LABS: Glucose Point of Care 77 mg/dL (70-110)
[2024-07-25 08:17] LABS: Glucose Point of Care 90 mg/dL (70-110)
--- NOTE | 2024-07-25 08:23 | PC.NURSE ---
Doctor Bianchi ordered to stop the suction in the thora vent. And to hold off on PO medications except midodrine for the procedure today.
[2024-07-25] MEDS: midodrine 5 mg TABLET PO ×3 (08:27→21:16)
[2024-07-25] MEDS: dextrose 5% + KCl 20 mEq 20 MEQ/1,000 ML BAG 50 MEQ IV (08:41)
[2024-07-25 11:12] LABS: Glucose Point of Care 65 mg/dL (70-110)
[2024-07-25 11:14] LABS: Cortisol Random 14.84 ug/dL (2.47-19.5)
[2024-07-25] MEDS: pantoprazole 40 mg SDV IVP ×2 (11:28→21:16)
[2024-07-25] MEDS: cefTRIAXone 1,000 mg SDV 1000 MG IVP (11:28)
[2024-07-25] MEDS: glucagon 1 mg/mL KIT 1 mL IM (11:29)
--- NOTE | 2024-07-25 11:55 | XRR_ITS ---
PROCEDURE INFORMATION: Exam: XR Chest Exam date and time: 07/25/2024 12:19 PM Age: 48 years old Clinical indication: Pain; Angina pectoris; Additional info: Chest pain TECHNIQUE: Imaging protocol: Radiologic exam of the chest. Views: 1 view. Total images: 1 COMPARISON: CR (CHEST, ) 07/25/2024 5:58 AM FINDINGS: Tubes, catheters and devices: Small bore pleural drain overlying the upper right hemithorax appears similar to the previous. Lungs: Bibasilar airspace density appears similar to previous allowing for differences in projection. Pleural spaces: There is a very small residual right-sided pneumothorax with a approximately 2 mm pleural separation at the level of the right 3rd rib laterally. Hazy density suggesting small bilateral pleural effusions. Heart/Mediastinum: Cardiomediastinal silhouette stable. Bones/joints: No acute osseous abnormality identified. XR/XR chest 1V portable [id number] IMPRESSION: 1. There remains a small residual right-sided pneumothorax of approximately 2 mm pleural separation as noted above. 2. Persistent bibasilar airspace opacities suggesting atelectasis or pneumonia, similar to previous, with small pleural effusions.
[2024-07-25] MEDS: ondansetron 2 mg/ML SDV 2 mL 4 MG IVP (11:58)
[2024-07-25] MEDS: morphine 4 mg/mL SDV 1 mL 1 MG IVP (12:11)
--- NOTE | 2024-07-25 12:23 | PC.NURSE ---
Patient was complaining of chest pain. Doctor Bianchi was contacted due to the patient being off suction for their thora vent. Doctor ordered for a stat chest xray to be taken and 1 mg of IV morphine to be given.
--- NOTE | 2024-07-25 12:43 | PC.NURSE ---
Dr. Montez came into the room and said that the thora vent was still clamped due to this nurse not unplugging the suction line from the thora vent. Doctor ordered to restart suction.
[2024-07-25 13:47] LABS: Glucose Point of Care 83 mg/dL (70-110)
--- NOTE | 2024-07-25 14:19 | P.PN_ITS ---
Vitals/I&O/Wt Last Vital Signs Temp 98.6 F 07/25/24 09:00 Pulse 81 07/25/24 12:30 Resp 11 L 07/25/24 12:30 BP 108/93 07/25/24 12:30 Pulse Ox 97 07/25/24 12:30 O2 Del Method Room Air 07/25/24 12:30 07/24/24 07/25/24 07/25/24 22:59 06:59 14:59 Intake Total 1380 / 1730 1580 / 3310 515 / 515 Output Total 100 / 461 Balance 1369 / 1369 1480 / 2849 515 / 515 Weight last 48 hrs Weight 90 lb Weight 90 lb Weight 92 lb Data 07/25/24 05:20 07/25/24 05:20 A&P Assessment and plan (1) Traumatic pneumothorax: (2) Anemia: Qualifiers: Anemia type: iron deficiency Iron deficiency anemia type: inadequate dietary iron intake Qualified Code(s): D50.8 - Other iron deficiency anemias (3) Pneumonia: Plan Thoravent to suction. EGD and colonoscopy on Tuesday The risks and benefits of the procedure, including bleeding, infection, intestinal perforation requiring surgery, missed lesion were explained to the patient. The patient is understanding of the risks and wishes to proceed. Will discuss antibiotic therapy with hospitalist Medical management per hospitalist Attestations 2 Medical Necessity Statement*: Per primary Coding Level of Care Code Acute Code for Chg Fwd Diagnoses Traumatic pneumothorax S27.0XXA Iron deficiency anemia secondary to inadequate dietary iron intake D50.8 Anemia type: iron deficiency Iron deficiency anemia type: inadequate dietary iron intake Pneumonia J18.9
--- NOTE | 2024-07-25 15:09 | P.ANESASSM_ITS ---
Pre-Anesthetic Assessment Height/Weight: Height 5 ft 5 in Weight 90 lb Temp Pulse Resp BP Pulse Ox O2 Del Method 98.6 F 78 11 L 108/93 97 Room Air 07/25/24 09:00 07/25/24 14:00 07/25/24 12:30 07/25/24 12:30 07/25/24 12:30 07/25/24 12:30 Preop Diagnosis: Concern for GI bleed Operation Date: 07/25/24 13:45 Proposed Procedures p EGD(Not Applicable) - Castillo Montez DO s Colonoscopy(Not Applicable) - Castillo Montez DO Was Beta Stanley taken within 24 hours: N/A Was Clonidine taken within 24 hours: N/A Last intake: Intake Last Solid Date 07/24/24 Last Solid Time 12:00 Social Tobacco and No alcohol Exam alert, oriented x 3 and regular rate & rhythm Chest tube on right, up to suction Airway Submandibular: within normal limits Cervical ROM: within normal limits Mallampati: Class III Dentition: false Anesthetic Plan ASA status: 4 Anesthesia: MAC Other: No prior issues with anesthesia NPO since yesterday Initially presented with pneumothorax on the right, chest tube in place up to suction SpO2 94% on room air History of alcohol use disorder and pancreatic insufficiency Patient is on chronic Suboxone, taken 07/22/2024 Hypothyroidism on Synthroid S/p gastric bypass for obesity Labs reviewed, hemoglobin 10 which is up from 6 at admission Patient presented with K+ 2.8 at admission, 3.9 today. Currently receiving 20 mill equivalents K+ Plan for MAC anesthetic Medications/Allergies Home Medications Medication Instructions Recorded Confirmed Last Taken Type buprenorphine 8 mg-naloxone 2 mg 1 film buccal TID 01/19/23 07/23/24 07/22/24 History sublingual film (Suboxone) levothyroxine 100 mcg capsule 100 mcg PO DAILY 01/19/23 07/23/24 07/22/24 History kifzrd-npnoyrvn-axicxld 2 cap PO TID PRN Abdominal Pain 03/23/23 07/23/24 Unknown History 3,000-9,500-15,000 unit capsule, delayed rel (Creon) doxycycline hyclate 100 mg tablet 100 mg PO BID 7 days #14 tabs 06/19/24 07/23/24 07/22/24 Rx midodrine 5 mg tablet 5 mg PO BID #60 tabs 06/19/24 07/23/24 07/22/24 Rx bupropion HCl 300 mg 24 hr tablet, 300 mg PO DAILY 07/23/24 07/23/24 07/22/24 History extended release disulfiram 250 mg tablet 500 mg PO DAILY 07/23/24 07/23/24 07/22/24 History ergocalciferol (vitamin D2) 1,250 1,250 mcg PO DIRECTED 07/23/24 07/23/24 07/10/24 History mcg (50,000 unit) capsule folic acid 1 mg tablet 1 mg PO DAILY 07/23/24 07/23/24 07/22/24 History promethazine 25 mg tablet 25 mg PO Q4H PRN Nausea 07/23/24 07/23/24 Unknown History thiamine mononitrate (vit B1) 100 mg PO DAILY 07/23/24 07/23/24 07/22/24 History Allergies Allergy/AdvReac Type Severity Reaction Status Date / Time No Known Allergies Allergy Verified 05/31/24 11:27 Current Medications Generic Name Dose Route Start Last Admin Trade Name Freq PRN Reason Stop Dose Admin Lipase/Protease/Amylase 2 each 07/23/24 18:00 07/25/24 12:04 Vopiys-Idtpcqji-Xmsdjrm Capsule PO Not Given TIDWM [facility] Buprenorphine/Naloxone 2 each 07/23/24 09:00 07/25/24 12:03 Buprenorphine-Naloxone 4-1 Mg Film SUBLINGUAL Not Given TID TERESA Bupropion HCl 300 mg 07/23/24 09:00 07/25/24 12:03 Bupropion Xl (24 Hr) 300 Mg Tablet PO Not Given DAILY [facility] Ceftriaxone Sodium 1,000 mg 07/23/24 08:45 07/25/24 11:28 Ceftriaxone 1,000 Mg Sdv IVP 1,000 mg Q24H TERESA Administration Protocol Enoxaparin Sodium 30 mg 07/22/24 21:26 07/22/24 22:00 Enoxaparin 30 Mg/0.3 Ml Syringe SUBCUT 30 mg Q24H TERESA Administration Folic Acid 1 mg 07/23/24 09:00 07/25/24 12:03 Folic Acid 1 Mg Tablet PO Not Given DAILY [facility] Potassium Chloride/Dextrose 20 meq in 1,000 mls @ 50 mls/hr 07/25/24 08:30 07/25/24 08:41 Dextrose 5% + Kcl 20 Meq IV 50 mls/hr .Q20H TERESA Administration Levothyroxine Sodium 100 mcg 07/23/24 09:00 07/25/24 12:03 Levothyroxine 100 Mcg Tablet PO Not Given DAILY TERESA Megestrol Acetate 400 mg 07/23/24 16:30 07/25/24 12:04 Megestrol 400 Mg/10 Ml Udc PO Not Given DAILY TERESA Midodrine 5 mg 07/23/24 09:00 07/25/24 08:27 Midodrine 5 Mg Tablet PO 5 mg TID TERESA Administration Ondansetron HCl 4 mg 07/22/24 21:26 07/25/24 11:58 Ondansetron 2 Mg/Ml Sdv 2 Ml IVP 4 mg Q8H PRN Administration vomiting, or N/V if npo Oxycodone/Acetaminophen 1 tab 07/22/24 21:26 07/24/24 18:38 Oxycodone-Apap 5-325 Mg Tablet PO 1 tab Q4H PRN Administration [facility] Pantoprazole Sodium 40 mg 07/23/24 08:45 07/25/24 11:28 Pantoprazole 40 Mg Sdv IVP 40 mg Q12H TERESA Administration Promethazine HCl 25 mg 07/23/24 00:51 07/24/24 10:26 Promethazine 25 Mg Tablet PO 25 mg Q4H PRN Administration Nausea [facility] Senna 17.2 mg 07/23/24 21:00 07/24/24 20:27 Sennosides 8.6 Mg Tablet PO 17.2 mg BEDTIME TERESA Administration Sodium Bicarbonate 650 mg 07/23/24 07:00 07/25/24 12:04 Sodium Bicarbonate 650 Mg Tablet PO Not Given TIDAC TERESA Sucralfate 1 gm 07/23/24 11:00 07/25/24 12:04 Sucralfate 1 Gm/10 Ml Oral Liq Udc PO Not Given AC&BEDTIME TERESA Thiamine Mononitrate 100 mg 07/23/24 09:00 07/25/24 12:04 Thiamine 100 Mg Tablet PO Not Given DAILY TERESA PFSH Anesthesia Medical History Pancreatic insufficiency Hypomagnesemia Acute pancreatitis Depression History of pancreatitis Epidural abscess (07/2021) Lumbar 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 It was suspected to be due to [place] No problems noted. Father , Diabetes with hypertriglyceridemia No problems noted. Social History Smoking and tobacco/nicotine status: never used tobacco/nicotine Alcohol intake: current Alcohol intake frequency: 3 or more drinks per day Alcohol type: beer Lives independently: Yes Household members: spouse Data Anesthesia 07/25/24 05:20 07/25/24 05:20 Short CBC 07/24/24 07/25/24 Range/Units 04:14 05:20 WBC 4.35 7.46 (3.29-11.43) 10^3/uL Hgb 7.00 L 10.10 L (11.27-16.99) g/dL Hct 21.9 L 29.7 L (36-47) % MCV 92.4 86.1 (85-98) fl Plt Count 85 L D 136 L D (157-399) 10^3/cmm Neut % (Auto) 62.1 67.0 % Neut # (Auto) 2.70 5.00 (1.8-7.7) 10^3/uL BMP 07/23/24 07/24/24 07/25/24 17:42 04:14 05:20 Sodium 136 140 147 H Potassium 2.8 L* 3.8 3.9 Chloride 109 H 114 H 119 H Carbon Dioxide 13 L 12 L 18 L BUN 27 H 21 H 17 Creatinine 1.5 H 1.3 H 1.0 H Glucose 86 157 H 89 Calcium 7.2 L 6.9 L 7.9 L Liver Function 07/24/24 07/25/24 Range/Units 04:14 05:20 Total Bilirubin 0.7 1.1 (0.15-1.2) mg/dL AST 25 20 (0-32) U/L ALT 22 19 (0-33) U/L Alkaline Phosphatase 63 53 (35-105) U/L Albumin 2.7 L 3.5 (3.5-5.2) g/dL Blood Bank 07/23/24 06:40 Blood Type O Positive Rho(D) Type Rh positive Antibody Screen Negative Cardiac Studies: 2 Echocardiogram 08/11/21
[2024-07-25] MEDS: EPINEPHrine 1 mg/mL INJ XX (15:30)
--- NOTE | 2024-07-25 15:53 | ANE.PACU2 ---
Inpatient post-anesthesia follow up: Airway intact: Yes Vital signs: Temperature 98.6 F Pulse Rate [Orthos tatic 105 Standing] Pulse Rate [Orthos tatic 91 Sitting] Pulse Rate [Orthos tatic Lying] 89 Pulse Rate 78 Respiratory Rate 16 Blood Pressure [Or thostatic 107/84 Standing] Blood Pressure [Or thostatic 100/89 Sitting] Blood Pressure [Or thostatic 95/79 Lying] Blood Pressure 116/95 Pulse Oximetry 100 Oxygen Delivery Me thod Room Air Oxygen Flow Rate Fraction of Inspir ed Oxygen Hydration adequate: Yes Nausea and vomiting: No Pain level: 1 Mental status: Baseline
--- NOTE | 2024-07-25 16:15 | MRR_ITS ---
PROCEDURE INFORMATION: Exam: MR Abdomen Without Contrast, Biliary System Exam date and time: 07/25/2024 6:00 PM Age: 48 years old Clinical indication: Patient HX: PT has chest tube, pancreatic duct stenosis; Additional info: Chronic pancreatitis, outside diagnosis of pancreatic ductal stenosis. Previous clinical history of cholecystectomy and gastric bypass is provided. History of known right pneumothorax. No history of recent trauma or surgery is currently otherwise provided. TECHNIQUE: Imaging protocol: MR of the abdomen without contrast. Exam focused on the biliary system and pancreatic ducts. Routine 3D-MRCP images were acquired and processed without radiologist supervision. [id number](s) are provided. COMPARISON: 1. CT chest abdpel w/*[id number] 06/15/2024 10:[address] chest wo con [id number] 07/24/2024 5:55 PM. No recent ultrasound or previous MRCP is currently available. 3. CT abdomen pelvis w con* [id number] 11/11/2021 11:07 AM FINDINGS: Pleural spaces: There appears to be some pleural fluid along with some patchy opacification with other findings directly corresponding to the associated chest radiograph and ct descriptions. Liver: There appears to be some heterogeneous, low intensity of the hepatic parenchyma overall. There appears to be some periportal tracking. Gallbladder and biliary ducts: No fluid-filled gallbladder is appreciated with a history of previous cholecystectomy. . No persistent common ductal filling defect is currently appreciated.Distal most, ampullary level evaluation is limited. Central portal, vessel evaluation is overall limited. Pancreas: There appears to be some fatty replacement of the pancreas. There are some areas of overall obscuration along with the motion as well as bowel-gas adjacent artifact. Pancreatic level ductal evaluation is overall limited. Spleen: The spleen appears similar in the interval. Adrenal glands: The adrenal glands appears similar overall. Kidneys: The kidneys appears similar in the interval. Stomach and bowel: There is prominence of the bowel loops overall similar. There appear to be interventional changes of the stomach. There appears to be some abundant stool content of the colon. Intraperitoneal space: There appears to be a small amount of abdominal fluid, stranding overall similar. Vasculature: The central vessels are overall demonstrated. Lymph nodes: There appear to be some reactive lymph node related changes. Bones/joints: No diffuse acute abnormal marrow signal intensity is appreciated. Soft tissues: There appears to be some subcutaneous edema overall. Other findings: There is some significant motion limiting artifact presentNo other significant interval changes are appreciated. MR/MR MRCP [id number] IMPRESSION: There is overall heterogeneity of the hepatic parenchyma similar overall with some periportal tracking. No interval persistent biliary common ductal filling defects are currently appreciated. Overall evaluation of the pancreatic duct is significantly motion and bowel-gas limited. Consider pancreatic and hepatobiliary laboratory profile studies. If there is persistent clinical concern, consider follow-up MRI with contrast or direct visualization with ERCP for further ductal level evaluation.
--- NOTE | 2024-07-25 16:33 | P.PN_ITS ---
Subjective 2 Subjective: No acute events overnight. Patient has remained hemodynamically stable and afebrile. Denies any nausea, vomiting. Has remained on room air with chest tube in place. Working on bowel regimen for EGD and colonoscopy today. Vitals/I&O/Wt Last Vital Signs Temp 98.6 F 07/25/24 09:00 Pulse 78 07/25/24 14:00 Resp 11 L 07/25/24 12:30 BP 108/93 07/25/24 12:30 Pulse Ox 97 07/25/24 12:30 O2 Del Method Room Air 07/25/24 12:30 07/25/24 07/25/24 07/25/24 06:59 14:59 22:59 Intake Total 1580 / 3310 515 / 515 Output Total 100 / 461 Balance 1480 / 2849 515 / 515 Weight last 48 hrs Weight 40.823 kg Weight 40.823 kg Weight 41.73 kg Physical Exam 2 Narrative: General: Patient is awake. Frail and cachectic appearing. Pleasant and conversational. Head: Temporal wasting present. Atraumatic. EOM intact. Neck: No JVD. Cardiovascular: RRR. No gallops. No murmurs. 1-2+ pitting edema in bilateral lower extremities. Lungs: Breath sounds are slightly diminished across right lung. There is a Thora vent on anterior right chest. Conversational dyspnea is present. No wheezing or crackles. Skin: No jaundice. Multiple ulcers on bilateral lower ankles appearing to be venous insufficiency ulcers. There is some associated erythema slight warmth around the ulcers. Abdomen: Normal bowel sounds, abdomen soft and nontender. Genito Urinary: Genital exam not performed since complaints not related. Extremities: No cyanosis or clubbing. Musculoskeletal: No swollen or erythematous joints. Neurological: Moves all 4 extremities. No myoclonus. Data 07/25/24 05:20 07/25/24 05:20 A&P Assessment and plan (1) Traumatic pneumothorax: Right-sided primary traumatic pneumothorax. Patient fell 2 days ago. Status post Thora vent placement by ED provider on 07/22. Have failed de-escalation of Thora vent over last 48 hours. Plan to turn over to waterseal again today. Repeat chest x-ray in few hours. Follow-up surgical recommendations regarding management of Thora vent. In discussions with hot box spotter at [facility] given the concerns for traumatic pneumothorax if patient fails weaning off chest tube and not able to remove chest tube in 72 hours patient will possibly need a pulmonary eval for possible bronchopulmonary valve for slow healing. Had communicated the same to the surgical team. Daily chest x-ray Analgesics as needed Supplemental oxygen support. Appreciate CT chest results. (2) Acute kidney injury: AIYANA on CKD. Baseline creatinine recently has been ranging from 1.2-1.4. Creatinine down to baseline. Resolution of hyperkalemia and improvement in acidosis. Patient does have hypernatremia today. Switch fluid to D5W. Continue at 75 cc/h. Hold off on albumin as it has improved to 3.5. Strict I's and O's Daily weights (3) Anemia: Acute on chronic. Post monitor blood transfusion. Overall posttreatment of blood transfusion. Hemoglobin at 10 today. Plan for EGD and colonoscopy today. No episodes of melena or hematemesis. Protonix 40 mg every 12 hours, Carafate ACHS. Qualifiers: Anemia type: iron deficiency Iron deficiency anemia type: inadequate dietary iron intake Qualified Code(s): D50.8 - Other iron deficiency anemias (4) Hypotension: Maintain mean arterial pressure over 65. Blood pressure stable today. Appreciate stable hemoglobin and albumin levels. Continue with midodrine 5 mg 3 times a day. (5) Venous ulcers of both lower extremities: Venous ulcers of bilateral lower extremities Appreciate inflammatory markers (6) Severe protein-calorie malnutrition: Continue home appetite stimulants formulary Discussed detail with patient and spouse at bedside. Has been worsening. Dietary consultation. Patient not able to maintain oral intake because of nausea from pancreatitis. Restart Zenpep. Start on Megace daily. Goals of creatinine discussed detail with patient and spouse at bedside. Patient would want to remain full code and aggressive management for improvement. Discussed in detail with patient and spouse at bedside that if patient's appetite does not improve with Megace patient would possibly need PEG tube placement. (7) Failure to thrive in adult: Treat underlying pneumothorax Address underlying malnutrition. Continue with Megace. (8) Hypomagnesemia: Replace 1 g IV. (9) Pancreatic insufficiency: Patient on chronic Creon with meals as needed (10) Goals of care, counseling/discussion: Plan UTI: Urine culture growing gram-negative rods. Continued IV ceftriaxone for now. De-escalate as per culture results. Follow- up blood cultures. So far negative. Pneumonia: Seen on CT chest. Patient remains on room air. Does not have leukocytosis. IV ceftriaxone will also cover for community-acquired pneumonia as above. Hypernatremia: Worsening up to 147 today most likely in setting of poor oral intake and dehydration because of bowel regimen. Switch from D5 NS to D5W. Repeat BMP in evening. Hold off on sodium bicarbonate tablets. Chronic pancreatitis: Definitely patient has failure to thrive, cachexia in setting of poor oral intake because of chronic pancreatic insufficiency and abdominal pain. As per surgical team patient was diagnosed of pancreatic duct stenosis by outpatient surgeon. Patient would benefit from surgical stenting of the pancreatic duct. Cannot undergo ERCP because of history of gastric bypass. Requesting possible transfer to tertiary center regarding same. Will request MRCP to confirm the pancreatic duct stenosis prior to possible transfer. Continue with other chronic home medications. Negative urine drug screen, alcohol level. Full code Protonix for PUD prophylaxis Pt eval. SCD for DVT prophylaxis. If no bleeding seen on endoscopy can start on heparin 5000 every 12 hourly. Attestations 2 Medical Necessity Statement*: Requires further hospitalization for management of traumatic pneumothorax requiring Thora vent, GI bleed requiring endoscopy and blood transfusion, cachexia in setting of chronic pancreatic deficiency from chronic pancreatitis. Diagnoses Traumatic pneumothorax S27.0XXA Acute kidney injury N17.9 Iron deficiency anemia secondary to inadequate dietary iron intake D50.8 Anemia type: iron deficiency Iron deficiency anemia type: inadequate dietary iron intake Hypotension I95.9 Venous ulcers of both lower extremities I83.019; I83.029; L97.919; L97.929 Severe protein-calorie malnutrition E43 Failure to thrive in adult R62.7 Hypomagnesemia E83.42 Pancreatic insufficiency K86.89 Goals of care, counseling/discussion Z71.89
[2024-07-25] MEDS: sodium bicarbonate 650 mg Tablet PO (16:37)
[2024-07-25] MEDS: buprenorphine-naloxone 4-1 mg Film 2 EACH SUBLINGUAL ×2 (16:38→21:16)
[2024-07-25] MEDS: sucralfate 1 gm/10 mL Oral Liq UDC PO ×2 (16:38→21:16)
[2024-07-25 16:50] LABS: Glucose Point of Care 85 mg/dL (70-110)
--- NOTE | 2024-07-25 16:55 | PC.NURSE ---
Patient arrived from the GI lab resting. Nursing dysphagia screening was completed. Patient is stable.
[2024-07-25 17:35] LABS: Anion Gap 13.7 (5-19); Blood Urea Nitrogen 18 mg/dL (6-20); Calcium 7.9 mg/dL (8.5-10.5); Carbon Dioxide 19 mmol/L (22-29); Chloride 119 mmol/L (98-107); Creatinine Clr Calc Pharmacy 48.1938; Glomerular Filtration Rate 66.3 mL/min (90-130); Glucose 84 mg/dL (65-115); Osmolality Calculated 307 mOsm/kg (285-295); Potassium 3.7 mmol/L (3.5-5.1); Sodium 148 mmol/L (136-145)
[2024-07-25] MEDS: lipase-protease-amylase Capsule 2 EACH PO (19:00)
[2024-07-25 20:55] LABS: Glucose Point of Care 71 mg/dL (70-110)
[2024-07-26] VITALS (8 sets, daily range): BP systolic 93–112; BP diastolic 69–84; PULSE 75–84; RESP 13–17; TEMP 36.7–37.4; O2SAT 96–99
[2024-07-26 00:44] LABS: Glucose Point of Care 88 mg/dL (70-110)
[2024-07-26 02:38] LABS: Glucose Point of Care 93 mg/dL (70-110)
[2024-07-26] MEDS: dextrose 5% + KCl 20 mEq 20 MEQ/1,000 ML BAG 50 MEQ IV (04:31)
[2024-07-26 04:37] LABS: Glucose Point of Care 88 mg/dL (70-110)
--- NOTE | 2024-07-26 05:16 | XRR_ITS ---
PROCEDURE INFORMATION: Exam: XR Chest Exam date and time: 07/26/2024 5:12 AM Age: 48 years old Clinical indication: Device placement; Other: Thoracostomy tube; Prior surgery; Surgery date: 3-7 days post-operative; Surgery type: Tube placement TECHNIQUE: Imaging protocol: Radiologic exam of the chest. Views: 1 view. COMPARISON: CR XR chest 1V portable [id number] 07/25/2024 12:19 PM FINDINGS: Tubes, catheters and devices: Heimlich valve is seen projecting with the right chest. Lungs: There are increased lung markings and haziness of the lungs in association with small bilateral pleural effusions, which in the setting of cardiomegaly is consistent with pulmonary edema. Pneumonia should be excluded clinically. Improving small right apical pneumothorax. Pleural spaces: See Lungs finding. Heart/Mediastinum: Stable cardiomediastinal silhouette. Bones/joints: Unremarkable. XR/XR chest 1V portable [id number] IMPRESSION: 1. Improving small right apical pneumothorax. Heimlich valve projects over the right chest. 2. Imaging findings of pulmonary edema with small bilateral pleural effusions. Pneumonia should be excluded clinically.
[2024-07-26 05:39] LABS: Basophils # 0.1 10^3/uL (0.0-0.1); Basophils % 0.7 %; Eosinophils # 0.1 10^3/uL (0.0-0.8); Eosinophils % 1.3 %; Hematocrit 32.6 % (36-47); Lymphocytes # 2.4 10^3/uL (0.8-4.8); Lymphocytes % 33.5 %; Mean Corpuscular Hemoglobin 29.5 pg (27-33); Mean Corpuscular Volume 86.7 fl (85-98); Mean Platelet Volume 9.7 fL (7.4-10.4); Monocytes # 0.3 10^3/uL (0.2-0.9); Monocytes % 3.7 %; Neutrophils # 4.26 10^3/uL (1.8-7.7); Nucleated Red Blood Cells % 0.3 %; Platelet Count 134 10^3/cmm (157-399); Red Blood Count 3.76 10^6/uL (3.85-5.65)
[2024-07-26 06:08] LABS: Alanine Aminotransferase 17 U/L (0-33); Albumin Level 2.9 g/dL (3.5-5.2); Alkaline Phosphatase 57 U/L (35-105); Anion Gap 13.1 (5-19); Aspartate Amino Transferase 19 U/L (0-32); Blood Urea Nitrogen 17 mg/dL (6-20); Calcium 7.8 mg/dL (8.5-10.5); Carbon Dioxide 18 mmol/L (22-29); Chloride 118 mmol/L (98-107); Creatinine Clr Calc Pharmacy 65.9048; Glomerular Filtration Rate 66.3 mL/min (90-130); Glucose 90 mg/dL (65-115); Magnesium 1.5 mg/dL (1.7-2.3); Osmolality Calculated 301 mOsm/kg (285-295); Potassium 4.1 mmol/L (3.5-5.1); Sodium 145 mmol/L (136-145); Total Bilirubin 0.9 mg/dL (0.15-1.2); Total Protein 4.9 g/dL (6.6-8.7)
[2024-07-26 06:30] LABS: Glucose Point of Care 94 mg/dL (70-110)
--- NOTE | 2024-07-26 06:34 | P.PN_ITS ---
Subjective 2 Subjective: This is a 48-year-old female who is hospital day 4 after being admitted for suspected GI bleeding and right-sided normal. Patient has been managed by my colleague Dr. Montez, I have been asked to see the patient starting today as Dr. Montez is out of town on vacation. Patient has been stable overnight, no significant abdominal pain, no shortness of breath at this moment. Vitals/I&O/Wt Last Vital Signs Temp 98.4 F 07/26/24 04:00 Pulse 75 07/26/24 04:00 Resp 16 07/26/24 04:00 BP 104/84 07/26/24 04:00 Pulse Ox 97 07/26/24 04:00 O2 Del Method Room Air 07/26/24 04:00 O2 Flow Rate 0 07/26/24 00:25 07/25/24 07/25/24 07/26/24 14:59 22:59 06:59 Intake Total 515 / 515 991.667 / 1506.667 Balance 515 / 515 991.667 / 1506.667 Weight last 48 hrs Weight 119 lb 3 oz Weight 90 lb Weight 90 lb Physical Exam 2 Chest: OTHER: Thora vent in place, no output in the Pleur-evac since yesterday, titling, cannot really appreciate if there is an air leak she has a very weak cough effort Data 07/26/24 05:32 07/26/24 05:32 A&P Assessment and plan (1) Pancreatic insufficiency: (2) Severe protein-calorie malnutrition: (3) Pneumothorax: Qualifiers: Pneumothorax type: spontaneous, primary Qualified Code(s): J93.11 - Primary spontaneous pneumothorax (4) Pneumonia: Plan Is a 48-year-old female with multiple medical comorbidities who was admitted with a right-sided pneumothorax and suspected GI bleeding. She underwent upper endoscopy yesterday showed evidence of a normal post gastric bypass anatomy with a marginal ulcer, biopsies were taken and there was some bleeding from the biopsy sites that were controlled with epinephrine. Today she does not have abdominal pain. Regarding the chest of the following is my assessment. While this pneumothorax has been treated asymptomatic pneumothorax, there is no evidence of rib fractures on the right side, the likelihood of developing a traumatic pneumothorax without the rib fracture in the absence of primary lung pathology is low. In addition CT scan of the chest showed evidence of A pleural cyst in the right lung, the presence of this pleural cysts raises a concern of these pneumothorax to have a primary lung pathology etiology rather than trauma alone. The chest tube has been attempted to be weaned several times over the last 4 days without success. This morning chest tube is on waterseal and patient still has a residual apical pneumo which is improving according to radiology. Of note it has been in suction over the last 24 hours. The plan will be to obtain another x-ray later this afternoon, if it is stable we will proceed with a clamping trial overnight before deciding to remove the chest tube. If there is reaccumulation of the pneumothorax patient should be transferred to higher level of care for evaluation by thoracic surgery and pulmonology as she might require excision of that pleural cyst in the setting of a persistent pneumothorax.MRCP results pending Attestations 2 Medical Necessity Statement*: Per medical team Coding Level of Care Code Acute Code for Chg Fwd Diagnoses Pancreatic insufficiency K86.89 Severe protein-calorie malnutrition E43 Pneumothorax J93.11 Pneumothorax type: spontaneous, primary Pneumonia J18.9
[2024-07-26 08:05] LABS: Glucose Point of Care 73 mg/dL (70-110)
[2024-07-26] MEDS: lipase-protease-amylase Capsule 2 EACH PO ×3 (09:21→17:36)
[2024-07-26] MEDS: buPROPion XL (24 HR) 300 mg Tablet PO (09:22)
[2024-07-26] MEDS: levothyroxine 100 mcg Tablet PO (09:23)
[2024-07-26] MEDS: folic acid 1 mg Tablet PO (09:23)
[2024-07-26] MEDS: thiamine 100 mg Tablet PO (09:24)
[2024-07-26] MEDS: midodrine 5 mg TABLET PO ×3 (09:24→20:35)
[2024-07-26] MEDS: cefTRIAXone 1,000 mg SDV 1000 MG IVP (09:41)
[2024-07-26] MEDS: buprenorphine-naloxone 4-1 mg Film 2 EACH SUBLINGUAL ×3 (09:46→20:35)
[2024-07-26] MEDS: megestrol 400 mg/10 mL UDC PO (09:46)
[2024-07-26] MEDS: oxyCODONE-APAP 5-325 mg Tablet 1 TAB PO ×2 (09:47→14:57)
[2024-07-26] MEDS: pantoprazole 40 mg SDV IVP ×2 (09:54→20:35)
[2024-07-26 10:06] LABS: Glucose Point of Care 64 mg/dL (70-110)
[2024-07-26] MEDS: sucralfate 1 gm/10 mL Oral Liq UDC PO ×2 (12:30→17:36)
--- NOTE | 2024-07-26 13:51 | P.PN_ITS ---
Subjective 2 Subjective: Nursing reports that patient has several wounds on her legs. States that they are bleeding and skin is peeling in several areas. Patient states that she is having some pain rated at 4/10. Medications: Reviewed: Yes Vitals/I&O/Wt Last Vital Signs Temp 99.3 F 07/26/24 11:44 Pulse 76 07/26/24 11:44 Resp 17 07/26/24 11:44 BP 102/72 07/26/24 11:44 Pulse Ox 98 07/26/24 11:44 O2 Del Method Room Air 07/26/24 11:44 O2 Flow Rate 0 07/26/24 00:25 07/25/24 07/26/24 07/26/24 22:59 06:59 14:59 Intake Total 991.667 / 1506.667 Balance 991.667 / 1506.667 Weight last 48 hrs Weight 119 lb 3 oz Weight 90 lb Weight 90 lb Physical Exam 2 Narrative: General: Cooperative patient. Cachetic, ill appearing. HEENT: Normocephalic, Atraumatic. External ears normal. Nasal passages patent without drainage. MMM. Heart: RRR. Resp: Rales throughout the lung west. Thoravent in place. Abd: Soft, non-tender. Non-distended. Extremities: No edema. Skin: RLE with multiple large wounds on multiple areas on the leg. 3 lateral lesions, one posterior and one medial. Actively bleeding with skin peeling. Neuro: No focal motor or sensory loss. Gait is normal. Data 07/26/24 05:32 07/26/24 05:32 Micro: Microbiology 07/23/24 06:35 Urine Culture - Final Urine,Clean Catch Escherichia coli A&P Assessment and plan (1) Traumatic pneumothorax: Right-sided primary traumatic pneumothorax. Patient fell 2 days ago. Status post Thora vent placement by ED provider on 07/22. Have failed de-escalation of Thora vent over last 48 hours. Plan to turn over to waterseal again today. Repeat chest x-ray in few hours. Follow-up surgical recommendations regarding management of Thora vent. In discussions with measurement and verification engineer at [facility] given the concerns for traumatic pneumothorax if patient fails weaning off chest tube and not able to remove chest tube in 72 hours patient will possibly need a pulmonary eval for possible bronchopulmonary valve for slow healing. Had communicated the same to the surgical team. Daily chest x-ray Analgesics as needed Supplemental oxygen support. Appreciate CT chest results. (2) Acute kidney injury: AIYANA on CKD. Baseline creatinine recently has been ranging from 1.2-1.4. Creatinine down to baseline. Resolution of hyperkalemia and improvement in acidosis. Patient does have hypernatremia today. Switch fluid to D5W. Continue at 75 cc/h. Hold off on albumin as it has improved to 3.5. Strict I's and O's Daily weights (3) Anemia: Acute on chronic. Post monitor blood transfusion. Overall posttreatment of blood transfusion. Hemoglobin at 10 today. Plan for EGD and colonoscopy today. No episodes of melena or hematemesis. Protonix 40 mg every 12 hours, Carafate ACHS. Qualifiers: Anemia type: iron deficiency Iron deficiency anemia type: inadequate dietary iron intake Qualified Code(s): D50.8 - Other iron deficiency anemias (4) Hypotension: Maintain mean arterial pressure over 65. Blood pressure stable today. Appreciate stable hemoglobin and albumin levels. Continue with midodrine 5 mg 3 times a day. (5) Venous ulcers of both lower extremities: Venous ulcers of bilateral lower extremities Appreciate inflammatory markers (6) Severe protein-calorie malnutrition: Continue home appetite stimulants formulary Discussed detail with patient and spouse at bedside. Has been worsening. Dietary consultation. Patient not able to maintain oral intake because of nausea from pancreatitis. Restart Zenpep. Start on Megace daily. Goals of creatinine discussed detail with patient and spouse at bedside. Patient would want to remain full code and aggressive management for improvement. Discussed in detail with patient and spouse at bedside that if patient's appetite does not improve with Megace patient would possibly need PEG tube placement. (7) Failure to thrive in adult: Treat underlying pneumothorax Address underlying malnutrition. Continue with Megace. (8) Hypomagnesemia: Replace 1 g IV. (9) Pancreatic insufficiency: Patient on chronic Creon with meals as needed (10) Goals of care, counseling/discussion: Plan Plan for Today: Continue close inpatient monitoring. Continue Ceftriaxone for possible pneumonia and UTI. UCx growing GNR. ID and susceptibility pending. BCx pending. Na improved to 145. Continue D5NS. Repeat am labs. General surgery consulted for pancreatitis 2' pancreatic duct stenosis. Discussed transfer to higher level of care due to resources. Will request MRCP to confirm the pancreatic duct stenosis prior to possible transfer. Continue with other chronic home medications. Negative urine drug screen, alcohol level. Code Status: Full IVF: D5NS DVT PPx: SCD's. GI PPx: Protonix ABx: Rocephin Diet: Discharge plan: Full code Protonix for PUD prophylaxis Pt eval. SCD for DVT prophylaxis. If no bleeding seen on endoscopy can start on heparin 5000 every 12 hourly. Attestations 2 Medical Necessity Statement*: Requires further hospitalization for management of traumatic pneumothorax requiring Thora vent, GI bleed requiring endoscopy and blood transfusion, cachexia in setting of chronic pancreatic deficiency from chronic pancreatitis. Coding Level of Care Code Acute Code for Chg Fwd Moderate MDM includes number and complexity of problems actively addressed during encounter, amount and/or complexity of data reviewed/ordered and described risk of complication, morbidity or mortality of management as documented Diagnoses Traumatic pneumothorax S27.0XXA Acute kidney injury N17.9 Iron deficiency anemia secondary to inadequate dietary iron intake D50.8 Anemia type: iron deficiency Iron deficiency anemia type: inadequate dietary iron intake Hypotension I95.9 Venous ulcers of both lower extremities I83.019; I83.029; L97.919; L97.929 Severe protein-calorie malnutrition E43 Failure to thrive in adult R62.7 Hypomagnesemia E83.42 Pancreatic insufficiency K86.89 Goals of care, counseling/discussion Z71.89
[2024-07-26] MEDS: collagenase oint 30 gm 1 APPLIC TOPICAL (14:58)
--- NOTE | 2024-07-26 15:21 | PM.MISC ---
Miscellaneous Note Purpose of Documentation: Update on patient care Note: Patient evaluated this afternoon, no early, Pleur-evac was clamped, will obtain another x-ray in about an hour if there is no change from the morning we will keep the tube clamped until the morning we will take another x-ray if that the x-rays are stable we will remove the Thora vent. In the case of failure we will put back the tube to suction and we will request transfer.
[2024-07-26 15:50] LABS: Glucose Point of Care 98 mg/dL (70-110)
[2024-07-26 15:50] LABS: Glucose Point of Care 88 mg/dL (70-110)
--- NOTE | 2024-07-26 16:42 | XRR_ITS ---
PROCEDURE INFORMATION: Exam: XR Chest Exam date and time: 07/26/2024 4:52 PM Age: 48 years old Clinical indication: Other: F/u pneumo; Additional info: Follow up pneumo TECHNIQUE: Imaging protocol: Radiologic exam of the chest. Views: 1 view. COMPARISON: CR (CHEST, ) 07/26/2024 5:12 AM FINDINGS: Tubes, catheters and devices: A small caliber right chest tube still ascends the thorax, ending near the apex. Lungs: Persisting haziness in the lung bases, greater on the right.. Pleural spaces: The Heimlich valve is no longer seen. A small right apical pneumothorax is barely visible, measuring 5 mm. There is some persisting pleural fluid in the right lung base. Unchanged small left pleural effusion. Heart/Mediastinum: Heart size is normal. Bones/joints: Unremarkable. XR/XR chest 1V portable [id number] IMPRESSION: 1. Unchanged right chest tube with minimal pneumothorax. 2. Persisting bilateral small pleural effusions
[2024-07-26] MEDS: neomycin-poly-bacitracin oint 28 gm 1 APPLIC TOPICAL (17:36)
[2024-07-26 18:03] LABS: Glucose Point of Care 100 mg/dL (70-110)
[2024-07-26 21:14] LABS: Glucose Point of Care 96 mg/dL (70-110)
[2024-07-26 22:20] LABS: Glucose Point of Care 96 mg/dL (70-110)
[2024-07-27] VITALS (8 sets, daily range): BP systolic 92–113; BP diastolic 71–84; PULSE 73–86; RESP 12–18; TEMP 36.6–37; O2SAT 96–100
[2024-07-27] MEDS: dextrose 5% + KCl 20 mEq 20 MEQ/1,000 ML BAG 50 MEQ IV (00:11)
[2024-07-27 00:28] LABS: Glucose Point of Care 94 mg/dL (70-110)
[2024-07-27 02:11] LABS: Glucose Point of Care 98 mg/dL (70-110)
[2024-07-27 04:26] LABS: Glucose Point of Care 71 mg/dL (70-110)
[2024-07-27 04:59] LABS: Glucose Point of Care 74 mg/dL (70-110)
[2024-07-27 05:36] LABS: Basophils # 0.1 10^3/uL (0.0-0.1); Basophils % 0.9 %; Hematocrit 35.8 % (36-47); Lymphocytes # 2.6 10^3/uL (0.8-4.8); Lymphocytes % 33.2 %; Mean Corpuscular HGB Conc 33.2 g/dL (30-55); Mean Corpuscular Hemoglobin 29.6 pg (27-33); Mean Corpuscular Volume 89.1 fl (85-98); Mean Platelet Volume 9.8 fL (7.4-10.4); Monocytes # 0.2 10^3/uL (0.2-0.9); Monocytes % 2.1 %; Neutrophils # 4.99 10^3/uL (1.8-7.7); Nucleated Red Blood Cells % 0 %; Platelet Count 121 10^3/cmm (157-399); Red Blood Count 4.02 10^6/uL (3.85-5.65); Red Cell Distribution Width 18.4 % (12.1-15.1); White Blood Count 7.92 10^3/uL (3.29-11.43)
[2024-07-27 05:58] LABS: Alanine Aminotransferase 16 U/L (0-33); Alkaline Phosphatase 63 U/L (35-105); Anion Gap 15.1 (5-19); Aspartate Amino Transferase 16 U/L (0-32); Blood Urea Nitrogen 16 mg/dL (6-20); C Reactive Protein 37.6 mg/L (0.0-4.9); Calcium 7.7 mg/dL (8.5-10.5); Carbon Dioxide 17 mmol/L (22-29); Chloride 110 mmol/L (98-107); Creatinine Clr Calc Pharmacy 74.6544; Globulin 2.1 g/dL (1.3-4.6); Glomerular Filtration Rate 75.9 mL/min (90-130); Glucose 73 mg/dL (65-115); Osmolality Calculated 286 mOsm/kg (285-295); Potassium 4.1 mmol/L (3.5-5.1); Sodium 138 mmol/L (136-145); Total Bilirubin 0.9 mg/dL (0.15-1.2); Total Protein 5.1 g/dL (6.6-8.7)
[2024-07-27 06:02] LABS: Procalcitonin 2.39 ng/mL (0-0.5)
[2024-07-27 06:12] LABS: Folate Level 6.1 ng/mL (4.8-37.3)
[2024-07-27 06:39] LABS: Glucose Point of Care 74 mg/dL (70-110)
--- NOTE | 2024-07-27 07:49 | XRR_ITS ---
PROCEDURE INFORMATION: Exam: XR Chest Exam date and time: 07/27/2024 8:56 AM Age: 48 years old Clinical indication: Condition or disease; Lung condition and disease; Pneumothorax; Additional info: Pneumothorax f/u TECHNIQUE: Imaging protocol: Radiologic exam of the chest. Views: 1 view. COMPARISON: . CR XR chest 1V portable [id number] 07/26/2024 4:52 PM FINDINGS: Tubes, catheters and devices: Indwelling right-sided thoracostomy tube. Lungs: Small infiltrates No consolidation. Pleural spaces: Bilateral pleural effusions. Small right apical pneumothorax with pleural separation of 3 mm Heart/Mediastinum: Unremarkable. No cardiomegaly. Bones/joints: Unremarkable. XR/XR chest 1V portable [id number] IMPRESSION: 1. Small residual apical pneumothorax measuring 3 mm. 2. Bilateral lower lobe infiltrates/effusions
[2024-07-27 08:01] LABS: Glucose Point of Care 59 mg/dL (70-110)
[2024-07-27] MEDS: folic acid 1 mg Tablet PO (08:28)
[2024-07-27] MEDS: thiamine 100 mg Tablet PO (08:28)
[2024-07-27] MEDS: levothyroxine 100 mcg Tablet PO (08:28)
[2024-07-27] MEDS: megestrol 400 mg/10 mL UDC PO (08:28)
[2024-07-27] MEDS: midodrine 5 mg TABLET PO ×3 (08:29→20:38)
[2024-07-27] MEDS: buprenorphine-naloxone 4-1 mg Film 2 EACH SUBLINGUAL ×3 (08:29→20:37)
[2024-07-27] MEDS: buPROPion XL (24 HR) 300 mg Tablet PO (08:29)
[2024-07-27] MEDS: lipase-protease-amylase Capsule 2 EACH PO ×3 (08:29→15:57)
[2024-07-27] MEDS: pantoprazole 40 mg SDV IVP ×2 (08:29→20:38)
[2024-07-27] MEDS: cefTRIAXone 1,000 mg SDV 1000 MG IVP (08:30)
[2024-07-27] MEDS: dextrose 10% 125 ML 750 ML IV ×2 (08:33→15:58)
[2024-07-27] MEDS: neomycin-poly-bacitracin oint 28 gm 1 APPLIC TOPICAL (08:35)
[2024-07-27] MEDS: collagenase oint 30 gm 1 APPLIC TOPICAL (08:35)
[2024-07-27 09:10] LABS: Glucose Point of Care 52 mg/dL (70-110)
[2024-07-27 09:42] LABS: Glucose Point of Care 107 mg/dL (70-110)
--- NOTE | 2024-07-27 09:49 | PC.NURSE ---
Upon arrival to shift, BS noted to be 54. Juice and candy given per protocol. Recheck BS shows 52. Per protocol, 125ml of D10 given at 750mls/hr. Tolerated well. New blood sugar noted to be 107. Pt alert, awake, and stable at this time.
--- NOTE | 2024-07-27 09:50 | P.PN_ITS ---
Subjective 2 Subjective: Patient stable no significant respiratory distress. Pleur-evac was clamped overnight, this morning there was still a residual pneumothorax measuring about 3 mm. Vitals/I&O/Wt Last Vital Signs Temp 98.1 F 07/27/24 07:41 Pulse 84 07/27/24 04:00 Resp 14 07/27/24 07:41 BP 113/84 07/27/24 07:41 Pulse Ox 96 07/27/24 04:00 O2 Del Method Room Air 07/27/24 04:00 O2 Flow Rate 0 07/26/24 00:25 07/26/24 07/27/24 07/27/24 22:59 06:59 14:59 Intake Total 50 / 50 983.333 / 1033.333 120 / 120 Output Total 0 / 0 Balance 50 / 50 983.333 / 1033.333 120 / 120 Weight last 48 hrs Weight 121 lb 5 oz Weight 119 lb 3 oz Physical Exam 2 Resp: OTHER: No significant respiratory distress, thora-Vent in place. Data 07/27/24 05:25 07/27/24 05:25 Micro: Microbiology 07/23/24 06:35 Urine Culture - Final Urine,Clean Catch Escherichia coli A&P Assessment and plan (1) Pneumothorax: Qualifiers: Pneumothorax type: spontaneous, primary Qualified Code(s): J93.11 - Primary spontaneous pneumothorax Plan I evaluated the patient this morning, he said the Pleur-evac was clamped and there was no significant worsening of the pneumothorax overnight but there is still persistence of about a 3 to 5 mm normal on the x-ray. At this point I proceeded to completely occlude the therapy and with the provided occlusion cap, we will obtain an x-ray in 4 hours. Plan will be to discontinue to her event if pneumothorax continues to be stable, completely occluding the thoravent and will allow us to demonstrate if there is a persistent air leak. -Xray 4pm, will plan dc thoravent based on Xray results. Attestations 2 Medical Necessity Statement*: Per medical team Coding Level of Care Code Acute Code for Chg Fwd Diagnoses Pneumothorax J93.11 Pneumothorax type: spontaneous, primary
[2024-07-27] MEDS: sucralfate 1 gm/10 mL Oral Liq UDC PO ×2 (11:56→15:57)
[2024-07-27 12:05] LABS: Glucose Point of Care 148 mg/dL (70-110)
--- NOTE | 2024-07-27 13:33 | PC.NURSE ---
Dressing to right lower leg completed. Foul smelling odor noted. Dr. Ayoub notified. Wound cultured. Xray to leg ordered.
--- NOTE | 2024-07-27 13:36 | XR_ITS ---
WS: [id number] Right leg including the tibia and fibula, 07/27/2024 Clinical Data: WOUND Comparison: Right ankle, 07/22/2024 Findings: No fractures or dislocations are seen. The tibia and fibula are intact. The soft tissues are normal. XR/XR tibia fibula RT 2V [id number] Impression: Negative right leg
[2024-07-27 13:55] LABS: Glucose Point of Care 69 mg/dL (70-110)
--- NOTE | 2024-07-27 13:56 | XR_ITS ---
WS: [id number] PA and lateral chest, 07/27/2024, 1404hours Clinical Data: thoravent Comparison: Portable chest, 07/27/2024, 0858 hours Findings: The small right chest tube remains in the same position. The right lung is probably fully e xpanded. The bilateral patchy opacities have not changed nor have the bilateral pleural effusions. Th e heart remains normal. Monitor leads are on the chest wall. XR/XR chest 1V portable [id number] Impression: 1. Probable total reexpansion of right pneumothorax. 2. No change in bilateral pulmonary opacities and pleural effusions.
[2024-07-27 15:09] LABS: Lactate Dehydrogenase 182 U/L (135-214)
[2024-07-27 16:12] LABS: Glucose Point of Care 51 mg/dL (70-110)
--- NOTE | 2024-07-27 16:34 | PHA.VACGOAL ---
Vancomycin Goal - Goal Vancomycin Goal:: 15-20 mg/L Vancomycin Indication:: SSTI - Therapy Day of therpy:: Day []of [] . Actual body weight (kg): 121 lb 5 oz - Data Labs: WBC 7.92 10^3/uL (3.29-11.43) 07/27/24 05:25 RBC 4.02 10^6/uL (3.85-5.65) 07/27/24 05:25 Hgb 11.90 g/dL (11.27-16.99) 07/27/24 05:25 Hct 35.8 % (36-47) L 07/27/24 05:25 MCV 89.1 fl (85-98) 07/27/24 05:25 MCH 29.6 pg (27-33) 07/27/24 05:25 MCHC 33.2 g/dL (30-55) 07/27/24 05:25 RDW 18.4 % (12.1-15.1) H 07/27/24 05:25 Sodium 138 mmol/L (136-145) 07/27/24 05:25 Potassium 4.1 mmol/L (3.5-5.1) 07/27/24 05:25 Chloride 110 mmol/L (98-107) H 07/27/24 05:25 Carbon Dioxide 17 mmol/L (22-29) L 07/27/24 05:25 Anion Gap 15.1 (5-19) 07/27/24 05:25 BUN 16 mg/dL (6-20) 07/27/24 05:25 Creatinine 0.8 mg/dL (0.5-0.9) 07/27/24 05:25 GFR Calculation 75.9 mL/min (90-130) L 07/27/24 05:25 Treatment plan:: new consult Regimen:: 750 MG Q12H PER PROTOCOL Additional Comments:: LOADING DOSE OF 1500 MG GIVEN DUE TO CONCERN OF NECROTIZING FASCIITIS
[2024-07-27 16:37] LABS: Glucose Point of Care 127 mg/dL (70-110)
[2024-07-27] MEDS: morphine 4 mg/mL SDV 1 mL 1 MG IVP (17:06)
[2024-07-27] MEDS: vancomycin 1,500 MG/300 ML PIGGYBACK 200 MG IV (17:06)
--- NOTE | 2024-07-27 17:09 | P.PN_ITS ---
Subjective 2 Subjective: Patient doing well has remained stable from the cardiopulmonary standpoint. I was consulted by the medical team, there was concern that right lower extremity wounds are clinically worsening I was asked to evaluate for possibility of soft tissue infection.'s medical team has noted that the patient blood sugar has remained low despite several attempts to correct. Vitals/I&O/Wt Last Vital Signs Temp 98.4 F 07/27/24 15:26 Pulse 81 07/27/24 15:26 Resp 16 07/27/24 15:26 BP 103/74 07/27/24 15:26 Pulse Ox 96 07/27/24 15:26 O2 Del Method Room Air 07/27/24 15:26 O2 Flow Rate 0 07/26/24 00:25 07/27/24 07/27/24 07/27/24 06:59 14:59 22:59 Intake Total 983.333 / 1033.333 207.5 / 207.5 0 / 207.5 Balance 983.333 / 1033.333 207.5 / 207.5 0 / 207.5 Weight last 48 hrs Weight 121 lb 5 oz Weight 119 lb 3 oz Physical Exam 2 Chest: OTHER: Troponin place, is clamped. Extremity: OTHER: Right lower extremity shows 3 separate ulcerations at the level of the anterior and posterior left, anterior ulcerations are full-thickness involving the skin and exposing subcutaneous tissue, likely etiology is likely venous in nature as patient does have distal pulses. There are some foul-smelling discharge from the wounds. Data 07/27/24 05:25 07/27/24 05:25 A&P Assessment and plan (1) Severe protein-calorie malnutrition: (2) Anemia: Qualifiers: Anemia type: iron deficiency Iron deficiency anemia type: inadequate dietary iron intake Qualified Code(s): D50.8 - Other iron deficiency anemias (3) Venous ulcers of both lower extremities: Plan 48-year-old female with multiple medical comorbidities, who has been followed by the surgery team for a pneumothorax, likely due to pleural cyst noted on the right lung. Lung is completely expanded in the last x-ray. Please indicate that likely the pneumothorax has resolved at this point. I will plan for taking her back to the OR for debridement of the right lower extremity wounds tomorrow morning. In the setting I have decided not to remove the Thora vent as indicated positive pressure ventilation patient can develop a new pneumothorax, in the case of a new pneumothorax device option will be for the patient to receive additional therapy either by pulmonology or thoracic surgery. I have discussed the risk benefits of the debridement with the patient including the risks of bleeding, poor wound healing, need for additional surgical interventions, chronic nonhealing wounds, need for chronic wound care, spreading infection, sepsis, . Patient shows understanding wishes to proceed. -N.p.o. after midnight for debridement right lower extremity tomorrow -Will plan removal of Thora vent after surgery if no pneumothorax is visualized. Attestations 2 Medical Necessity Statement*: Per medical team Coding Level of Care Code Acute Code for Chg Fwd Diagnoses Severe protein-calorie malnutrition E43 Iron deficiency anemia secondary to inadequate dietary iron intake D50.8 Anemia type: iron deficiency Iron deficiency anemia type: inadequate dietary iron intake Venous ulcers of both lower extremities I83.019; I83.029; L97.919; L97.926
[2024-07-27] MEDS: dextrose 5% + KCl 20 mEq 20 MEQ/1,000 ML BAG 75 MEQ IV (17:13)
[2024-07-27 17:23] LABS: Lactate (Lactic Acid level) 2.5 mmol/L (0.5-2.2)
--- NOTE | 2024-07-27 17:34 | P.PN_ITS ---
Subjective 2 Subjective: Nursing reports overnight she has had several hypoglycemic episodes. Her sugars have been dipping into the 50s. In addition they report that her left leg wounds have worsened and now they are having foul-smelling drainage. Patient denies any pain while at rest. She has been trying to eat is much as possible, but does have problems with her appetite. Medications: Reviewed: Yes Vitals/I&O/Wt Last Vital Signs Temp 98.4 F 07/27/24 15:26 Pulse 81 07/27/24 15:26 Resp 16 07/27/24 15:26 BP 103/74 07/27/24 15:26 Pulse Ox 96 07/27/24 15:26 O2 Del Method Room Air 07/27/24 15: O2 Flow Rate 0 07/26/24 00:25 07/27/24 07/27/24 07/27/24 06:59 14:59 22:59 Intake Total 983.333 / 1033.333 207.5 / 207.5 851.667 / 1059.167 Balance 983.333 / 1033.333 207.5 / 207.5 851.667 / 1059.167 Weight last 48 hrs Weight 121 lb 5 oz Weight 119 lb 3 oz Physical Exam 2 Narrative: General: Cooperative patient. Cachetic, ill appearing. HEENT: Normocephalic, Atraumatic. External ears normal. Nasal passages patent without drainage. MMM. Heart: RRR. Resp: Rales throughout the lung ewst. Thoravent in place. Abd: Soft, non-tender. Non-distended. Extremities: No edema. Skin: RLE with multiple large wounds on multiple areas on the leg. 3 lateral lesions, one posterior and one medial. Foul-smelling, purulent exudate present. Neuro: No focal motor or sensory loss. Gait is normal. Data 07/27/24 05:25 07/27/24 05:25 A&P Assessment and plan (1) Traumatic pneumothorax: (2) Acute kidney injury: AIYANA on CKD. Baseline creatinine recently has been ranging from 1.2-1.4. Creatinine down to baseline. Resolution of hyperkalemia and improvement in acidosis. Patient does have hypernatremia today. Switch fluid to D5W. Continue at 75 cc/h. Hold off on albumin as it has improved to 3.5. Strict I's and O's Daily weights (3) Anemia: Acute on chronic. Post monitor blood transfusion. Overall posttreatment of blood transfusion. Hemoglobin at 10 today. Plan for EGD and colonoscopy today. No episodes of melena or hematemesis. Protonix 40 mg every 12 hours, Carafate ACHS. Qualifiers: Anemia type: iron deficiency Iron deficiency anemia type: inadequate dietary iron intake Qualified Code(s): D50.8 - Other iron deficiency anemias (4) Hypotension: Maintain mean arterial pressure over 65. Blood pressure stable today. Appreciate stable hemoglobin and albumin levels. Continue with midodrine 5 mg 3 times a day. (5) Venous ulcers of both lower extremities: Venous ulcers of bilateral lower extremities Appreciate inflammatory markers (6) Severe protein-calorie malnutrition: Continue home appetite stimulants formulary Discussed detail with patient and spouse at bedside. Has been worsening. Dietary consultation. Patient not able to maintain oral intake because of nausea from pancreatitis. Restart Zenpep. Start on Megace daily. Goals of creatinine discussed detail with patient and spouse at bedside. Patient would want to remain full code and aggressive management for improvement. Discussed in detail with patient and spouse at bedside that if patient's appetite does not improve with Megace patient would possibly need PEG tube placement. (7) Failure to thrive in adult: Treat underlying pneumothorax Address underlying malnutrition. Continue with Megace. (8) Hypomagnesemia: Replace 1 g IV. (9) Pancreatic insufficiency: Patient on chronic Creon with meals as needed (10) Goals of care, counseling/discussion: Plan Plan for Today: Continue close inpatient monitoring. She continues to have a lot of problems with hypoglycemic episodes. She has been on D5 at 50 mL an hour. This was switched to 75 mill/hour. Even with this change she continues to have hypoglycemic episodes. Initial concern is that the wounds on her legs may be becoming infected. I did speak with general surgery and these were explored further at the bedside. It was recommended that she be taken to the OR in the morning for wound debridement. At this time I will start IV antibiotics with vancomycin and Zosyn. General surgery not concerned at this time with necrotizing fasciitis and I agree. Wet-to-dry dressings. Magnesium is low. Last level show 1.5. We will replace and recheck in the morning. Her sodium has improved to 138. Her most recent glucose was 127. Her white blood cell count remains within normal range, currently at 7.9. Wound cultures were obtained and are pending. Blood cultures are still pending and negative today. Will check an LDH and lactic acid. Will repeat other a.m. labs.. Continue with other chronic home medications. Negative urine drug screen, alcohol level. Code Status: Full IVF: D5NS at 75 DVT PPx: Lovenox GI PPx: Protonix ABx: Vancomycin, Zosyn Diet: Regular Discharge plan: To be determined. Patient would benefit from placement in custodial. Attestations 2 Medical Necessity Statement*: Requires further hospitalization for management of traumatic pneumothorax requiring Thora vent, GI bleed requiring endoscopy and blood transfusion, cachexia in setting of chronic pancreatic deficiency from chronic pancreatitis. Coding Level of Care Code Acute Code for Chg Fwd Moderate MDM includes number and complexity of problems actively addressed during encounter, amount and/or complexity of data reviewed/ordered and described risk of complication, morbidity or mortality of management as documented Diagnoses Traumatic pneumothorax S27.0XXA Acute kidney injury N17.9 Iron deficiency anemia secondary to inadequate dietary iron intake D50.8 Anemia type: iron deficiency Iron deficiency anemia type: inadequate dietary iron intake Hypotension I95.9 Venous ulcers of both lower extremities I83.019; I83.029; L97.919; L97.929 Severe protein-calorie malnutrition E43 Failure to thrive in adult R62.7 Hypomagnesemia E83.42 Pancreatic insufficiency K86.89 Goals of care, counseling/discussion Z71.89
--- NOTE | 2024-07-27 17:50 | PC.NURSE ---
Dr. Ayoub and Dr. Joseph both notified of multiple episodes of asymptomatic hypoglycemia. Right lower leg wound noted to have foul-smelling drainage.
--- NOTE | 2024-07-27 17:52 | PC.NURSE ---
Dr. Ayoub notified of pt bouts of hypoglycemia and that pt has received max number of D10 infusions per protocol. Dr. Joseph notified of wounds to the right lower leg, foul-smelling drainage. Wounds assessed and redressed with both Dr. Joseph and Dr. Ayoub present. Dr. Joseph states that he is going to take pt to surgery for wound debridement tomorrow. He also states that he is going to leave in [facility] to right upper chest for this reason. Pt verbalizes to physicians and this RN that she has no further questions at this time.
[2024-07-27 17:56] LABS: Glucose Point of Care 99 mg/dL (70-110)
[2024-07-27] MEDS: magnesium sulfate premix 1 GM/100 ML PIGGYBACK IV (18:52)
[2024-07-27 20:24] LABS: Glucose Point of Care 113 mg/dL (70-110)
[2024-07-27] MEDS: piperacillin-tazobactam 3.375 GM in sodium chloride 0.9% (plus) 50 ML IV (20:38)
[2024-07-28] VITALS (23 sets, daily range): BP systolic 91–153; BP diastolic 67–100; PULSE 72–106; RESP 7–20; TEMP 36.3–37.8; O2SAT 93–100; BMI 19.1
[2024-07-28 00:14] LABS: Glucose Point of Care 99 mg/dL (70-110)
[2024-07-28 02:13] LABS: Glucose Point of Care 124 mg/dL (70-110)
[2024-07-28] MEDS: VANCOMYCIN ADD-Vantage 750 MG in 0.9% NaCl ADD-Vantage 250 ML 250 MG IV (03:39)
[2024-07-28 04:30] LABS: Glucose Point of Care 91 mg/dL (70-110)
[2024-07-28] MEDS: piperacillin-tazobactam 3.375 GM in sodium chloride 0.9% (plus) 50 ML IV ×2 (04:33→11:36)
[2024-07-28] MEDS: dextrose 5% + KCl 20 mEq 20 MEQ/1,000 ML BAG 75 MEQ IV (05:44)
[2024-07-28 06:14] LABS: Glucose Point of Care 72 mg/dL (70-110)
--- NOTE | 2024-07-28 06:16 | XRR_ITS ---
PROCEDURE INFORMATION: Exam: XR Chest Exam date and time: 07/28/2024 6:28 AM Age: 48 years old Clinical indication: Device placement; Chest tube; Additional info: Pneumothorax f/u TECHNIQUE: Imaging protocol: Radiologic exam of the chest. Views: 1 view. COMPARISON: CR XR chest 1V portable [id number] 07/27/2024 2:02 PM FINDINGS: Tubes, catheters and devices: The small right chest tube is in similar position. Lungs: Bilateral lower lobe compressive atelectasis. Pleural spaces: Bilateral pleural effusions. Near-complete resolution of the right pneumothorax with residual small apical 5 mm pneumothorax. Heart/Mediastinum: Unremarkable. No cardiomegaly. Bones/joints: Mild degenerative disease of bilateral acromioclavicular and bilateral glenohumeral joints. Organs: Post cholecystectomy. XR/XR chest 1V portable [id number] IMPRESSION: Near-complete resolution of the right pneumothorax with residual small apical 5 mm pneumothorax.
[2024-07-28] MEDS: dextrose 10% 250 ML 1000 ML IV (06:48)
--- NOTE | 2024-07-28 08:03 | P.HPUD_ITS ---
Surgery/Procedure H&P Update DATE OF PROCEDURE: July 28, 2024 DATE H&P PERFORMED: 07/27/24 H&P UPDATE INFORMATION: I have reviewed H&P completed within last 30 days, I have examined patient prior to procedure, No changes to prior documentation and H&P is in [facility] EMR on date indicated PREOP DIAGNOSIS: Concern for GI bleed PLANNED PROCEDURE: Operation Date: 07/25/24 13:45 Proposed Procedures p EGD(Not Applicable) - Castillo Montez DO s Colonoscopy(Not Applicable) - Castillo Montez DO Operation Date: 07/28/24 08:10 Proposed Procedures p Debridement(Right) - Rakesh Joseph MD
--- NOTE | 2024-07-28 08:38 | P.ANESUD_ITS ---
Pre-Anesthetic Update Pre-Anesthetic Assessment: Date of Surgery/Procedure: 07/28/24 Preop Yissel gnosis: Concern for GI bleed Proposed Procedure: Operation Date: 07/25/24 13:45 Proposed Procedures p EGD(Not Applicable) - Castillo Montez DO s Colonoscopy(Not Applicable) - Castillo Montez DO Operation Date: 07/28/24 08:10 Proposed Procedures p Debridement(Right) - Rakesh Joseph MD Any changes to Pre-Anesthetic Assessment?: No Last Intake: Intake Last Liquid Date 07/27/24 Last Solid Date 07/27/24 Last Solid Time 12:00 Labs Last 48hrs: Short CBC 07/27/24 Range/Units 05:25 WBC 7.92 (3.29-11.43) 10^ 3/uL Hgb 11.90 (11.27-16.99) g/ dL Hct 35.8 L (36-47) % MCV 89.1 (85-98) fl Plt Count 121 L (157-399) 10^3/c mm Neut % (Auto) 63.0 % Neut # (Auto) 4.99 (1.8-7.7) 10^3/u L BMP 07/27/24 05:25 Sodium 138 Potassium 4.1 Chloride 110 H Carbon Dioxide 17 L BUN 16 Creatinine 0.8 Glucose 73 Calcium 7.7 L Liver Function 07/27/24 Range/Units 05:25 Total Bilirubin 0.9 (0.15-1.2) mg/dL AST 16 (0-32) U/L ALT 16 (0-33) U/L Alkaline Phosphata se 63 (35-105) U/L Albumin 3.0 L (3.5-5.2) g/dL Coags 07/27/24 05:25 C-Reactive Protein 37.6 H Vitals: Temperature 100.0 F H 07/28/24 07:10 Temperature Source Temporal Artery S can 07/28/24 07:10 Pulse Rate 86 07/28/24 07:10 Pulse Rhythm Regular 07/26/24 08:00 Pulse Strength 2+ Slightly Dimin ished 07/27/24 20:00 Respiratory Rate 18 07/28/24 07:10 Respiratory Effort Spontaneous 07/26/24 09:47 Respiratory Depth Normal 07/26/24 09:47 Respiratory Patter n Normal 07/26/24 00:25 Blood Pressure 91/75 11/02/24 07:10 Blood Pressure Rosario n 80 07/28/24 07:10 Blood Pressure Pos ition Semi Fowlers 07/25/24 23:30 Pulse Oximetry 94 07/28/24 07:10 Oxygen Delivery Me thod Room Air 07/28/24 07:10 Oxygen Flow Rate 0 07/26/24 00:25 Sepsis Recent Feve r Within 48 Hours No 07/22/24 16:26 Exam: Pre-Anes Outpt Exam: alert, oriented x 3, clear to auscultation bilat erally and regular rate & rhythm Cardiac Studies: Echocardiogram 08/11/21
[2024-07-28] MEDS: vancomycin 1,000 MG SDV 1000 MG IRRIGATION (08:55)
--- NOTE | 2024-07-28 09:01 | P.OP_ITS ---
Operative Report Date of procedure: July 28, 2024 Pre-op diagnosis: Venous ulcerations of the right lower extremity Post-op diagnosis: Same Post-op findings: There were several wounds in the right lower extremity consistent with the possibility of venous ulcerations, the wounds were deroofed, all of them track down all the way to the fascia, the posterior wound had an underlying abscess behind the superficial eschar, cultures were taken. Wound measurements after debridement were: Anterolateral wound 6 x 4 x 1, anteromedial wounds 6 x 4 x 0.5 and 1 x 1 x 1, posterior wound 8 x 6 x 1 Procedure done: Debridement of multiple wounds of the right lower extremity to the level of the fascia. Specimens removed/disposition: Tissue for culture and wound cultures from the posterior wound abscess Surgeon: Rakesh Joseph MD Sludge Control Attendant: GABBY OR Staff Estimated blood loss: 10 Complications: non apparent Brief History: 48-year-old female with multiple medical comorbidities who presented to the hospital with weakness, pneumothorax and was noted to have right lower extremity ulcerations. After discussion with the patient and family members decided to proceed to the OR for debridement of those wounds. Procedure: Before return to the OR IN The lower abdomen and connected back to the Pleur- evac as the x-ray this morning shows reaccumulation of the pneumothorax. The patient was given general anesthesia with LMA, the right lower extremity was prepped and draped in usual sterile fashion. Timeout was conducted. I started the debridement of the anterolateral wound, superficial eschar was taken down with 15 blade, at this including evidence devitalized soft tissue that was bluntly debrided and then carefully debrided with the curette. The wound tracked all the way down to the fascia. Hemostasis was obtained. I then placed my attention on the anteromedial wounds, they were debrided in the same fashion with sharp debridement of the superficial scar and then blunt debridement of the A soft tissue followed by curettage of the remaining devitalized tissue to the level of the fascia. The posterior wound had a large scar, the scar was removed with a 15 blade and after removal of the scar and underlying abscess was noted, cultures were taken, the abscess was completely evacuated and the soft tissue was debrided with Metzenbaum scissors and curette. Hemostasis was obtained in all wounds and then proceeded to irrigate the wounds with about 2 L of saline mixed with vancomycin, after irrigation no additional devitalized tissue was noted, the wounds were packed with wet-to-dry and covered with a compressive dressing. At the end of the procedure all counts were correct, the patient tolerated well the procedure was transferred to the PACU in stable condition.
--- NOTE | 2024-07-28 09:40 | ANE.PACU2 ---
Inpatient post-anesthesia follow up: Airway intact: Yes Vital signs: Temperature 102.8 F Pulse Rate [Orthos tatic 105 Standing] Pulse Rate [Orthos tatic 91 Sitting] Pulse Rate [Orthos tatic Lying] 89 Pulse Rate 101 Respiratory Rate 8 Blood Pressure [Or thostatic 107/84 Standing] Blood Pressure [Or thostatic 100/89 Sitting] Blood Pressure [Or thostatic 95/79 Lying] Blood Pressure 92/65 Pulse Oximetry 94 Oxygen Delivery Me thod Room Air Oxygen Flow Rate 0 Fraction of Inspir ed Oxygen Hydration adequate: Yes Nausea and vomiting: No Pain level: 1 Mental status: Baseline
--- NOTE | 2024-07-28 09:57 | P.PN_ITS ---
Subjective 2 Subjective: doing ok overnight, no significant respiratory distress at the moment of evaluation. continues to have episodes of hypoglycemia that are being managed with IV dextrose pushes. Vitals/I&O/Wt Last Vital Signs Temp 98.9 F 07/28/24 09:36 Pulse 92 07/28/24 09:36 Resp 14 07/28/24 09:36 BP 116/93 07/28/24 09:36 Pulse Ox 96 07/28/24 09:36 O2 Del Method Room Air 07/28/24 09:36 O2 Flow Rate 0 07/26/24 00:25 07/27/24 07/28/24 07/28/24 22:59 06:59 14:59 Intake Total 1496.667 / 0030.195 3522.75 / 3062.917 100 / 100 Output Total 0 / 0 5 / 5 Balance 1496.667 / 3137.668 2334.75 / 3062.917 95 / 95 Weight last 48 hrs Weight 115 lb 4 oz Weight 121 lb 5 oz Physical Exam 2 Resp: OTHER: thoravent in place. Data 07/27/24 05:25 07/27/24 05:25 Micro: Microbiology 07/22/24 17:46 Blood Culture - Final Blood NO GROWTH AFTER 5 DAYS 07/22/24 17:42 Blood Culture - Final Blood NO GROWTH AFTER 5 DAYS A&P Assessment and plan (1) Severe protein-calorie malnutrition: (2) Pneumothorax: Qualifiers: Pneumothorax type: spontaneous, primary Qualified Code(s): J93.11 - Primary spontaneous pneumothorax Plan 48 y/o F with multiple comorbidities including severe malnutrition who was admitted with weakness and a right pneumothorax in the setting of a recent fall and imaging evidence of a pleural bleb. she was also found to have right lower extremity ulcerations. I have evaluated the patient during the last [address] mario is currentlly out of town. per his report the weaning of the thoravent had failed several times. yesterday I clampped the pleurevac and xray showed almost complete resolution of pnuemothorax. the thoravent was then occluded with the provided cap overnight on anticipation for possible removal today. this morning Xray showed evidence of re-accumulation of the apical pneumo measuring 5mm. thoravent was uncapped and tidaling of the membrane was noted. the thoravent was placed to pleurevac water seal, no additional air leak was appreciated. at this time patient have failed several attempts of weaning off thoravent, while reaccumulation of pneumothorax appears to be slow, her clinical condition and lack of pulmonary reserve put her at risk of sudden decompensation in the case of re-accumulation of the pneumothorax. after discussion with medical tem and taking in consideration CT showing evidence of primary lung pathology, we have decided that patient will likely benefit from transfer to higher level of care for broncopulmonary evalution. regarding wounds on the right lower extremity, daily wound care will be required, patient is at high risk for eventual need for amputation due to malnurition and severity of the wounds. this was discussed with patient and family Attestations 2 Medical Necessity Statement*: per primary team Coding Level of Care Code Acute Code for Chg Fwd Diagnoses Severe protein-calorie malnutrition E43 Pneumothorax J93.11 Pneumothorax type: spontaneous, primary
--- NOTE | 2024-07-28 10:05 | PC.NURSE ---
0950 - Eve at bedside to accept pt on bed surg floor - pt alert and oriented with at side - right chest wall with vent to pleura vac/gravity per Dr Joseph - right leg dressing c/d/i - Blood pressure 105/77 - pulse 95 - 02 93% room air - temp 98.3 - Eve to assume care from this point - no distress noted to pt - warm blankets provided to pt departing pacu as well as arriving to floor
[2024-07-28 10:47] LABS: Glucose Point of Care 62 mg/dL (70-110)
[2024-07-28 10:47] LABS: Glucose Point of Care 74 mg/dL (70-110)
[2024-07-28] MEDS: lipase-protease-amylase Capsule 2 EACH PO (11:32)
[2024-07-28] MEDS: levothyroxine 100 mcg Tablet PO (11:32)
[2024-07-28] MEDS: pantoprazole 40 mg SDV IVP ×2 (11:32→20:53)
[2024-07-28] MEDS: linezolid 600 mg Tablet PO (11:32)
[2024-07-28] MEDS: thiamine 100 mg Tablet PO (11:33)
[2024-07-28] MEDS: predniSONE 10 mg Tablet PO (11:33)
[2024-07-28] MEDS: buPROPion XL (24 HR) 300 mg Tablet PO (11:33)
[2024-07-28] MEDS: megestrol 400 mg/10 mL UDC PO (11:34)
[2024-07-28] MEDS: buprenorphine-naloxone 4-1 mg Film 2 EACH SUBLINGUAL (11:34)
[2024-07-28] MEDS: midodrine 5 mg TABLET PO (11:34)
[2024-07-28] MEDS: folic acid 1 mg Tablet PO (11:34)
[2024-07-28] MEDS: sucralfate 1 gm/10 mL Oral Liq UDC PO (11:34)
[2024-07-28] MEDS: neomycin-poly-bacitracin oint 28 gm 1 APPLIC TOPICAL (11:36)
--- NOTE | 2024-07-28 12:24 | PC.NURSE ---
Notified Dr. Bianchi patients blood sugar of 64. New orders to give 1 mg IVP Glucagon.
[2024-07-28 12:31] LABS: Glucose Point of Care 64 mg/dL (70-110)
[2024-07-28] MEDS: glucagon 1 mg/mL KIT 1 mL SUBCUT (12:50)
[2024-07-28 14:08] LABS: Glucose Point of Care 142 mg/dL (70-110)
[2024-07-28] MEDS: morphine 4 mg/mL SDV 1 mL IVP ×4 (14:15→20:31)
--- NOTE | 2024-07-28 15:15 | P.PN_ITS ---
Subjective 2 Subjective: Hospital course, labs appreciated. Patient underwent debridement of venous ulceration of right lower limb today. Continues to have right-sided Thora vent in place. Today morning prior to the OR she had to placed back on suction because of reaccumulation of pneumothorax seen on chest x-ray. [facility] bedside. Patient is laying comfortably in bed, covered in multiple blankets is complaining of feeling cold, remains on room air, severely sick appearing. Medications: Reviewed: Yes Vitals/I&O/Wt Last Vital Signs Temp 98.8 F 07/28/24 14:52 Pulse 90 07/28/24 14:52 Resp 12 07/28/24 14:52 BP 112/100 07/28/24 14:52 Pulse Ox 98 07/28/24 14:52 O2 Del Method Room Air 07/28/24 14:52 O2 Flow Rate 0 07/26/24 00:25 07/28/24 07/28/24 07/28/24 06:59 14:59 22:59 Intake Total 1358.75 / 3062.917 410 / 410 Output Total 5 / 5 Balance 1358.75 / 3062.917 405 / 405 Weight last 48 hrs Weight 52.277 kg Weight 55.026 kg Physical Exam 2 Narrative: General: Patient is awake. Frail and cachectic appearing. Pleasant and conversational., Ill-appearing, cachectic Head: Temporal wasting present. Atraumatic. EOM intact. Neck: No JVD. Cardiovascular: RRR. No gallops. No murmurs. 1-2+ pitting edema in bilateral lower extremities. Lungs: Breath sounds are slightly diminished across right lung. There is a Thora vent on anterior right chest. Conversational dyspnea is present. No wheezing or crackles. Skin: No jaundice. Multiple ulcers on bilateral lower ankles appearing to be venous insufficiency ulcers. There is some associated erythema slight warmth around the ulcers. Abdomen: Normal bowel sounds, abdomen soft and nontender. Genito Urinary: Genital exam not performed since complaints not related. Extremities: No cyanosis or clubbing. Musculoskeletal: No swollen or erythematous joints. Neurological: Moves all 4 extremities. No myoclonus. Data 07/27/24 05:25 07/27/24 05:25 Micro: Microbiology 07/27/24 13:30 Wound Culture - Preliminary Leg - Wound Gram Negative Rods 07/22/24 17:46 Blood Culture - Final Blood NO GROWTH AFTER 5 DAYS 07/22/24 17:42 Blood Culture - Final Blood NO GROWTH AFTER 5 DAYS A&P Assessment and plan (1) Traumatic pneumothorax: Right-sided primary traumatic pneumothorax. Patient fell 2 days ago. Status post Thora vent placement by ED provider on 07/22. Have failed de-escalation of Thora vent over last 48 hours. Plan to turn over to waterseal again today. Repeat chest x-ray in few hours. Follow-up surgical recommendations regarding management of Thora vent. In discussions with trapper bird at [facility] given the concerns for traumatic pneumothorax if patient fails weaning off chest tube and not able to remove chest tube in 72 hours patient will possibly need a pulmonary eval for possible bronchopulmonary valve for slow healing. Had communicated the same to the surgical team. Daily chest x-ray Analgesics as needed Supplemental oxygen support. Appreciate CT chest results. (2) Venous ulcers of both lower extremities: Venous ulcers of bilateral lower extremities Appreciate inflammatory markers (3) Acute kidney injury: AIYANA on CKD. Baseline creatinine recently has been ranging from 1.2-1.4. Creatinine down to baseline. Resolution of hyperkalemia and improvement in acidosis. Patient does have hypernatremia today. Switch fluid to D5W. Continue at 75 cc/h. Hold off on albumin as it has improved to 3.5. Strict I's and O's Daily weights (4) Anemia: Acute on chronic. Post monitor blood transfusion. Overall posttreatment of blood transfusion. Hemoglobin at 10 today. Plan for EGD and colonoscopy today. No episodes of melena or hematemesis. Protonix 40 mg every 12 hours, Carafate ACHS. Qualifiers: Anemia type: iron deficiency Iron deficiency anemia type: inadequate dietary iron intake Qualified Code(s): D50.8 - Other iron deficiency anemias (5) Hypotension: Maintain mean arterial pressure over 65. Blood pressure stable today. Appreciate stable hemoglobin and albumin levels. Continue with midodrine 5 mg 3 times a day. (6) Severe protein-calorie malnutrition: Continue home appetite stimulants formulary Discussed detail with patient and spouse at bedside. Has been worsening. Dietary consultation. Patient not able to maintain oral intake because of nausea from pancreatitis. Restart Zenpep. Start on Megace daily. Goals of creatinine discussed detail with patient and spouse at bedside. Patient would want to remain full code and aggressive management for improvement. Discussed in detail with patient and spouse at bedside that if patient's appetite does not improve with Megace patient would possibly need PEG tube placement. (7) Failure to thrive in adult: Treat underlying pneumothorax Address underlying malnutrition. Continue with Megace. (8) Hypomagnesemia: Replace 1 g IV. (9) Pancreatic insufficiency: Patient on chronic Creon with meals as needed (10) Goals of care, counseling/discussion: (11) Hypoglycemia: Plan Plan for Today: 07/28: Patient continues to have reaccumulation of pneumothorax while placed on waterseal yesterday. Chest x-ray prior to the OR showed reaccumulation and she was placed back on suction by surgical team. Underwent debridement. Concern for abscess under the ulcer. Culture sent. Patient has been on IV antibiotics including vancomycin and Zosyn. Vancomycin was changed to linezolid for antitoxin effect early in the morning. Patient continued to have episodes of hypoglycemia. Patient had remained on D5. Plan was to transition her to TPN today given severe malnourishment with poor oral intake. Blood pressures have remained stable. Continued on midodrine 5 mg 3 times daily. Given recurrent hypoglycemia she was also started on prednisone 10 mg oral daily with concerns for adrenal insufficiency in setting of severe malnourishment. Patient continues to be severely malnourished with a BMI of 19, anemia, hypoalbuminemia present on admission. Patient continues to have poor oral intake in setting of chronic pancreatic insufficiency. Given all of the above patient does have guarded prognosis with high likelihood of failure of treatment, possible amputation because of poor healing from malnourishment, need for transfer to a tertiary center given reaccumulation of pneumothorax while being on Thora vent for traumatic pneumothorax over last 5 days as per conversation with trapper bird at an outside facility. The above was discussed in detail with surgical team and they were agreeable for possible transfer. Further goals of care discussions were done with patient and patient's at bedside. Options discussed were #1. Starting of TPN for better management, continued IV antibiotics, possible transfer to a higher center for pulmonary eval with concerns for need for bronchoscopy for possible bronchopulmonary valve. We also discussed patient does have a higher risk of, failure to treatment given severe malnourishment. Did discuss she would possibly need a prolonged hospitalization for gradual improvement if she does. #2. Other option discussed was possible transition to hospice given significant morbidity and significant malnourishment. at first decided to transition patient to DNR/DNI and was agreeable for possible transfer to a higher center. PICC line orders were placed and TPN was ordered. Later in the day received a call from floor nurse as patient wants to discuss further goals of care. Discussed in detail with patient's again. He states he had discussed with his /patient and wants to go ahead to set up hospice. We did discuss hospice would mean concentrating more on patient's comfort, discontinuing of antibiotics and if and when patient gets sick again plan will be to continue concentrating on comfort while nature takes its course which would even be patient's . verbalizes understanding and is agreeable. Hospice orders placed. Hold off on IV antibiotics, IV fluids. Continue with Protonix. Discontinue Carafate. Continue with Megace. Pleasure feeds. Continue with oral prednisone. Discontinue midodrine. Vital check as per protocol. No further blood work. Will alert case management for hospice care set up. Code Status: Full IVF: D5NS at 75 DVT PPx: Lovenox GI PPx: Protonix ABx: Vancomycin, Zosyn Diet: Regular Discharge plan: To be determined. Patient would benefit from placement in longterm. Attestations 2 Medical Necessity Statement*: Requires further hospitalization while hospice is set up in a patient who was admitted for traumatic pneumothorax with concerns for rupture of pleural cyst currently on Thora vent, severe malnourishment, anemia requiring blood transfusion endoscopy, multiple venous ulcer post debridement with concerns for abscess Diagnoses Traumatic pneumothorax S27.0XXA Venous ulcers of both lower extremities I83.019; I83.029; L97.919; L97.929 Acute kidney injury N17.9 Iron deficiency anemia secondary to inadequate dietary iron intake D50.8 Anemia type: iron deficiency Iron deficiency anemia type: inadequate dietary iron intake Hypotension I95.9 Severe protein-calorie malnutrition E43 Failure to thrive in adult R62.7 Hypomagnesemia E83.42 Pancreatic insufficiency K86.89 Goals of care, counseling/discussion Z71.89 Hypoglycemia E16.2
[2024-07-28 16:17] LABS: Glucose Point of Care 117 mg/dL (70-110)
--- NOTE | 2024-07-28 17:24 | PC.NURSE ---
Notified Dr. Bianchi patient refusing all oral medication. Dr. Bianchi gave verbal orders to discontinue oral medications.
[2024-07-28] MEDS: blistex lip oint 7 gm Tube 1 APPLIC TOPICAL (17:54)
[2024-07-28 18:40] LABS: Glucose Point of Care 144 mg/dL (70-110)
[2024-07-28] MEDS: LORazepam 2 mg/mL INJ 1 mL IVP (20:32)
[2024-07-28 20:48] LABS: Glucose Point of Care 128 mg/dL (70-110)
[2024-07-28 22:34] LABS: Glucose Point of Care 101 mg/dL (70-110)
[2024-07-29] VITALS (11 sets, daily range): BP systolic 102–107; BP diastolic 77–82; PULSE 80–104; RESP 10–16; TEMP 36.9–38.4; O2SAT 94–98
[2024-07-29 00:31] LABS: Glucose Point of Care 96 mg/dL (70-110)
[2024-07-29 02:12] LABS: Glucose Point of Care 80 mg/dL (70-110)
[2024-07-29] MEDS: acetaminophen 650 mg Supp PR (03:51)
--- NOTE | 2024-07-29 04:00 | XRR_ITS ---
PROCEDURE INFORMATION: Exam: XR Chest Exam date and time: 07/29/2024 11:14 AM Age: 48 years old Clinical indication: Condition or disease; Lung condition and disease; Pneumothorax; Additional info: Pneumo TECHNIQUE: Imaging protocol: Radiologic exam of the chest. Views: 1 view. COMPARISON: CR (CHEST, ) 07/28/2024 6:28 AM FINDINGS: Tubes, catheters and devices: Interval removal of the right chest tube. Lungs: Bilateral lower lobe consolidation/collapse. Pleural spaces: There is a residual right apical pneumothorax measuring 3 cm. Bilateral pleural effusions. Heart/Mediastinum: Unremarkable. No cardiomegaly. Bones/joints: Mild degenerative disease of bilateral acromioclavicular joints. XR/XR chest 1V portable [id number] IMPRESSION: Post removal of small right chest tube with residual right apical pneumothorax measuring 3 cm.
[2024-07-29 04:47] LABS: Glucose Point of Care 78 mg/dL (70-110)
[2024-07-29] MEDS: D5-NS 0.45% + KCL 20 mEq 20 MEQ/1,000 ML BAG 50 MEQ IV (06:11)
[2024-07-29 06:37] LABS: Glucose Point of Care 74 mg/dL (70-110)
[2024-07-29] MEDS: morphine 4 mg/mL SDV 1 mL IVP ×4 (08:04→14:16)
[2024-07-29 08:33] LABS: Glucose Point of Care 100 mg/dL (70-110)
--- NOTE | 2024-07-29 08:43 | P.PN_ITS ---
Subjective 2 Subjective: In the last 24 hours patient has been transition to comfort care, her clinical status appears to have worsened and she appears weaker. Vitals/I&O/Wt Last Vital Signs Temp 98.7 F 07/29/24 04:00 Pulse 97 07/29/24 08:00 Resp 16 07/29/24 08:04 BP 102/82 07/29/24 00:00 Pulse Ox 97 07/29/24 08:00 O2 Del Method Room Air 07/29/24 08:00 O2 Flow Rate 0 07/26/24 00:25 07/28/24 07/29/24 07/29/24 23:59 06:59 14:59 Intake Total Output Total Balance Weight last 48 hrs Weight 115 lb 4 oz Physical Exam 2 Chest: OTHER: Prevent in place, no evidence of dilating of the membrane, decided to proceed with removal that was done successfully and placed was covered with Tegaderm. Extremity: OTHER: Right lower extremity wounds were evaluated, no evidence of persistent drainage of purulence wounds appear healthy wet-to-dry dressing applied. Urinary Catheter Management: Vega: Cath Placed During This Visit: yes Reason for Continuing Indwelling Catheter: Hospice/Comfort/Palliative Care Urinary Catheter Date of Insertion: 07/28/24 Urinary Catheter Time of Insertion: 16:42 Data 07/27/24 05:25 07/27/24 05:25 Micro: Microbiology 07/28/24 08:43 Gram Stain - Final Leg - Wound 07/27/24 13:30 Wound Culture - Preliminary Leg - Wound Gram Negative Rods A&P Assessment and plan (1) Goals of care, counseling/discussion: (2) Severe protein-calorie malnutrition: (3) Traumatic pneumothorax: (4) Pneumothorax: Qualifiers: Pneumothorax type: spontaneous, primary Qualified Code(s): J93.11 - Primary spontaneous pneumothorax (5) Venous ulcers of both lower extremities: Plan Patient is being transferred to comfort care/hospice. Thora vent was removed today. Lower extremity wounds are stable, from now on once a day wet-to-dry dressing change can be done by nursing staff. No additional interventions planned from the surgical standpoint. General surgery will remain available as needed. Attestations 2 Medical Necessity Statement*: Per medical team Coding Level of Care Code Acute Code for Chg Fwd Diagnoses Goals of care, counseling/discussion Z71.89 Severe protein-calorie malnutrition E43 Traumatic pneumothorax S27.0XXA Pneumothorax J93.11 Pneumothorax type: spontaneous, primary Venous ulcers of both lower extremities I83.019; I83.029; L97.919; L97.929
[2024-07-29 10:24] LABS: Glucose Point of Care 98 mg/dL (70-110)
--- NOTE | 2024-07-29 12:43 | P.MISC_ITS ---
Miscellaneous Note Purpose of Documentation: Update on patient care Note: X-ray examination after removal of chest tube shows evidence of apparent increase in the size of the pneumothorax, now measuring about 3 cm. I had extensive discussion with the family member and the patient, I have informed her that at this point I think probably there is a high likelihood of reaccumulation of the pneumothorax or over the next 12 to 24 hours. Have explained that the o nly option that I can offer them is to do the new chest tube to allow for evacuation of the pneumothorax, I have explained that this will not fix the primary pathology, I have explained that the outcome of the patient will still be the same but we might be able to prolong her life to live with continuous drainage of the pneumothorax. After extensive discussion patient and family member have decided that the best option is just to keep her comfortable rather than proceeding with any additional invasive procedures. I think this is appropriate due to her medical condition, no additional interventions are expected but general surgery remains available. No additional x-rays of the chest will be obtained at this point.
--- NOTE | 2024-07-29 14:48 | PM.PN ---
Subjective Subjective: No acute events overnight. Seen with caregiver at bedside. Patient laying comfortably in bed. No acute distress. Patient refusing oral medications. Medications: Reviewed: Yes Vitals/I&O/Wt Last Vital Signs Temp 98.4 F 07/29/24 12:00 Pulse 84 07/29/24 12:00 Resp 14 07/29/24 14:16 BP 107/77 07/29/24 12:00 Pulse Ox 98 07/29/24 12:00 O2 Del Method Room Air 07/29/24 12:00 O2 Flow Rate 0 07/26/24 00:25 07/28/24 07/29/24 07/29/24 23:59 06:59 14:59 Intake Total Output Total 50 / 50 Balance -50 / -50 Weight last 48 hrs Weight 52.277 kg Physical Exam Narrative: Appears comfortable. Laying comfortably in bed. Urinary Catheter Management: Vega: Cath Placed During This Visit: yes Reason for Continuing Indwelling Catheter: Hospice/Comfort/Palliative Care Urinary Catheter Date of Insertion: 07/28/24 Urinary Catheter Time of Insertion: 16:42 Data 07/27/24 05:25 07/27/24 05:25 Micro: Microbiology 07/28/24 08:43 Gram Stain - Final Leg - Wound Wound Culture - Preliminary Strep agalactiae - (group b) 07/28/24 08:43 Anaerobic Culture - Preliminary Leg - Right 07/27/24 13:30 Wound Culture - Preliminary Leg - Wound Gram Negative Rods A&P Assessment and plan (1) Traumatic pneumothorax: Right-sided primary traumatic pneumothorax. Patient fell 2 days ago. Status post Thora vent placement by ED provider on 07/22. Have failed de-escalation of Thora vent over last 48 hours. Plan to turn over to waterseal again today. Repeat chest x-ray in few hours. Follow-up surgical recommendations regarding management of Thora vent. In discussions with him specialist at [facility] given the concerns for traumatic pneumothorax if patient fails weaning off chest tube and not able to remove chest tube in 72 hours patient will possibly need a pulmonary eval for possible bronchopulmonary valve for slow healing. Had communicated the same to the surgical team. Daily chest x-ray Analgesics as needed Supplemental oxygen support. Appreciate CT chest results. (2) Venous ulcers of both lower extremities: Venous ulcers of bilateral lower extremities Appreciate inflammatory markers (3) Acute kidney injury: AIYANA on CKD. Baseline creatinine recently has been ranging from 1.2-1.4. Creatinine down to baseline. Resolution of hyperkalemia and improvement in acidosis. Patient does have hypernatremia today. Switch fluid to D5W. Continue at 75 cc/h. Hold off on albumin as it has improved to 3.5. Strict I's and O's Daily weights (4) Anemia: Acute on chronic. Post monitor blood transfusion. Overall posttreatment of blood transfusion. Hemoglobin at 10 today. Plan for EGD and colonoscopy today. No episodes of melena or hematemesis. Protonix 40 mg every 12 hours, Carafate ACHS. Qualifiers: Anemia type: iron deficiency Iron deficiency anemia type: inadequate dietary iron intake Qualified Code(s): D50.8 - Other iron deficiency anemias (5) Hypotension: Maintain mean arterial pressure over 65. Blood pressure stable today. Appreciate stable hemoglobin and albumin levels. Continue with midodrine 5 mg 3 times a day. (6) Severe protein-calorie malnutrition: Continue home appetite stimulants formulary Discussed detail with patient and spouse at bedside. Has been worsening. Dietary consultation. Patient not able to maintain oral intake because of nausea from pancreatitis. Restart Zenpep. Start on Megace daily. Goals of creatinine discussed detail with patient and spouse at bedside. Patient would want to remain full code and aggressive management for improvement. Discussed in detail with patient and spouse at bedside that if patient's appetite does not improve with Megace patient would possibly need PEG tube placement. (7) Failure to thrive in adult: Treat underlying pneumothorax Address underlying malnutrition. Continue with Megace. (8) Hypomagnesemia: Replace 1 g IV. (9) Pancreatic insufficiency: Patient on chronic Creon with meals as needed (10) Goals of care, counseling/discussion: (11) Hypoglycemia: Plan Plan for Today: 07/28: Patient continues to have reaccumulation of pneumothorax while placed on waterseal yesterday. Chest x-ray prior to the OR showed reaccumulation and she was placed back on suction by surgical team. Underwent debridement. Concern for abscess under the ulcer. Culture sent. Patient has been on IV antibiotics including vancomycin and Zosyn. Vancomycin was changed to linezolid for antitoxin effect early in the morning. Patient continued to have episodes of hypoglycemia. Patient had remained on D5. Plan was to transition her to TPN today given severe malnourishment with poor oral intake. Blood pressures have remained stable. Continued on midodrine 5 mg 3 times daily. Given recurrent hypoglycemia she was also started on prednisone 10 mg oral daily with concerns for adrenal insufficiency in setting of severe malnourishment. Patient continues to be severely malnourished with a BMI of 19, anemia, hypoalbuminemia present on admission. Patient continues to have poor oral intake in setting of chronic pancreatic insufficiency. Given all of the above patient does have guarded prognosis with high likelihood of failure of treatment, possible amputation because of poor healing from malnourishment, need for transfer to a tertiary center given reaccumulation of pneumothorax while being on Thora vent for traumatic pneumothorax over last 5 days as per conversation with him specialist at an outside facility. The above was discussed in detail with surgical team and they were agreeable for possible transfer. Further goals of care discussions were done with patient and patient's at bedside. Options discussed were #1. Starting of TPN for better management, continued IV antibiotics, possible transfer to a higher center for pulmonary eval with concerns for need for bronchoscopy for possible bronchopulmonary valve. We also discussed patient does have a higher risk of, failure to treatment given severe malnourishment. Did discuss she would possibly need a prolonged hospitalization for gradual improvement if she does. #2. Other option discussed was possible transition to hospice given significant morbidity and significant malnourishment. at first decided to transition patient to DNR/DNI and was agreeable for possible transfer to a higher center. PICC line orders were placed and TPN was ordered. Later in the day received a call from floor nurse as patient wants to discuss further goals of care. Discussed in detail with patient's again. He states he had discussed with his /patient and wants to go ahead to set up hospice. We did discuss hospice would mean concentrating more on patient's comfort, discontinuing of antibiotics and if and when patient gets sick again plan will be to continue concentrating on comfort while nature takes its course which would even be patient's . verbalizes understanding and is agreeable. Hospice orders placed. Hold off on IV antibiotics, IV fluids. Continue with Protonix. Discontinue Carafate. Continue with Megace. Pleasure feeds. Continue with oral prednisone. Discontinue midodrine. Vital check as per protocol. No further blood work. Will alert case management for hospice care set up. Plan for the day: Continue with comfort care. Stop IV fluids. No further blood sugar check. Otovent removed today. Repeat chest x-ray showed reconditioning pneumothorax. As per discussion between the surgeon patient's caregiver they want to hold off on any further intervention or repeat Thora vent. Code Status: Comfort care IVF: None DVT PPx: None GI PPx: Protonix ABx: None Diet: Pleasure Discharge plan: Hospice Attestations Medical Necessity Statement*: Requires further hospitalization while comfort care/hospice is set up as an outpatient and patient originally admitted for traumatic pneumothorax, anemia requiring blood transfusion, endoscopy, lower limb venous ulcer with abscess, severe protein energy malnutrition Diagnoses Traumatic pneumothorax S27.0XXA Venous ulcers of both lower extremities I83.019; I83.029; L97.919; L97.929 Acute kidney injury N17.9 Iron deficiency anemia secondary to inadequate dietary iron intake D50.8 Anemia type: iron deficiency Iron deficiency anemia type: inadequate dietary iron intake Hypotension I95.9 Severe protein-calorie malnutrition E43 Failure to thrive in adult R62.7 Hypomagnesemia E83.42 Pancreatic insufficiency K86.89 Goals of care, counseling/discussion Z71.89 Hypoglycemia E16.2
[2024-07-29] MEDS: LORazepam 2 mg/mL INJ 1 mL IVP (16:02)
[2024-07-30] VITALS: BP 86/69; PULSE 87; RESP 12; TEMP 37.4; O2SAT 95
[2024-07-30 05:46] LABS: Glucose Point of Care 100 mg/dL (70-110)
[2024-07-30 10:00] VITALS: BP 92/65; PULSE 101; PULSE 89; RESP 14; RESP 8; TEMP 39.3; O2SAT 94; O2SAT 95
[2024-07-30 13:05] LABS: Albumin,Urine Random 23 %; Alpha-1-Globulins Urine Random 13 %; Alpha-2-Globulins Urine Random 13 %; Beta-Globulin,Urine Random 26 %; Gamma Globulin,Urine Random 25 %
[2024-07-30] MEDS: morphine 10 mg/0.5 mL oral liq UD SUBLINGUAL (13:55)
[2024-07-30 14:00] VITALS: PULSE 97
--- NOTE | 2024-07-30 17:52 | P.PN_ITS ---
Subjective 2 Subjective: Unresponsive. Does not appear in distress or discomfort. Vitals/I&O/Wt Last Vital Signs Temp 102.8 F H 07/30/24 10:00 Pulse 97 07/30/24 14:00 Resp 8 L 07/30/24 10:00 BP 92/65 07/30/24 10:00 Pulse Ox 94 07/30/24 10:00 O2 Del Method Room Air 07/30/24 10:00 O2 Flow Rate 0 07/26/24 00:25 07/30/24 07/30/24 07/30/24 06:59 14:59 22:59 Output Total 500 / 550 250 / 250 Balance -500 / 450 -250 / -250 Weight last 48 hrs Weight 54.295 kg Physical Exam 2 Narrative: Obtunded, unresponsive. Not in distress. Accompanied by family. Urinary Catheter Management: Vega: Cath Placed During This Visit: yes Reason for Continuing Indwelling Catheter: Hospice/Comfort/Palliative Care Urinary Catheter Date of Insertion: 07/28/24 Urinary Catheter Time of Insertion: 16:42 Data 07/27/24 05:25 07/27/24 05:25 Micro: Microbiology 07/27/24 13:30 Wound Culture - Final Leg - Wound Escherichia coli Staphylococcus aureus 07/28/24 08:43 Anaerobic Culture - Preliminary Leg - Right 07/28/24 08:43 Gram Stain - Final Leg - Wound Wound Culture - Preliminary Strep agalactiae - (group b) A&P Assessment and plan (1) End of life care: She is obtunded, unresponsive, does not appear in discomfort or distress. Continue end-of-life comfort measures include as needed IV morphine for any pain, IV Ativan for any anxiety. Discussed with nursing, case management. aquatic centre manager will further revisit with family regarding consideration/options of continuing end-of-life acute versus at home. (2) Traumatic pneumothorax: Right-sided primary traumatic pneumothorax. Patient fell 2 days ago. Status post Thora vent placement by ED provider on 07/22. Have failed de-escalation of Thora vent (3) Venous ulcers of both lower extremities: Venous ulcers of bilateral lower extremities (4) Acute kidney injury: AIYANA on CKD. (5) Anemia: Acute on chronic. Post monitor blood transfusion. Qualifiers: Anemia type: iron deficiency Iron deficiency anemia type: inadequate dietary iron intake Qualified Code(s): D50.8 - Other iron deficiency anemias (6) Hypotension: (7) Severe protein-calorie malnutrition: (8) Failure to thrive in adult: (9) Hypomagnesemia: (10) Pancreatic insufficiency: (11) Goals of care, counseling/discussion: (12) Hypoglycemia: Plan Continues to have reaccumulation of pneumothorax Underwent debridement. Concern for abscess under the ulcer. Continued to have episodes of hypoglycemia. Patient continues to be severely malnourished with a BMI of 19, anemia, hypoalbuminemia present on admission. Patient continues to have poor oral intake in setting of chronic pancreatic insufficiency. Code Status: Comfort care IVF: None DVT PPx: None GI PPx: Protonix ABx: None Diet: Pleasure Discharge plan: Hospice Attestations 2 Medical Necessity Statement*: Continue end-of-life care. Consideration of options of continuation of care versus with return home. , Moderate MDM includes amount and/or complexity of data reviewed/ordered [ other healthcare professional discussion] as documented and High MDM includes described risk of complication, morbidity or mortality of management as documented Diagnoses End of life care Z51.5 Traumatic pneumothorax S27.0XXA Venous ulcers of both lower extremities I83.019; I83.029; L97.919; L97.929 Acute kidney injury N17.9 Iron deficiency anemia secondary to inadequate dietary iron intake D50.8 Anemia type: iron deficiency Iron deficiency anemia type: inadequate dietary iron intake Hypotension I95.9 Severe protein-calorie malnutrition E43 Failure to thrive in adult R62.7 Hypomagnesemia E83.42 Pancreatic insufficiency K86.89 Goals of care, counseling/discussion Z71.89 Hypoglycemia E16.2
[2024-07-30 19:53] VITALS: TEMP 37.3
[2024-07-30 20:07] VITALS: RESP 14
[2024-07-30] MEDS: morphine 4 mg/mL SDV 1 mL IVP (20:07)
[2024-07-30 21:12] VITALS: PULSE 90
[2024-07-31 05:13] VITALS: PULSE 76
[2024-07-31 07:34] VITALS: PULSE 77; RESP 14; TEMP 36.7; O2SAT 98
--- NOTE | 2024-07-31 07:37 | P.PN_ITS ---
Subjective 2 Subjective: Resting comfortably in bed, awaiting transition to hospice. Vitals/I&O/Wt Last Vital Signs Temp 98.0 F 07/31/24 07:34 Pulse 77 07/31/24 07:34 Resp 14 07/31/24 07:34 BP 92/65 07/30/24 10:00 Pulse Ox 98 07/31/24 07:34 O2 Del Method Room Air 07/31/24 07:34 O2 Flow Rate 0 07/26/24 00:25 07/30/24 07/31/24 07/31/24 22:59 06:59 14:59 Intake Total 0 / 0 Output Total 100 / 350 Balance -100 / -350 Weight last 48 hrs Weight 114 lb 8 oz Weight 119 lb 11.2 oz Physical Exam 2 Chest: OTHER: Upper right chest wound is covered with dressing, right lower extremity wound covered with dressing Urinary Catheter Management: Vega: Cath Placed During This Visit: yes Reason for Continuing Indwelling Catheter: Hospice/Comfort/Palliative Care Urinary Catheter Date of Insertion: 07/28/24 Urinary Catheter Time of Insertion: 16:42 Data 07/27/24 05:25 07/27/24 05:25 Micro: Microbiology 07/27/24 13:30 Wound Culture - Final Leg - Wound Escherichia coli Staphylococcus aureus 07/28/24 08:43 Anaerobic Culture - Preliminary Leg - Right A&P Assessment and plan (1) End of life care: Plan Patient has been transition to hospice, currently resting comfortably, we will continue wound care by nursing staff until transition to hospice. No further intervention is indicated from the surgical standpoint. General surgery signs off at this point. Attestations 2 Medical Necessity Statement*: Per medical team Coding Level of Care Code Acute Code for Chg Fwd Diagnoses End of life care Z51.5
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
[2024-07-31 14:00] VITALS: PULSE 78
[2024-07-31] MEDS: morphine 10 mg/0.5 mL oral liq UD SUBLINGUAL ×2 (14:35→21:54)
[2024-07-31 16:54] LABS: Vitamin B12 854 pg/mL (232-1245)
[2024-07-31 22:00] VITALS: PULSE 81
[2024-08-01] MEDS: morphine 10 mg/0.5 mL oral liq UD SUBLINGUAL ×3 (04:55→10:48)
[2024-08-01 05:51] VITALS: PULSE 104
[2024-08-01 07:00] VITALS: PULSE 89; RESP 14; TEMP 37.2; O2SAT 96
--- NOTE | 2024-08-01 11:39 | P.DS_ITS ---
Discharge Providers Date of Admission: 07/23/24 08:34 Date of Discharge: August 01, 2024 Attending Provider at Admission: Artem Ochoa MD Attending Provider at Discharge: Da Nicole Primary Care Provider: Valentina Lomax Diagnoses at Discharge Discharge Diagnosis (1) End of life care: Status: Acute (2) Traumatic pneumothorax: Status: Acute (3) Venous ulcers of both lower extremities: Status: Acute (4) Acute kidney injury: Status: Acute (5) Anemia: Status: Acute Qualifiers: Anemia type: iron deficiency Iron deficiency anemia type: inadequate dietary iron intake Qualified Code(s): D50.8 - Other iron deficiency anemias (6) Hypotension: Status: Acute (7) Severe protein-calorie malnutrition: Status: Acute (8) Failure to thrive in adult: Status: Acute (9) Hypomagnesemia: Status: Acute (10) Pancreatic insufficiency: Status: Acute (11) Goals of care, counseling/discussion: Status: Acute (12) Hypoglycemia: Status: Acute Reason for Visit Reason for Visit: sob; weakness Hospital Course Hospital Course 48-year-old lady with chronic pancreatitis, pancreatic insufficiency, alcohol use disorder last drink in October, CKD, anemia of chronic disease, was admitted after presenting with worsening difficulty breathing and chest pain all preceded by a fall. On presentation with finding of right-sided pneumothorax secondary to trauma after fall. On admission also with finding of anemia hemoglobin below 7 requiring total 3 units RBC transfusion. Underwent endoscopy evaluation with treatment of ongoing bleeding with epinephrine injections. Additionally found to be malnourished, with decreased BMI, sarcopenia, protein levels down to 2. With skin tears, venous stasis ulcers on lower extremities. Underwent debridement. Persistent hypoglycemia required D5W. Underwent treatment of pneumothorax with Thora vent, but with reaccumulation of pneumothorax each time after removal of the chest tube. With her overall condition and quality of life, and no success in treatment on further discussio ns of goals of care care was transitioned over to hospice with arrangements made with case management for her to be able to continue this at home. Physical Exam Narrative: Not in distress. Accompanied by family. Const: GENERAL APPEARANCE: cooperative ORIENTATION/CONSCIOUSNESS: Yes awake Chest: OTHER: Bandage over right side chest wall. No emphysema. Resp: COMMON NORMALS: normal respiratory effort and clear to auscultation bilaterally AUSCULTATION: clear to auscultation bilaterally Cardio: COMMON NORMALS: regular rhythm, S1 normal heart sound present, S2 normal heart sound present and No murmurs present (Cardio) RHYTHM: regular rhythm HEART SOUNDS: S1 normal heart sound present and S2 normal heart sound present GI: COMMON NORMALS: Soft to palpation and non-tender PALPATION: Yes Soft to palpation Extremity: NARRATIVE EXTREMITY EXAM: Thin with sarcopenia. Urinary Catheter Management: Vega: Cath Placed During This Visit: yes Reason for Continuing Indwelling Catheter: Hospice/Comfort/Palliative Care Urinary Catheter Date of Insertion: 07/28/24 Urinary Catheter Time of Insertion: 16:42 Discharge Data Studies Completed and Pending Completed Studies During Hospitalization Category Date Time Status CT chest wo con 03433 Routine Cat Scan 07/24/24 16:45 Completed CXRP [XR chest 1V portable 03468] AM LABS Exams 07/29/24 04:00 Completed CXRP [XR chest 1V portable [id number]] Routine Exams 07/24/24 05:00 Completed CXRP [XR chest 1V portable [id number]] Routine Exams 07/26/24 05:16 Completed CXRP [XR chest 1V portable 39589] Stat Exams 07/26/24 16:42 Completed CXRP [XR chest 1V portable 24471] Stat Exams 07/27/24 07:49 Completed CXRP [XR chest 1V portable 79753] Stat Exams 07/28/24 06:16 Completed CXRP [XR chest 1V portable 64602] Urgent Exams 07/23/24 16:00 Completed XR ankle RT min 3V* 00300 Stat Exams 07/22/24 16:22 Completed XR chest 1V portable 65704 Routine Exams 07/23/24 06:00 Completed XR chest 1V portable 53109 Routine Exams 07/24/24 15:17 Completed XR chest 1V portable 53900 Routine Exams 07/25/24 06:00 Completed XR chest 1V portable [id number] Routine Exams 07/27/24 13:56 Completed XR chest 1V portable [id number] Stat Exams 07/22/24 16:15 Completed XR chest 1V portable [id number] Stat Exams 07/25/24 11:55 Completed XR chest 2V* 12783 Stat Exams 07/22/24 19:35 Completed XR tibia fibula RT 2V 06802 Routine Exams 07/27/24 13:36 Completed MR MRCP [id number] Urgent MRI 07/25/24 16:15 Completed Pathology: Surgical [PTH] Routine Pth 07/25/24 15:44 [place] [id number] Stat Ultrasound 07/22/24 16:22 Completed Pending at discharge Category Date Time Status Anaerobic Culture Routine Lab 07/28/24 08:43 Results Radiology Impressions Ankle X-Ray 07/22/24 16:22 IMPRESSION: 1. No evidence of acute fracture or dislocation. 2. Moderate to marked diffuse soft tissue swelling with questionable skin defect in the medial lower leg. Correlate with physical exam. Duplex Scan Lower Extremity Artery 07/22/24 16:22 IMPRESSION: No stenosis or occlusion. Chest CT 07/24/24 16:45 IMPRESSION: 1. Extensive bilateral pneumonia 2. Right-sided pneumothorax. This could be related to the subpleural cyst noted in the right middle lobe. 3. Right-sided pleural catheter in good position Cholangiopancreatography MRI 07/25/24 16:15 IMPRESSION: There is overall heterogeneity of the hepatic parenchyma similar overall with some periportal tracking. No interval persistent biliary common ductal filling defects are currently appreciated. Overall evaluation of the pancreatic duct is significantly motion and bowel-gas limited. Consider pancreatic and hepatobiliary laboratory profile studies. If there is persistent clinical concern, consider follow-up MRI with contrast or direct visualization with ERCP for further ductal level evaluation. Tibia/Fibula X-Ray 07/27/24 13:36 Impression: Negative right leg Chest X-Ray 07/29/24 04:00 IMPRESSION: Post removal of small right chest tube with residual right apical pneumothorax measuring 3 cm. Laboratory Results WBC 7.92 10^3/uL (3.29-11.43) 07/27/24 05:25 RBC 4.02 10^6/uL (3.85-5.65) 07/27/24 05:25 Hgb 11.90 g/dL (11.27-16.99) 07/27/24 05:25 Hct 35.8 % (36-47) L 07/27/24 05:25 MCV 89.1 fl (85-98) 07/27/24 05:25 MCH 29.6 pg (27-33) 07/27/24 05:25 MCHC 33.2 g/dL (30-55) 07/27/24 05:25 RDW 18.4 % (12.1-15.1) H 07/27/24 05:25 Plt Count 121 10^3/cmm (157-399) L 07/27/24 05:25 MPV 9.8 fL (7.4-10.4) 07/27/24 05:25 Neut % (Auto) 63.0 % 07/27/24 05:25 Lymph % (Auto) 33.2 % 07/27/24 05:25 Whitfield % (Auto) 2.1 % 07/27/24 05:25 Eos % (Auto) 0.0 % 07/27/24 05:25 Baso % (Auto) 0.9 % 07/27/24 05:25 Neut # (Auto) 4.99 10^3/uL (1.8-7.7) 07/27/24 05:25 Lymph # (Auto) 2.6 10^3/uL (0.8-4.8) 07/27/24 05:25 Whitfield # (Auto) 0.2 10^3/uL (0.2-0.9) 07/27/24 05:25 Eos # (Auto) 0.0 10^3/uL (0.0-0.8) 07/27/24 05:25 Baso # (Auto) 0.1 10^3/uL (0.0-0.1) 07/27/24 05:25 Nucleated RBC % (auto) 0 % 07/27/24 05:25 Nucleated RBCs # 0.0 /100WBC 07/27/24 05:25 PT 14.40 SECONDS (12.1-14.9) 07/22/24 17:42 INR 1.09 (0.8-1.2) 07/22/24 17:42 Sodium 138 mmol/L (136-145) 07/27/24 05:25 Potassium 4.1 mmol/L (3.5-5.1) 07/27/24 05:25 Chloride 110 mmol/L (98-107) H 07/27/24 05:25 Carbon Dioxide 17 mmol/L (22-29) L 07/27/24 05:25 Anion Gap 15.1 (5-19) 07/27/24 05:25 BUN 16 mg/dL (6-20) 07/27/24 05:25 Creatinine 0.8 mg/dL (0.5-0.9) 07/27/24 05:25 GFR Calculation 75.9 mL/min (90-130) L 07/27/24 05:25 Glucose 73 mg/dL (65-115) 07/27/24 05:25 POC Glucose 98 mg/dL (70-110) 07/29/24 10:20 Calculated Osmolality 286 mOsm/kg (285-295) 07/27/24 05:25 Lactate 2.5 mmol/L (0.5-2.2) H 07/27/24 16:55 Calcium 7.7 mg/dL (8.5-10.5) L 07/27/24 05:25 Phosphorus 3.5 mg/dL (2.5-4.5) 07/23/24 05:04 Magnesium 1.5 mg/dL (1.7-2.3) L 07/26/24 05:32 Iron 43 ug/dL (37-145) 07/23/24 05:04 TIBC 59.35536 mcg/dl 07/23/24 05:04 % Saturation 71.0 % (20-50) H 07/23/24 05:04 Unsat Iron Binding < 17 ug/dL (112-347) L 07/23/24 05:04 Total Bilirubin 0.9 mg/dL (0.15-1.2) 07/27/24 05:25 AST 16 U/L (0-32) 07/27/24 05:25 ALT 16 U/L (0-33) 07/27/24 05:25 Alkaline Phosphatase 63 U/L (35-105) 07/27/24 05:25 Lactate Dehydrogenase 182 U/L (135-214) 07/27/24 05:24 C-Reactive Protein 37.6 mg/L (0.0-4.9) H 07/27/24 05:25 NT-Pro-B Natriuret Pep 3733 pg/mL (0-125) H 07/22/24 17:42 Total Protein 5.1 g/dL (6.6-8.7) L 07/27/24 05:25 Albumin 3.0 g/dL (3.5-5.2) L 07/27/24 05:25 Globulin 2.1 g/dL (1.3-4.6) 07/27/24 05:25 Prealbumin 5.7 mg/dL (20-40) L 07/22/24 17:42 Lipase 6 U/L (13-60) L 07/22/24 17:42 Vitamin B12 854 pg/mL (232-1245) 07/27/24 05:25 Vitamin B12 Cancelled 07/27/24 05:25 Folate 6.1 ng/mL (4.8-37.3) 07/27/24 05:25 Procalcitonin 2.39 ng/mL (0-0.5) H 07/27/24 05:25 Random Cortisol 14.84 ug/dL (2.47-19.5) 07/25/24 05:20 Urine Color Dark yellow (Yellow) A 07/23/24 06:35 Urine Appearance Clear (CLEAR) 07/23/24 06:35 Urine pH 5.5 (5-7) 07/23/24 06:35 Ur Specific Dovray 1.016 (1.005-1.030) 07/23/24 06:35 Urine Protein 1+ (Negative) A 07/23/24 06:35 Urine Glucose (UA) Negative (Normal) 07/23/24 06:35 Urine Ketones Trace (Negative) 07/23/24 06:35 Urine Blood 2+ (Negative) A 07/23/24 06:35 Urine Nitrate Negative (Negative) 07/23/24 06:35 Urine Bilirubin Negative (Negative) 07/23/24 06:35 Urine Urobilinogen 1.0 mg/dL (Negative) 07/23/24 06:35 Ur Leukocyte Esterase 2+ (Negative) A 07/23/24 06:35 Urine RBC None /hpf (0-2) 07/23/24 06:35 Urine WBC 40-55 /hpf (0-5) H 07/23/24 06:35 Ur Squamous Epith Cells 0-4 /hpf (0-5) H 07/23/24 06:35 Amorphous Sediment Not Reportable 07/23/24 06:35 Urine Bacteria 4+ /hpf (NONE) H 07/23/24 06:35 Ur Random Creatinine 65 mg/dL (20-275) 07/23/24 06:35 Ur Random Albumin 23 % 07/23/24 06:35 Ur Random Microalbumin 7 ug/dL (0-20) 07/23/24 06:35 U Random Total Protein 72 mg/dL (5-24) H 07/23/24 06:35 Ur Random Sodium 35 mmol/L 07/23/24 06:35 Ur Random Potassium 25 mmol/L 07/23/24 06:35 Ur Random Chloride 40 mmol/L 07/23/24 06:35 Urine Creatinine 66 mg/dL (28-217) 07/23/24 06:35 Microalb/Creat Ratio 106 mg/dL (0-20) H 07/23/24 06:35 Protein/Creatinin Ratio 1108 mg/g creat (24-184) H 07/23/24 06:35 Protein/Creat Ratio 24h 1.108 (0.024-0.184) H 07/23/24 06:35 U Random k-7-Ffytsdex % 13 % 07/23/24 06:35 U Random j-2-Bwzgwwyf % 13 % 07/23/24 06:35 U Random Beta Globulin 26 % 07/23/24 06:35 U Random Gamma Glob 25 % 07/23/24 06:35 U Abnormal Prot Band 1 Not Reportable 07/23/24 06:35 U Abnormal Prot Band 2 Not Reportable 07/23/24 06:35 U Abnormal Prot Band 3 Not Reportable 07/23/24 06:35 Urine PEP Interpret See note 07/23/24 06:35 Urine Opiates Screen Negative ng/mL (Negative) 07/23/24 06:35 Ur Barbiturates Screen Negative ng/mL (Negative) 07/23/24 06:35 Ur Phencyclidine Scrn Negative ng/mL (Negative) 07/23/24 06:35 Ur Amphetamines Screen Negative ng/mL (Negative) 07/23/24 06:35 U Benzodiazepines Scrn Negative ng/mL (Negative) 07/23/24 06:35 Urine Cocaine Screen Negative ng/mL (Negative) 07/23/24 06:35 U Marijuana (THC) Screen Negative ng/mL (Negative) 07/23/24 06:35 Ethyl Alcohol < 10 mg/dL (0-10) 07/22/24 17:42 Blood Type O Positive 07/23/24 06:40 Rho(D) Type Rh positive 07/23/24 06:40 Antibody Screen Negative 07/23/24 06:40 Crossmatch See Detail 07/23/24 06:40 Vitals Last Vital Signs Temp 98.9 F 08/01/24 07:00 Pulse 89 08/01/24 07:00 Resp 14 08/01/24 07:00 BP 92/65 07/30/24 10:00 Pulse Ox 96 08/01/24 07:00 O2 Del Method Room Air 08/01/24 07:00 O2 Flow Rate 0 07/31/24 08:00 Discharge Plan Discharge Patient Disposition: Hospice - Home Condition: Stable Prescriptions: Continued levothyroxine 100 mcg capsule 100 mcg PO DAILY buprenorphine-naloxone [Suboxone] 8-2 mg film 1 film buccal TID Creon 3,000-9,500- 15,000 unit capsule,delayed release(DR/EC) 2 cap PO TID PRN (Reason: Abdominal Pain) Rx Instructions: With meals midodrine 5 mg tablet 5 mg PO BID Qty: 60 3RF Rx Instructions: do not give last dose of day after 6PM or within 4 hrs of bedtime ergocalciferol (vitamin D2) 1,250 mcg (50,000 unit) capsule 1,250 mcg PO DIRECTED Rx Instructions: Twice a month on the and of every month bupropion HCl 300 mg tablet extended release 24 hr 300 mg PO DAILY disulfiram 250 mg Tablet 500 mg PO DAILY folic acid 1 mg Tablet 1 mg PO DAILY thiamine mononitrate (vit B1) 100 mg PO DAILY promethazine 25 mg Tablet 25 mg PO Q4H PRN (Reason: Nausea) Discontinued doxycycline hyclate 100 mg tablet 100 mg PO BID 7 Days Qty: 14 0RF Discharge Orders: Discharge Order (Routine); Ordered 08/01/24 Ordered By: Da Nicole Referrals: [facility] [Outside] Valentina Lomax FNP-C [Primary Care Provider] - 1 week Patient Instructions: Spontaneous Pneumothorax (DC), Acute Kidney Injury (DC), Hospice Care (GEN), GI Post Discharge Instructions w/ Anesthesia, Opioid Safety Activity Restrictions/Additional Instructions: Continue hospice care. Continue soft mechanical diet. Continue wound care for venous stasis ulcers. Elevate lower extremities. Apply foam dressing daily. Discharge Attestations Time Spent in Discharge Care*: greater than 30 min Quality Metrics Clinical Quality Measures [ No reported AMI, CVA or VTE this stay] Coding Level of Care Code 84898 Total time (in minutes) for Discharge: 40 Diagnoses End of life care Z51.5 Traumatic pneumothorax S27.0XXA Venous ulcers of both lower extremities I83.019; I83.029; L97.919; L97.929 Acute kidney injury N17.9 Iron deficiency anemia secondary to inadequate dietary iron intake D50.8 Anemia type: iron deficiency Iron deficiency anemia type: inadequate dietary iron intake Hypotension I95.9 Severe protein-calorie malnutrition E43 Failure to thrive in adult R62.7 Hypomagnesemia E83.42 Pancreatic insufficiency K86.89 Goals of care, counseling/discussion Z71.89 Hypoglycemia E16.2
[2024-08-01 13:32] VITALS: BP 92/65; PULSE 89; RESP 14; TEMP 37.2; O2SAT 96
--- NOTE | 2024-08-01 13:35 | PC.NURSE ---
Discharge instructions provided to pt and her family. This nurse contacts who is at home. He prefers stretcher ride instead of him transporting pt. Zev Mortensen contacted for stretcher ride home.
[2024-08-01] MEDS: morphine 10 mg/0.5 mL oral liq UD 5 MG PO ×2 (14:47→16:04)
--- NOTE | 2024-08-01 16:05 | PC.NURSE ---
Zev Mortensen here to fruit picker pt. Family at bedside.
== END 2024-08-01 16:05 | disposition hospice, home (50) | DRG 166 ==
LOC: ER 17:19 → ICU 20:28 → MEDSURG 07-26
PROVIDERS: Family Medicine; Student in an Organized Health Care Education/Training Program; Surgery; Admitting Provider Internal Medicine; Emergency Provider Emergency Medicine; PCP Nurse Practitioner Family; Visit Provider Internal Medicine
PROC: 0DJ08ZZ Inspection of Upper Intestinal Tract, Via Natural or Artificial Opening Endoscopic (ICD-10-PCS; CPT 43235; principal; 2024-07-25 13:45)
PROC: 0DBA8ZX Excision of Jejunum, Via Natural or Artificial Opening Endoscopic, Diagnostic (ICD-10-PCS; 2024-07-25 13:45)
PROC: 0DJD8ZZ Inspection of Lower Intestinal Tract, Via Natural or Artificial Opening Endoscopic (ICD-10-PCS; CPT 45330; 2024-07-25 13:45)
PROC: 0JBN0ZZ Excision of Right Lower Leg Subcutaneous Tissue and Fascia, Open Approach (ICD-10-PCS; principal; 2024-07-28 08:00)
DX: S27.0XXA Traumatic pneumothorax, initial encounter (principal); E43 Unspecified severe protein-calorie malnutrition; J18.9 Pneumonia, unspecified organism; K25.4 Chronic or unspecified gastric ulcer with hemorrhage; L02.415 Cutaneous abscess of right lower limb; N17.9 Acute kidney failure, unspecified; L97.929 Non-pressure chronic ulcer of unspecified part of left lower leg with unspecified severity; L97.812 Non-pressure chronic ulcer of other part of right lower leg with fat layer exposed; Z68.1 Body mass index [BMI] 19.9 or less, adult; K86.1 Other chronic pancreatitis; E87.20 Acidosis, unspecified; N39.0 Urinary tract infection, site not specified; E87.0 Hyperosmolality and hypernatremia; I87.8 Other specified disorders of veins; D50.9 Iron deficiency anemia, unspecified; I95.9 Hypotension, unspecified; R62.7 Adult failure to thrive; E83.42 Hypomagnesemia; K86.89 Other specified diseases of pancreas; E16.2 Hypoglycemia, unspecified; N18.9 Chronic kidney disease, unspecified; M62.84 Sarcopenia; F32.A Depression, unspecified; K75.81 Nonalcoholic steatohepatitis (NASH); E03.9 Hypothyroidism, unspecified; E87.5 Hyperkalemia; Q40.8 Other specified congenital malformations of upper alimentary tract; W19.XXXA Unspecified fall, initial encounter; Z51.5 Encounter for palliative care; Z66 Do not resuscitate
CPT/HCPCS: 36415; 36416; 36430; 43239; 45330; 51702; 71045; 71046; 71250; 73590; 73610; 74181; 80048; 80053; 80306; 80307; 81001; 82044; 82436; 82533; 82570; 82607; 82746; 82962; 83540; 83550; 83605; 83615; 83690; 83735; 83880; 84100; 84133; 84134; 84145; 84156; 84166; 84300; 85025; 85610; 86140; 86850; 86900; 86920; 87040; 87070; 87075; 87077; 87086; 87186; 87205; 88305; 93005; 93926; 96372; 96376; 97110; 97162; 97165; 97530; 99285; G0378; J0171; J0573; J0696; J1610; J1650; J2060; J2270; J2405; J2470; J2543; J2704; J3010; J3370; J3475; J7050; J7512; J7799; P9016; P9040; P9046; Q0169